=== PATIENT | female | born 1950 | race Caucasian/White ===

== ENCOUNTER 2020-07-27 13:23 | Outpatient (REF) | payer MEDICARE, OTHER, SELFPAY ==
[2020-07-28 01:36] LABS: CT PCR NOT DETECTED (Not Detect.); NG PCR NOT DETECTED (Not Detect.)
[2020-07-28 12:04] LABS: BV Int Neg Control Negative (Negative); BV Int Pos Control Positive (Positive)
== END 2020-07-27 13:24 | disposition home or self-care (01) ==
LOC: HO.LAB 13:23
PROVIDERS: PCP Internal Medicine; Visit Provider Obstetrics & Gynecology
DX: Z11.3 Encounter for screening for infections with a predominantly sexual mode of transmission (principal); R10.2 Pelvic and perineal pain
CPT/HCPCS: 87480; 87491; 87510; 87591; 87660; 99202

== ENCOUNTER 2020-08-10 11:02 | Outpatient (REF) | payer MEDICARE, OTHER, SELFPAY ==
--- NOTE | ~2020-08-10 | US_ITS ---
EXAMINATION: ULTRASOUND PELVIS COMPLETE CLINICAL INFORMATION: Pelvic pain COMPARISON: None TECHNIQUE: Transabdominal and transvaginal imaging of pelvis was performed. FINDINGS: The uterus is anteverted and anteflexed measuring 6.9 cm in length, 3.1 cm AP and 3.6 cm in transverse dimension. Endometrial thickness is 0.8 cm. There is small anechoic/cystic area seen in endometrial measuring 0.4 x 0.4 x 0.2 cm. Neither ovary is visualized. There is no free fluid in the cul-de-sac. US/US pelvic complete IMPRESSION: Unremarkable uterus with small endometrial cyst measuring 0.4 cm. Ovaries are not seen. There is no free fluid.
--- NOTE | ~2020-08-10 | US_ITS ---
EXAMINATION: ULTRASOUND PELVIS COMPLETE CLINICAL INFORMATION: Pelvic pain COMPARISON: None TECHNIQUE: Transabdominal and transvaginal imaging of pelvis was performed. FINDINGS: The uterus is anteverted and anteflexed measuring 6.9 cm in length, 3.1 cm AP and 3.6 cm in transverse dimension. Endometrial thickness is 0.8 cm. There is small anechoic/cystic area seen in endometrial measuring 0.4 x 0.4 x 0.2 cm. Neither ovary is visualized. There is no free fluid in the cul-de-sac. US/US transvaginal IMPRESSION: Unremarkable uterus with small endometrial cyst measuring 0.4 cm. Ovaries are not seen. There is no free fluid.
== END 2020-08-10 11:03 | disposition home or self-care (01) ==
LOC: HO.US 11:02
PROVIDERS: Visit Provider Obstetrics & Gynecology
DX: R10.2 Pelvic and perineal pain (principal)
CPT/HCPCS: 76830; 76856

== ENCOUNTER → 2020-08-25 10:44 | Outpatient (BNVA) | payer MEDICARE, OTHER, SELFPAY | PROVIDERS: Visit Provider Obstetrics & Gynecology | DX: R10.2 Pelvic and perineal pain (principal) | CPT/HCPCS: Q3014 ==

== ENCOUNTER 2021-04-08 11:23 | Outpatient (REF) | payer MEDICARE, OTHER, SELFPAY ==
--- NOTE | ~2021-04-08 | CT_ITS ---
EXAMINATION: CT MAXILLOFACIAL WITHOUT CONTRAST CLINICAL INFORMATION: Chronic sinusitis. COMPARISON: Brain MRI 06/07/2011. TECHNIQUE: Multidetector helical imaging was performed in the axial plane with generation of coronal and sagittal reformatted images. This CT examination was performed using dose optimization techniques as appropriate, variously including the following: *Automated exposure control *Adjustment of mA and/or kV according to patient size (this includes techniques or standardized protocols for targeted exams where dose is matched to indication/reason for exam; i.e. extremities or head) *Use of iterative reconstruction technique DLP: 113 mGy-cm. FINDINGS: The frontal sinuses are clear. There is mild mucosal thickening in the bilateral ethmoid air cells. The sphenoid sinuses are clear. The maxillary sinuses are clear. No fluid levels are seen. The nasal septum deviated towards the left. The ethmoid roofs are symmetric. There is chronic fracture deformity of the left lamina papyracea/medial orbital wall. The carotid impressions appear dehiscent into the sphenoid sinus. No maxillary periapical disease is seen. The mastoid air cells and visualized middle ear cavities are well aerated. The orbits are normal. The TMJs are unremarkable. The imaged portions of the brain demonstrate no acute abnormality. Severe degenerative changes are incidentally seen at the left lateral C1-C2 articulation. CT/CT sinus wo con IMPRESSION: Mild mucosal thickening in the posterior ethmoid air cells. The paranasal sinuses are otherwise clear without fluid levels. Leftward deviation of the nasal septum. Chronic fracture of the left medial orbital wall.
== END 2021-04-08 11:24 | disposition home or self-care (01) ==
LOC: HO.CT 11:23
PROVIDERS: PCP Internal Medicine; Visit Provider Internal Medicine
DX: J32.9 Chronic sinusitis, unspecified (principal)
CPT/HCPCS: 70486

== ENCOUNTER → 2021-06-15 11:16 | Outpatient (BNVA) | payer MEDICARE, OTHER, SELFPAY | PROVIDERS: PCP Internal Medicine; Visit Provider Obstetrics & Gynecology | DX: Z01.419 Encounter for gynecological examination (general) (routine) without abnormal findings (principal); N95.1 Menopausal and female climacteric states; Z71.89 Other specified counseling | CPT/HCPCS: 99212 ==

== ENCOUNTER 2021-09-17 10:29 | Outpatient (REF) | payer MEDICARE, OTHER, SELFPAY ==
[2021-09-17 11:25] LABS: MANUAL DIFF FLAG NO
[2021-09-17 11:34] LABS: Basophils Absolute Auto 0.1 X10*3/uL (0.0-0.2); Basophils Percent Auto 0.8 % (0-2); Eosinophils Absolute Auto 0.1 X10*3/uL (0.0-0.4); Eosinophils Percent Auto 0.8 % (0-4); Hematocrit 34.3 % (37.0-47.0); Hemoglobin 11.8 g/dl (12.0-16.0); Imm Gran Abs Auto 0.02 X10*3/uL (0.00-0.03); Imm Gran Pct Auto 0.3 % (0.0-0.4); Lymphocytes Absolute Auto 1.4 X10*3/uL (1.2-4.9); Lymphocytes Percent Auto 23.4 % (20-40); Mean Corpuscular HGB Conc 34.4 g/dl (31.0-35.0); Mean Platelet Volume 9.2 fL (9.4-12.3); Monocytes Absolute Auto 0.6 X10*3/uL (0.1-1.2); Monocytes Percent Auto 9.3 % (2-11); Neutrophils Absolute Auto 3.9 x10*3/uL (2.0-8.3); Neutrophils Percent Auto 65.4 % (45-73); Platelet Count 328 X10*3/uL (160-400); Red Blood Count 3.69 X10*6/uL (4.20-5.50); Red Cell Distribution Width 11.7 % (11.0-16.0); White Blood Count 5.9 X10*3/uL (4.8-10.8)
[2021-09-17 12:20] LABS: Alanine Aminotransferase < 6 U/L (0-31); Albumin Level 4.4 g/dL (3.5-5.0); Alkaline Phosphatase 60 U/L (39-117); Anion Gap 12 (12-20); Aspartate Amino Transferase 23 U/L (5-31); Bilirubin Total 0.7 mg/dL (0.0-1.0); Blood Urea Nitrogen 11 mg/dL (9-16); Calcium 9.9 mg/dL (8.4-10.2); Carbon Dioxide 29 mmol/L (22-29); Chloride 91 mmol/L (96-108); Cholesterol 222 mg/dL; Estimated Glomerular Filt Rate > 60; Glucose Fasting 95 mg/dL (60-99); HDL Cholesterol 90 mg/dL; LDL Cholesterol Calculated 121 mg/dl; Potassium 3.8 mmol/L (3.3-5.1); Sodium 128 mmol/L (135-145); Total Protein 6.8 g/dL (6.5-8.0); Triglycerides 56 mg/dL
== END 2021-09-17 10:30 | disposition home or self-care (01) ==
LOC: HO.10HDL 10:29
PROVIDERS: Visit Provider Internal Medicine
DX: Z00.00 Encounter for general adult medical examination without abnormal findings (principal); E03.9 Hypothyroidism, unspecified; E78.5 Hyperlipidemia, unspecified; Z13.0 Encounter for screening for diseases of the blood and blood-forming organs and certain disorders involving the immune mechanism
CPT/HCPCS: 36415; 80053; 80061; 84443; 85025

== ENCOUNTER → 2022-03-31 15:36 | Outpatient (BNVA) | payer MEDICARE, OTHER, SELFPAY | PROVIDERS: PCP Internal Medicine; Visit Provider Obstetrics & Gynecology | DX: Z71.89 Other specified counseling (principal) | CPT/HCPCS: 99211 ==

== ENCOUNTER 2022-05-10 12:16 | Outpatient (REF) | payer MEDICARE, OTHER, SELFPAY ==
[2022-05-10 13:14] LABS: MANUAL DIFF FLAG NO
[2022-05-10 14:25] LABS: Basophils Percent Auto 0.5 % (0-2); Eosinophils Percent Auto 0.2 % (0-4); Hematocrit 36.8 % (37.0-47.0); Hemoglobin 12.4 g/dl (12.0-16.0); Imm Gran Abs Auto 0.02 X10*3/uL (0.00-0.03); Imm Gran Pct Auto 0.2 % (0.0-0.4); Lymphocytes Absolute Auto 1.9 X10*3/uL (1.2-4.9); Lymphocytes Percent Auto 23.4 % (20-40); Mean Corpuscular HGB Conc 33.7 g/dl (31.0-35.0); Mean Corpuscular Hemoglobin 32.5 pg (27.0-33.0); Mean Corpuscular Volume 96.3 fL (80.0-98.0); Mean Platelet Volume 9.9 fL (9.4-12.3); Monocytes Absolute Auto 0.7 X10*3/uL (0.1-1.2); Monocytes Percent Auto 7.8 % (2-11); Neutrophils Absolute Auto 5.6 x10*3/uL (2.0-8.3); Neutrophils Percent Auto 67.9 % (45-73); Platelet Count 340 X10*3/uL (160-400); Red Blood Count 3.82 X10*6/uL (4.20-5.50); Red Cell Distribution Width 12.2 % (11.0-16.0); White Blood Count 8.3 X10*3/uL (4.8-10.8)
[2022-05-10 15:00] LABS: Anion Gap 15 (12-20); Blood Urea Nitrogen 16 mg/dL (9-16); Calcium 10.4 mg/dL (8.4-10.2); Carbon Dioxide 30 mmol/L (22-29); Chloride 96 mmol/L (96-108); Estimated Glomerular Filt Rate > 60; Glucose Random 102 mg/dL (60-115); Potassium 4.5 mmol/L (3.3-5.1); Sodium 136 mmol/L (135-145)
== END 2022-05-10 12:17 | disposition home or self-care (01) ==
LOC: HO.LAB 12:16
PROVIDERS: PCP Internal Medicine; Visit Provider Internal Medicine
DX: D64.9 Anemia, unspecified (principal); I10 Essential (primary) hypertension
CPT/HCPCS: 36415; 80048; 85025

== ENCOUNTER 2022-05-15 17:25 | Outpatient (REF) | payer MEDICARE, OTHER, SELFPAY ==
[2022-05-16 08:58] LABS: Appearance Urine Clear; Color Urine Yellow; Glucose Urine UA Negative (Negative); Leukocyte Esterase Urine Negative (Negative); Nitrite Urine Negative (Negative); PH 6.5 (5.0-9.0); UMIC TRIGGER UA YES; Urine Blood Small (1+) (Negative); Urine Ketones Negative (Negative); Urine Protein Negative (Neg-Trace)
[2022-05-16 09:06] LABS: Bacteria Urine None Seen (None Seen); Hyaline Casts Urine 0-2 /LPF (0-2); Squamous Epithelial Cell Urine 0-2 /HPF (0-2); WBC Urine 0-5 /HPF (0-5)
== END 2022-05-15 17:26 | disposition home or self-care (01) ==
LOC: HO.LNP 17:25
PROVIDERS: Visit Provider Internal Medicine
DX: R82.90 Unspecified abnormal findings in urine (principal)
CPT/HCPCS: 81001

== ENCOUNTER 2023-01-12 11:36 | Outpatient (AMB) | payer MEDICARE, OTHER, SELFPAY ==
--- NOTE | 2023-01-12 11:32 | MHC.PC.OV ---
Vital Signs 01/12/23 11:32 Height 5 ft 7 in Intake Visit Reasons: Migraine/ Nausea [phone] Allergies fluticasone [Flonase] Allergy (Unknown, Verified 01/12/23 11:32) Unknown penicillin V Allergy (Unknown, Verified 01/12/23 11:32) Unknown Medication List - Last Reconciled 01/12/23 by Kofi Fan MD azithromycin take 500 mg today (day 1), then 250 mg for 4 days (days 2-5) PO carbidopa-levodopa 25-100 mg 1 tab PO .FIVE TIMES A DAY carbidopa-levodopa 50-200 mg ER 1 tab PO BEDTIME ciprofloxacin HCl (Cipro) 250 mg PO BID dicyclomine 20 mg PO QID fluticasone propionate 50 mcg/actuation sprays intranasal hydrochlorothiazide 12.5 mg PO DAILY ondansetron HCl 4 mg PO Q8H PRN Tobacco use date assessed: 06/24/22 Fall risk assessment: 1 Fall in past year Last assessed Fall Risk: 01/12/23 Dental Screening Dental Screen Date: 01/12/23 Did you have a dental visit in the last 12 months?: Yes Did you have a dental problem in the last 6 months where you did not have access to dental care?: No Was dental information given to patient?: Patient has dentist HPI Migraine/ Nausea [phone] HPI Details difficulty sleeping with occ gasping for breath; concern raised about nikki PFSH Medical History Parkinson disease Surgical History History of cholecystectomy Family History Father Heart disease Mother No problems noted. Family/Other Breast cancer Social History Housing: House Alcohol intake: never Patient Tobacco Use Status: Never used Tobacco e-Cigarette/Vaping Use: Never Used Second Hand Smoke Exposure: No service: No Current occupational status: retired Cognitive needs: No Hearing needs: No Vision needs: Yes Female Reproductive History Menstrual Age of Menarche: 11 Questionnaire Thrive Questionnaire Date Thrive assessed: 05/10/22 MARIA ELENA-7 AMB Questionnaire MARIA ELENA-7 Date MARIA ELENA - 7 assessed: 06/01/22 Source: Developed by Drs. Chaitanya Chao, Aide Unger, Darci Patel and colleagues, with an educational krzysztof from [employer] [facility]. Review of Systems Const Denies chills, Denies headache(s) and Denies weight loss ENT Denies headache(s) Card Denies chest pain, Denies syncope and Denies irregular heart rhythm Resp Denies chest congestion and Denies cough GI Denies abdominal pain, Denies change in stool character, Denies nausea and Denies vomiting Musc Denies deformity and Denies joint swelling Neuro Denies syncope and Denies headache(s) Physical exam (Primary Care) Tobacco/Smoking Status: Tobacco use Status Tobacco use date assessed 06/24/22 01/12/23 11:35 Patient Tobacco Use Status Never used Tobacco 01/12/23 11:35 e-Cigarette/Vaping Use Never Used 01/12/23 11:35 Thrive Assessment: Date of Thrive Assessment Date Thrive assessed 05/10/22 01/12/23 11:35 Telehealth Telehealth Location of provider rendering services: practice address Location of patient: address on file Patient Identification confirmed using: Name, : Yes Telehealth method: voice only Patient verbally consented to treatment: Yes Patient verbally consented to billing insurance company: Yes Patient informed of any privacy concerns related to visit: Yes Minutes spent on Phone/Video with Pt.: 15 (telephone) Assessment and Plan Assessment & Plan (1) Apnea: Code(s): R06.81 - Apnea, not elsewhere classified Plan: sleep study Orders: Orders RT home sleep study Today R06.81 - Apnea, not elsewhere classified Coding Level of Care Code Tele Est Pt Level 3 (33061) Diagnoses Apnea R06.81
== END 2023-01-12 13:14 | disposition home or self-care (01) ==
LOC: HO.HMGH 11:36
PROVIDERS: PCP Internal Medicine; Visit Provider Internal Medicine
DX: R06.81 Apnea, not elsewhere classified (principal)
CPT/HCPCS: 99442

== ENCOUNTER → 2023-01-17 09:53 | Outpatient (REF) | payer MEDICARE, OTHER, SELFPAY | LOC: HO.SL 09:53 | PROVIDERS: Visit Provider Internal Medicine | DX: R06.81 Apnea, not elsewhere classified (principal) | CPT/HCPCS: 95806 ==

== ENCOUNTER → 2023-01-17 10:07 | Outpatient (BNV) | payer MEDICARE, OTHER, SELFPAY | PROVIDERS: Visit Provider Internal Medicine | DX: R06.83 Snoring (principal) | CPT/HCPCS: 95806 ==

== ENCOUNTER 2023-01-31 11:37 | Outpatient (AMB) | payer MEDICARE, OTHER, SELFPAY ==
[2023-01-31 11:42] VITALS: BP 126/82; PULSE 85; O2SAT 100
--- NOTE | 2023-01-31 11:42 | MHC.PC.OV ---
Vital Signs 01/31/23 11:42 Height 5 ft 7 in BP 126/82 Blood Pressure Location Lt brachial Position Sitting Pulse 85 Pulse Source Pulse Oximeter Pulse Oximetry (%) 100 Oxygen Delivery Method Room Air Intake Visit Reasons: diarrhea and nausea Resistance Brazer: Present Allergies fluticasone [Flonase] Allergy (Unknown, Verified 01/31/23 11:45) Unknown penicillin V Allergy (Unknown, Verified 01/31/23 11:45) Unknown Medication List - Last Reconciled 02/01/23 by Kofi Fan MD carbidopa-levodopa 25-100 mg 1 tab PO .FIVE TIMES A DAY carbidopa-levodopa 50-200 mg ER 1 tab PO BEDTIME dicyclomine 20 mg PO QID diphenoxylate-atropine 2.5-0.025 mg (Lomotil) 1 tab PO TID fluticasone propionate 50 mcg/actuation sprays intranasal hydrochlorothiazide 12.5 mg PO DAILY ondansetron HCl 4 mg PO Q6H PRN Tobacco use date assessed: 06/24/22 Fall risk assessment: 1 Fall in past year Last assessed Fall Risk: 01/31/23 Dental Screening Dental Screen Date: 01/31/23 Did you have a dental visit in the last 12 months?: Yes Did you have a dental problem in the last 6 months where you did not have access to dental care?: No Was dental information given to patient?: Patient has dentist HPI diarrhea and nausea HPI Details has irritable bowel syndrome; varying amounts of nausea cramps and diarrhea; has seen gi PFSH Medical History Parkinson disease Surgical History History of cholecystectomy Family History Father Heart disease Mother No problems noted. Family/Other Breast cancer Social History Housing: House Alcohol intake: never Patient Tobacco Use Status: Never used Tobacco e-Cigarette/Vaping Use: Never Used Second Hand Smoke Exposure: No service: No Current occupational status: retired Cognitive needs: No Hearing needs: No Vision needs: Yes Female Reproductive History Menstrual Age of Menarche: 11 Questionnaire Thrive Questionnaire Date Thrive assessed: 05/10/22 MARIA ELENA-7 AMB Questionnaire MARIA ELENA-7 Date MARIA ELENA - 7 assessed: 06/01/22 Source: Developed by Drs. Chaitanya Chao, Aide Unger, Darci Patel and colleagues, with an educational krzysztof from [employer]. Review of Systems Const Denies chills, Denies headache(s) and Denies weight loss ENT Denies headache(s) Card Denies chest pain, Denies syncope, Denies irregular heart rhythm and Denies dyspnea Resp Denies chest congestion, Denies cough and Denies dyspnea GI Denies vomiting Musc Denies deformity and Denies joint swelling Neuro Denies syncope and Denies headache(s) Physical exam (Primary Care) Vital Signs: Last Vital Signs Pulse 85 01/31/23 11:42 BP 126/82 01/31/23 11:42 Pulse Ox 100 01/31/23 11:42 Oxygen Delivery Method Room Air 01/31/23 11:42 Tobacco/Smoking Status: Tobacco use Status Tobacco use date assessed 06/24/22 01/31/23 11:49 Patient Tobacco Use Status Never used Tobacco 01/31/23 11:49 e-Cigarette/Vaping Use Never Used 01/31/23 11:49 Thrive Assessment: Date of Thrive Assessment Date Thrive assessed 05/10/22 01/31/23 11:49 Const General: cooperative, comfortable, no acute distress and alert Neck Neck: Yes no lymphadenopathy Thyroid: Thyroid normal Resp Effort & Inspection: normal respiratory effort Auscultation: clear to auscultation bilaterally Percussion: percussion normal Cardio Jugular venous distension: no JVD Palpation: normal PMI Rate: regular rate Rhythm: regular rhythm Heart sounds: S1 normal heart sound present and S2 normal heart sound present GI Inspection: Yes normal to inspection Palpation (GI): No hepatosplenomegaly present Skin General skin exam: no rashes or lesions noted Extrem General: Yes no clubbing, cyanosis or edema Assessment and Plan Assessment & Plan (1) Irritable bowel disease: Code(s): K58.9 - Irritable bowel syndrome without diarrhea Plan: cont rx Medications: New ondansetron HCl 4 mg PO Q6H PRN 30 tabs 2RF nausea and vomiting diphenoxylate-atropine 2.5-0.025 mg (Lomotil) 1 tab PO TID 30 tabs 0RF Refilled dicyclomine 20 mg PO QID 30 tabs 3RF Coding Level of Care Code Est Pt Level 3 (82173) Diagnoses Irritable bowel disease K58.9
== END 2023-01-31 12:10 | disposition home or self-care (01) ==
PROVIDERS: PCP Internal Medicine; Visit Provider Internal Medicine
DX: K58.9 Irritable bowel syndrome, unspecified (principal)
CPT/HCPCS: 99213

== ENCOUNTER 2023-04-28 10:34 | Outpatient (AMB) | payer MEDICARE, OTHER, SELFPAY ==
[2023-04-28 10:35] VITALS: BP 140/68; PULSE 118; O2SAT 100; BMI 17.4
--- NOTE | 2023-04-28 10:35 | A.OFFPC_ITS ---
Vital Signs 04/28/23 10:35 Height 5 ft 7 in Weight 111 lb 0.6 oz BMI 17.4 BP 140/68 H Blood Pressure Location Lt brachial Position Sitting Pulse 118 H Pulse Source Pulse Oximeter Pulse Oximetry (%) 100 Oxygen Delivery Method Room Air Intake Visit Reasons: assisted living forms [employer] Required: No Allergies fluticasone [Flonase] Allergy (Unknown, Verified 04/28/23 10:35) Unknown penicillin V Allergy (Unknown, Verified 04/28/23 10:35) Unknown Medication List - Last Reconciled 04/28/23 by Kofi Fan MD carbidopa-levodopa 25-100 mg 1 tab PO .FIVE TIMES A DAY carbidopa-levodopa 50-200 mg ER 1 tab PO BEDTIME clonazepam 0.5 mg PO BID dicyclomine 20 mg PO QID diphenoxylate-atropine 2.5-0.025 mg (Lomotil) 1 tab PO TID fluticasone propionate 50 mcg/actuation sprays intranasal hydrochlorothiazide 12.5 mg PO DAILY ondansetron HCl 4 mg PO Q6H PRN Tobacco use date assessed: 04/28/23 Fall risk assessment: No Falls in past year Last assessed Fall Risk: 04/28/23 Dental Screening Dental Screen Date: 04/28/23 Did you have a dental visit in the last 12 months?: Yes Did you have a dental problem in the last 6 months where you did not have access to dental care?: No Was dental information given to patient?: Patient has dentist HPI assisted living forms HPI Details parkinsons dis; stable on rx; will be moving into assisted living [facility] Medical History Parkinson disease Surgical History History of cholecystectomy Family History Father Heart disease Mother No problems noted. Family/Other Breast cancer Social History Housing: House Alcohol intake: never Patient Tobacco Use Status: Never used Tobacco e-Cigarette/Vaping Use: Never Used Second Hand Smoke Exposure: No service: No Current occupational status: retired Cognitive needs: No Hearing needs: No Vision needs: Yes Female Reproductive History Menstrual Age of Menarche: 11 Questionnaire PHQ-9 Over the last 2 weeks, how often have you been bothered by any of the following problems? 1. Little interest or pleasure in doing things: not at all 2. Feeling down, depressed, or hopeless: not at all 3. Trouble falling or staying asleep, or sleeping too much: not at all 4. Feeling tired or having little energy: not at all 5. Poor appetite or overeating: not at all 6. Feeling bad about yourself - or that you are a failure or have let yourself or your family down: not at all 7. Trouble concentrating on things, such as reading the newspaper or watching television: not at all 8. Moving or speaking so slowly that other people could have noticed. Or the opposite - being so fidgety or restless that you have been moving around a lot more than usual: not at all 9. Thoughts that you would be better off or of hurting yourself in some way: not at all Total score: 0 Depression Screening Interpretation: Positive Depression Screening Done: Yes 23615 - PHQ-9 Billing: Yes Source: Developed by Drs. Chaitanya Chao, Aide Unger, Darci Patel and colleagues, with an educational krzysztof from [employer]. Thrive Questionnaire Date Thrive assessed: 04/28/23 AUDIT C Alcohol Use Questionnaire (AUDIT-C) 1. How often do you have a drink containing alcohol?: Never 3. How often do you have six or more drinks on one occasion?: Never Total Score: 0 Score Reviewed/Action Taken: Yes MARIA ELENA-7 AMB Questionnaire MARIA ELENA-7 Date MARIA ELENA - 7 assessed: 04/28/23 Feeling nervous, anxious, or on edge: 3 = Nearly every day Not being able to stop or control worryin = Nearly every day Worrying too much about different things: 3 = Nearly every day Trouble relaxin = Nearly every day Being so restless that it is hard to sit still: 3 = Nearly every day Becoming easily annoyed or irritable: 3 = Nearly every day Feeling afraid as if something awful might happen: 3 = Nearly every day Total MARIA ELENA-7 score (0-4 normal; 5-9 mild; 10-14 moderate; 15-21 severe): 21 Source: Developed by Drs. Chaitanya Chao, Aide Unger, Darci Patel and colleagues, with an educational krzysztof from [employer]. MARIA ELENA-7 Assessment Billing MARIA ELENA-7 Assessment Tool: MARIA ELENA-7 Assessment [id number] Review of Systems Const Denies chills, Denies headache(s) and Denies weight loss ENT Denies headache(s) Card Denies chest pain, Denies syncope, Denies irregular heart rhythm and Denies dyspnea Resp Denies chest congestion, Denies cough and Denies dyspnea GI Denies abdominal pain, Denies change in stool character, Denies nausea and Denies vomiting Musc Denies deformity and Denies joint swelling Neuro Denies syncope and Denies headache(s) Physical exam (Primary Care) Vital Signs: Last Vital Signs Pulse 118 H 04/28/23 10:35 BP 140/68 H 04/28/23 10:35 Pulse Ox 100 04/28/23 10:35 Oxygen Delivery Method Room Air 04/28/23 10:35 BMI result Body Mass Index 17.4 Tobacco/Smoking Status: Tobacco use Status Tobacco use date assessed 04/28/23 04/28/23 10:36 Patient Tobacco Use Status Never used Tobacco 04/28/23 10:36 e-Cigarette/Vaping Use Never Used 04/28/23 10:36 PHQ-9: PHQ-9 Score PHQ-9: Total score 0 04/28/23 10:43 Depression Screening Interpretation: Positive Thrive Assessment: Date of Thrive Assessment Date Thrive assessed 04/28/23 04/28/23 10:36 Const General: cooperative, comfortable, no acute distress and alert Neck Neck: Yes no lymphadenopathy Thyroid: Thyroid normal Resp Effort & Inspection: normal respiratory effort Auscultation: clear to auscultation bilaterally Percussion: percussion normal Cardio Jugular venous distension: no JVD Palpation: normal PMI Rate: regular rate Rhythm: regular rhythm Heart sounds: S1 normal heart sound present and S2 normal heart sound present GI Inspection: Yes normal to inspection Palpation (GI): No hepatosplenomegaly present Skin General skin exam: no rashes or lesions noted Extrem General: Yes no clubbing, cyanosis or edema Assessment and Plan Assessment & Plan (1) Parkinson disease: Code(s): G20 - Parkinson's disease Plan: cont with neuro Coding Level of Care Code Est Pt Level 3 (23888) Diagnoses Parkinson disease G20 Additional Codes MARIA ELENA-7 Assessment Billing - MARIA ELENA-7 Assessment Tool: MARIA ELENA-7 Assessment [id number] ([id number])
== END 2023-04-28 12:25 | disposition home or self-care (01) ==
PROVIDERS: PCP Internal Medicine; Visit Provider Internal Medicine
DX: G20.C Parkinsonism, unspecified (principal)
CPT/HCPCS: 99213

== ENCOUNTER 2023-05-24 09:47 | Outpatient (AMB) | payer MEDICARE, OTHER, SELFPAY ==
[2023-05-24 09:49] VITALS: BP 124/86; PULSE 100; O2SAT 98
--- NOTE | 2023-05-24 09:49 | A.OFFPC_ITS ---
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 Allergies fluticasone [Flonase] Allergy (Unknown, Verified 05/24/23 09:49) Unknown penicillin V Allergy (Unknown, Verified 05/24/23 09:49) Unknown Medication List - Last Reconciled 05/24/23 by Kofi Fan MD carbidopa-levodopa 25-100 mg 1 tab PO .FIVE TIMES A DAY fluticasone propionate 50 mcg/actuation sprays intranasal hydrochlorothiazide 12.5 mg PO DAILY Tobacco use date assessed: 04/28/23 Fall risk assessment: No Falls in past year Last assessed Fall Risk: 05/24/23 HPI Florin Shanks HPI Details chronic anxiety; given lorazepam when in the hospital last and [facility] Medical History Parkinson disease Surgical History History of cholecystectomy Family History Father Heart disease Mother No problems noted. Family/Other Breast cancer Social History Housing: House Alcohol intake: never Patient Tobacco Use Status: Never used Tobacco e-Cigarette/Vaping Use: Never Used Second Hand Smoke Exposure: No service: No Current occupational status: retired Cognitive needs: No Hearing needs: No Vision needs: Yes Female Reproductive History Menstrual Age of Menarche: 11 Questionnaire Thrive Questionnaire Date Thrive assessed: 04/28/23 MARIA ELENA-7 AMB Questionnaire MARIA ELENA-7 Date MARIA ELENA - 7 assessed: 04/28/23 Source: Developed by Drs. Chaitanya Chao, Aide Unger, Darci Patel and colleagues, with an educational krzysztof from [employer]. Review of Systems Const Denies chills, Denies headache(s) and Denies weight loss ENT Denies headache(s) Card Denies chest pain, Denies syncope, Denies irregular heart rhythm and Denies dyspnea Resp Denies chest congestion, Denies cough and Denies dyspnea GI Denies abdominal pain, Denies change in stool character, Denies nausea and Denies vomiting Musc Denies deformity and Denies joint swelling Neuro Denies syncope and Denies headache(s) Physical exam (Primary Care) Vital Signs: Last Vital Signs Pulse 100 05/24/23 09:49 BP 124/86 05/24/23 09:49 Pulse Ox 98 05/24/23 09:49 Oxygen Delivery Method Room Air 05/24/23 09:49 Tobacco/Smoking Status: Tobacco use Status Tobacco use date assessed 04/28/23 05/24/23 09:50 Patient Tobacco Use Status Never used Tobacco 05/24/23 09:50 e-Cigarette/Vaping Use Never Used 05/24/23 09:50 Thrive Assessment: Date of Thrive Assessment Date Thrive assessed 04/28/23 05/24/23 09:50 Const General: cooperative, comfortable, no acute distress and alert Neck Neck: Yes no lymphadenopathy Thyroid: Thyroid normal Resp Effort & Inspection: normal respiratory effort Auscultation: clear to auscultation bilaterally Percussion: percussion normal Cardio Jugular venous distension: no JVD Palpation: normal PMI Rate: regular rate Rhythm: regular rhythm Heart sounds: S1 normal heart sound present and S2 normal heart sound present GI Inspection: Yes normal to inspection Palpation (GI): No hepatosplenomegaly present Skin General skin exam: no rashes or lesions noted Extrem General: Yes no clubbing, cyanosis or edema Assessment and Plan Assessment & Plan (1) Anxiety: Code(s): F41.9 - Anxiety disorder, unspecified Plan: rx sent Medications: New lorazepam 1 mg PO BID PRN 60 tabs 2RF anxiety Coding Level of Care Code Est Pt Level 3 (19457) Diagnoses Anxiety F41.9
== END 2023-05-24 11:26 | disposition home or self-care (01) ==
PROVIDERS: PCP Internal Medicine; Visit Provider Internal Medicine
DX: F41.9 Anxiety disorder, unspecified (principal)
CPT/HCPCS: 99213

== ENCOUNTER 2023-06-13 09:39 | Outpatient (AMB) | payer MEDICARE, OTHER, SELFPAY ==
[2023-06-13 09:40] VITALS: BP 116/64; PULSE 93; O2SAT 98; BMI 17.3
--- NOTE | 2023-06-13 09:40 | A.OFFPC_ITS ---
Vital Signs 06/13/23 09:40 Height 5 ft 7 in Weight 110 lb 3.698 oz BMI 17.3 BP 116/64 Blood Pressure Location Lt brachial Position Sitting Pulse 93 Pulse Source Pulse Oximeter Pulse Oximetry (%) 98 Oxygen Delivery Method Room Air Intake Visit Reasons: helena ball, nausea,sob Women'S Studies Professor Required: No Environmental Conservation Professor: Not Required per policy Accompanied by: Self / Same As Patient Allergies penicillin V Allergy (Unknown, Verified 06/13/23 09:41) Unknown Medication List - Last Reconciled 06/14/23 by Kofi Fan MD carbidopa-levodopa 25-100 mg 1 tab PO .FIVE TIMES A DAY fluticasone propionate 50 mcg/actuation sprays intranasal hydrochlorothiazide 12.5 mg PO DAILY hydroxyzine HCl 25 mg PO QID PRN lorazepam 1 mg PO BID PRN Tobacco use date assessed: 04/28/23 Fall risk assessment: No Falls in past year Last assessed Fall Risk: 06/13/23 Dental Screening Dental Screen Date: 06/13/23 Did you have a dental visit in the last 12 months?: Yes Did you have a dental problem in the last 6 months where you did not have access to dental care?: No Was dental information given to patient?: Patient has dentist HPI helena ball, malvin,sob HPI Details chronic nausea and anxiety PFSH Medical History Parkinson disease Surgical History History of cholecystectomy Family History Father Heart disease Mother No problems noted. Family/Other Breast cancer Social History Housing: House Alcohol intake: never Patient Tobacco Use Status: Never used Tobacco e-Cigarette/Vaping Use: Never Used Second Hand Smoke Exposure: No service: No Current occupational status: retired Cognitive needs: No Hearing needs: No Vision needs: Yes Female Reproductive History Menstrual Age of Menarche: 11 Questionnaire Thrive Questionnaire Date Thrive assessed: 04/28/23 MARIA ELENA-7 AMB Questionnaire MARIA ELENA-7 Date MARIA ELENA - 7 assessed: 04/28/23 Source: Developed by Drs. Chaitanya Chao, Aide Unger, Darci Patel and colleagues, with an educational krzysztof from [employer]. Review of Systems Const Denies chills, Denies headache(s) and Denies weight loss ENT Denies headache(s) Card Denies chest pain, Denies syncope, Denies irregular heart rhythm and Denies dyspnea Resp Denies chest congestion, Denies cough and Denies dyspnea GI Denies abdominal pain, Denies change in stool character and Denies vomiting Musc Denies deformity and Denies joint swelling Neuro Denies syncope and Denies headache(s) Physical exam (Primary Care) Vital Signs: Last Vital Signs Pulse 93 06/13/23 09:40 BP 116/64 06/13/23 09:40 Pulse Ox 98 06/13/23 09:40 Oxygen Delivery Method Room Air 06/13/23 09:40 BMI result Body Mass Index 17.3 Tobacco/Smoking Status: Tobacco use Status Tobacco use date assessed 04/28/23 06/13/23 09:43 Patient Tobacco Use Status Never used Tobacco 06/13/23 09:43 e-Cigarette/Vaping Use Never Used 06/13/23 09:43 Thrive Assessment: Date of Thrive Assessment Date Thrive assessed 04/28/23 06/13/23 09:43 Const General: cooperative, comfortable, no acute distress and alert Neck Neck: Yes no lymphadenopathy Thyroid: Thyroid normal Resp Effort & Inspection: normal respiratory effort Auscultation: clear to auscultation bilaterally Percussion: percussion normal Cardio Jugular venous distension: no JVD Palpation: normal PMI Rate: regular rate Rhythm: regular rhythm Heart sounds: S1 normal heart sound present and S2 normal heart sound present GI Inspection: Yes normal to inspection Palpation (GI): No hepatosplenomegaly present Skin General skin exam: no rashes or lesions noted Extrem General: Yes no clubbing, cyanosis or edema Assessment and Plan Assessment & Plan (1) Anxiety: Code(s): F41.9 - Anxiety disorder, unspecified Plan: rx sent Medications: New hydroxyzine HCl 25 mg PO QID PRN 60 tabs 3RF itching Coding Level of Care Code Est Pt Level 3 (33351) Diagnoses Anxiety F41.9
== END 2023-06-13 10:06 | disposition home or self-care (01) ==
PROVIDERS: PCP Internal Medicine; Visit Provider Internal Medicine
DX: F41.9 Anxiety disorder, unspecified (principal)
CPT/HCPCS: 99213

== ENCOUNTER 2023-06-27 11:14 | Outpatient (AMB) | payer MEDICARE, OTHER, SELFPAY ==
[2023-06-27 11:16] VITALS: BP 132/78; PULSE 101; O2SAT 96; BMI 17.5
--- NOTE | 2023-06-27 11:16 | A.OFFPC_ITS ---
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 Cyclone Repairer Required: No Allergies penicillin V Allergy (Unknown, Verified 06/27/23 11:17) Unknown Medication List - Last Reconciled 06/28/23 by Kofi Fan MD carbidopa-levodopa 25-100 mg 1 tab PO .FIVE TIMES A DAY ciprofloxacin HCl (Cipro) 250 mg PO BID fluticasone propionate 50 mcg/actuation sprays intranasal hydrochlorothiazide 12.5 mg PO DAILY hydroxyzine HCl 25 mg PO QID PRN lorazepam 1 mg PO BID PRN Tobacco use date assessed: 06/27/23 Fall risk assessment: No Falls in past year Last assessed Fall Risk: 06/27/23 Dental Screening Dental Screen Date: 06/13/23 HPI migraines HPI Details recurrent migraines; takes ibuprofen with relief; needs a refill sent COUNT [facility]CLUD[facility] Medical History Parkinson disease Surgical History History of cholecystectomy Family History Father Heart disease Mother No problems noted. Family/Other Breast cancer Social History Housing: House Alcohol intake: never Patient Tobacco Use Status: Never used Tobacco e-Cigarette/Vaping Use: Never Used Second Hand Smoke Exposure: No service: No Current occupational status: retired Cognitive needs: No Hearing needs: No Vision needs: Yes Female Reproductive History Menstrual Age of Menarche: 11 Questionnaire Thrive Questionnaire Date Thrive assessed: 04/28/23 AUDIT C Alcohol Use Questionnaire (AUDIT-C) 1. How often do you have a drink containing alcohol?: Never 3. How often do you have six or more drinks on one occasion?: Never Total Score: 0 Score Reviewed/Action Taken: Yes MARIA ELENA-7 AMB Questionnaire MARIA ELENA-7 Date MARIA ELENA - 7 assessed: 04/28/23 Source: Developed by Drs. Chaitanya Chao, Aide Unger, Darci Patel and colleagues, with an educational krzysztof from [employer]. Review of Systems Const Denies chills and Denies weight loss Card Denies chest pain, Denies syncope, Denies irregular heart rhythm and Denies dyspnea Resp Denies chest congestion, Denies cough and Denies dyspnea GI Denies abdominal pain, Denies change in stool character, Denies nausea and Denies vomiting Musc Denies deformity and Denies joint swelling Neuro Denies syncope Physical exam (Primary Care) Vital Signs: Last Vital Signs Pulse 101 H 06/27/23 11:16 BP 132/78 06/27/23 11:16 Pulse Ox 96 06/27/23 11:16 Oxygen Delivery Method Room Air 06/27/23 11:16 BMI result Body Mass Index 17.5 Tobacco/Smoking Status: Tobacco use Status Tobacco use date assessed 06/27/23 06/27/23 11:24 Patient Tobacco Use Status Never used Tobacco 06/27/23 11:16 e-Cigarette/Vaping Use Never Used 06/27/23 11:16 Thrive Assessment: Date of Thrive Assessment Date Thrive assessed 04/28/23 06/27/23 11:16 Const General: cooperative, comfortable, no acute distress and alert Neck Neck: Yes no lymphadenopathy Thyroid: Thyroid normal Resp Effort & Inspection: normal respiratory effort Auscultation: clear to auscultation bilaterally Percussion: percussion normal Cardio Jugular venous distension: no JVD Palpation: normal PMI Rate: regular rate Rhythm: regular rhythm Heart sounds: S1 normal heart sound present and S2 normal heart sound present GI Inspection: Yes normal to inspection Palpation (GI): No hepatosplenomegaly present Skin General skin exam: no rashes or lesions noted Extrem General: Yes no clubbing, cyanosis or edema Assessment and Plan Assessment & Plan (1) Migraine headache: Code(s): G43.909 - Migraine, unspecified, not intractable, without status migrainosus Plan: rx sent Coding Level of Care Code Est Pt Level 3 (53730) Diagnoses Migraine headache G43.909
== END 2023-06-27 11:40 | disposition home or self-care (01) ==
PROVIDERS: PCP Internal Medicine; Visit Provider Internal Medicine
DX: G43.909 Migraine, unspecified, not intractable, without status migrainosus (principal)
CPT/HCPCS: 99213

== ENCOUNTER 2023-09-29 09:31 | Outpatient (AMB) | payer MEDICARE, OTHER, SELFPAY ==
[2023-09-29 09:36] VITALS: BP 120/86; PULSE 94; O2SAT 99; BMI 19.1
--- NOTE | 2023-09-29 09:36 | MHC.PC.OV ---
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 Service Associate Required: No Accompanied by: Noreen-Home Health aid Allergies penicillin V Allergy (Unknown, Verified 09/29/23 09:41) Unknown Medication List - Last Reconciled 10/02/23 by Kofi Fan MD carbidopa-levodopa 25-100 mg 1 tab PO .FIVE TIMES A DAY fluticasone propionate 50 mcg/actuation sprays intranasal hydrochlorothiazide 12.5 mg PO DAILY hydroxyzine HCl 25 mg PO QID PRN lorazepam 1 mg PO BID PRN Tobacco use date assessed: 06/27/23 Fall risk assessment: No Falls in past year Last assessed Fall Risk: 09/29/23 Dental Screening Dental Screen Date: 06/13/23 HPI 3mth f/u HPI Details parkinson's disease; sees neuro; stable [facility] Medical History Parkinson disease Surgical History History of cholecystectomy Family History Father Heart disease Mother No problems noted. Family/Other Breast cancer Social History Housing: House Alcohol intake: never Patient Tobacco Use Status: Never used Tobacco e-Cigarette/Vaping Use: Never Used Second Hand Smoke Exposure: No service: No Current occupational status: retired Cognitive needs: No Hearing needs: No Vision needs: Yes Female Reproductive History Menstrual Age of Menarche: 11 Questionnaire Thrive Questionnaire Date Thrive assessed: 04/28/23 MARIA ELENA-7 AMB Questionnaire MARIA ELENA-7 Date MARIA ELENA - 7 assessed: 04/28/23 Source: Developed by Drs. Chaitanya Chao, Aide Unger, Darci Patel and colleagues, with an educational krzysztof from [employer]. Review of Systems Const Denies chills, Denies headache(s) and Denies weight loss ENT Denies headache(s) Card Denies chest pain, Denies syncope, Denies irregular heart rhythm and Denies dyspnea Resp Denies chest congestion, Denies cough and Denies dyspnea GI Denies abdominal pain, Denies change in stool character, Denies nausea and Denies vomiting Musc Denies deformity and Denies joint swelling Neuro Denies syncope and Denies headache(s) Physical exam (Primary Care) Vital Signs: Last Vital Signs Pulse 94 09/29/23 09:36 BP 120/86 09/29/23 09:36 Pulse Ox 99 09/29/23 09:36 Oxygen Delivery Method Room Air 09/29/23 09:36 BMI result Body Mass Index 19.1 Tobacco/Smoking Status: Tobacco use Status Tobacco use date assessed 06/27/23 09/29/23 09:46 Patient Tobacco Use Status Never used Tobacco 09/29/23 09:46 e-Cigarette/Vaping Use Never Used 09/29/23 09:46 Thrive Assessment: Date of Thrive Assessment Date Thrive assessed 04/28/23 09/29/23 09:46 Const General: cooperative, comfortable, no acute distress and alert Neck Neck: Yes no lymphadenopathy Thyroid: Thyroid normal Resp Effort & Inspection: normal respiratory effort Auscultation: clear to auscultation bilaterally Percussion: percussion normal Cardio Jugular venous distension: no JVD Palpation: normal PMI Rate: regular rate Rhythm: regular rhythm Heart sounds: S1 normal heart sound present and S2 normal heart sound present GI Inspection: Yes normal to inspection Palpation (GI): No hepatosplenomegaly present Skin General skin exam: no rashes or lesions noted Extrem General: Yes no clubbing, cyanosis or edema Assessment and Plan Assessment & Plan (1) Parkinson disease: Code(s): G20 - Parkinson's disease Plan: refer to [facility] neuro Orders: Referrals Neurology Referral G20 - Parkinson's disease Coding Level of Care Code Est Pt Level 3 (18608) Diagnoses Parkinson disease G20
== END 2023-09-29 10:07 | disposition home or self-care (01) ==
PROVIDERS: PCP Internal Medicine; Visit Provider Internal Medicine
DX: G20.C Parkinsonism, unspecified (principal)
CPT/HCPCS: 99213

== ENCOUNTER 2023-11-16 11:00 | Outpatient (AMB) | payer MEDICARE, OTHER, SELFPAY ==
--- NOTE | 2023-11-16 11:01 | A.OFFPC_ITS ---
Intake Visit Reasons: f/u last appt -- [phone] Allergies penicillin V Allergy (Unknown, Verified 11/16/23 11:01) Unknown Medication List - Last Reconciled 11/17/23 by Kofi Fan MD carbidopa-levodopa 25-100 mg 1 tab PO .FIVE TIMES A DAY fluticasone propionate 50 mcg/actuation sprays intranasal hydrochlorothiazide 12.5 mg PO DAILY hydroxyzine HCl 25 mg PO QID PRN lorazepam 1 mg PO BID PRN Tobacco use date assessed: 06/27/23 Fall risk assessment: No Falls in past year Last assessed Fall Risk: 11/16/23 Dental Screening Dental Screen Date: 06/13/23 HPI f/u last appt -- [phone] HPI Details Parkinson s disease; sees neuro; stable [facility] Medical History Parkinson disease Surgical History History of cholecystectomy Family History Father Heart disease Mother No problems noted. Family/Other Breast cancer Social History Housing: House Alcohol intake: never Patient Tobacco Use Status: Never used Tobacco Tobacco use type: Cigarette e-Cigarette/Vaping Use: Never Used Second Hand Smoke Exposure: No service: No Current occupational status: retired Cognitive needs: No Hearing needs: No Vision needs: Yes Female Reproductive History Menstrual Age of Menarche: 11 Questionnaire Thrive Questionnaire Date Thrive assessed: 04/28/23 MARIA ELENA-7 AMB Questionnaire MARIA ELENA-7 Date MARIA ELENA - 7 assessed: 04/28/23 Source: Developed by Drs. Chaitanya Chao, Aide Unger, Darci Patel and colleagues, with an educational krzysztof from [employer]. Review of Systems Const Denies chills, Denies headache(s) and Denies weight loss ENT Denies headache(s) Card Denies chest pain, Denies syncope, Denies irregular heart rhythm and Denies dyspnea Resp Denies chest congestion, Denies cough and Denies dyspnea GI Denies abdominal pain, Denies change in stool character, Denies nausea and Denies vomiting Musc Denies deformity and Denies joint swelling Neuro Denies syncope and Denies headache(s) Physical exam (Primary Care) Tobacco/Smoking Status: Tobacco use Status Tobacco use date assessed 06/27/23 11/16/23 11:02 Patient Tobacco Use Status Never used Tobacco 11/16/23 11:02 Tobacco use type Cigarette 11/16/23 11:02 e-Cigarette/Vaping Use Never Used 11/16/23 11:02 Thrive Assessment: Date of Thrive Assessment Date Thrive assessed 04/28/23 11/16/23 11:02 Telehealth Telehealth Telehealth Platform: Telephone Location of provider rendering services: practice address Location of patient: address on file Patient Identification confirmed using: Name, : Yes Telehealth method: voice only Patient verbally consented to treatment: Yes Patient verbally consented to billing insurance company: Yes Patient informed of any privacy concerns related to visit: Yes Minutes spent on Phone/Video with Pt.: 15 (telephone) Assessment and Plan Assessment & Plan (1) Parkinson disease: Code(s): G20 - Parkinson's disease Plan: stable; same rx Coding Level of Care Code Tele Est Pt Level 3 (57280) Diagnoses Parkinson disease G20
== END 2023-11-16 13:00 | disposition home or self-care (01) ==
LOC: HO.HMGH 11:00
PROVIDERS: PCP Internal Medicine; Visit Provider Internal Medicine
DX: G20.C Parkinsonism, unspecified (principal)
CPT/HCPCS: 99442

== ENCOUNTER 2023-11-22 12:03 | Outpatient (REF) | payer MEDICARE, OTHER, SELFPAY ==
[2023-11-22 17:27] LABS: Bacterial Vaginosis PCR NEGATIVE (Negative); Candida Group PCR NOT DETECTED (Not Detect); Candida glab krusei PCR NOT DETECTED (Not Detect); Trichomonas vaginalis PCR NOT DETECTED (Not Detect)
[2023-11-22 17:34] LABS: CT PCR NOT DETECTED (Not Detect.); NG PCR NOT DETECTED (Not Detect.)
== END 2023-11-22 12:04 | disposition home or self-care (01) ==
LOC: HO.LNP 12:03
PROVIDERS: PCP Internal Medicine; Visit Provider Obstetrics & Gynecology
DX: N89.8 Other specified noninflammatory disorders of vagina (principal); R31.29 Other microscopic hematuria
CPT/HCPCS: 0352U; 87086; 87491; 87591; 99212

== ENCOUNTER 2023-11-22 12:03 | Outpatient (AMB) | payer MEDICARE, OTHER, SELFPAY ==
--- NOTE | 2023-11-22 12:07 | A.OFFVIS_ITS ---
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 The patient was evaluated for UTI at call you taken since few weeks ago according to her urine culture was negative, no reports available [facility] Medical History Parkinson disease Surgical History History of cholecystectomy Family History Father Heart disease Mother No problems noted. Family/Other Breast cancer Social History Housing: House Alcohol intake: never Patient Tobacco Use Status: Never used Tobacco Tobacco use type: Cigarette e-Cigarette/Vaping Use: Never Used Second Hand Smoke Exposure: No service: No Current occupational status: retired Cognitive needs: No Hearing needs: No Vision needs: Yes Female Reproductive History Menstrual Age of Menarche: 11 Review of Systems Const All systems reviewed & are unremarkable except as noted in HPI and below Physical Exam Vital Signs: BMI result Body Mass Index 19.0 General: Yes no CVA tenderness External Female Exam: normal external appearance and normal appearance of the urethra Speculum Exam - Vagina: normal appearance of the vagina, normal palpation, no lesions and no masses Speculum Exam - Cervix: normal appearance of the cervix, normal palpation, no lesions, no masses and nontender Bimanual exam- vagina & uterus: normal bimanual exam, normal palpation, uterine size normal, normal palpation, uterine shape normal, No Cervical tenderness present and non-tender Bimanual Exam- Adnexa, other: normal adnexae Back/Spine/Pelvis Back: no CVA tenderness Assessment & Plan Assessment & Plan (1) Vaginal odor: Code(s): N89.8 - Other specified noninflammatory disorders of vagina Category: Medical Plan: GC and chlamydia cultures with BV panel taken. Will check the results and treat accordingly (2) Microscopic hematuria: Code(s): R31.29 - Other microscopic hematuria Category: Medical Plan: Urine dip showed microscopic hematuria, urine culture sent. Will repeat urine dip in 2 weeks. Discussed with the patient the possible causes of microscopic hematuria including but not limited to: interstitial cystitis, polyps, stones, masses, urethral inflammatory processes and others. If Urine Culture is negative and repeat urine dip in 2 weeks shows persistent microscopic hematuria, will proceed with CT abdomen/pelvis and urology referral. Instructions given the patient to schedule a 2 week urine dip follow-up appointment. All questions answered and the patient verbalized understanding. Coding Level of Care Code Est Pt Level 3 (79143) Diagnoses Vaginal odor N89.8 Microscopic hematuria R31.29
[2023-11-22 12:11] VITALS: BMI 19.0
== END 2023-11-22 12:43 | disposition home or self-care (01) ==
LOC: HO.HWS 12:03
PROVIDERS: PCP Internal Medicine; Visit Provider Obstetrics & Gynecology
DX: N89.8 Other specified noninflammatory disorders of vagina (principal); R31.29 Other microscopic hematuria
CPT/HCPCS: 99213

== ENCOUNTER 2023-12-05 09:41 | Outpatient (REF) | payer MEDICARE, OTHER, SELFPAY ==
[2023-12-05 11:49] LABS: Blood Urea Nitrogen 19 mg/dL (9-16); Estimated Glomerular Filt Rate > 60
== END 2023-12-05 09:42 | disposition home or self-care (01) ==
LOC: HO.LAB 09:41
PROVIDERS: PCP Internal Medicine; Visit Provider Obstetrics & Gynecology
DX: R31.29 Other microscopic hematuria (principal)
CPT/HCPCS: 36415; 81002; 82565; 84520; 99212

== ENCOUNTER 2023-12-05 09:41 | Outpatient (AMB) | payer MEDICARE, OTHER, SELFPAY ==
[2023-12-05 09:49] VITALS: BMI 19.0
--- NOTE | 2023-12-05 09:49 | MHC.OFFVIS ---
Vital Signs 12/05/23 09:49 Height 5 ft 7 in Weight 121 lb 4.068 oz BMI 19.0 Intake Visit Reasons: 2 weeks urine dip Allergies penicillin V Allergy (Unknown, Verified 11/22/23 12:13) Unknown HPI Comments Details: Presenting for repeat urine dip for microscopic hematuria. Urine culture was negative [facility] Medical History Parkinson disease Surgical History History of cholecystectomy Family History Father Heart disease Mother No problems noted. Family/Other Breast cancer Social History Housing: House Alcohol intake: never Patient Tobacco Use Status: Never used Tobacco Tobacco use type: Cigarette e-Cigarette/Vaping Use: Never Used Second Hand Smoke Exposure: No service: No Current occupational status: retired Cognitive needs: No Hearing needs: No Vision needs: Yes Female Reproductive History Menstrual Age of Menarche: 11 Review of Systems Const All systems reviewed & are unremarkable except as noted in HPI and below Reports as per HPI and Reports no additional complaints GI Reports no additional complaints Reports no additional complaints Physical Exam Vital Signs: BMI result Body Mass Index 19.0 Results AMB Urinalysis Dipstick UR Leukocytes Trace Last Edit by Melvi Lopez CMA on 12/05/23 10:03 UR Nitrite Negative Last Edit by Melvi Lopez CMA on 12/05/23 10:03 UR Urobilinogen Normal Last Edit by Melvi Lopez CMA on 12/05/23 10:03 UR Protein Trace Last Edit by Melvi Lopez CMA on 12/05/23 10:03 UR Ph 6.0 Last Edit by Melvi Lopez CMA on 12/05/23 10:03 UR Blood Small Last Edit by Melvi Lopez CMA on 12/05/23 10:03 UR Specific [place] 1.015 Last Edit by Melvi Lopez CMA on 12/05/23 10:03 UR Ketone Trace Last Edit by Melvi Lopez CMA on 12/05/23 10:03 UR Bilirubin Negative Last Edit by Melvi Lopez CMA on 12/05/23 10:03 UR Glucose Negative Last Edit by Melvi Lopez CMA on 12/05/23 10:03 Assessment & Plan Assessment & Plan (1) Microscopic hematuria: Code(s): R31.29 - Other microscopic hematuria Category: Medical Plan: Repeat urine dip showed persistent microscopic hematuria. Will order CT scan of abdomen and pelvis and refer to urology. Discussed with the patient the possible causes of microscopic hematuria including but not limited to: interstitial cystitis, polyps, stones, masses, urethral inflammatory processes and others. All questions answered and the patient verbalized understanding. Orders: Orders AMB Urinalysis Dipstick Today R31.29 - Other microscopic hematuria CT abdomen pelvis wo/w IV con Today R31.29 - Other microscopic hematuria Referrals Urology Referral R31.29 - Other microscopic hematuria Coding Level of Care Code Est Pt Level 3 (83718) Diagnoses Microscopic hematuria R31.29
== END 2023-12-05 10:19 | disposition home or self-care (01) ==
LOC: HO.HWS 09:41
PROVIDERS: PCP Internal Medicine; Visit Provider Obstetrics & Gynecology
DX: R31.29 Other microscopic hematuria (principal)
CPT/HCPCS: 99213

== ENCOUNTER 2024-01-05 09:26 | Outpatient (AMB) | payer MEDICARE, OTHER, SELFPAY ==
--- NOTE | 2024-01-05 09:28 | A.OFFPC_ITS ---
Vital Signs 01/05/24 09:29 Height 5 ft 7 in Weight 125 lb 4 oz BMI 19.6 BP 110/60 Blood Pressure Location Lt brachial Position Sitting Intake Visit Reasons: 3mth f/u - due for colo/breast screening Intake Note: Patient is here to follow up on Parkinson, HTN, IBS. Pt decline flu shot today. Car Wash Manager Required: No Receptionist Airline Lounge: Not Required per policy Accompanied by: Self / Same As Patient Allergies penicillin V Allergy (Unknown, Verified 01/05/24 09:28) Unknown Medication List - Last Reconciled 01/08/24 by Kofi Fan MD carbidopa-levodopa 25-100 mg 1 tab PO .FIVE TIMES A DAY fluticasone propionate 50 mcg/actuation sprays intranasal hydrochlorothiazide 12.5 mg PO DAILY hydroxyzine HCl 25 mg PO QID PRN lorazepam 1 mg PO BID PRN Tobacco use date assessed: 01/05/24 Fall risk assessment: No Falls in past year Last assessed Fall Risk: 01/05/24 Dental Screening Dental Screen Date: 06/13/23 HPI 3mth f/u - due for colo/breast screening HPI Details HTN on Rx; compliant with meds [facility] Medical History Parkinson disease Surgical History History of cholecystectomy Family History Father Heart disease Mother No problems noted. Family/Other Breast cancer Social History Housing: House Alcohol intake: never Patient Tobacco Use Status: Never used Tobacco Tobacco use type: Cigarette e-Cigarette/Vaping Use: Never Used Second Hand Smoke Exposure: No service: No Current occupational status: retired Cognitive needs: No Hearing needs: No Vision needs: Yes Female Reproductive History Menstrual Age of Menarche: 11 Questionnaire Thrive Questionnaire Date Thrive assessed: 04/28/23 MARIA ELENA-7 AMB Questionnaire MARIA ELENA-7 Date MARIA ELENA - 7 assessed: 04/28/23 Source: Developed by Drs. Chaitanya Chao, Aide Unger, Darci Patel and colleagues, with an educational krzysztof from [employer] Review of Systems Const Denies chills, Denies headache(s) and Denies weight loss ENT Denies headache(s) Card Denies chest pain, Denies syncope, Denies irregular heart rhythm and Denies dyspnea Resp Denies chest congestion, Denies cough and Denies dyspnea GI Denies abdominal pain, Denies change in stool character, Denies nausea and Denies vomiting Musc Denies deformity and Denies joint swelling Neuro Denies syncope and Denies headache(s) Physical exam (Primary Care) Vital Signs: Last Vital Signs BP 110/60 01/05/24 09:29 BMI result Body Mass Index 19.6 Tobacco/Smoking Status: Tobacco use Status Tobacco use date assessed 01/05/24 01/05/24 09:33 Patient Tobacco Use Status Never used Tobacco 01/05/24 09:33 Tobacco use type Cigarette 01/05/24 09:33 e-Cigarette/Vaping Use Never Used 01/05/24 09:33 Thrive Assessment: Date of Thrive Assessment Date Thrive assessed 04/28/23 01/05/24 09:33 Const General: cooperative, comfortable, no acute distress and alert Neck Neck: Yes no lymphadenopathy Thyroid: Thyroid normal Resp Effort & Inspection: normal respiratory effort Auscultation: clear to auscultation bilaterally Percussion: percussion normal Cardio Jugular venous distension: no JVD Palpation: normal PMI Rate: regular rate Rhythm: regular rhythm Heart sounds: S1 normal heart sound present and S2 normal heart sound present GI Inspection: Yes normal to inspection Palpation (GI): No hepatosplenomegaly present Skin General skin exam: no rashes or lesions noted Extrem General: Yes no clubbing, cyanosis or edema Coding Level of Care Code Est Pt Level 3 (76853) Diagnoses Hypertension I10 Assessment & Plan Assessment & Plan (1) Hypertension: Code(s): I10 - Essential (primary) hypertension Category: Medical Plan: stable; same rx
[2024-01-05 09:29] VITALS: BP 110/60; BMI 19.6
== END 2024-01-05 09:50 | disposition home or self-care (01) ==
PROVIDERS: PCP Internal Medicine; Visit Provider Internal Medicine
DX: I10 Essential (primary) hypertension (principal)

== ENCOUNTER → 2024-01-05 09:26 | Outpatient (BNVA) | payer MEDICARE, OTHER, SELFPAY | PROVIDERS: PCP Internal Medicine; Visit Provider Internal Medicine | DX: I10 Essential (primary) hypertension (principal); Z79.899 Other long term (current) drug therapy | CPT/HCPCS: 99212 ==

== ENCOUNTER 2024-02-06 09:37 | Outpatient (REF) | payer MEDICARE, OTHER, SELFPAY ==
[2024-02-06] MEDS: iohexoL 350 MG/ML 100 ML INFUS..BTL IV (10:45)
[2024-02-07 09:59] LABS: Creatinine POC 0.9 mg/dL (0.5-1.4); GFR POC 1
== END 2024-02-06 09:38 | disposition home or self-care (01) ==
LOC: HO.CT 09:37
PROVIDERS: PCP Internal Medicine; Visit Provider Obstetrics & Gynecology
DX: R31.29 Other microscopic hematuria (principal)
CPT/HCPCS: 74178; 82565; Q9967

== ENCOUNTER → 2024-02-06 09:40 | Outpatient (BNV) | payer MEDICARE, OTHER, SELFPAY | PROVIDERS: PCP Internal Medicine; Visit Provider Radiology Diagnostic Radiology | DX: N28.1 Cyst of kidney, acquired (principal) | CPT/HCPCS: 74178 ==

== ENCOUNTER 2024-02-20 09:32 | Outpatient (AMB) | payer MEDICARE, OTHER, SELFPAY ==
[2024-02-20 09:38] VITALS: BP 138/82; PULSE 94; O2SAT 96; BMI 19.5
--- NOTE | 2024-02-20 09:38 | A.OFFPC_ITS ---
Vital Signs 02/20/24 09:38 Height 5 ft 7 in Weight 124 lb 4 oz BMI 19.5 BP 138/82 Blood Pressure Location Lt brachial Position Sitting Pulse 94 Pulse Source Pulse Oximeter Pulse Oximetry (%) 96 Oxygen Delivery Method Room Air Intake Visit Reasons: Headaches Collaborating Supervising Physician Required: No Accompanied by: Self / Same As Patient Allergies penicillin V Allergy (Unknown, Verified 02/20/24 09:39) Unknown Medication List - Last Reconciled 02/20/24 by Kofi Fan MD carbidopa-levodopa 25-100 mg 1 tab PO .FIVE TIMES A DAY fluticasone propionate 50 mcg/actuation sprays intranasal hydrochlorothiazide 12.5 mg PO DAILY hydroxyzine HCl 25 mg PO QID PRN lorazepam 1 mg PO BID PRN Tobacco use date assessed: 02/20/24 Fall risk assessment: No Falls in past year Last assessed Fall Risk: 02/20/24 Dental Screening Dental Screen Date: 02/20/24 Did you have a dental visit in the last 12 months?: Yes Did you have a dental problem in the last 6 months where you did not have access to dental care?: No Was dental information given to patient?: Patient has dentist HPI Headaches HPI Details facial pressure for a few weeks [facility] Medical History Parkinson disease Surgical History History of cholecystectomy Family History Father Heart disease Mother No problems noted. Family/Other Breast cancer Social History Housing: House Alcohol intake: never Patient Tobacco Use Status: Never used Tobacco Tobacco use type: Cigarette e-Cigarette/Vaping Use: Never Used Second Hand Smoke Exposure: No service: No Current occupational status: retired Cognitive needs: No Hearing needs: No Vision needs: Yes Female Reproductive History Menstrual Age of Menarche: 11 Questionnaire PHQ-9 Over the last 2 weeks, how often have you been bothered by any of the following problems? 1. Little interest or pleasure in doing things: not at all 2. Feeling down, depressed, or hopeless: not at all 3. Trouble falling or staying asleep, or sleeping too much: not at all 4. Feeling tired or having little energy: not at all 5. Poor appetite or overeating: not at all 6. Feeling bad about yourself - or that you are a failure or have let yourself or your family down: not at all 7. Trouble concentrating on things, such as reading the newspaper or watching television: not at all 8. Moving or speaking so slowly that other people could have noticed. Or the opposite - being so fidgety or restless that you have been moving around a lot more than usual: not at all 9. Thoughts that you would be better off or of hurting yourself in some way: not at all Total score: 0 Depression Screening Interpretation: Positive Depression Screening Done: Yes 33714 - PHQ-9 Billing: Yes Source: Developed by Drs. Chaitanya Chao, Aide Unger, Darci Patel and colleagues, with an educational krzysztof from [employer]. Thrive Questionnaire Date Thrive assessed: 02/20/24 I am a: Patient What is your living situation today?: I have a steady place to live Within the past 12 months, did the food you bought not last and you didn't have the money to get more?: Never true Within the past 12 months, did you worry whether your food would run out before you got money to buy more?: Never true Do you have trouble paying for medicines?: No Do you have trouble getting transportation to medical appointments?: No Do you have trouble paying your heating and electricity bill?: No Do you have trouble taking care of your child, family member or friend?: No Do you have trouble with day-to-day activities such as bathing, preparing meals, shopping, managing finances, etc.?: No Are you currently unemployed and looking for a job?: No Are you interested in more education?: No Please select the resources that you would like help with: None Currently or been in a relationship where the following occur: No concerns reported THRIVE Score: 0 AUDIT C Alcohol Use Questionnaire (AUDIT-C) 1. How often do you have a drink containing alcohol?: Never 3. How often do you have six or more drinks on one occasion?: Never Total Score: 0 Score Reviewed/Action Taken: Yes MARIA ELENA-7 AMB Questionnaire MARIA ELENA-7 Date MARIA ELENA - 7 assessed: 02/20/24 Feeling nervous, anxious, or on edge: 0 = Not at all Not being able to stop or control worryin = Not at all Worrying too much about different things: 0 = Not at all Trouble relaxin = Not at all Being so restless that it is hard to sit still: 0 = Not at all Becoming easily annoyed or irritable: 0 = Not at all Feeling afraid as if something awful might happen: 0 = Not at all Total MARIA ELENA-7 score (0-4 normal; 5-9 mild; 10-14 moderate; 15-21 severe): 0 Source: Developed by Drs. Chaitanya Chao, Aide Unger, Darci Patel and colleagues, with an educational krzysztof from [employer]. Review of Systems Const Denies chills, Denies headache(s) and Denies weight loss ENT Denies headache(s) Card Denies chest pain, Denies syncope, Denies irregular heart rhythm and Denies dyspnea Resp Denies chest congestion, Denies cough and Denies dyspnea GI Denies abdominal pain, Denies change in stool character, Denies nausea and Denies vomiting Musc Denies deformity and Denies joint swelling Neuro Denies syncope and Denies headache(s) Physical exam (Primary Care) Vital Signs: Last Vital Signs Pulse 94 02/20/24 09:38 BP 138/82 02/20/24 09:38 Pulse Ox 96 02/20/24 09:38 Oxygen Delivery Method Room Air 02/20/24 09:38 BMI result Body Mass Index 19.5 Tobacco/Smoking Status: Tobacco use Status Tobacco use date assessed 02/20/24 02/20/24 09:43 Patient Tobacco Use Status Never used Tobacco 02/20/24 09:43 Tobacco use type Cigarette 02/20/24 09:43 e-Cigarette/Vaping Use Never Used 02/20/24 09:43 PHQ-9: PHQ-9 Score PHQ-9: Total score 0 02/20/24 09:43 Depression Screening Interpretation: Positive Thrive Assessment: Date of Thrive Assessment Date Thrive assessed 02/20/24 02/20/24 09:43 Currently or been in a relationship where the following occur: No concerns reported Const General: cooperative, comfortable, no acute distress and alert Neck Neck: Yes no lymphadenopathy Thyroid: Thyroid normal Resp Effort & Inspection: normal respiratory effort Auscultation: clear to auscultation bilaterally Percussion: percussion normal Cardio Jugular venous distension: no JVD Palpation: normal PMI Rate: regular rate Rhythm: regular rhythm Heart sounds: S1 normal heart sound present and S2 normal heart sound present GI Inspection: Yes normal to inspection Palpation (GI): No hepatosplenomegaly present Skin General skin exam: no rashes or lesions noted Extrem General: Yes no clubbing, cyanosis or edema Coding Level of Care Code Est Pt Level 3 (73010) Diagnoses Sinusitis J32.9 Additional Codes PHQ-9 - 46820 - PHQ-9 Billing: Yes ([id number]) Assessment & Plan Assessment & Plan (1) Sinusitis: Code(s): J32.9 - Chronic sinusitis, unspecified Category: Medical Plan: rx sent Medications: New azithromycin take 500 mg today (day 1), then 250 mg for 4 days (days 2-5) PO 6 tabs 0RF
== END 2024-02-20 10:02 | disposition home or self-care (01) ==
PROVIDERS: PCP Internal Medicine; Visit Provider Internal Medicine
DX: J32.9 Chronic sinusitis, unspecified (principal)

== ENCOUNTER → 2024-02-20 09:32 | Outpatient (BNVA) | payer MEDICARE, OTHER, SELFPAY | PROVIDERS: PCP Internal Medicine; Visit Provider Internal Medicine | DX: J32.9 Chronic sinusitis, unspecified (principal) | CPT/HCPCS: 96127; 99212 ==

== ENCOUNTER 2024-02-23 09:34 | Outpatient (AMB) | payer MEDICARE, OTHER, SELFPAY ==
--- NOTE | 2024-02-23 09:40 | MHC.OFFVIS ---
Intake Visit Reasons: microscopic hematuria Allergies penicillin V Allergy (Unknown, Verified 02/20/24 09:39) Unknown HPI Comments Details: Flores is a pleasant female. She is a patient of Dr. Fan. She is seen for the following urologic conditions - persistent microscopic hematuria Microscopic hematuria Has not seen blood Persistent during evaluations with MONITORING AND EVALUATION ADVISOR CT reviewed appears normal. Final report pending Plan office cysto PFSH Medical History Parkinson disease Surgical History History of cholecystectomy Family History Father Heart disease Mother No problems noted. Family/Other Breast cancer Social History Housing: House Alcohol intake: never Patient Tobacco Use Status: Never used Tobacco Tobacco use type: Cigarette e-Cigarette/Vaping Use: Never Used Second Hand Smoke Exposure: No service: No Current occupational status: retired Cognitive needs: No Hearing needs: No Vision needs: Yes Female Reproductive History Menstrual Age of Menarche: 11 Review of Systems Const Denies chills and Denies fever(s) Card Reports no additional complaints and Denies syncope Resp Denies cough GI Denies abdominal pain and Denies heartburn Reports as per HPI and Denies change in libido Neuro Denies syncope Psych Denies change in libido Endo Denies change in libido Physical Exam Const General: cooperative, healthy appearing, comfortable and no acute distress Orientation/consciousness: patient oriented x3 HEENT Face and sinus: Yes normal facial exam Mouth: moist mucous membranes Neck Neck: Yes normal visual inspection, Yes full ROM and Yes trachea midline Chest Chest palpation & inspection: normal inspection of the chest Resp Effort & Inspection: normal respiratory effort, able to speak in complete sentences and no respiratory distress GI Inspection: Yes normal to inspection Back/Spine/Pelvis Cervical Spine: normal cervical lordosis Thoracic/Lumbar Spine: thoracic and lumbar spine normal to inspection Skin General skin exam: no rashes or lesions noted Neuro General: patient oriented x3, gait normal, tone normal and moves all extremities Extrem General: Yes normal to inspection and Yes capillary refill normal Assessment & Plan Assessment & Plan (1) Microscopic hematuria: Code(s): R31.29 - Other microscopic hematuria Category: Medical Plan Office cystoscopy Patient Instructions: Imaging studies, laboratory and physical exam results were discussed and reviewed in detail. No major barriers to patient understanding were identified. An opportunity to ask questions regarding the treatment plan was provided. All questions were answered. The patient expressed understanding and agreement with the above treatment plan. The patient is aware they should contact our office by phone for worsening of their current condition or the appearance of new urologic symptoms. Compliance is encouraged with any medications and followup testing that is ordered. It is a privilege to participate in the urologic care of your patient. If you have any questions or concerns regarding treatment for the above conditions, or other urologic issues, please do not hesitate to contact me. The office telephone contact is [phone]. This note is constructed using voice recognition software. While every effort has been made to ensure accuracy canine deputy errors may have been included. Yours sincerely, Dr Buster Torres MD, [facility] - Urology Providers of Expert, Compassionate Care for the Genitourinary System Coding Level of Care Code New Pt Level 3 (52078) Diagnoses Microscopic hematuria R31.29
--- OUTSIDE RECORDS SUMMARY | 2024-02-28 07:02 | XMS_ITS | Data Portability ---
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 She denies any burning with urination. She does have chronic low back pain which has not gotten any worse during this time. She is denying any suprapubic tenderness. No fevers or chills. She has been eating and drinking normally. Exam: On exam patient is awake and alert, afebrile. She is hypertensive on exam but offers that she has white coat hypertension. No headaches. Lungs clear to auscultation bilaterally, heart rate regular. No CVA tenderness bilaterally, no suprapubic tenderness. DDx considered, but not limited to:Urinalysis and symptoms consistent with urinary tract infection. Pyelonephritis is unlikely as patient has no fevers and no CVA tenderness. Sepsis unlikely as patient is afebrile and hemodynamically stable. Cystitis also considered and a trophic vaginitis. Work up/Results:Urinaly sis positive for leukocytes and blood, urine culture pending. Plan/Discussion:I discussed the urinalysis results with the patient. She was given a dose of Keflex in the home today and a prescription was sent to her pharmacy. I have advised her to stay well hydrated. I did explain her urine will be sent for culture and she needs a different antibiotic based off of what this grew [facility] was prescribed this. I did review signs of worsening infection with the patient. She verbalized understanding of discharge instructions as well as emergency room precautions. Proper Personal Protective Equipment (PPE), including gloves, eye protection and masks were donned and doffed appropriately and all equipment cleaned using approved technique with germicidal disposable wipes prior to and after care of this patient according to [facility] infection [facility] protocols. Time On Scene with Patient: 00:31:27 [email or web address] Not available 12/19/2019 20:44:48 10/17/2021 10/17/2021 Time On Scene with Patient: 01:06:09 - Referred - Point of Care: Emergency Department 71 YO F established with however new to provider. She complains of migraine headache for one week accompanied with nausea. She is on HCTZ for bp management and states previous medication prescribed has made her feel short of breath. States she contacted her PCP last Monday and was told to take 3-4 Advil. She took a total of 14 tablets today. She describes pain behind both eyes and constant. She was seen at ER in 04/2021 and diagnosed with ocular migraine. She denies any double vision, flashing lights, or eye discharge. She also complains of back pain, which is chronic with treatment including cortisone injections, with last injection 3 years ago. Vital Signs: Stable Exam: Patient appears to be weak and unable to stand without assistance. Lying in bed and standing throughout visit. Appears to be very uncomfortable. HEENT: Normocephalic, atraumatic, PERRLA, EOMI, nares patent,oral mucous membrane moist, neck supple Resp: No dyspnea, BLCTA, no use of accessory muscles. Able to complete sentence CV: RRR S1,S2 Neuro: No facial drooping, partial weakness or paralysis, facial muscles with symmetry when smiling.Normal pin prick test.+3 patellar reflex . BUE strength equal and BLE strength equal. Psych: Alert and oriented Plan: Do to subjective and physical finding it is best that the patient seek emergency care for further evaluation and possible treatment. 911 was contacted. Report was given to EMS in written and oral format. [facility] . [email or web address] Not available 10/17/2021 17:31:29 Plan of Treatment Reminders Order Date Submit Date Provider Last Modified By Organization Details Last Modified Time Details Appointments None recorded. Lab urinalysis, dipstick 2019 [email or web address] [facility] - Home, [address], [place], [address], 0 17:31:59 culture, urine - [facility] T[facility], [address] [place], [address], 0 08:10:48 Referral None recorded. Procedures None recorded. Surgeries None recorded. Imaging None recorded. Medication Orders cephalexin 500 mg capsule 2019 [email or web address] [id number] [id number], [address] [place], [address], 2 15:30:25 Keflex 500 mg capsule 2019 [email or web address] [id number], [address] [place], [address], 2 15:30:25 Patient TargetsNo targets recorded. Patient Instructions Encounter Date Encounter Id Patient Instructions Last Modified By Organization Details Last Modified Time 12/19/2019 [id number] WE CAME TO SEE Y OU TODAY FOR CONCERNS OF URINARY FREQUENCY, YOUR URINE IS SUGGESTIVE OF INFECTION, I AM GIVING YOU A DOSE OF ANTIBIOTICS TODAY AND ALSO SENDING A SCRIPT TO THE PHARMACY FOR YOU I AM SENDING YOUR URINE FOR CULTURE, IF YOU NEED A DIFFERENT ANTIBIOTIC BASED OFF OF THIS WE WILL PRESCRIBE THAT FOR YOU URINARY TRACT INFECTION INSTRUCTIONS BASIC INFORMATION Urinary tract infections(UTI) can involve any portion of the urinary tract. The most common presentation is a bladder infection/cystitis, which usually presents with urinary frequency, burning with urination, urgency, foul smelling cloudy urine and occasionally blood. Kidney infections are less frequent, but more serious, and present with fever, flank pain, malaise and sometimes shaking chills. UTI? s are common in women because of the female anatomy, and much less common in males. INSTRUCTIONS Drink plenty of fluid, water is best. Drinking fluids will help to flush the bacteria from your body. Urinate every 2-3 hours Wear cotton underwear and avoid Nylon, Spandex and Lycra which tend to trap moisture and thong underwear which may facilitate UTI? s. Avoid tub baths Avoid using Super Tampons Use only mild unscented soap to wash your genitals, such as Dove or Ivory, avoid heavily scented body washes. If you are sexually active urinate as soon as possible after intercourse. Yogurt and probiotics may help to establish a more healthy genital environment, and aid in prevention. MEDICATIONS 1.Antibiotics: Usually prescribed if you have a UTI, there are many different effective antibiotics available. It is important that you complete the course of antibiotics you are given. You should feel some improvement within 24-48 hours, if you do not it may be that the bacteria causing your infection is resistant to the prescribed medication. If a urine culture is obtained it will usually take at least 3-4 days to get the final result. 2. Anesthetic/Pain relievers: Phenazopyridine (Pyridium, Uribelle, AZO) is an anesthetic excreted in the urine. This medicine will turn your urine BRIGHT ORANGE! This is normal, and may stain your underwear can contacts. Take this medication as directed with food. 3. Tylenol and Ibuprofen can be helpful for the pain, fever and body aches that can be associated with a kidney infection. Please follow recommended dosing instructions on the bottle. FOLLOW UP 1. If your symptoms are not improving in 24-48 hours 2. If your symptoms are getting more severe 3. Any unusual vaginal discharge 4. Symptoms recur after you complete medication SEEK CARE IMMEDIATELY IF 1.You have shaking chills or temperature over 101.5 2. Severe flank pain 3. Persistent vomiting, unable to keep fluids or medicine down. 4. Worse despite medication. If you develop any new or worsening symptoms and need after hours care, please go to nearest ER and/or call 911. If you have additional concerns or develop a change in your condition between 8am-10pm, please call [facility] at [phone] to help navigate your care. [email or web address] Not available 12/19/2019 17:33:40 10/17/2021 [id number] Thank you for yo ur visit with [facility] today. You were seen today because of your headache. 911 was contacted so that further evaluation and possible treatment can be done. Please follow up with PCP. [email or web address] Not available 10/17/2021 17:16:51 Reason for Referral None Reported. Results Created Date Observation Date Name Description Value Unit Range Abnormal Flag Note LastModifiedBy Organization Detail LastModifiedTime 12/19/2019 urina lysis , dipst ick Appearance clear Not Available Spr - [facility] [address] [place], [address], 12/19/2019 17:23:27 12/19/2019 urina lysis , dipst ick Color yellow Not Available Spr - Home [address] [place], [address], 12/19/2019 17:23:27 12/19/2019 urina lysis , dipst ick Glucose negati ve Not Available Spr - Home [address] [place], [address], 12/19/2019 17:23:27 12/19/2019 urina lysis , dipst ick Bilirubin negati ve Not Available Spr - Home [address] [place], [address], 12/19/2019 17:23:27 12/19/2019 urina lysis , dipst ick Ketones NEG Not Available Spr - Home [address] [place], [address], 12/19/2019 17:23:27 12/19/2019 urina lysis , dipst ick Sp. [place] 1.010 Not Available Spr - Home [address] [place], [address], 12/19/2019 17:23:27 12/19/2019 urina lysis , dipst ick Blood ++ Not Available Spr - Home [address] [place], [address], 12/19/2019 17:23:27 12/19/2019 urina lysis , dipst ick pH 5 Not Available Spr - Home [address] [place], [address], 12/19/2019 17:23:27 12/19/2019 urina lysis , dipst ick Protein negati ve Not Available Spr - Home [address] [place], [address], 12/19/2019 17:23:27 12/19/2019 urina lysis , dipst ick Urobilirubin negati ve Not Available Spr - Home [address], [place], [address], 12/19/2019 17:23:27 12/19/2019 urina lysis , dipst ick Nitrites NEG Not Available Spr - [place] [address] [place], [address], 12/19/2019 17:23:27 12/19/2019 urina lysis , dipst ick Leukocytes + Not Available Spr - [place] [address] [place], [address], 12/19/2019 17:23:27 12/19/19 20 12/20/2019 cultu re, urine specimen description URINE Not Available [facility] [address] [place], [address], 12/21/2019 08:10:48 12/19/1912/20/2019 cultu re, urine special requests NONE Not Available [facility] [address] [place], [address], 12/21/2019 08:10:48 12/19/1912/21/2019 cultu re, urine culture NO GROWTH Not Available [facility] [address] [place], [address], 12/21/2019 08:10:48 12/19/1912/21/2019 cultu re, urine report status FINAL 2019 Not Available [facility] [address] [place], [address], 12/21/2019 08:10:48 Result Notes None recorded. Procedures Surgical History Date Name Laterality Status Provider Name and Address Organization Details Recorded Time 12/19/19 Medication Review completed SACHI WOOD NP [address], [place], [address], [place] [facility] 12/19/2019 20:44:52 Imaging Results None recorded. Procedure Notes None recorded. Medical Equipment None Reported. Allergies Allergen ID Allergen Name Allergen Category Reaction Reaction Severity Criticality Documentation Date Start Date Code Code System Note Provider Name and Address Organization Details Recorded Time 916168 Medicinal product containin g penicilli n and acting as antibacte rial agent (product) medicatio n Not available Not available Not available 12/19/2019 79723 05 SNOMED SACHI WOOD , LIANA [address], [place], [address], [place] [facility] 0 17:18:46 Medications Name Sig Start Date Stop Date Status Note LastModified by Organization Details LastModified Time azithromyci n 250 mg tablet TAKE 2 TABLETS BY MOUTH TODAY, THEN TAKE 1 TABLET DAILY FOR 4 DAYS 10/17 completed Not Available Not Available Not Available medroxyprog esterone 2.5 mg tablet TAKE 1 TABLET BY MOUTH EVERY DAY active Not Available Not Available No t Available prochlorper azine maleate 5 mg tablet TAKE 1 TABLET BY MOUTH THREE TIMES A DAY NEEDED FOR NAUSEA AND VOMITING active Not Available Not Available No t Available carbidopa ER 50 mg-levodopa 200 mg tablet,exte nded release TAKE 1 TABLET BY MOUTH EVERYDAY AT BEDTIME active Not Available Not Available No t Available atenolol 25 mg tablet TAKE 1 TABLET BY MOUTH EVERY DAY 10/17 completed Not Available Not Available Not Available amlodipine 5 mg tablet TAKE 1 TABLET BY MOUTH EVERY DAY 10/17 completed Not Available Not Available Not Available sulfamethox azole 800 mg-trimetho prim 160 mg tablet TAKE 1 TABLET BY MOUTH TWICE A DAY 10/17 completed Not Available Not Available Not Available tramadol 50 mg tablet TAKE 1 TABLET BY MOUTH EVERY 6 HOURS NEEDED FOR PAIN 12/18 completed Not Available Not Available Not Available amitriptyli ne 25 mg tablet 12/18 completed Not Available Not Available Not Available lorazepam 0.5 mg tablet TAKE 1 TABLET BY MOUTH 3 TIMES A DAY NEEDED FOR ANXIETY active Not Available Not Available No t Available cephalexin 500 mg capsule Take 1 capsule twice a day by oral route for 7 days. 10/17 completed Not Available Not Available Not Available ibuprofen 400 mg tablet 10/17 completed Not Available Not Available Not Available lorazepam 1 mg tablet active Not Available Not Available No t Available carbidopa 25 mg-levodopa 100 mg tablet TAKE 1 TABLET BY MOUTH 6 (SIX) TIMES A DAY. active Not Available Not Available No t Available fluticasone propionate 50 mcg/actuati on nasal spray,suspe nsion USE 2 PUFFS ONCE DAILY active Not Available Not Available No t Available diazepam 5 mg tablet TAKE 1 TABLET BY MOUTH 1 HOUR PRIOR TO PROCEDURE active Not Available Not Available No t Available Premarin 0.3 mg tablet TAKE 1 TABLET BY MOUTH EVERY DAY active Not Available Not Available No t Available hydrochloro thiazide 12.5 mg tablet TAKE 1 TABLET BY MOUTH EVERY DAY active Not Available Not Available No t Available Vitals Date Recorded Heart rate Body temperature Respiratory rate Oxygen saturation Oxygen saturation in Arterial blood by Pulse oximetry Systolic blood pressure Diastolic blood pressure Provider Name and Address Organization Details Last Updated DateTime 0 90 /min 98.4 [degF] 18 /min 97 % 97 % 184 mm[Hg] 92 mm[Hg] Not Available [facility] 0 17:24:47 Date Recorded Heart rate Oxygen saturation Oxygen saturation in Arterial blood by Pulse oximetry Body temperature Respiratory rate Systolic blood pressure Diastolic blood pressure Provider Name and Address Organization Details Last Updated DateTime 2 104 /min 97 % 97 % 97.9 [degF] 18 /min 134 mm[Hg] 82 mm[Hg] Not Available [facility] 2 15:50:34 Social History Question Answer Notes LastModified by Organizat ion Details LastModified Time Tobacco Smoking Status Never Smoker SACHI WOOD NP [address], [place], [address], [place] [facility] 12/19/2019 17:21:18 What Is Your Code Status? Full Code [email or web address] Information not available 12/19/2019 Within The Past 12 Months, Has It Happened That The Food You Bought Just Didn't Last And You Didn't Have Money To Get More. No [email or web address] Information not available 12/19/2019 Within The Past 12 Months, Have You Worried That Your Food Would Run Out Before You Got Money To Buy More. No Information not available 12/19/2019 Fall Risk: Do You Feel Unsteady When Standing Or Walking? No [email or web address] Information not available 12/19/2019 We Know That How And When People Interact With Friends And Family Can Be Very Different From Person To Person. How Often Do You Have The Opportunity To See Or Talk To People That You Care About And Feel Close To? (Ex: Talking To Friends On The Phone Or Visiting Friends Or Family Or Going To [employer] Or Club Meetings) 3 Or 4 Times Per Week [email or web address] Information not available 12/19/2019 We Know From Many Of Our Patients That Covering All Of Their Costs Can Be Difficult At Times. This Can Cause Stress And Impact Health. In The Past Year, Have You Been Unable To Get Any Of The Following When It Was Really Needed? No [email or web address] Information not available 12/19/2019 What Is Your Housing Situation Today? I Have Housing [email or web address] Information not available 12/19/2019 Would You Like Help Connecting To Resources? None [email or web address] Information not available 12/19/2019 Sex: Unknown Functional Status None recorded. Mental Status None recorded. Family History Relationship Description Onset Age of this Age Resolved Age Notes LastModified by Organization Details LastModified Time Father Congestive heart failure [email or web address] Not available 03/2019 17:23:15 Medical History Condition Response Diabetes N Coronary Artery Disease N Cancer N Stroke N Depression COPD N Asthma N High Cholesterol N Pulmonary Embolism N Hypertension Y Kidney Disease N Gynecological HistoryNo gynecological history recorded. Obstetrics History GPAL:G 0 P 0 0 0 0 Past Encounters Encounter ID Performer Location Encounter Start Date Encounter Closed Date Diagnosis/Indication Diagnosis SNOMED-CT Code Diagnosis ICD10 Code [id number] SACHI WOOD NP [facility] [address] [place] [address] 12/19/2019 17:03:12 12/22/2019 22:24:53 Urinary tract infectious disease 68085605 N39.0 [id number] September LIANA Etienne [facility] [address] [place] [address] 10/17/2021 15:12:14 10/18/2021 09:16:19 Ocular headache 26639511 G43.B0 Muscle weakness 62697730 M62.81 Health Concerns Section Related Observation LastModified by Organization Detai ls LastModified Time None Recorded Concern Status LastModified by Organization Details LastModified Time None Recorded Advance Directives Directive None Recorded Payers Encounter Date Sequence Insurance Name Policy Number Policy Cronin Covered Member ID Cronin Member ID Guarantor Name 12/19/2019 1 MEDICARE B-[place]: [facility] Loren High [id number] Loren High 12/19/2019 2 [facility] [id number] Loren High [id number] Loren High 10/17/2021 1 MEDICARE B-[place]: [facility] Loren High [id number] Loren High Notes Date Note Type Note Provider Name and Address Organization Details Recorded Time 12/19/2019 text/html This is a 69-year-old female that is a new patient [facility]. She has a medical history significant for hypertension, Parkinson's and anxiety. She contacted [facility] because she has been having urinary frequency for the past couple of weeks which has gotten much worse last night. She says that normally she wakes up once in the evening to avoid bad to wake up more than 4 times last night. She is denying any burning with urination. She does report low back pain but this seems to be more due to degenerative disc disease than anything acute. She denies any fevers and chills, she has been eating and drinking normally. SACHI WOOD NP [address], [place], [address], [place] [facility] 12/19/2019 20:45:02 10/17/2021 text/html 71 YO F established with however new to provider. She complains of migraine headache for one week accompanied with nausea. She is on HCTZ for bp management and states previous medication prescribed has made her feel short of breath. States she contacted her PCP last Monday and was told to take 3-4 Advil. She took a total of 14 tablets today. She describes pain behind both eyes and constant. She was seen at ER in 04/2021 and diagnosed with ocular migraine. She denies any double vision, flashing lights, or eye discharge. She also complains of back pain, which is chronic with treatment including cortisone injections, with last injection 3 years ago. Kisha Etienne NP [address], [place], [address], [place] [facility] 10/17/2021 17:31:42 OBGyn Episode No OBEpisode recorded.
== END 2024-02-23 10:30 | disposition home or self-care (01) ==
PROVIDERS: PCP Internal Medicine; Visit Provider Urology
DX: R31.29 Other microscopic hematuria (principal)
CPT/HCPCS: 99203

== ENCOUNTER → 2024-02-23 09:34 | Outpatient (BNVA) | payer MEDICARE, OTHER, SELFPAY | PROVIDERS: PCP Internal Medicine; Visit Provider Urology | DX: R31.29 Other microscopic hematuria (principal) | CPT/HCPCS: 99202 ==

== ENCOUNTER 2024-04-16 09:15 | Outpatient (AMB) | payer MEDICARE, OTHER, SELFPAY ==
--- NOTE | 2024-04-16 09:20 | MHC.OFFVIS ---
Intake Visit Reasons: CT scan results/do not r/s Laundry Housekeeping Aide: Laundry Housekeeping Aide Present (Kaya) Accompanied by: Other Relationship Allergies penicillin V Allergy (Unknown, Verified 04/16/24 09:20) Unknown HPI Comments Details: Presenting for follow-up regarding CT scan for microscopic hematuria. CT scan of abdomen and pelvis done in 02/10 showed the following: IMPRESSION: No radiopaque urolith, enhancing renal mass or hydronephrosis. There is a simple cyst lower pole right kidney. Moderate constipation. The gallbladder is out. The patient was seen by Urology on 02/23/2024 and cystoscopy is planned PENDING SALE TO [facility] Medical History Parkinson disease Surgical History History of cholecystectomy Family History Father Heart disease Mother No problems noted. Family/Other Breast cancer Social History Housing: House Alcohol intake: never Patient Tobacco Use Status: Never used Tobacco Tobacco use type: Cigarette e-Cigarette/Vaping Use: Never Used Second Hand Smoke Exposure: No service: No Current occupational status: retired Cognitive needs: No Hearing needs: No Vision needs: Yes Female Reproductive History Menstrual Age of Menarche: 11 Review of Systems Const All systems reviewed & are unremarkable except as noted in HPI and below Reports as per HPI and Reports no additional complaints GI Reports no additional complaints Reports no additional complaints Assessment & Plan Assessment & Plan (1) Microscopic hematuria: Code(s): R31.29 - Other microscopic hematuria Category: Medical Plan: Discussed with the patient the finding on CT scan, instructions given to the patient to follow-up with urology regarding further management. All questions answered, the patient verbalized understanding and agreed with the plan. Coding Level of Care Code Est Pt Level 3 (25382) Diagnoses Microscopic hematuria R31.29
--- OUTSIDE RECORDS SUMMARY | 2024-04-16 09:43 | XMS_ITS | Clinical Summary ---
Author Organization [facility] Facility Address [address] [address] Care Team Providers Care Major Assembler Name Role Phone Kofi Fan MD Primary Care Provider [phone] Social History Tobacco Use Types Packs/Day Years Used Date Smoking Tobacco: Never Assessed Comments Unknown Sex and Gender Information Value Date Recorded Sex Assigned at Not on file Legal Sex Female 1:30 PM EDT Gender Identity Not on file Sexual Orientation Not on file Plan of Treatment Health Maintenance Due Date Last Done Comments Pneumococcal Vaccine: 65+ Ye ars (1 of 1 - PCV) 01/31/2013 Influenza Vaccine (#1) 2023 04/22/2019 Hepatitis B Vaccine Aged Out No longe r eligible based on patient's age to complete this topic Insurance [address] [place] [address] MEDICARE [facility] Care Teams Major Assembler Relationship Specialty Start Date End Date Kofi Fan MD [address] [facility] PCP - General Internal Medicine 10/22/21
--- OUTSIDE RECORDS SUMMARY | 2024-04-16 09:43 | XMS_ITS ---
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 06/04/2022 ESSENTIAL (PRIMARY) HYPERTENSION (I10 - ICD-10-CM) ACT EUNICE 06/04/2022 ANXIETY DISORDER, UNSPECIFIED (F41.9 - ICD-10-CM) ACTI VE 06/04/2022 Encounters Encounter Performer Performer Role Encounter Diagnoses Location Date Discharge - Discharged to home or self care - Other [facility] 06/04/2022 02:04 pm EDT - 06/21/2022 11:30 am EDT Immunizations Vaccine Date Influenza 04/22/2019 12:00 am EST SARS-COV-2 (COVID-19) 05/15/2020 12:00 a m EST SARS-COV-2 (COVID-19 BOOSTER) 08/19/2021 12:00 am EDT SARS-COV-2 (COVID-19 BOOSTER) 01/20/2021 12:00 am EDT SARS-COV-2 (COVID-19 BOOSTER) 06/13/2020 12:00 am EDT Social History
== END 2024-04-16 09:42 | disposition home or self-care (01) ==
PROVIDERS: PCP Internal Medicine; Visit Provider Obstetrics & Gynecology
DX: R31.29 Other microscopic hematuria (principal)
CPT/HCPCS: 99213

== ENCOUNTER → 2024-04-16 09:15 | Outpatient (BNVA) | payer MEDICARE, OTHER, SELFPAY | PROVIDERS: PCP Internal Medicine; Visit Provider Obstetrics & Gynecology | DX: R31.29 Other microscopic hematuria (principal) | CPT/HCPCS: 99212 ==

== ENCOUNTER 2024-05-03 08:56 | Outpatient (AMB) | payer MEDICARE, OTHER, SELFPAY ==
--- NOTE | 2024-05-03 09:06 | MHC.OFFVIS ---
Intake Visit Reasons: Cysto Intake Note: Patient is present for Cystoscopy Urology Medication:NONE Antibiotic Allergy:PENICILLIN V Blood Thinner:NONE TODAY'S PVR:0ML'S Lot:[id number] Exp:01/21/27 Tile Setter Apprentice Required: No Allergies penicillin V Allergy (Unknown, Verified 05/03/24 09:07) Unknown HPI Comments Details: Flores is a pleasant female. She is a patient of Dr. Fan. 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 Final report pending Office cysto generalized irritation and bladder PFSH Medical History Parkinson disease Surgical History History of cholecystectomy Family History Father Heart disease Mother No problems noted. Family/Other Breast cancer Social History Housing: House Alcohol intake: never Patient Tobacco Use Status: Never used Tobacco Tobacco use type: Cigarette e-Cigarette/Vaping Use: Never Used Second Hand Smoke Exposure: No service: No Current occupational status: retired Cognitive needs: No Hearing needs: No Vision needs: Yes Female Reproductive History Menstrual Age of Menarche: 11 Review of Systems Const Denies chills and Denies fever(s) Card Reports no additional complaints and Denies syncope Resp Denies cough GI Denies abdominal pain and Denies heartburn Reports as per HPI and Denies change in libido Neuro Denies syncope Psych Denies change in libido Endo Denies change in libido Physical Exam Const General: cooperative, healthy appearing, comfortable and no acute distress Orientation/consciousness: patient oriented x3 HEENT Face and sinus: Yes normal facial exam Mouth: moist mucous membranes Neck Neck: Yes normal visual inspection, Yes full ROM and Yes trachea midline Chest Chest palpation & inspection: normal inspection of the chest Resp Effort & Inspection: normal respiratory effort, able to speak in complete sentences and no respiratory distress GI Inspection: Yes normal to inspection Back/Spine/Pelvis Cervical Spine: normal cervical lordosis Thoracic/Lumbar Spine: thoracic and lumbar spine normal to inspection Skin General skin exam: no rashes or lesions noted Neuro General: patient oriented x3, gait normal, tone normal and moves all extremities Extrem General: Yes normal to inspection and Yes capillary refill normal Office Procedures Cystoscopy Consent Discussed risk and benefit or proposed procedure with the patient. Information consent for procedure given to the patient. Discussed technical aspects, risks, benefits and alternatives in full. Addressed all of the patient's questions and concerns regarding the procedure. The patient demonstrated knowledge and understanding. They wish to proceed with this procedure. Preparation The patient was prepped in the usual manner. A truck operator was present and in the room. Genitalia was prepped with betadine solution in a sterile manner. Lidocaine Jelly 2% was placed into the urethra and 16Fr flexible Olympus cystoscope was inserted into the meatus after adequate lubrication. Procedure Meatus normal with atrophy Urethra normal Bladder examination with retroflexion of cystoscope Bladder Orifices normal shape and position Trigone metaplasia Bladder Capacity median Trabeculations - Cellule Formation - Diverticulum Formation - Mucosal Erythema diffuse irritation posterior wall Bladder Tumor - 60241-Sgxdyaotub DISPOSABLE SCOPE URO-G FLEXIBLE SCOPE Procedure code (CPT) selection complete Post Void Residual Post Residual Void Post Void Residual (PVR): 0 94523-Zxzc Void Residual by ultrasound Office Meds lidocaine HCl 2 % mucosal jelly in applicator Performing Provider: Buster Torres MD [facility] Administered by: Lamin Manning LPN on 05/03/24 09:31 Dose Route Admin Location Dispensed Lot Number Expiration Date NDC Business Functional Analyst 10 mL intra-urethral 10 mL Comments: nitrofurantoin monohydrate/macrocrystals 100 mg capsule Performing Provider: Buster Torres MD Performing Location: [facility] Administered by: Lamin Manning LPN on 05/03/24 09:31 Dose Route Admin Location Dispensed Lot Number Expiration Date NDC Business Functional Analyst 100 mg PO 1 cap Assessment & Plan Assessment & Plan (1) Urinary urgency: Code(s): R39.15 - Urgency of urination Category: Medical Plan Methenamine Estradiol Three-month follow-up check UA and cytology Orders: Orders AMB Urinalysis Automated Today Z13.9 - Encounter for screening, unspecified AMB Cystoscopy Today R31.29 - Other microscopic hematuria, R39.9 - Unspecified symptoms and signs involving the genitourinary system Medications: New methenamine hippurate 1 g PO DAILY 90 days 90 tabs 1RF N39.0 - Urinary tract infection, site not specified, R39.15 - Urgency of urination estradiol 0.01%(0.1mg/gram) pea-sized to urethra 3 times a week 30 days 42.5 grams 2RF N36.2 - Urethral caruncle, N39.0 - Urinary tract infection, site not specified, N95.2 - Postmenopausal atrophic vaginitis, R39.15 - Urgency of urination ascorbic acid (vitamin C) 1 g PO DAILY 90 days 90 tabs 1RF N39.0 - Urinary tract infection, site not specified, R39.15 - Urgency of urination Patient Instructions: This note is constructed using voice recognition software. While every effort has been made to ensure accuracy ballistics teacher errors may have been included. Imaging studies, laboratory and physical exam results were discussed and reviewed in detail. No major barriers to patient understanding were identified. An opportunity to ask questions regarding the treatment plan was provided. All questions were answered. The patient expressed understanding and agreement with the above treatment plan. The patient is aware they should contact our office by phone for worsening of their current condition or the appearance of new urologic symptoms. Compliance is encouraged with any medications and followup testing that is ordered. It is a privilege to participate in the urologic care of your patient. If you have any questions or concerns regarding treatment for the above conditions, or other urologic issues, please do not hesitate to contact me. The office telephone contact is [phone]. Sincerely, Dr Buster Torres MD, LU[facility] - Urology Compassionate Specialist Care for the Genitourinary System Coding Level of Care Code Est Pt Level 4 (21302) Diagnoses Urinary urgency R39.15 CPT Codes Cystoscopy - CPT: 23959-Zxfrujcmix ([id number]) Post Residual Void - PVR CPT Code: 87267-Hjmi Void Residual by ultrasound ([id number])
--- OUTSIDE RECORDS SUMMARY | 2024-05-03 09:21 | XMS_ITS | Clinical Summary ---
Author Organization [facility] Facility Address [address] [address] Care Team Providers Care Ladies Suit Operator Name Role Phone Kofi Fan MD Primary Care Provider [phone] Social History Tobacco Use Types Packs/Day Years [...] age to complete this topic Insurance [address] [place] [address] MEDICARE FOR[facility]LY [facility] Care Teams Ladies Suit Operator Relationship Specialty Start Date End Date Kofi Fan MD [address] [place] PCP - General Internal Medicine 10/22/21
== END 2024-05-03 10:02 | disposition home or self-care (01) ==
PROVIDERS: PCP Internal Medicine; Visit Provider Urology
DX: R39.9 Unspecified symptoms and signs involving the genitourinary system (principal); R31.29 Other microscopic hematuria; R39.15 Urgency of urination
CPT/HCPCS: 52000; 99214

== ENCOUNTER → 2024-05-03 08:56 | Outpatient (BNVA) | payer MEDICARE, OTHER, SELFPAY | PROVIDERS: PCP Internal Medicine; Visit Provider Urology | DX: R39.15 Urgency of urination (principal); R31.29 Other microscopic hematuria; N39.0 Urinary tract infection, site not specified; N36.2 Urethral caruncle; N95.2 Postmenopausal atrophic vaginitis | CPT/HCPCS: 51798; 52000; 99212 ==

== ENCOUNTER 2024-05-31 09:22 | Outpatient (AMB) | payer MEDICARE, OTHER, SELFPAY ==
[2024-05-31 09:33] VITALS: BP 110/68; PULSE 83; O2SAT 97; BMI 20.4
--- NOTE | 2024-05-31 09:33 | A.OFFPC_ITS ---
Vital Signs 05/31/24 09:33 Height 5 ft 7 in Weight 130 lb BMI 20.4 BP 110/68 Blood Pressure Location Lt brachial Position Sitting Pulse 83 Pulse Source Pulse Oximeter Pulse Oximetry (%) 97 Oxygen Delivery Method Room Air Intake Visit Reasons: 3mth f/u Victim Advocate Required: No Accompanied by: Self / Same As Patient Allergies penicillin V Allergy (Unknown, Verified 05/31/24 09:34) Unknown Tobacco use date assessed: 05/31/24 Fall risk assessment: No Falls in past year Last assessed Fall Risk: 05/31/24 Dental Screening Dental Screen Date: 05/31/24 Did you have a dental visit in the last 12 months?: Yes Did you have a dental problem in the last 6 months where you did not have access to dental care?: No Was dental information given to patient?: Patient has dentist HPI 3mth f/u HPI Details Parkinson's disease; sees neuro in [place]; lives in assisted living; stable [facility] Medical History Parkinson disease Surgical History History of cholecystectomy Family History Father Heart disease Mother No problems noted. Family/Other Breast cancer Social History Housing: House Alcohol intake: never Patient Tobacco Use Status: Never used Tobacco Tobacco use type: Cigarette e-Cigarette/Vaping Use: Never Used Second Hand Smoke Exposure: No service: No Current occupational status: retired Cognitive needs: No Hearing needs: No Vision needs: Yes Female Reproductive History Menstrual Age of Menarche: 11 Questionnaire PHQ-9 Over the last 2 weeks, how often have you been bothered by any of the following problems? 1. Little interest or pleasure in doing things: not at all 2. Feeling down, depressed, or hopeless: not at all 3. Trouble falling or staying asleep, or sleeping too much: not at all 4. Feeling tired or having little energy: not at all 5. Poor appetite or overeating: not at all 6. Feeling bad about yourself - or that you are a failure or have let yourself or your family down: not at all 7. Trouble concentrating on things, such as reading the newspaper or watching television: not at all 8. Moving or speaking so slowly that other people could have noticed. Or the opposite - being so fidgety or restless that you have been moving around a lot more than usual: not at all 9. Thoughts that you would be better off or of hurting yourself in some way: not at all Total score: 0 Depression Screening Interpretation: Positive Depression Screening Done: Yes 10062 - PHQ-9 Billing: Yes Source: Developed by Drs. Chaitanya Chao, Aide Unger, Darci Patel and colleagues, with an educational krzysztof from [employer]. Thrive Questionnaire Date Thrive assessed: 05/31/24 I am a: Patient What is your living situation today?: I have a steady place to live Within the past 12 months, did the food you bought not last and you didn't have the money to get more?: Never true Within the past 12 months, did you worry whether your food would run out before you got money to buy more?: Never true Do you have trouble paying for medicines?: No Do you have trouble getting transportation to medical appointments?: No Do you have trouble paying your heating and electricity bill?: No Do you have trouble taking care of your child, family member or friend?: No Do you have trouble with day-to-day activities such as bathing, preparing meals, shopping, managing finances, etc.?: No Are you currently unemployed and looking for a job?: No Are you interested in more education?: No Please select the resources that you would like help with: None Currently or been in a relationship where the following occur: No concerns reported THRIVE Score: 0 AUDIT C Alcohol Use Questionnaire (AUDIT-C) 1. How often do you have a drink containing alcohol?: Never 3. How often do you have six or more drinks on one occasion?: Never Total Score: 0 Score Reviewed/Action Taken: Yes MARIA ELENA-7 AMB Questionnaire MARIA ELENA-7 Date MARIA ELENA - 7 assessed: 05/31/24 Feeling nervous, anxious, or on edge: 0 = Not at all Not being able to stop or control worryin = Not at all Worrying too much about different things: 0 = Not at all Trouble relaxin = Not at all Being so restless that it is hard to sit still: 0 = Not at all Becoming easily annoyed or irritable: 0 = Not at all Feeling afraid as if something awful might happen: 0 = Not at all Total MARIA ELENA-7 score (0-4 normal; 5-9 mild; 10-14 moderate; 15-21 severe): 0 Source: Developed by Drs. Chaitanya Chao, Aide Unger, Darci Patel and colleagues, with an educational krzysztof from [employer]. Review of Systems Const Denies chills, Denies headache(s) and Denies weight loss ENT Denies headache(s) Card Denies chest pain, Denies syncope, Denies irregular heart rhythm and Denies dyspnea Resp Denies chest congestion, Denies cough and Denies dyspnea GI Denies abdominal pain, Denies change in stool character, Denies nausea and Denies vomiting Musc Denies deformity and Denies joint swelling Neuro Denies syncope and Denies headache(s) Physical exam (Primary Care) Vital Signs: Last Vital Signs Pulse 83 05/31/24 09:33 BP 110/68 05/31/24 09:33 Pulse Ox 97 05/31/24 09:33 Oxygen Delivery Method Room Air 05/31/24 09:33 BMI result Body Mass Index 20.4 Tobacco/Smoking Status: Tobacco use Status Tobacco use date assessed 05/31/24 05/31/24 09:38 Patient Tobacco Use Status Never used Tobacco 05/31/24 09:38 Tobacco use type Cigarette 05/31/24 09:38 e-Cigarette/Vaping Use Never Used 05/31/24 09:38 PHQ-9: PHQ-9 Score PHQ-9: Total score 0 05/31/24 09:38 Depression Screening Interpretation: Positive Thrive Assessment: Date of Thrive Assessment Date Thrive assessed 05/31/24 05/31/24 09:38 Currently or been in a relationship where the following occur: No concerns reported Const General: cooperative, comfortable, no acute distress and alert Neck Neck: Yes no lymphadenopathy Thyroid: Thyroid normal Resp Effort & Inspection: normal respiratory effort Auscultation: clear to auscultation bilaterally Percussion: percussion normal Cardio Jugular venous distension: no JVD Palpation: normal PMI Rate: regular rate Rhythm: regular rhythm Heart sounds: S1 normal heart sound present and S2 normal heart sound present GI Inspection: Yes normal to inspection Palpation (GI): No hepatosplenomegaly present Skin General skin exam: no rashes or lesions noted Extrem General: Yes no clubbing, cyanosis or edema Coding Level of Care Code Est Pt Level 3 (96930) Diagnoses Parkinson disease G20 Additional Codes PHQ-9 - 43045 - PHQ-9 Billing: Yes ([id number]) Assessment & Plan Assessment & Plan (1) Parkinson disease: Code(s): G20 - Parkinson's disease Category: Medical Plan: stable; same rx per neuro
--- OUTSIDE RECORDS SUMMARY | 2024-05-31 10:14 | XMS_ITS ---
Author Organization [facility] on Care Team Providers Care Sample Weaver Name Role Phone Ina Neri Unavailable Unavailable Abbie Santos Unavailable Unavailable Allergies and adverse reactions Code CodeSystem Substance Reaction Severity StartDate Concern Status Requip Unknown 06/04/[address] Penicillins Unknown 06/04/2022 activ e Mirapex Unknown 06/04/2022 active 620 RXNORM Amantadine Unknown 06/04/2022 active Care Team Name Role Address Phone Organization Dates Ina Neri PCP [address] [place] [address], [id number], [place] (Office): : [facility] 06/04/2022 - 06/21/2022 Abbie Santos Attending Physician [address] [place] [address], [id number], [place] (Office): : [facility] 06/04/2022 - 06/21/2022 Immunizations Immunization Status Vaccine Details Vaccine Code CodeSystem Date Notes Influenza completed Influenza, split virus, trivalent, injectable, contains preservative 141 CVX created date: 06/06/2022 administer ed date: 04/22/2019 verified in [facility] SARS-COV-2 (COVID-19) completed SARS-COV-2 (COVID-19) vaccine, mRNA, spike protein, LNP, preservative free, 100 mcg/0.5mL dose or 50 mcg/0.25mL dose Step 1 of Multi-step with next step required 207 CVX created date: 06/06/2022 administer ed date: 05/15/2020 verified in [facility] SARS-COV-2 (COVID-19 BOOSTER) completed SARS-COV-2 (COVID-19) vaccine, mRNA, spike protein, LNP, preservative free, 100 mcg/0.5mL dose or 50 mcg/0.25mL dose 207 CVX created date: 06/06/2022 administer ed date: 08/19/2021 verified in [facility] SARS-COV-2 (COVID-19 BOOSTER) completed SARS-COV-2 (COVID-19) vaccine, mRNA, spike protein, LNP, preservative free, 100 mcg/0.5mL dose or 50 mcg/0.25mL dose 207 CVX created date: 06/06/2022 administer ed date: 01/20/2021 verified in [facility] SARS-COV-2 (COVID-19 BOOSTER) completed SARS-COV-2 (COVID-19) vaccine, mRNA, spike protein, LNP, preservative free, 100 mcg/0.5mL dose or 50 mcg/0.25mL dose 207 CVX created date: 06/06/2022 administer ed date: 06/13/2020 verified in [facility] Mental Status Section Date Assessment Total Score Description 06/21/2022 BIMS 15 cognitively int act CAM 0 No delirium ind icated PHQ-9 04 minimal depress ion 06/10/2022 BIMS 15 cognitively int act CAM 0 No delirium ind icated PHQ-9 12 moderate depres gearrdo Problems Problem # Description Date of onset Resolved Date Code CodeSystem Concern Status 1 ADULT FAILURE TO THRIVE 06/04/[address] active 2 ANXIETY DISORDER, UNSPECIFIED 06/04/[address] active 3 ESSENTIAL (PRIMARY) HYPERTENSION 06/04/[address] active 4 OTHER CERVICAL DISC DEGENERATION, UNSPECIFIED CERVICAL REGION 06/04/[address] active 5 OTHER LOW BACK PAIN 06/04/[address] active 6 PARKINSON'S DISEASE 06/04/[address] active Reason for Referral No Reasons for Referral Entered Social History Social History Observation Description Start Date End Date Code Code System Current Smoking Status Tobacco smoking consumption unknown 077683040 SNOMED CT Sex Assigned At Female 1950 34685-3 [facility] Vital Signs Code Code System Vitals Name Values and Units Timing Information 78193-0 [facility] Pain Level Value=0.0 06/21/2022 55034-3 [facility] O2 % BldC Oximetry Value=97.0 Units= % 06/20/2022 9279-1 [facility] Respiratory Rate Value=18.0 Units=/m in 06/20/2022 8310-5 [facility] Body Temperature Value=98.0 Units=?? F 06/20/2022 8867-4 [facility] Heart rate Bwppj=437.0 Units=/min 06/20/2022 8462-4 [facility] Blood Pressure-Diastolic Value=96 Un its=mmHg 06/20/2022 8480-6 [facility] Blood Pressure-Systolic Zmrso=577 Un its=mmHg 06/20/2022 07606-5 [facility] Weight Beezk=603.0 Units=Lbs 8302-2 [facility] Height Value=67.0 Units=Inches 06/04/2022
--- OUTSIDE RECORDS SUMMARY | 2024-05-31 10:14 | XMS_ITS | Clinical Summary ---
Author Organization [facility] Facility Address [address] [address] Care Team Providers Care Inspector Water Pollution Control Name Role Phone Kofi Fan MD Primary Care Provider [phone] Social History Tobacco Use Types Packs/Day Years [...] age to complete this topic Insurance [address] [place] [address] MEDICARE FOR[facility]LY [facility] Care Teams Inspector Water Pollution Control Relationship Specialty Start Date End Date Kofi Fan MD [address] [id number] PCP - General Internal Medicine 10/22/21
== END 2024-05-31 09:58 | disposition home or self-care (01) ==
LOC: HO.HMCH 09:23
PROVIDERS: PCP Internal Medicine; Visit Provider Internal Medicine
DX: G20.C Parkinsonism, unspecified (principal)

== ENCOUNTER → 2024-05-31 09:22 | Outpatient (BNVA) | payer MEDICARE, OTHER, SELFPAY | PROVIDERS: PCP Internal Medicine; Visit Provider Internal Medicine | DX: G20.C Parkinsonism, unspecified (principal) | CPT/HCPCS: 96127; 99212 ==

== ENCOUNTER 2024-08-02 10:30 | Outpatient (AMB) | payer MEDICARE, OTHER, SELFPAY ==
--- NOTE | 2024-08-02 10:46 | MHC.OFFVIS ---
Intake Visit Reasons: 3m/UA Intake Note: Patient is present for 3M/UA Urology Medication:VITAMIN,METHENAMINE HIPPURATE,EASTRADIOL Antibiotic Allergy:PENICILLIN V Blood Thinner:NONE TODAY;S PVR: 0ML'S Biomechanical Engineer Required: No Allergies penicillin V Allergy (Unknown, Verified 08/02/24 10:48) Unknown HPI Comments Details: Flores is a pleasant female. She is a patient of Dr. Fan. 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 Final report pending Office cysto generalized irritation and bladder PFSH Medical History Parkinson disease Surgical History History of cholecystectomy Family History Father Heart disease Mother No problems noted. Family/Other Breast cancer Social History Housing: House Alcohol intake: never Patient Tobacco Use Status: Never used Tobacco Tobacco use type: Cigarette e-Cigarette/Vaping Use: Never Used Second Hand Smoke Exposure: No service: No Current occupational status: retired Cognitive needs: No Hearing needs: No Vision needs: Yes Female Reproductive History Menstrual Age of Menarche: 11 Review of Systems Const Denies chills and Denies fever(s) Card Reports no additional complaints and Denies syncope Resp Denies cough GI Denies abdominal pain and Denies heartburn Reports as per HPI and Denies change in libido Neuro Denies syncope Psych Denies change in libido Endo Denies change in libido Physical Exam Const General: cooperative, healthy appearing, comfortable and no acute distress Orientation/consciousness: patient oriented x3 HEENT Face and sinus: Yes normal facial exam Mouth: moist mucous membranes Neck Neck: Yes normal visual inspection, Yes full ROM and Yes trachea midline Chest Chest palpation & inspection: normal inspection of the chest Resp Effort & Inspection: normal respiratory effort, able to speak in complete sentences and no respiratory distress GI Inspection: Yes normal to inspection Back/Spine/Pelvis Cervical Spine: normal cervical lordosis Thoracic/Lumbar Spine: thoracic and lumbar spine normal to inspection Skin General skin exam: no rashes or lesions noted Neuro General: patient oriented x3, gait normal, tone normal and moves all extremities Extrem General: Yes normal to inspection and Yes capillary refill normal Office Procedures Post Void Residual Post Residual Void Post Void Residual (PVR): 0 00005-Leyk Void Residual by ultrasound Assessment & Plan Assessment & Plan (1) Urinary urgency: Code(s): R39.15 - Urgency of urination Category: Medical (2) Chronic cystitis: Code(s): N30.20 - Other chronic cystitis without hematuria Category: Medical Plan Six-month follow-up office Orders: Orders AMB Urinalysis Automated Today Z13.9 - Encounter for screening, unspecified Medications: Changed From ascorbic acid (vitamin C) 1 g PO DAILY 90 days 90 tabs 1RF R39.15 - Urgency of urination To ascorbic acid (vitamin C) Requires buffered vitamin C - GI upset 1 g PO DAILY 90 days 90 tabs 1RF R39.15 - Urgency of urination Refilled methenamine hippurate 1 g PO DAILY 90 days 90 tabs 1RF N39.0 - Urinary tract infection, site not specified, R39.15 - Urgency of urination Patient Instructions: This note is constructed using voice recognition software. While every effort has been made to ensure accuracy lan engineer errors may have been included. Imaging studies, laboratory and physical exam results were discussed and reviewed in detail. No major barriers to patient understanding were identified. An opportunity to ask questions regarding the treatment plan was provided. All questions were answered. The patient expressed understanding and agreement with the above treatment plan. The patient is aware they should contact our office by phone for worsening of their current condition or the appearance of new urologic symptoms. Compliance is encouraged with any medications and followup testing that is ordered. It is a privilege to participate in the urologic care of your patient. If you have any questions or concerns regarding treatment for the above conditions, or other urologic issues, please do not hesitate to contact me. The office telephone contact is [phone]. Sincerely, Dr Buster Torres MD, [facility] - Urology Compassionate Specialist Care for the Genitourinary System Coding Level of Care Code Est Pt Level 3 (73120) Complex EM visit Add On G2211 Diagnoses Urinary urgency R39.15 Chronic cystitis N30.20 CPT Codes Post Residual Void - PVR CPT Code: 90632-Yirn Void Residual by ultrasound ([id number])
--- OUTSIDE RECORDS SUMMARY | 2024-08-02 10:55 | XMS_ITS | Clinical Summary ---
Author Organization [facility] Facility Address [address] [address] Care Team Providers Care Sample Wrapper Name Role Phone Kofi Fan MD Primary Care Provider [phone] Social History Tobacco Use Types Packs/Day Years Used Date Smoking Tobacco: Never Assessed Comments Unknown Sex and Gender Information Value Date Recorded Sex Assigned at Not on file Legal Sex Female 1:30 PM EDT Gender Identity Not on file Sexual Orientation Not on file Plan of Treatment Health Maintenance Due Date Last Done Comments Pneumococcal Vaccine: 50+ Ye ars (1 of - PCV) 01/31/1998 Influenza Vaccine (Season Ended) 2024 04/22/19 20 Hepatitis B Vaccine Aged Out No longe r eligible based on patient's age to complete this topic Insurance [address] [place] [address] Medicare Formerly [facility] Care Teams Sample Wrapper Relationship Specialty Start Date End Date Kofi Fan MD [address] [place] PCP - General Internal Medicine 10/22/21
== END 2024-08-02 13:14 | disposition home or self-care (01) ==
LOC: HO.HUSH 10:30
PROVIDERS: PCP Internal Medicine; Visit Provider Urology
DX: R39.15 Urgency of urination (principal); N30.20 Other chronic cystitis without hematuria
CPT/HCPCS: 99213; G2211

== ENCOUNTER → 2024-08-02 10:30 | Outpatient (BNVA) | payer MEDICARE, OTHER, SELFPAY | PROVIDERS: PCP Internal Medicine; Visit Provider Urology | DX: R39.15 Urgency of urination (principal); N30.20 Other chronic cystitis without hematuria | CPT/HCPCS: 51798; 99212 ==

== ENCOUNTER 2024-09-17 12:33 | Outpatient (AMB) | payer MEDICARE, OTHER, SELFPAY ==
--- NOTE | 2024-09-17 12:36 | A.OFFPC_ITS ---
Vital Signs 09/17/24 12:40 Height 5 ft 7 in Weight 130 lb BMI 20.4 BP 120/76 Blood Pressure Location Lt brachial Position Sitting Intake Visit Reasons: Transfer Care from Dr. 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 Accompanied by: Home health Aid Allergies penicillin V Allergy (Unknown, Verified 09/17/24 12:53) Unknown Medication List - Last Reconciled 09/17/24 by Fanny Clayton MD carbidopa-levodopa 25-100 mg 1 tab PO .FIVE TIMES A DAY estradiol 0.01%(0.1mg/gram) pea-sized to urethra 3 times a week 30 days fluticasone propionate 50 mcg/actuation sprays intranasal lorazepam 1 mg PO BID PRN methenamine hippurate 1 g PO DAILY 90 days tizanidine mg PO Tobacco use date assessed: 05/31/24 Fall risk assessment: No Falls in past year Last assessed Fall Risk: 09/17/24 Dental Screening Dental Screen Date: 09/17/24 Did you have a dental visit in the last 12 months?: Yes Did you have a dental problem in the last 6 months where you did not have access to dental care?: No Was dental information given to patient?: Patient has dentist HPI HPI Comments History of Present Illness Details The patient is a 74-year-old female presenting for transferring care and management of Parkinson's disease. She is currently on Carbidopa-Levodopa for Parkinson's disease and has been experiencing increased diffuse weakness. She reports difficulty getting out of bed due to stiffness and weakness, which is secondary to Parkinson's disease. The patient also has a history of chronic cystitis and is using estradiol cream as part of her management plan. She has been experiencing hip pain associated with leg weakness, for which tizanidine has been prescribed to alleviate muscle spasms. She was seen in the emergency room on September 15 for right groin pain, where labs were conducted without significant abnormalities. Blood work is planned for the next visit to assess kidney and liver function. The patient uses a walker for gait stability and is accompanied by home health services. She has a mild recurrent major depression and anxiety and does not have any counseling services. [facility] Medical History (Updated 09/18/24 @ 08:36 by Fanny Clayton MD) Parkinson disease Surgical History History of cholecystectomy Family History Father Heart disease Mother No problems noted. Family/Other Breast cancer Social History Housing: House Alcohol intake: never Patient Tobacco Use Status: Never used Tobacco e-Cigarette/Vaping Use: Never Used Second Hand Smoke Exposure: No service: No Current occupational status: retired Cognitive needs: No Hearing needs: No Vision needs: Yes Female Reproductive History Menstrual Age of Menarche: 11 Questionnaire PHQ-9 Over the last 2 weeks, how often have you been bothered by any of the following problems? 1. Little interest or pleasure in doing things: several days 2. Feeling down, depressed, or hopeless: more than half the days 3. Trouble falling or staying asleep, or sleeping too much: several days 4. Feeling tired or having little energy: several days 5. Poor appetite or overeating: not at all 6. Feeling bad about yourself - or that you are a failure or have let yourself or your family down: not at all 7. Trouble concentrating on things, such as reading the newspaper or watching television: not at all 8. Moving or speaking so slowly that other people could have noticed. Or the opposite - being so fidgety or restless that you have been moving around a lot more than usual: not at all 9. Thoughts that you would be better off or of hurting yourself in some w ay: not at all Total score: 5 Depression Screening Interpretation: Positive Depression Screening Follow-up: Existing condition and Follow-up Visit Requested Depression Screening Done: Yes 17776 - PHQ-9 Billing: Yes Source: Developed by Drs. Chaitanya Chao, Aide Unger, Darci Patel and colleagues, with an educational krzysztof from [employer]. Thrive Questionnaire Date Thrive assessed: 09/17/24 I am a: Patient What is your living situation today?: I have a steady place to live Within the past 12 months, did the food you bought not last and you didn't have the money to get more?: Never true Within the past 12 months, did you worry whether your food would run out before you got money to buy more?: Never true Do you have trouble paying for medicines?: No Do you have trouble getting transportation to medical appointments?: No Do you have trouble paying your heating and electricity bill?: No Do you have trouble taking care of your child, family member or friend?: No Do you have trouble with day-to-day activities such as bathing, preparing meals, shopping, managing finances, etc.?: No Are you currently unemployed and looking for a job?: No Are you interested in more education?: No Please select the resources that you would like help with: None Currently or been in a relationship where the following occur: No concerns reported THRIVE Score: 0 AUDIT C Alcohol Use Questionnaire (AUDIT-C) 1. How often do you have a drink containing alcohol?: Never Total Score: 0 MARIA ELENA-7 AMB Questionnaire MARIA ELENA-7 Date MARIA ELENA - 7 assessed: 09/17/24 Feeling nervous, anxious, or on edge: 1 = Several days Not being able to stop or control worryin = Not at all Worrying too much about different things: 1 = Several days Trouble relaxin = Not at all Being so restless that it is hard to sit still: 0 = Not at all Becoming easily annoyed or irritable: 0 = Not at all Feeling afraid as if something awful might happen: 0 = Not at all Total MARIA ELENA-7 score (0-4 normal; 5-9 mild; 10-14 moderate; 15-21 severe): 2 Source: Developed by Drs. Chaitanya Chao, Aide Unger, Darci Patel and colleagues, with an educational krzysztof from [employer]. MARIA ELENA-7 Assessment Billing MARIA ELENA-7 Assessment Tool: MARIA ELENA-7 Assessment 04491 Review of Systems Const All systems reviewed & are unremarkable except as noted in HPI and below Card Denies chest pain at rest, Denies chest pain with activity, Denies edema, Denies irregular heart rhythm, Denies claudication, Denies dyspnea, Denies dyspnea on exertion, Denies orthopnea, Denies paroxysmal nocturnal dyspnea and Denies slow heart rate Resp Denies cough, Denies dyspnea and Denies dyspnea on exertion GI Denies abdominal pain, Denies change in bowel habits, Denies excessive flatus, Denies nausea and Denies vomiting Musc Reports arthralgias, Reports limited range of motion and Reports stiffness Neuro Reports tremor(s) Physical exam (Primary Care) Vital Signs: Last Vital Signs BP 120/76 09/17/24 12:40 BMI result Body Mass Index 20.4 Tobacco/Smoking Status: Tobacco use Status Tobacco use date assessed 05/31/24 09/17/24 12:38 Patient Tobacco Use Status Never used Tobacco 09/17/24 12:38 Tobacco use type 09/17/24 12:47 e-Cigarette/Vaping Use Never Used 09/17/24 12:38 PHQ-9: PHQ-9 Score PHQ-9: Total score 5 09/17/24 12:57 Depression Screening Interpretation: Positive Depression Screening Follow-up: Existing condition and Follow-up Visit Requested Thrive Assessment: Date of Thrive Assessment Date Thrive assessed 09/17/24 09/17/24 12:38 Currently or been in a relationship where the following occur: No concerns reported Const Limitations: ambulation with walker Resp Effort & Inspection: normal respiratory effort Auscultation: clear to auscultation bilaterally Cardio Jugular venous distension: no JVD Rate: regular rate Rhythm: regular rhythm Heart sounds: S1 normal heart sound present and S2 normal heart sound present Neuro Gait exam (Neuro): Shuffling gait present Coding Level of Care Code Est Pt Level 4 (55691) Complex EM visit Add On G2211 Diagnoses Mild recurrent major depression F33.0 Anxiety F41.9 Chronic cystitis N30.20 Parkinson disease G20 Muscle spasm M62.838 Additional Codes MARIA ELENA-7 Assessment Billing - MARIA ELENA-7 Assessment Tool: MARIA ELENA-7 Assessment 74677 ([id number]) PHQ-9 - 60695 - PHQ-9 Billing: Yes ([id number]) Time Spent (min) 24 Assessment & Plan Assessment & Plan (1) Mild recurrent major depression: Code(s): F33.0 - Major depressive disorder, recurrent, mild Category: Medical (2) Anxiety: Code(s): F41.9 - Anxiety disorder, unspecified Category: Medical (3) Chronic cystitis: Code(s): N30.20 - Other chronic cystitis without hematuria Category: Medical (4) Parkinson disease: Code(s): G20 - Parkinson's disease Category: Medical (5) Muscle spasm: Code(s): M62.838 - Other muscle spasm Category: Medical Plan The patient will continue on Carbidopa-Levodopa for Parkinson's disease management. Tizanidine is prescribed every 4 hours to manage muscle spasms, particularly in the lower legs. Physical therapy is ordered to address leg weakness and improve mobility. Blood work will be conducted to monitor kidney and liver function in the next visit. The patient will continue using a walker for gait stability and is advised to maintain follow-up with urology for chronic cystitis management. Patient was informed and verbally consented to the use of an ambient scribe for clinic note documentation during this visit. Orders: Orders PT Evaluation and Treatment 09/17/24 M25.551 - Pain in right hip, M25.552 - Pain in left hip Comprehensive [place]. Panel Fast 4 Months N30.20 - Other chronic cystitis without hematuria Medications: New tizanidine 2 mg PO .every 4 hours 120 tabs 3RF 30 days M62.838 - Other muscle spasm
[2024-09-17 12:40] VITALS: BP 120/76; BMI 20.4
--- OUTSIDE RECORDS SUMMARY | 2024-09-17 13:25 | XMS_ITS | Patient Health Record ---
Author Organization [facility] Address [address] [place] [address] Care Team Providers Care Sizer Machine Name Role Phone Mita GUILLEN, Kofi Primary Care Provider Chaitanya Steven Unavailable [phone] Reason For Referral No Information Plan Of Treatment No Information Insurance Providers Payer Name Payer Address Payer Phone Subscriber Number Group Number Insured Name Patient Relationship to Insured Coverage Start Date Coverage End Date MEDICARE OF [place] [address] [place] [address] [id number] LEI SABIHA Self - patient is the insured [facility] [address] [place] [address] [id number] LEI SABIHA Self - patient is the insured
--- OUTSIDE RECORDS SUMMARY | 2024-09-17 13:25 | XMS_ITS | Clinical Summary ---
Author Organization [facility] Facility Address [address] [address] Care Team Providers Care Corporate Quality Engineer Name Role Phone Koif Fan MD Primary Care Provider [phone] Social History Tobacco Use Types Packs/Day Years [...] age to complete this topic Insurance [address] [place] [address] Medicare [facility] Care Teams Corporate Quality Engineer Relationship Specialty Start Date End Date Kofi Fan MD [address] [id number] PCP - General Internal Medicine 10/22/21
--- OUTSIDE RECORDS SUMMARY | 2024-09-17 13:25 | XMS_ITS | Data Portability ---
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 I did review signs of worsening infection with the patient. She verbalized understanding of discharge instructions as well as emergency room precautions. Proper Personal Protective Equipment (PPE), including gloves, eye protection and masks were donned and doffed appropriately and all equipment cleaned using approved technique with germicidal disposable wipes prior to and after care of this patient according to [facility]'s infection prevention protocols. Time On Scene with Patient: 00:31:27 [email or web address] Not available 12/19/2019 20:44:48 10/17/2021 10/17/2021 Time [...] written and oral format. Patient taken to [facility] . [email or web address] Not available 10/17/2021 17:31:29 Plan of Treatment Reminders Order Date Submit Date Provider Last Modified By Organization Details Last Modified Time Details Appointments None recorded. Lab urinalysis, dipstick 2019 ernestine r31 Spr - Home, [address], [place], [address], 0 17:31:59 culture, [facility] TYRONE [facility] (Centralized Electronic Ordering - All Locations), Patient Can Go To The Location Of Their Choice, [id number] 0 08:10:48 Referral None recorded. Procedures None recorded. Surgeries None recorded. Imaging None recorded. Medication Orders cephalexin 500 mg capsule 2019 [place] [address] [id number], [address] [place], [address], 2 15:30:25 Keflex 500 mg capsule [address] [id number], [address] [place], [address], 2 15:30:25 Patient TargetsNo targets recorded. Patient Instructions Encounter Date Encounter Id Patient Instructions Last Modified By Organization Details Last Modified Time 12/19/2019 [id number] WE CAME TO SEE Y OU TODAY [...] flank pain, malaise and sometimes shaking chills. UTI s are common in women because of the female anatomy, and much less common in males. INSTRUCTIONS Drink plenty of fluid, water is best. Drinking fluids will help to flush the bacteria from your body. Urinate every 2-3 hours Wear cotton underwear and avoid Nylon, Spandex and Lycra which tend to trap moisture and thong underwear which may facilitate UTI s. Avoid tub baths Avoid using Super [...] in your condition between 8am-10pm, [facility] at [phone] to help navigate your care. [email or web address] Not available 12/19/2019 17:33:40 10/17/2021 [id number] Thank you for yo ur visit with [facility] today. You were seen today because of your headache. 911 was contacted so that further evaluation and possible treatment can be done. Please follow up with PCP. [email or web address] Not available 10/17/2021 17:16:51 Reason for Referral None Reported. Results Created Date Observation Date Name Description Value Unit Range Abnormal Flag Note LastModifiedBy Organization Detail LastModifiedTime 12/19/1912/19/2019 urina lysis , dipst ick Appearance clear Not Available [facility] [address] [address] [place], [address], 12/19/2019 17:23:27 12/19/1912/19/2019 urina lysis , dipst ick Color yellow Not Available Spr - Home [address] [place], [address], 12/19/2019 17:23:27 12/19/1912/19/2019 urina lysis , dipst ick Glucose negati ve Not Available Spr - Home [address] [place], [address], 12/19/2019 17:23:27 12/19/1912/19/2019 urina lysis , dipst ick Bilirubin negati ve Not Available Spr - Home [address] [place], [address], 12/19/2019 17:23:27 12/19/1912/19/2019 urina lysis , dipst ick Ketones NEG Not Available Spr - Home [address] [place], [address], 12/19/2019 17:23:27 12/19/1912/19/2019 urina lysis , dipst ick Sp. [place] 1.010 Not Available Spr - Home [address] [place], [address], 12/19/2019 17:23:27 12/19/1912/19/2019 urina lysis , dipst ick Blood ++ Not Available Spr - Home [address] [place], [address], 12/19/2019 17:23:27 12/19/1912/19/2019 urina lysis , dipst ick pH 5 Not Available Spr - Home [address] [place], [address], 12/19/2019 17:23:27 12/19/1912/19/2019 urina lysis , dipst ick Protein negati ve Not Available Spr - Home [address] [place], [address], 12/19/2019 17:23:27 12/19/1912/19/2019 urina lysis , dipst ick Urobilirubin negati ve Not Available Spr - Home [address] [place], [address], 12/19/2019 17:23:27 12/19/1912/19/2019 urina lysis , dipst ick Nitrites NEG Not Available Spr - [facility] [address] [place], [address], 12/19/2019 17:23:27 12/19/1912/19/2019 urina lysis , dipst ick Leukocytes + Not Available Spr - ome [address], [place], [address], 12/19/2019 17:23:27 12/19/1912/20/2019 cultu re, urine specimen description URINE Not Available [facility] ([facility] Ordering - All Locations) Patient Can Go To The Location Of Their Choice, 12/21/2019 08:10:48 12/19/1912/20/2019 cultu re, urine special requests NONE Not Available [facility] (Centralized Electronic Ordering - All Locations) Patient Can Go To The Location Of Their Choice, 12/21/2019 08:10:48 12/19/1912/21/2019 cultu re, urine culture NO GROWTH Not Available [facility] (Centralized Electronic Ordering - All Locations) Patient Can Go To The Location Of Their Choice, 12/21/2019 08:10:48 12/19/1912/21/2019 cultu re, urine report status FINAL 2019 Not Available [facility] (Centralized Electronic Ordering - All Locations) Patient Can Go To The Location Of Their Choice, 12/21/2019 08:10:48 Result Notes None recorded. Procedures Surgical History Date Name Laterality Status Provider Name and Address Organization Details Recorded Time 12/19/19 20 Medication Review completed SACHI WOOD NP [address], [place], [address], [place] [facility] 12/19/2019 20:44:52 Imaging Results None recorded. Procedure Notes None recorded. Medical Equipment None Reported. Allergies Allergen ID Allergen Name Allergen Category Reaction Reaction Severity Criticality Documentation Date Start Date Code Code System Note Provider Name and Address Organization Details Recorded Time 653729 Product containin g penicilli n (product) medicatio n Not available Not available Not available 12/19/2019 [id number] SNOMED SACHI WOOD NP [address] [place], [address], [place] [facility] 0 17:18:46 [...] t Available Vitals Date Recorded Heart rate Oxygen saturation Oxygen saturation in Arterial blood by Pulse oximetry Body temperature Respiratory rate Systolic blood pressure Diastolic blood pressure Provider Name and Address Organization Details Last Updated DateTime 2 104 /min 97 % 97 % 97.9 [degF] 18 /min 134 mm[Hg] 82 mm[Hg] Not Available [facility] 2 15:50:34 Date Recorded Heart rate Body temperature Respiratory rate Oxygen saturation Oxygen saturation in Arterial blood by Pulse oximetry Systolic blood pressure Diastolic blood pressure Provider Name and Address Organization Details Last Updated DateTime 0 90 /min 98.4 [degF] 18 /min 97 % 97 % 184 mm[Hg] 92 mm[Hg] Not Available [facility] 0 17:24:47 Social History Question Answer Notes LastModified by Organizat ion Details LastModified Time Tobacco Smoking Status Never Smoker SACHI WOOD NP [address], [place], [address], [place] [facility] 12/19/2019 17:21:18 What Is Your Code Status? Full Code [email or web address] Information not available 12/19/2019 Within The Past 12 Months, Has It Happened That The Food You Bought Just Didn't Last And You Didn't Have Money To Get More. No [email or web address] Information not available 12/19/2019 Within The Past 12 Months, Have You Worried That Your Food Would Run Out Before You Got Money To Buy More. No Information not available 12/19/2019 Fall Risk: Do You Feel Unsteady When Standing Or Walking? No [email or web address] Information not available 12/19/2019 We Know That How And When People Interact With Friends And Family Can Be Very Different From Person To Person. How Often Do You Have The Opportunity To See Or Talk To People That You Care About And Feel Close To? (Ex: Talking To Friends On The Phone Or Visiting Friends Or Family Or Going To [employer] Or Club Meetings) 3 Or 4 Times Per Week [email or web address] Information not available 12/19/2019 We Know From Many Of Our Patients That Covering All Of Their Costs Can Be Difficult At Times. This Can Cause Stress And Impact Health. In The Past Year, Have You Been Unable To Get Any Of The Following When It Was Really Needed? No [email or web address] Information not available 12/19/2019 What Is Your Housing Situation Today? I Have Housing [email or web address] Information not available 12/19/2019 Would You Like Help Connecting To Resources? None [email or web address] Information not available 12/19/2019 Sex: Unknown Functional Status None recorded. Mental Status None recorded. Family History Relationship Description Onset Age of this Age Resolved Age Notes LastModified by Organization Details LastModified Time Father Congestive heart failure [email or web address] Not available 03/2019 17:23:15 Medical History Condition Response Coronary Artery Disease N COPD N Depression Diabetes N Cancer N Stroke N Asthma N High Cholesterol N Pulmonary Embolism N Hypertension Y Kidney Disease N Gynecological HistoryNo gynecological history recorded. Obstetrics History GPAL:G 0 P 0 0 0 0 Past Encounters Encounter ID Performer Location Encounter Start Date Encounter Closed Date Diagnosis/Indication Diagnosis SNOMED-CT Code Diagnosis ICD10 Code Diagnosis Note [id number] SACHI WOOD NP [facility] [address] [place] [address] 12/19/2019 17:03:12 12/22/2019 22:24:53 Urinary tract infectious disease 77145889 N39.0 [id number] September LIANA Etienne [facility] [address] [address] 10/17/2021 15:12:14 10/18/2021 09:16:19 Ocular headache 16109269 G43.B0 Muscle weakness 15532357 M62.81 Health Concerns Section Related Observation LastModified by Organization Detai ls LastModified Time None Recorded Concern Status LastModified by Organization Details LastModified Time None Recorded Advance Directives Directive None Recorded Payers Insurance Date Sequence Insurance Name Policy Number Policy Cronin Covered Member ID Cronin Member ID Guarantor Name 10/22/2021 1 MEDICARE B-[place]: [facility] Loren High [id number] Loren High 10/17/2021 1 MEDICARE B-[place]: [facility] Loren High [id number] Loren High 11/20/2021 2 [facility] [id number] Loren High 12/19/2019 1 *SELF PAY* Loren High [id number] Loren High 10/18/2021 2 [facility] [id number] Loren High [id number] Loren High 10/17/2021 1 MEDICARE B-[place]: [facility] Loren High [id number] Loren High Notes Date Note Type Note Provider Name and Address Organization Details Recorded Time 12/19/2019 text/html This is a 69-year-old female that is a new patient [facility]. She has a medical history significant for hypertension, Parkinson's and anxiety. She contacted [facility] because she has been having urinary [...] has been eating and drinking normally. SACHI WOOD, LIANA [address], [place], [address], [place] [facility] 12/19/2019 20:45:02 10/17/2021 text/html 71 YO F [...] ago. Kisha Etienne NP [address], [place], [address], [place] [facility] 10/17/2021 17:31:42 OBGyn Episode No OBEpisode recorded.
== END 2024-09-17 13:12 | disposition home or self-care (01) ==
LOC: HO.HMCH 12:34
PROVIDERS: PCP Internal Medicine; Visit Provider Internal Medicine
DX: F33.0 Major depressive disorder, recurrent, mild (principal); F41.9 Anxiety disorder, unspecified; N30.20 Other chronic cystitis without hematuria; G20.C Parkinsonism, unspecified; M62.838 Other muscle spasm

== ENCOUNTER → 2024-09-17 12:33 | Outpatient (BNVA) | payer MEDICARE, OTHER, SELFPAY | PROVIDERS: PCP Internal Medicine; Visit Provider Internal Medicine | DX: F33.0 Major depressive disorder, recurrent, mild (principal); F41.9 Anxiety disorder, unspecified; N30.20 Other chronic cystitis without hematuria; G20.C Parkinsonism, unspecified; M62.838 Other muscle spasm | CPT/HCPCS: 96127; 99212 ==

== ENCOUNTER 2024-11-12 09:23 | Outpatient (AMB) | payer MEDICARE, OTHER, SELFPAY ==
--- OUTSIDE RECORDS SUMMARY | 2024-11-07 10:30 | XMS_ITS | Encounter Summary ---
Author Organization [facility] Address [address] [place] [address] Phone Care Team Providers Care Torpedo Worker Name Role Phone Fanny Power MD Primary Care Provid er Reason for Visit * Auth/Cert (Routine) Specialty Diagnoses / Procedures Referred By Chandler t Referred To Contact Referral ID Status Reason Start Date Expiration Date Visits Re quested Visits Authorized [id number] 1 1 Encounter Details Date Type Department Care Team (Late st Contact Info) Description 11/07/2024 10:30 AM EDT Home [facility] Visit [facility] [address] [place] [address] Joselito Whelan, OT [address] [place] [address] [email or web address] OT HOME VISIT Social History Tobacco Use Types Packs/Day Years Used Date Smoking Tobacco: Former Cigarettes Q uit: 1973 Smokeless Tobacco: Never Alcohol Use Standard Drinks/Week Comments Not Currently 0 (1 standard drink = 0.6 oz pur e alcohol) Home Health Assessment: Transportation Answer Date Recorded Lack of Transportation (Medical) No 11/08/2024 Lack of Transportation (Non-Medical) No 11/08/2024 Patient Unable or Declines to Respond No 11/08/2024 Education Answer Date Recorded Are you interested in more education? Not on caridad e 07/14/2022 Are you concerned about learning? Not on file 07/14/2022 No 07/14/2022 No 07/14/2022 Food Answer Date Recorded Within the past 6 months we worried whether our food would run out before we got money to buy more. Never True 10/19/2024 Within the past 6 months the food we bought just didn't last and we didn't have enough money to get more. Never True Residential Stability Answer Date Recor ded What is your housing situation today? I have rebel sing 10/19/2024 How many times have you move d in the past 12 months? Zero (I did not move) 10/19/2024 Paying for Meds Answer Date Recorded Do you have trouble paying for medicines? No 10/19/2024 Paying Utility Bills Answer Date Record ed Do you have trouble paying your heating or elect ricity bill? No 10/19/2024 Transportation Answer Date Recorded Has the lack of transportati on kept you from medical appointments or from getting medications? No 10/19/2024 Digital Access Answer Date Recorded No 10/19/2024 Yes 10/19/2024 Do you have reliable internet access at home? Ye s 10/19/2024 Do you have a device (e.g., phone, tablet, computer) with a working camera? Yes 10/19/2024 Intimate Partner Violence Answer Date R ecorded Are you denied basic needs s uch as food, clothing, or medical care? No 10/19/2024 In the past 12 months have y ou been in a relationship with a person who hurts, threatens, or tries to control you? No 10/19/2024 Are you denied basic needs s [facility] as food, clothing, or medical care? No 10/19/2024 In the past 12 months have y ou been in a relationship with a person who hurts, threatens, or tries to control you? 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 Not on file Not on file documented as of this encounter Last Filed Vital Signs Vital Sign Reading Time Taken Comments Blood Pressure 136/84 11/07/2024 10:40 AM EDT Pulse 84 11/07/2024 10:40 AM EDT Temperature 36.7 C (98.1 F) 11/07/2024 10:40 AM EDT Respiratory Rate 20 11/07/2024 10:40 AM EDT Oxygen Saturation 97% 11/07/2024 10:40 AM EDT Inhaled Oxygen Concentration - - Weight - - Height - - Body Mass Index - - documented in this encounter Plan of Treatment Upcoming Encounters Date Type Department Care Team (Late st Contact Info) Description 11/28/2024 9:45 AM EDT Office Visit [facility] [address] [place] [address] Fanny Power MD [address] [place] [phone] Bessy Carrillo, PT [address] [place] [address] 12/10/2024 10:30 AM EDT Office Visit [facility] [address] [place] [address] Fanny Power MD [address] [place] [id number] Bessy Carrillo, PT 8 [place] [address] 12/13/2024 9:15 AM EDT Office Visit [facility] [address] [place] [address] Fanny Power MD [address] [place] [address] Ryan Granados, SUPERVISOR WARPING DEPARTMENT [address] [place] [address] 12/17/2024 9:15 AM EDT Office Visit [facility] [address] [place] [address] Fanny Power MD [address] [place] [phone] Ryan Granados, SUPERVISOR WARPING DEPARTMENT 8 [place] [address] 12/24/2024 10:30 AM EDT Office Visit [facility] [address] [place] [address] Fanny Power MD [address] [place] [address] Bessy Carrillo, PT [address] [place] [address] 12/31/2024 9:45 AM EDT Office Visit [facility] [address] [place] [address] Fanny Power MD [address] [place] [address] Bessy Carrillo, PT [address] [place] [address] 01/07/2025 9:45 AM EDT Office Visit [facility] [address] [place] [address] Fanny Power MD [address] [place] [address] Bessy Carrillo, PT 8 [place] [address] 01/14/2025 9:45 AM EDT Office Visit [facility] [address] [place] [address] Fanny Power MD [address] [place] [address] Bessy Carrillo, PT [address] [place] [address] [email or web address] documented as of this encounter Visit Diagnoses Not on filedocumented in this encounter Home Health Visit - Care Plan Visit Details Visit Type -OT HOME VISIT Discipline -Occupational Therapy Problems Problem Description Start Date Status Goals Interve ntions HH - Medication Management Disciplines: All Active Home Health Disciplines 10/09/2024 Active 1 goal linked to scheduled/document ed intervention 2 goal interventions scheduled/document ed in this visit HH - Focus of Care and Teaching Disciplines: All Active Home Health Disciplines w/RD 10/09/2024 Active 1 goal linked to scheduled/document ed intervention 1 goal intervention scheduled/document ed in this visit HH - Standard of Care Disciplines: All Active Home Health Disciplines 10/09/2024 Active 1 goal linked to scheduled/document ed intervention 2 goal interventions scheduled/document ed in this visit HH - ADL/IADL Impairment and Therapeutic Interventions Disciplines: Occupational Therapy 10/16/2024 Active 1 goal linked to scheduled/document ed intervention 2 goal interventions scheduled/document ed in this visit Goals Goal Associated Problem Outcome Goal Met? Visit Notes HH - Safe medication management, avoid unnecessary harm related to medication errors and/or interactions HH - Medication Management No HH - Communication and collaboration to achieve patient goals HH - Focus of Care and Teaching No HH - Achieve care management for a safe to home/community discharge from homecare HH - Standard of Care No HH - Promote higher level of independence with performance of ADLs/IADLs. Description: Pt will demo understanding of relaxed breathing tech and demo mod I with tech to help decrease anxiety and manage urgency by 11/09/24 Pt will demo mod I with use of general smart phone use such as managing contacts, making/receiving calls, texting and emailing by 11/09/24 Pt will demo Mod I with functional transfers in preparation for community engagement and to decrease fall risk by 11/09/24 Pt will demo mod I with dressing task to maximize functional independence by 11/09/24 HH - ADL/IADL Impairment and Therapeutic Interventions Not Progressing No Interventions Intervention Associated Problem/Goal Status Variance Visit Notes HH - I/E medication management: administration, purpose, dosages, preparation, setup, scheduling, side effects, food/drug interactions, and potential complications as indicated Description: Update patient's copy of medication list as needed. Problem:HH - Medication Management Goal:HH - Safe medication management, avoid unnecessary harm related to medication errors and/or interactions Completed HH - Complete medication review every visit and medication reconciliation as indicated. Pharmacy information: Problem:HH - Medication Management Goal:HH - Safe medication management, avoid unnecessary harm related to medication errors and/or interactions Completed HH - Focus of care, teaching completed and plan for next visit Problem:HH - Focus of Care and Teaching Goal:HH - Communication and collaboration to achieve patient goals Completed Primary Clinical Focus this Visit & Instruction Provided: Patient was seen today for follow up on phone news and transfers. Upon arrival, the patient stated that she was not having a good day and then asked for assistance to remove her cardigan. The patient was encouraged to stand up from her seat with her RW in front of her and to see if she can shrug the cardigan off her shoulders and pull it off. She was able to do so with no loss of balance and on her first try. The patient stated that she was having some difficulty trying to do the breathing exercise. Was asked to demo her technique, which was effective and appropriate. She did not need any modifications to that technique. She was encouraged to continue practicing this so that when she is more stressed or feeling out of breath, she can utilize it more effectively. She was able to demo inhaling through her nose, pausing, and then exhaling through her mouth and pausing before repeating the cycle. The patient was able to demo safe technique for getting an indoor bed. She stated that she has some difficulty getting out of bed a lot of of the time. She was able to demo good technique, rolling into her side, bringing her feet off the edge of the bed and then pushing herself up to an upright position at the edge of the bed. The patient was encouraged to practice some movements with her legs and arms when she is feeling like she has having difficulty initiating movement to get out of bed she was shown how to utilize AAROM to allow for maximal assistance with our movement when she feels stuck. the patient was also shown how to walk her buttocks closer to the edge of the bed when preparing to stand up or having assistance with ADLs. The patient was educated on how to use the calendar in her phone, which she demoed familiarity with. This again was modeled for her, and then she was able to add two more items to our calendar to demo understanding. Plan to discharge the patient tomorrow, she is in agreement Instruction Provided to: patient Response to Instruction/Teaching : Is partially able to teach back topics as evidenced by needing cueing on breathing exerises and phone training. Plan for Next Visit Specific Focus & Education Needed: d/c New Orders: n/a Updated Discharge Plan: 11/08 HH - Assess vital signs, pulse oximetry, pain, and as indicated, orthostatic vital signs Description: use agency-specific parameters Problem:HH - Standard of Care Goal:HH - Achieve care management for a safe to home/community discharge from homecare Completed HH - Assess skin integrity Problem:HH - Standard of Care Goal:HH - Achieve care management for a safe to home/community discharge from homecare Completed HH - OT Therapeutic interventions, as indicated: Description: breathing exercises , neuromuscular retraining/tone management, and desensitization techniques therapeutic exercise/home exercise program , transfer training, including bathroom transfers and other: communication device training. Problem:HH - ADL/IADL Impairment and Therapeutic Interventions Goal:HH - Promote higher level of independence with performance of ADLs/IADLs. Completed HH - I/E ADL/IADL performance, safety, and management Description: As indicated: ADL/IADL training, functional mobility training, adaptive equipment: recommendations and use, therapeutic exercise and home exercise program, safety, energy conservation/pacing, cognitive training, and visual/perceptual strategies. Problem:HH - ADL/IADL Impairment and Therapeutic Interventions Goal:HH - Promote higher level of independence with performance of ADLs/IADLs. Completed documented in this encounter Care Teams Torpedo Worker Relationship Specialty Start Date End Date Fanny Power MD [address] [place] [address] PCP - General Internal Medicine 08/16/24 documented as of this encounter Additional Source Comments The information contained in this document represents components of the legal health record. It is not the complete legal health record.[facility]
--- OUTSIDE RECORDS SUMMARY | 2024-11-08 09:00 | XMS_ITS | Encounter Summary ---
Author Organization [facility] Address [address] [place] [address] Phone Care Team Providers Care Spring Machine Operator Name Role Phone Fanny Power MD Primary Care Provid er Reason for Visit * Auth/Cert (Routine) Specialty Diagnoses / Procedures Referred By Chandler t Referred To Contact Referral ID Status Reason Start Date Expiration Date Visits Re quested Visits Authorized [id number] 1 1 Encounter Details Date Type Department Care Team (Late st Contact Info) Description 11/08/2024 9:00 AM EDT Home Care Visit [facility] [address] [place] [phone] Joselito Whelan, OT [address] [place] [address] [email or web address] OT OASIS DISCHARGE VISIT Social History Tobacco Use Types Packs/Day [...] got money to buy more. Never True 11/11/2024 Within the past 6 months the food we bought just didn't last and we didn't have enough money to get more. Never True Residential Stability Answer Date Recor ded What is your housing situation today? I have rebel sing 11/11/2024 How many times have you move d in the past 12 months? Zero (I did not move) 11/11/2024 Paying for Meds Answer Date Recorded Do you have trouble paying for medicines? No 11/11/2024 Paying Utility Bills Answer Date Record ed Do you have trouble paying your heating or elect ricity bill? No 11/11/2024 Transportation Answer Date Recorded Has the lack of transportati on kept you from medical appointments or from getting medications? No 11/11/2024 Digital Access Answer Date Recorded No 11/11/2024 Yes 11/11/2024 Do you have reliable internet access at home? Ye s 11/11/2024 Do you have a device (e.g., phone, tablet, computer) with a working camera? Yes 11/11/2024 Intimate Partner Violence Answer Date R ecorded Are you denied basic needs s uch as food, clothing, or medical care? No 11/11/2024 In the past 12 months have y ou been in a relationship with a person who hurts, threatens, or tries to control you? No 11/11/2024 Are you denied basic needs s uch as food, clothing, or medical care? No 11/11/2024 In the past 12 months have y ou been in a relationship with a person who hurts, threatens, or tries to control you? 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 Not on file Not on file documented as of this encounter Last Filed Vital Signs Vital Sign Reading Time Taken Comments Blood Pressure 126/66 11/08/2024 9:26 AM EDT Pulse 82 11/08/2024 9:26 AM EDT Temperature 36.8 C (98.2 F) 11/08/2024 9:26 AM EDT Respiratory Rate 18 11/08/2024 9:26 AM EDT Oxygen Saturation 100% 11/08/2024 9:26 AM EDT Inhaled Oxygen Concentration - - Weight - - Height - - Body Mass Index - - documented in this encounter Functional Status * Calculated C-SSRS Risk Score (Lifetime/Recent) Answer Date of Assessment Author No Risk Indicated 11/11/2024 4:37 AM EDT Jeni Castaneda RN * [place] Suicide Severity Rating Scale (Screener/Recent Self-Report) Question Answer Date of Assessment Author 1. Wish to be (Past 1 Month) No 11/11/2024 4:37 AM EDT Dominique Bustos, [place] 2. Non-Specific Active Suicidal Thoughts (Past 1 Month) No 11/11/2024 4:37 AM EDT Dominique Bustos, [place] 6. Suicidal Behavior (Lifetime) No 11/11/2024 4:37 AM EDT Dominique Bustos RN documented as of this encounter Plan of Treatment Upcoming Encounters Date Type Department Care Team (Late st Contact Info) Description 11/28/2024 9:45 AM EDT Office Visit [address] [place] [address] Fanny Power MD [address] [place] [phone] Bessy Carrillo, PT [address] [place] [address] [email or web address] 12/10/2024 10:30 AM EDT Office Visit [address] [place] [address] Fanny Power MD [address] [place] [address] Bessy Carrillo, PT [address] [place] [address] 12/13/2024 9:15 AM EDT Office Visit [facility] [address] [place] [address] Fanny Power MD [address] [place] [address] Ryan Granados, COMPUTER AIDED DESIGN TECHNICIAN [address] [place] [address] 12/17/2024 9:15 AM EDT Office Visit [facility] [address] [place] [address] Fanny Power MD [address] [place] [address] Ryan Granados, COMPUTER AIDED DESIGN TECHNICIAN [address] [place] [address] 12/24/2024 10:30 AM EDT Office Visit [facility] [address] [place] [address] Fanny Power MD [address] [place] [phone] Bessy Carrillo, PT [address] [place] [address] 12/31/2024 9:45 AM EDT Office Visit [address] [place] [address] Fanny Power MD [address] [place] [phone] Bessy Carrillo, PT [address] [place] [address] [email or web address] 01/07/2025 9:45 AM EDT Office Visit [facility] [address] [place] [address] Fanny Power MD [address] [place] [address] Bessy Carrillo, PT [address] [place] [address] [email or web address] 01/14/2025 9:45 AM EDT Office Visit [address] [place] [address] Fanny Power MD [address] [place] [address] Bessy Carrillo, PT [address] [place] [address] [email or web address] documented as of this encounter Visit Diagnoses Not on filedocumented in this encounter Home Health Visit - Care Plan Visit Details Visit Type -OT OASIS DISCHAR VISIT Discipline -Occupational Therapy Problems Problem Description [...] goal intervention scheduled/document ed in this visit Goals Goal [...] HH - ADL/IADL Impairment and Therapeutic Interventions Completed Yes Interventions Intervention Associated Problem/Goal Status Variance Visit [...] Clinical Focus this Visit & Instruction Provided: Instruction Provided to: patient Response to Instruction/Teaching: Is partially able to teach back topics as evidenced by Pt being able to demo understanding of movement tech but needing encouragement. Plan for Next Visit Specific Focus & Education Needed: n/a New Orders: n/a Updated Discharge Plan: 11/08 [...] discharge from homecare Completed HH - Assess ADL/IADL performance, safety, management, and durable medical equipment Problem:HH - ADL/IADL Impairment and Therapeutic Interventions Goal:HH - Promote higher level of independence with performance of ADLs/IADLs. Completed documented in this encounter Care Teams Spring Machine Operator Relationship Specialty Start Date End Date Fanny Power MD [address] [place] [address] PCP - General Internal Medicine 08/16/24 documented as of this encounter Additional Source Comments The information contained in this document represents components of the legal health record. It is not the complete legal health record.[facility]
--- OUTSIDE RECORDS SUMMARY | 2024-11-11 04:28 | XMS_ITS | Encounter Summary ---
Author Organization [facility] Address [address] [facility] [address] [place] [phone] Phone Care Team Providers Care Manager Contact Name Role Phone Fanny Power MD Primary Care Provid er Reason for Visit * Reason Comments Leg Pain Encounter Details Date Type Department Care Team (Late st Contact Info) Description 11/11/2024 4:28 AM EDT - 11/11/2024 11:47 AM EDT Emergency [facility] [address] [place] [address] Rajesh Green MD [address] [place] [address] [email or web address] Karl Stevens MD [address] [place] [address] [email or web address] Discharge Disposition: Intermediate Facility Social History Tobacco Use Types Packs/Day Years [...] Job Start Date 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, 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 Not on file Not on file Not on file documented as of this encounter Last Filed Vital Signs Vital Sign Reading Time Taken Comments Blood Pressure 164/87 11/11/2024 10:28 AM EDT 16 6/91 p amb Pulse 66 11/11/2024 10:28 AM EDT 76 p amb Temperature 36.7 C (98 F) 11/11/2024 9:01 AM EDT Respiratory Rate 15 11/11/2024 8:01 AM EDT Oxygen Saturation 100% 11/11/2024 9:01 AM EDT Inhaled Oxygen Concentration - - Weight 54.4 kg (120 lb) 11/11/2024 4:35 AM EDT Height 171.5 cm (5' 7.5 ) 11/11/2024 4:35 AM EDT Body Mass Index 18.52 11/11/2024 4:35 AM EDT documented in this encounter Functional Status * Calculated C-SSRS Risk Score (Lifetime/Recent) Answer Date of Assessment Author No Risk Indicated 11/11/2024 4:37 AM EDT Jeni Castaneda RN * [place] Suicide Severity Rating Scale (Screener/Recent Self-Report) Question Answer Date of Assessment Author 1. Wish to be (Past 1 Month) No 11/11/2024 4:37 AM EDT Dominique Bustos RN 2. Non-Specific Active Suicidal Thoughts (Past 1 Month) No 11/11/2024 4:37 AM EDT Dominique Bustos RN 6. Suicidal Behavior (Lifetime) No 11/11/2024 4:37 AM EDT Dominique Bustos RN documented as of this encounter Discharge Instructions * Discharge Instructions* Karl Cavanaugh MD - 11/11/2024 10:56 AM EDT You were seen and evaluated in the emergency department. please continue taking all your regular medications Follow-up with your primary care doctor within the next week. documented in this encounter Medications at Time of Discharge acetaminophen (TYLENOL) 325 mg tablet Take 650 mg by mouth every 4 (four) hours as needed for fever or pain (specific location in comments) (back). 4 ascorbic acid, vitamin C, (VITAMIN C) 1000 MG tablet Take 1,000 mg by mouth daily. 5 calcium carbonate 500 mg (200 mg elemental) chewable tablet Take 2 tablets by mouth every 6 (six) hours as needed for heartburn. 5 carbidopa-levodopa (SINEMET) 25-100 mg per tabletIndications:P arkinson's disease without dyskinesia, with fluctuating manifestations Take 1 tablet by mouth 5 (five) times a day. 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 fluticasone propionate (FLONASE) 50 mcg/actuation nasal spray 1 spray by Nasal route daily as needed (congestion). 1 spray in each nostrile 2 gabapentin (NEURONTIN) 100 MG capsuleIndications: Nonintractable headache, unspecified chronicity pattern, unspecified headache type Take 1 capsule (100 mg total) by mouth nightly at bedtime. 30 capsule 3 4 hydrOXYzine (ATARAX) 25 MG tablet Take 25 mg by mouth 4 (four) times a day as needed for anxiety or itching (vertigo or dizziness). 4 ibuprofen (ADVIL,MOTRIN) 200 MG tablet Take 200 mg by mouth every 6 (six) hours as needed for pain (specific location in comments) (back or headache). 4 Lactobacillus acidophilus (ACIDOPHILUS ORAL) Take 1 capsule by mouth daily as needed (cold sore or upset stomach). 5 lidocaine 4 % Place 1 patch onto the skin daily. 10 patch 2 loratadine (CLARITIN) 10 mg tablet Take 10 mg by mouth daily. magnesium 250 mg Tab Take 250 mg by mouth daily. 5 meclizine (ANTIVERT) 25 mg tablet Take 25 mg by mouth 3 (three) times a day as needed for dizziness. 5 melatonin 3 mg TabIndications:Park inson's disease without dyskinesia, with fluctuating manifestations Take 1 tablet (3 mg total) by mouth nightly at bedtime. 30 tablet 5 5 methenamine (HIPREX) 1 gram tablet Take 1 g by mouth daily. 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 30 tablet 5 5 tiZANidine (ZANAFLEX) 2 MG tablet [The details of the medication are not available because there are pending changes by a home health clinician.] 8 tablet 4 CARBIDOPA-LEVODOPA ORAL Take 1 tablet by mouth nightly at bedtime. 50-200mg 4 documented as of this encounter Progress Notes Only the most recent of 2 notes is shown. * Edwige Moyer RN - 11/11/2024 11:20 AM EDT Case Management Note: Initial Assessment Note Communication summary: met with patient and her caregiver Barby at the bedside. Per patient and the PT, patient is at her baseline for ambulation. [facility] butis in the process of [facility]. Caregiver indicated that patient is set up at home withservices and will be starting outpatient PT next week. Both patient and caregiver agree with discharge home at this time. Expected Discharge Date: 11/10/24 Patient Language: Citizen Of [place] Payor Info: Payor: MEDICARE / Plan: MEDICARE PART A & B / Product Type: Medicare / PCP Confirmed: Fanny Power MD Pharmacy Confirmed: [facility] [place] [place] - [address] [facility] [address] [facility] [address] HCP Confirmed: Advance Care Planning reviewed: Yes Does patient have a Health Care Proxy form completed?: Electronic copy of HCP available [facility] Risk Contract ([employer] Medicare ACO, [facility] Medicare Preferred): No [facility] D[facility] Poultry Grader if applicable: No care call center team leader to display Does the patient have a healthcare sales representative, nonfarm animal caretaker, adult live in caregiver, enrollment services vice president, or wellness nurse? (such as assigned from an insurer/payor, an [facility] or extended care facility, or an alternative residence type)? No If yes, provide name, agency, and contact phone number: Case Management Assessment: High Risk Screen Source of information: Patient; Medical record; Other (Comment) (caregiver at bedside) High Risk Screen: Chronic illness (Parkinsons) Discharge services needed at this time: No Patient Information Home Caregiver: Self; Private caregiver Accompanied by/Relationship: srinivas Dior Support Systems: Children Psychosocial Lives With: Self/alone Transportation: Family Type of Residence: Assisted Living Facility ([facility]) Services active on admission: No ([facility] CHILD NURSE Functional Status Stairs to Enter Home: 0 Stairs Inside Home: 0 Prior Dressing Lower Body Level of Assistance: Independent Prior Grooming Level of Assistance: Independent Prior Self Feeding Level of Assistance: Independent Prior Bathing/Showering Assistance: Minimum assistance Prior Toileting Hygiene Level of Assistance: Independent Prior Toileting Clothing Management Level of Assistance: Independent Bowel Control: Continent Prior Bed Mobility Level of Assistance: Independent First Surface to Surface Level of Assistance: Independent ADL Assistance: Bathing Current Functional Status Stairs to Enter Home: 0 Stairs Inside Home: 0 Patient Able to Express Needs/Desires: Yes Financial Information Insurance verified: Yes Prescription benefits: Yes Afford co-pays: Yes Legal Information Advance Care Planning reviewed: Yes Does patient have a Health Care Proxy form completed?: Electronic copy of HCP available Discharge Planning Patient/Family/Caregiver discharge preference/goals : Home Anticipated discharge disposition: Home (home alone, caregiver and will follow up with outpatient PT) Non-Medical Delays: No barriers Referrals Referral Agreement: Accepted Next Actions Assessment/High Risk Screening: Complete Is patient at risk? [x] YES: Option 1: High Risk and No Discharge Needs are Anticipated Medical record reviewed, discussed patient's clinical progress and discharge planning needs with treatment team, and met with the patient. Patient meets high risk screening criteria, but no dischargeneeds or services are anticipated. Case management will continue to follow the patient, with the treatment team, and is available for assistance if the situation changes. [] YES: Option 2: High Risk and Post Acute Discharge Needs and Services are Anticipated Medical record reviewed, discussed patient's clinical progress and discharge planning needs with treatment team, and met with the patient. Patient meets high risk screening criteria, and discharge needs or services are anticipated. Case management will continue to follow the patient, with the treatment team [] No: NOT High Risk and No Discharge Needs are Anticipated Medical record reviewed, discussed patient's clinical progress and discharge planning needs with treatment team. Patient does not meet high risk screening criteria and no post-discharge needs are anticipated. Case management will continue to follow the patient, with the treatment team, and is available for assistance if the situation changes. Initial assessment has been completed with the patient or a pharmaceutical specialty representative. Post acute care services are coordinated with the patient as established in the Code of Federal Regulations- Conditions of Participation for Hospitals under Title 42, Part 482, specifically Discharge Planning, 482 C.F.R. ??482.43 (2023). Edwige Moyer RN documented in this encounter ED Notes * Everardo Barclay RN - 11/11/2024 11:47 AM EDT ED Discharge Nursing Note Patient wheeled out of ed in wheelchair to care givers car, patient verbalizes understanding of d/cinstructions, will start new abx today and follow up as recommended. * David Victoria RN - 11/11/2024 4:45 AM EDT ED Nursing Progress Note +csmt's, pt unable to move legs up at this time d/t pain. Otc offered. Declined by pt as they don'twork for her * Jeni Bustos RN - 11/11/2024 4:34 AM EDT Patient brought in by EMS from [place]. Patient reports her legs are spasming unrelieved by prescribed medications. Patient has Parkinson. + pedal pulses bilateral. No leg movement noted at this time. Also reports feeling nausea, received Zofran by EMS with no change. * Rajesh Green MD - 11/11/2024 4:28 AM EDT Chief Complaint Chief Complaint Patient presents with Leg Pain History of Present Illness The patient, Loren High,is a 74 y.o. female who presents for evaluation of Leg Pain The patient reports that she is having spasm type pain in her legs and in her lower abdomen/groin area. She is feeling some nausea. She was given Zofran from EMS. She has had something similar happenin the past pretty frequently recently. Unless otherwise specified, I have reviewed and agree with the triage and nursing notes. ROS A ten point review of systems was negative except what was noted in the HPI. Review of Systems Past Medical History Past Medical History: Diagnosis Date Anxiety DDD (degenerative disc disease), cervical Hypertensive disorder Hyponatremia 09/2021 Migraines Parkinson's disease Past Surgical History Past Surgical History: Procedure Laterality Date CHOLECYSTECTOMY FACIAL COSMETIC SURGERY Facelift/Truswell MINI FACIAL LIFT Mini lift/Truswell Home Medications Prior to Admission medications Medication Sig acetaminophen (TYLENOL) 325 mg tablet 650 mg, Oral, Every 4 hours PRN ascorbic acid, vitamin C, (VITAMIN C) 1000 MG tablet 1,000 mg, Oral, Daily calcium carbonate 500 mg (200 mg elemental) chewable tablet 2 tablets, Oral, Every 6 hours PRN carbidopa-levodopa (SINEMET) 25-100 mg per tablet 1 tablet, Oral, 5 times daily Patient not taking: Reported on 09/15/2024 carbidopa-levodopa (SINEMET) 25-100 mg per tablet Take 1 tablet by mouth at 2 AM /6 AM /8 AM /11 AM/2 PM /6 PM/ 8 AM and 1 tab as needed for additional dyskinesias
Continue taking with carbidopa-levodopa CR as directed Patient not taking: Reported on 09/15/2024 carbidopa-levodopa (SINEMET) 25-100 mg per tablet Take 1 tablet every three hours by mouth daily with adding additional 1/2 tab (1.5 tabs total) to the 5 AM, 2 PM and 8 PM doses Patient taking differently: Take 1 tablet by mouth every 4 (four) hours. Take 1 tablet every four hours by mouth Indications: a type of movement disorder called parkinsonism estradioL (ESTRACE) 0.01 % (0.1 mg/gram) vaginal cream 2 g, 3 times weekly fluticasone propionate (FLONASE) 50 mcg/actuation nasal spray 1 spray, Nasal, Daily as needed, 1 spray in each nostrile gabapentin (NEURONTIN) 100 MG capsule 100 mg, Oral, Nightly Patient not taking: Reported on 09/15/2024 hydrOXYzine (ATARAX) 25 MG tablet 25 mg, Oral, 4 times daily PRN ibuprofen (ADVIL,MOTRIN) 200 MG tablet 200 mg, Oral, Every 6 hours PRN Lactobacillus acidophilus (ACIDOPHILUS ORAL) 1 capsule, Oral, Daily as needed lidocaine 4 % 1 patch, Transdermal, Every 24 hours Patient not taking: Reported on 09/15/2024 loratadine (CLARITIN) 10 mg tablet 10 mg, Daily magnesium 250 mg Tab 250 mg, Oral, Daily meclizine (ANTIVERT) 25 mg tablet 25 mg, Oral, 3 times daily PRN melatonin 3 mg Tab 3 mg, Oral, Nightly methenamine (HIPREX) 1 gram tablet 1 g, Daily rasagiline (AZILECT) 0.5 mg tablet 0.25 mg, Oral, Daily tiZANidine (ZANAFLEX) 2 MG tablet 2 mg, Oral, Every 6 hours PRN Patient taking differently: Take 1 tablet by mouth every 4 (four) hours. CARBIDOPA-LEVODOPA ORAL 1 tablet, Oral, Nightly, 50-200mg Allergies Allergies Allergen Reactions Mirapex [Pramipexole] hallucinations Requip [Ropinirole] Dizziness Penicillins Angioedema Zofran [Ondansetron Hcl] Amantadine Dizziness headache Social and Family History Social History Tobacco Use Smoking status: Former Current packs/day: 0.00 Types: Cigarettes Quit date: 1972 Years since quittin.6 Smokeless tobacco: Never Substance Use Topics Alcohol use: Not Currently Social History Substance and Sexual Activity Drug Use Never Family History Problem Relation Age of Onset Cancer Mother CV disease Father Heart failure Father COPD Brother Physical Exam Vital Signs: ED Triage Vitals Encounter Vitals Group BP 11/11/24 0437 (!) 160/93 Systolic BP Percentile -- Diastolic BP Percentile -- Heart Rate 11/11/24 0435 (!) 106 Respiratory Rate 11/11/24 0435 24 Temperature 11/11/24 0435 37.7 ??C (99.8 ??F) Temp src -- SpO2 11/11/24 0435 97 % Weight 11/11/24 0435 120 lb Height 11/11/24 0435 5' 7.5 Head Circumference -- Peak Flow -- Pain Score -- Pain Loc -- Pain Education -- Exclude from Growth Chart -- Physical Exam Vitals and nursing note reviewed. Constitutional: Appearance: She is well-developed. Comments: Appears uncomfortable. HENT: Head: Normocephalic and atraumatic. Mouth/Throat: Mouth: Mucous membranes are moist. Pharynx: Oropharynx is clear. Eyes: Conjunctiva/sclera: Conjunctivae normal. Pupils: Pupils are equal, round, and reactive to light. Cardiovascular: Rate and Rhythm: Normal rate and regular rhythm. Heart sounds: Normal heart sounds. Pulmonary: Effort: Pulmonary effort is normal. No respiratory distress. Breath sounds: Normal breath sounds. Abdominal: Palpations: Abdomen is soft. Tenderness: There is abdominal tenderness. Comments: Suprapubic tenderness to palpation. Musculoskeletal: General: Normal range of motion. Cervical back: Normal range of motion and neck supple. Skin: General: Skin is warm and dry. Neurological: Mental Status: She is alert and oriented to person, place, and time. Psychiatric: Mood and Affect: Mood normal. Laboratory Testing Results for orders placed or performed during the hospital encounter of 11/11/24 CBC and differential Specimen: Blood Result Value Ref Range WBC 5.12 4.00 - 11.00 K/uL RBC 3.45 (L) 4.00 - 5.20 M/uL HGB 11.0 (L) 12.0 - 16.0 g/dL HCT 34.1 (L) 36.0 - 46.0 % PLT 258 150 - 450 K/uL MCV 98.8 80.0 - 100.0 fL MCH 31.9 (H) 27.0 - 31.0 pg MCHC 32.3 32.0 - 36.0 g/dL RDW 12.3 11.5 - 14.5 % MPV 9.9 8.4 - 12.0 fL NRBC 0.00 0.00 /100 WBCs ABSOLUTE NRBC 0.00 0.00 K/uL DIFF METHOD Auto NEUTS 71.0 48.0 - 76.0 % LYMPHS 16.8 (L) 18.0 - 41.0 % MONOS 10.4 4.0 - 11.0 % EOS 1.0 0.0 - 5.0 % BASOS 0.6 0.0 - 1.5 % Granulocytes, immature (%) 0.2 0.0 - 0.9 % ABSOLUTE NEUTS 3.64 1.92 - 7.60 K/uL ABSOLUTE LYMPHS 0.86 0.72 - 4.10 K/uL ABSOLUTE MONOS 0.53 0.16 - 1.10 K/uL ABSOLUTE EOS 0.05 0.00 - 0.50 K/uL ABSOLUTE BASOS 0.03 0.00 - 0.15 K/uL Granulocytes, immature 0.01 0.00 - 0.09 K/uL Radiology Testing No orders to display ED Medication from 11/11/2024 0428 to 11/11/2024 0627 Date/Time Order Dose Route Action Action by Comments 11/11/2024 0536 EDT ketorolac (TORADOL) injection 15 mg 15 mg Intravenous Given David Victoria RN -- 11/11/2024 06 EDT carbidopa-levodopa (SINEMET) 25-100 mg per tablet 1 tablet 1 tablet Oral Given David Victoria RN -- 11/11/2024 0600 EDT HYDROmorphone (PF) (DILAUDID) injection syringe 0.5 mg 0.5 mg Intravenous GivenWDavid dias RN -- [facility] MDM The patient presents with discomfort, spasming of legs and lower abdomen. We will obtain labs and try to treat pain. I am signing the patient out to my oncoming colleague at shift change. Clinical Impressions as of 11/11/24626 Inguinal pain, unspecified laterality Leg pain, bilateral Clinical Impression Diagnosis Description Comment Final diagnoses Inguinal pain, unspecified laterality Inguinal pain, unspecified laterality -- Leg pain, bilateral Leg pain, bilateral -- Disposition: Pending at shift change. Rajesh Green MD 11/11/24626 documented in this encounter Plan of Treatment Upcoming Encounters Date Type Department Care Team (Late st Contact Info) Description 11/28/2024 9:45 AM EDT Office Visit [address] [place] [address] Fanny Power MD [address] [place] [phone] Bessy Carrillo, PT [address] [place] [address] [email or web address] 12/10/2024 10:30 AM EDT Office Visit [address] [place] [address] Fanny Power MD [address] [place] [id number] Bessy Carrillo, PT [address] [place] [address] [email or web address] 12/13/2024 9:15 AM EDT Office Visit [facility] [address] [place] [address] Fanny Power MD [address] [place] [phone] Ryan Granados, CHILD NURSE [address] [place] [address] 12/17/2024 9:15 AM EDT Office Visit [facility] [address] [place] [address] Fanny Power MD [address] [place] [address] Ryan Granados, CHILD NURSE [address] [place] [address] 12/24/2024 10:30 AM EDT Office Visit [facility] [address] [place] [address] Fanny Power MD [address] [place] [phone] Bessy Carrillo, PT [address] [place] [address] 12/31/2024 9:45 AM EDT Office Visit [facility] [address] [place] [address] Fanny Power MD [address] [place] [phone] Bessy Carrillo, PT [address] [place] [address] 01/07/2025 9:45 AM EDT Office Visit [facility] [address] [place] [address] Fanny Power MD [address] [place] [id number] Bessy Carrillo, PT [address] [place] [address] [email or web address] 01/14/2025 9:45 AM EDT Office Visit [facility] [address] [facility] [place] [address] Fanny Power MD [address] [place] [address] Bessy Carrillo, PT [address] [place] [address] [email or web address] documented as of this encounter Procedures Procedure Name Priority Date/Time Associated Diagnosis Comments URINALYSIS W/REFLEX URINE CULTURE STAT 11/11/2024 6:45 AM EDT CBC AND DIFFERENTIAL STAT 11/11/2024 5:29 AM EDT MAGNESIUM STAT 11/11/2024 5:29 AM EDT BASIC METABOLIC PANEL STAT 11/11/2024 5:29 AM EDT ECG 12-LEAD STAT 11/11/2024 4:34 AM EDT documented in this encounter Results * (ABNORMAL) Urinalysis w/reflex Urine Culture (11/11/2024 6:45 AM EDT) COLOR Yellow Yellow [facility] CLARITY Clear [facility] GLUCOSE Negative Negative [facility] BILI Negative Negative [facility] KETONES Negative Negative [facility] SPECIFIC GRAVITY 1.010 1.005 - 1.030 [facility] BLOOD Trace(A) Negative [facility] PH 7.0 5.0 - 8.0 [facility] Protein-UA Negative Negative [facility] NITRITE Negative Negative [facility] Leukocyte esterase, ur Negative Negative [facility] Urine (Urine) 11/11/2024 6: 45 AM EDT 11/11/2024 7:40 AM EDT Rajesh Green MD URINE ORDERABLES Final R esult Performing Organization Address [facility] Co de Phone Number [address] [address] * Magnesium (11/11/2024 5:29 AM EDT) MAGNESIUM 2.0 1.6 - 2.6 mg/dL [facility] Blood 11/11/2024 5:29 AM EDT 11/11/2024 5:46 AM EDT Rajesh Green MD LAB BLOOD ORDERABLES Fin al Result Performing Organization Address [facility] de Phone Number [address] [address] * (ABNORMAL) Basic metabolic panel (11/11/2024 5:29 AM EDT) SODIUM 141 133 - 146 mmol/L [facility] CHLORIDE 106 96 - 108 mmol/L [facility] POTASSIUM 3.8 3.3 - 5.1 mmol/L [facility] CO2 24 21 - 35 mmol/L [facility] BUN 15 6 - 19 mg/dL [facility] CREATININE 0.80 0.5 - 1.5 mg/dL [facility] GLUCOSE 101(H) 70 - 99 mg/dL [facility] CALCIUM 8.9 8.4 - 10.3 mg/dL [facility] EGFR 76 >59 mL/min/1.7 3m2 [facility] Comment:Estimated glomerular filtration rate calculated using the CKD-EPI refit equation. ANION GAP 15 10 - 20 mmol/L [facility] Blood 11/11/2024 5:29 AM EDT 11/11/2024 5:46 AM EDT Rajesh Green MD LAB BLOOD ORDERABLES Fin al Result Performing Organization Address [facility]/ZIP Co de Phone Number [address] [address] * (ABNORMAL) CBC and differential (11/11/2024 5:29 AM EDT) WBC 5.12 4.00 - 11.00 K/uL [facility] RBC 3.45(L) 4.00 - 5.20 M/uL [facility] HGB 11.0(L) 12.0 - 16.0 g/dL [facility] HCT 34.1(L) 36.0 - 46.0 % [facility] PLT 258 150 - 450 K/uL [facility] MCV 98.8 80.0 - 100.0 fL [facility] MCH 31.9(H) 27.0 - 31.0 pg [facility] MCHC 32.3 32.0 - 36.0 g/dL [facility] RDW 12.3 11.5 - 14.5 % [facility] MPV 9.9 8.4 - 12.0 fL [facility] NRBC 0.00 0.00 /100 WBCs [facility] ABSOLUTE NRBC 0.00 0.00 K/uL [facility] DIFF METHOD Auto [facility] NEUTS 71.0 48.0 - 76.0 % [facility] LYMPHS 16.8(L) 18.0 - 41.0 % [facility] MONOS 10.4 4.0 - 11.0 % [facility] EOS 1.0 0.0 - 5.0 % [facility] BASOS 0.6 0.0 - 1.5 % [facility] Granulocytes, immature (%) 0.2 0.0 - 0.9 % [facility] ABSOLUTE NEUTS 3.64 1.92 - 7.60 K/uL [facility] ABSOLUTE LYMPHS 0.86 0.72 - 4.10 K/uL [facility] ABSOLUTE MONOS 0.53 0.16 - 1.10 K/uL [facility] ABSOLUTE EOS 0.05 0.00 - 0.50 K/uL [facility] ABSOLUTE BASOS 0.03 0.00 - 0.15 K/uL [facility] Granulocytes, immature 0.01 0.00 - 0.09 K/uL [facility] Blood 11/11/2024 5:29 AM EDT 11/11/2024 5:46 AM EDT us Rajesh Green MD LAB BLOOD ORDERABLES Fin al Result [address] [address] * ECG 12-LEAD (11/11/2024 4:34 AM EDT) Ventricular Rate EKG/MIN 106 BPM [facility] Atrial Rate 106 BPM [facility] WA Interval 158 ms [facility] QRS Duration 78 ms [facility] QT Interval 336 ms [facility] QTC Interval 446 ms [facility] P Jackson 85 degrees [facility] R Wave [place] 29 degrees [facility] T Wave [place] 58 degrees [facility] 11/11/2024 4:34 AM EDT 11/11/2024 10:12 AM EDT Narrative [facility] - 11/11/2024 10:12 AM EDT Sinus tachycardia Nonspecific ST abnormality Abnormal ECG When compared with ECG of 18-Oct-2024 17:06, Previous ECG has undetermined rhythm, needs review ST no longer depressed in Lateral leads Confirmed by aBrt Prescott ([id number]) on 11/11/2024 10:12:26 AM us Karl Cavanaugh MD ECG ORDERABLES Fi nal Result [facility] documented in this encounter Visit Diagnoses Diagnosis Inguinal pain, unspecified laterality- Primary Leg pain, bilateral Pain in soft tissues of limb documented in this encounter Administered Medications Inactive Administered Medications - up to 3 most recent administrations Medication Order MAR Action Action Date Dose Rate Site carbidopa-levodopa (SINEMET) 25-100 mg per tablet 1 tablet 1 tablet, Oral, Once, On Mon11/11/24 at 0545, For 1 dose Given 11/11/2024 6:00 AM EDT 1 tablet HYDROmorphone (PF) (DILAUDID) injection syringe 0.5 mg 0.5 mg, Intravenous, Every 1 hour PRN, moderate pain or 4-6 (on a general 0-10 scale), severe pain or 7-10 (on a general 0-10 scale), Starting on Mon11/11/24 at 0553, For 3 doses Given 11/11/2024 6:00 AM EDT 0.5 mg ketorolac (TORADOL) injection 15 mg 15 mg, Intravenous, Once, On Mon11/11/24 at 0530, For 1 dose Given 11/11/2024 5:36 AM EDT 15 mg documented in this encounter Active and Recently Administered Medications Times are shown in EDT. Scheduled Medication Order 11/09/2024 11/10/2024 11/11/2024 carbidopa-levodopa (SINEMET) 25-100 mg per tablet 1 tablet (COMPLETED) 1 tablet, Oral, Once, On Mon11/11/24 at 0545, For 1 dose 0600 (Given - Provid er: David Victoria RN) ketorolac (TORADOL) injection 15 mg (COMPLETED) 15 mg, Intravenous, Once, On Mon11/11/24 at 0530, For 1 dose 0536 (Given - Provid er: David Victoria RN) PRN Medication Order 11/09/2024 11/10/2024 11/11/2024 HYDROmorphone (PF) (DILAUDID) injection syringe 0.5 mg 0.5 mg, Intravenous, Every 1 hour PRN, moderate pain or 4-6 (on a general 0-10 scale), severe pain or 7-10 (on a general 0-10 scale), Starting on Mon11/11/24 at 0553, For 3 doses 0600 (Given - Provid er: David Victoria RN) documented in this encounter Care Teams Manager Contact Relationship Specialty Start Date End Date Fanny Power MD [address] [place] [address] PCP - General Internal Medicine 08/16/24 documented as of this encounter Additional Source Comments The information contained in this document represents components of the legal health record. It is not the complete legal health record.[facility]
[2024-11-12 09:25] VITALS: BP 90/50; PULSE 79; TEMP 36.2; O2SAT 96; BMI 19.3
--- NOTE | 2024-11-12 09:25 | A.OFFPC_ITS ---
Vital Signs 11/12/24 09:25 Height 5 ft 7 in Weight 123 lb 8 oz BMI 19.3 BP 90/50 L Blood Pressure Location Lt brachial Position Sitting Pulse 79 Pulse Source Pulse Oximeter Temp 97.1 F Pulse Oximetry (%) 96 Oxygen Delivery Method Room Air Intake Visit Reasons: nausea/followup Assistant Family Teacher Required: No Accompanied by: Self / Same As Patient Allergies penicillin V Allergy (Unknown, Verified 11/12/24 09:49) Unknown pramipexole (From Mirapex) Adverse Reaction (Mild, Verified 11/12/24 09:49) Unknown ropinirole (From Requip) Adverse Reaction (Mild, Verified 11/12/24 09:49) Dizziness amantadine Adverse Reaction (Unknown, Verified 11/12/24 09:49) Dizziness ondansetron (From Zofran) Adverse Reaction (Unknown, Verified 11/12/24 09:49) Unknown Medication List - Last Reviewed 11/12/24 by Arleen Carrillo MA acetaminophen 650 mg PO Q4H PRN ascorbic acid (vitamin C) 1,000 mg PO DAILY carbidopa-levodopa 25-100 mg 1 tab PO .FIVE TIMES A DAY carbidopa-levodopa 25-100 mg 1 tab PO BID estradiol 0.01%(0.1mg/gram) pea-sized to urethra 3 times a week 30 days estradiol 0.01%(0.1mg/gram) 1 g vaginal 3XW fluticasone propionate 50 mcg/actuation sprays intranasal ibuprofen 200 mg PO Q6H PRN loratadine (Allergy Relief (loratadine)) 10 mg PO DAILY magnesium 250 mg PO BID meclizine (Dramamine (meclizine)) 25 mg PO TID melatonin 3 mg PO BEDTIME PRN methenamine hippurate 1 g PO DAILY 90 days rasagiline 0.5 mg PO DAILY tizanidine 2 mg PO Q12H PRN 30 days Tobacco use date assessed: 11/12/24 Fall risk assessment: 1 Fall in past year Last assessed Fall Risk: 11/12/24 Dental Screening Dental Screen Date: 11/12/24 Did you have a dental visit in the last 12 months?: Yes Did you have a dental problem in the last 6 months where you did not have access to dental care?: No Was dental information given to patient?: Patient has dentist HPI HPI Comments History of Present Illness Details The patient is a 74-year-old female presenting with Parkinson's disease. The condition is characterized by fluctuating manifestations, and she is currently on carvedilol and ibuprofen, with follow-up by neurology. She experiences nausea and muscle spasms, for which tizanidine was previously prescribed, but it caused significant drowsiness. The patient also has a history of mild major depression with anxiety, which contributes to her insomnia. She uses a walker for gait stability and resides in a supportive living environment. [facility] Medical History (Updated 11/12/24 @ 10:48 by Fanny Clayton MD) Hypertension Parkinson disease Surgical History History of cholecystectomy Family History Father Heart disease Mother No problems noted. Family/Other Breast cancer Social History Housing: House Alcohol intake: never Patient Tobacco Use Status: Never used Tobacco e-Cigarette/Vaping Use: Never Used Second Hand Smoke Exposure: No service: No Current occupational status: retired Cognitive needs: No Hearing needs: No Vision needs: Yes Female Reproductive History Menstrual Age of Menarche: 11 Questionnaire PHQ-9 Over the last 2 weeks, how often have you been bothered by any of the following problems? 1. Little interest or pleasure in doing things: several days 2. Feeling down, depressed, or hopeless: more than half the days 3. Trouble falling or staying asleep, or sleeping too much: several days 4. Feeling tired or having little energy: several days 5. Poor appetite or overeating: not at all 6. Feeling bad about yourself - or that you are a failure or have let yourself or your family down: not at all 7. Trouble concentrating on things, such as reading the newspaper or watching television: not at all 8. Moving or speaking so slowly that other people could have noticed. Or the opposite - being so fidgety or restless that you have been moving around a lot more than usual: not at all 9. Thoughts that you would be better off or of hurting yourself in some way: not at all Total score: 5 Depression Screening Interpretation: Positive Depression Screening Follow-up: Existing condition and Follow-up Visit Requested Depression Screening Done: Yes 48401 - PHQ-9 Billing: Yes Source: Developed by Drs. Chaitanya Chao, Aide Unger, Darci Patel and colleagues, with an educational krzysztof from [employer]. Thrive Questionnaire Date Thrive assessed: 11/12/24 I am a: Patient What is your living situation today?: I have a steady place to live Within the past 12 months, did the food you bought not last and you didn't have the money to get more?: Never true Within the past 12 months, did you worry whether your food would run out before you got money to buy more?: Never true Do you have trouble paying for medicines?: No Do you have trouble getting transportation to medical appointments?: No Do you have trouble paying your heating and electricity bill?: No Do you have trouble taking care of your child, family member or friend?: No Do you have trouble with day-to-day activities such as bathing, preparing meals, shopping, managing finances, etc.?: I choose not to answer this question Are you currently unemployed and looking for a job?: No Are you interested in more education?: No Please select the resources that you would like help with: None Currently or been in a relationship where the following occur: No concerns reported THRIVE Score: 0 AUDIT C Alcohol Use Questionnaire (AUDIT-C) 1. How often do you have a drink containing alcohol?: Never 3. How often do you have six or more drinks on one occasion?: Never Total Score: 0 Score Reviewed/Action Taken: No MARIA ELENA-7 AMB Questionnaire MARIA ELENA-7 Date MARIA ELENA - 7 assessed: 11/12/24 Feeling nervous, anxious, or on edge: 3 = Nearly every day Not being able to stop or control worryin = Nearly every day Worrying too much about different things: 2 = More than half the days Trouble relaxin = Several days Being so restless that it is hard to sit still: 0 = Not at all Becoming easily annoyed or irritable: 0 = Not at all Feeling afraid as if something awful might happen: 0 = Not at all Total MARIA ELENA-7 score (0-4 normal; 5-9 mild; 10-14 moderate; 15-21 severe): 9 Source: Developed by Drs. Chaitanya Chao, Aide Unger, Darci Patel and colleagues, with an educational krzysztof from [employer]. MARIA ELENA-7 Assessment Billing MARIA ELENA-7 Assessment Tool: MARIA ELENA-7 Assessment 76927 Review of Systems Const All systems reviewed & are unremarkable except as noted in HPI and below Card Denies chest pain at rest, Denies chest pain with activity, Denies edema, Denies irregular heart rhythm, Denies claudication, Denies dyspnea, Denies dyspnea on exertion, Denies orthopnea, Denies paroxysmal nocturnal dyspnea and Denies slow heart rate Resp Denies cough, Denies dyspnea and Denies dyspnea on exertion GI Denies abdominal pain, Denies change in bowel habits, Denies excessive flatus, Denies nausea and Denies vomiting Physical exam (Primary Care) Vital Signs: Last Vital Signs Temp 97.1 F 11/12/24 09:25 Pulse 79 11/12/24 09:25 BP 90/50 L 11/12/24 09:25 Pulse Ox 96 11/12/24 09:25 Oxygen Delivery Method Room Air 11/12/24 09:25 BMI result Body Mass Index 19.3 Tobacco/Smoking Status: Tobacco use Status Tobacco use date assessed 11/12/24 11/12/24 09:27 Patient Tobacco Use Status Never used Tobacco 11/12/24 09:27 Tobacco use type 09/17/24 13:11 e-Cigarette/Vaping Use Never Used 11/12/24 09:27 PHQ-9: PHQ-9 Score PHQ-9: Total score 5 11/12/24 10:17 Depression Screening Interpretation: Positive Depression Screening Follow-up: Existing condition and Follow-up Visit Requested Thrive Assessment: Date of Thrive Assessment Date Thrive assessed 11/12/24 11/12/24 09:27 Currently or been in a relationship where the following occur: No concerns reported Const Limitations: ambulation with walker Resp Effort & Inspection: normal respiratory effort Auscultation: clear to auscultation bilaterally Cardio Jugular venous distension: no JVD Rate: regular rate Rhythm: regular rhythm Heart sounds: S1 normal heart sound present and S2 normal heart sound present Extrem General: Yes full ROM Coding Level of Care Code Est Pt Level 4 (21783) Complex EM visit Add On G2211 Diagnoses Parkinson disease G20 Muscle spasm M62.838 Mild recurrent major depression F33.0 Anxiety F41.9 Additional Codes PHQ-9 - 51117 - PHQ-9 Billing: Yes ([id number]) MARIA ELENA-7 Assessment Billing - MARIA ELENA-7 Assessment Tool: MARIA ELENA-7 Assessment 31149 ([id number]) Time Spent (min) 23 Assessment & Plan Assessment & Plan (1) Parkinson disease: Code(s): G20 - Parkinson's disease Category: Medical (2) Muscle spasm: Code(s): M62.838 - Other muscle spasm Category: Medical (3) Mild recurrent major depression: Code(s): F33.0 - Major depressive disorder, recurrent, mild Category: Medical (4) Anxiety: Code(s): F41.9 - Anxiety disorder, unspecified Category: Medical Plan Plan Patient was informed and verbally consented to the use of an ambient scribe for clinic note documentation during this visit. 1. Parkinson's disease with dyskinesia, with fluctuations G20.B2 HCC 78 The patient will be transitioned from tizanidine to baclofen to manage muscle spasms, as tizanidine caused excessive drowsiness. Nausea management will be addressed with an appropriate medication. Laboratory tests will be conducted to assess kidney function. 2. Major depressive disorder, recurrent, mild F33.0 HCC 59 The patient's mild major depression with anxiety will continue to be monitored, with attention to her insomnia symptoms. 3. Other muscle spasm M62.838 4. Generalized anxiety disorder F41.1 During the visit, we discussed transitioning from tizanidine to baclofen to better manage muscle spasms without causing excessive drowsiness. We also addressed the need for nausea management and planned laboratory tests to monitor kidney function. The patient's depression and anxiety symptoms were reviewed, with a focus on managing insomnia. Orders: Orders Comprehensive Met. Panel Today I10 - Essential (primary) hypertension Medications: New baclofen 10 mg PO Q8H PRN 90 tabs 2RF muscle spasm 30 days promethazine 25 mg PO TID PRN 90 tabs 3RF nausea and vomiting 30 days Discontinued tizanidine Discontinued Reason: Patient Completed Course 2 mg PO Q12H 30 days PRN 60 tabs 0RF muscle spasticity M62.838 - Other muscle spasm
--- OUTSIDE RECORDS SUMMARY | 2024-11-12 09:48 | XMS_ITS | Clinical Summary ---
Author Organization [facility] Facility Address [address] [address] Care Team Providers Care [employer] Program Coordinator Name Role Phone Kofi Fan MD Primary Care Provider [phone] Social History Tobacco Use Types Packs/Day Years Used Date Smoking Tobacco: Never Assessed Comments Unknown Sex and Gender Information Value Date Recorded Sex Assigned at Not on file Legal Sex Female 1:30 PM EDT Gender Identity Not on file Sexual Orientation Not on file Plan of Treatment Health Maintenance Due Date Last Done Comments Pneumococcal Vaccine: 50+ Ye ars (1 of 1 - PCV) 01/31/1998 Influenza Vaccine (#1) 2024 04/22/2019 Hepatitis B Vaccine Aged Out No longe r eligible based on patient's age to complete this topic Insurance [address] [place] [address] Medicare [facility] Care Teams [employer] Program Coordinator Relationship Specialty Start Date End Date Kofi Fan MD [address] [id number] PCP - General Internal Medicine 10/22/21
--- OUTSIDE RECORDS SUMMARY | 2024-11-12 09:49 | XMS_ITS | Encounter Summary ---
Author Organization [facility] Address [address] [facility] [address] [place] [address] Phone Care Team Providers Care Transmission And Coordination Engineer Name Role Phone Kofi Fan MD Primary Care Provider [phone] Fanny Power MD Primary Care Provid er Encounter Details Date Type Department Care Team (Late st Contact Info) Description 10/10/2023 Procedure Pass [facility], Ct Scan - [address] [id number] Social History Tobacco Use Types Packs/Day Years Used Date Smoking Tobacco: Former Cigarettes Q uit: 1973 Smokeless Tobacco: Never Alcohol Use Standard Drinks/Week Comments Not Currently 0 (1 standard drink = 0.6 oz pur e alcohol) Home Health Assessment: Transportation Answer Date Recorded Lack of Transportation (Medical) No 06/08/2023 Lack of Transportation (Non-Medical) No 06/08/2023 Patient Unable or Declines to Respond No 06/08/2023 Education Answer Date Recorded Are you interested in more education? Not on caridad e 07/14/2022 Are you concerned about learning? Not on file 07/14/2022 No 07/14/2022 No 07/14/2022 Digital Access Answer Date Recorded No 08/10/2022 No 08/10/2022 Reliable internet access at home? Not on file 08/10/2022 Device with a working camera? 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 Not on file Not on file documented as of this encounter Plan of Treatment Upcoming Encounters Date Type Department Care Team (Late st Contact Info) Description 11/28/2024 9:45 AM EDT Office Visit [facility] [address] [place] [address] Fanny Power MD [address] [place] [phone] Bessy Carrillo, PT [address] [place] [address] [email or web address] 12/10/2024 10:30 AM EDT Office Visit [facility] [address] [place] [address] Fanny Power MD [address] [place] [phone] Bessy Carrillo, PT [address] [place] [address] 12/13/2024 9:15 AM EDT Office Visit [facility] [address] [place] [address] Fanny Power MD [address] [place] [address] Ryan Granados, GAME PROTECTOR [address] [place] [address] 12/17/2024 9:15 AM EDT Office Visit [facility] [address] [place] [address] aFnny Power MD [address] [place] [address] Ryan Granados, GAME PROTECTOR [address] [place] [address] [email or web address] 12/24/2024 10:30 AM EDT Office Visit [facility] [address] [place] [address] Fanny Power MD [address] [place] [phone] Bessy Carrillo, PT [address] [place] [address] [email or web address] 12/31/2024 9:45 AM EDT Office Visit [address] [place] [address] Fanny Power MD [address] [place] [phone] Bessy Carrillo, PT [address] [place] [address] 01/07/2025 9:45 AM EDT Office Visit [facility] [address] [place] [address] Fanny Power MD [address] [place] [phone] Bessy Carrillo, PT [address] [place] [address] 01/14/2025 9:45 AM EDT Office Visit [place] [facility] [address] [place] [address] Fanny Power MD [address] [place] [phone] Bessy Carrillo, PT [address] [place] [address] [email or web address] documented as of this encounter Visit Diagnoses Not on filedocumented in this encounter Additional Health Concerns Infection Onset Date Last Indicated Resolved Time CDiff-Risk 02/25/2024 02/25/2024 02/25/2024 12:5 2 PM EST documented as of this encounter Care Teams Transmission And Coordination Engineer Relationship Specialty Start Date End Date Kofi Fan MD [address] [place] [address] [address] PCP - General 09/17/13 08/15/24 Fanny Power MD [address] [place] [address] PCP - General Internal Medicine 08/16/24 documented as of this encounter Additional Source Comments The information contained in this document represents components of the legal health record. It is not the complete legal health record.[facility]
--- OUTSIDE RECORDS SUMMARY | 2024-11-12 09:49 | XMS_ITS | Encounter Summary ---
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 Wish to be (Past 1 Month) No 12/07/2023 9:57 PM EDT Terese Minaya RN 2. Non-Specific Active Suici preston Thoughts (Past 1 Month) No 12/07/2023 9:57 PM EDT Terese Minaya RN 6. Suicidal Behavior (Lifetime) No 9:57 PM EDT Terese Minaya RN documented as of this encounter Plan of Treatment Upcoming Encounters Date Type Department Care Team (Late st Contact Info) Description 11/28/2024 9:45 AM EDT Office Visit [address] [address] Fanny Power MD [address] [place] [address] Bessy Carrillo, PT [address] [place] [address] 12/10/2024 10:30 AM EDT Office Visit [address] [address] Fanny Power MD [address] [place] [address] Bessy Carrillo, PT [address] [place] [address] 12/13/2024 9:15 AM EDT Office Visit [facility] [address] [place] [address] Fanny Power MD [address] [place] [address] Ryan Granados, DUMP TRUCK DRIVER [address] [place] [address] 12/17/2024 9:15 AM EDT Office Visit [address] [place] [address] Fanny Power MD [address] [place] [address] Ryan Granados, DUMP TRUCK DRIVER [address] [place] [address] 12/24/2024 10:30 AM EDT Office Visit [facility] [address] [place] [address] Fanny Power MD [address] [place] [phone] Bessy Carrillo, PT [address] [place] [address] 12/31/2024 9:45 AM EDT Office Visit [facility] [address] [place] [address] Fanny Power MD [address] [place] [phone] Bessy Carrillo, PT [address] [place] [address] 01/07/2025 9:45 AM EDT Office Visit [facility] [address] [place] [address] Fanny Power MD [address] [place] [address] Bessy Carrillo, PT [address] [place] [address] [email or web address] 01/14/2025 9:45 AM EDT Office Visit [facility] [address] [place] [address] Fanny Power MD [address] [place] [address] [id number] Bessy Carrillo, PT [address] [place] [address] [email or web address] documented as of this encounter Visit Diagnoses Not on filedocumented in this encounter Additional Health Concerns Infection Onset Date Last Indicated Resolved Time CDiff-Risk 02/25/2024 02/25/2024 02/25/2024 12:5 2 PM EST documented as of this encounter Care Teams Manufacturing Job Titles Relationship Specialty Start Date End Date Kofi Fan MD [address] [place] [phone] PCP - General 09/17/13 08/15/24 Fanny Power MD [address] [place] [address] [phone] PCP - General Internal Medicine 08/16/24 documented as of this encounter Additional Source Comments The information contained in this document represents components of the legal health record. It is not the complete legal health record.[facility]
--- OUTSIDE RECORDS SUMMARY | 2024-11-12 09:49 | XMS_ITS | Encounter Summary ---
Author Organization [facility] Address [address] [facility] [address] [place] [address] Phone Care Team Providers Care Professor Of Criminal Justice Name Role Phone Kofi Fan MD Primary Care Provider [phone] Fanny Power MD Primary Care Provid er Encounter Details Date Type Department Care Team (Late st Contact Info) Description 11/30/2018 Procedure Pass [address] [address] Social History Tobacco Use Types Packs/Day Years Used Date Smoking Tobacco: Former Smokeless Tobacco: Never Alcohol Use Standard Drinks/Week Comments Not Asked 0 (1 standard drink = 0.6 oz pur e alcohol) Comments Unknown Sex and Gender Information Value Date Recorded Sex Assigned at Female 10/22/2019 9:45 AM EDT Legal Sex Female 7:16 PM EST Gender Identity Female 10/22/2019 9:45 AM EDT Sexual Orientation Straight 05/20/2023 9: 53 AM EST documented as of this encounter Plan of Treatment Upcoming Encounters Date Type Department Care Team (Late st Contact Info) Description 11/28/2024 9:45 AM EDT Office Visit [facility] 8 [place] [address] Fanny Power MD [address] [place] [address] Bessy Carrillo, PT 8 [place] [address] [email or web address] 12/10/2024 10:30 AM EDT Office Visit [facility] [address] [place] [address] Fanny Power MD [address] [place] [address] Bessy Carrillo, PT 8 [place] [address] [email or web address] 12/13/2024 9:15 AM EDT Office Visit [facility] 8 [place] [address] Fanny Power MD [address] [place] [address] Ryan Granados, MACARONI PRESS OPERATOR 8 [place] [address] 12/17/2024 9:15 AM EDT Office Visit [facility] 8 [place] [address] Fanny Power MD [address] [place] [address] Ryan Granados, MACARONI PRESS OPERATOR 8 [place] [address] 12/24/2024 10:30 AM EDT Office Visit [facility] [address] [place] [address] Fanny Power MD [address] [place] [address] Bessy Carrillo, PT 8 [place] [address] [email or web address] 12/31/2024 9:45 AM EDT Office Visit [facility] [address] [place] [address] Fanny Power MD [address] [place] [address] Bessy Carrillo, PT 8 [place] [address] [email or web address] 01/07/2025 9:45 AM EDT Office Visit [address] [place] [address] Fanny Power MD [address] [place] [address] Bessy Carrillo, PT 8 [place] [address] [email or web address] 01/14/2025 9:45 AM EDT Office Visit [address] [place] [address] Fanny Power MD [address] [place] [address] eBssy Carrillo, PT 8 [place] [address] [email or web address] documented as of this encounter Visit Diagnoses Not on filedocumented in this encounter Additional Health Concerns Infection Onset Date Last Indicated Resolved Time CoV-Risk 01/06/2023 01/06/2023 01/17/2023 1:25 AM EDT CoV-Risk 04/01/2023 04/03/2023 04/14/2023 1:23 AM EST CoV-Risk 04/21/2023 04/21/2023 05/02/2023 1:24 AM EST CoV-Risk 05/11/2023 05/30/202306/0906/10/2023 1:21 AM EDT CDiff-Risk 02/25/2024 02/25/2024 02/25/2024 12:5 2 PM EST documented as of this encounter Care Teams Professor Of Criminal Justice Relationship Specialty Start Date End Date Kofi Fan MD [address] [place] [address] [address] PCP - General 09/17/13 08/15/24 Fanny Power MD [address] [place] [address] PCP - General Internal Medicine 08/16/24 documented as of this encounter Additional Source Comments The information contained in this document represents components of the legal health record. It is not the complete legal health record.[facility]
--- OUTSIDE RECORDS SUMMARY | 2024-11-12 09:49 | XMS_ITS | Encounter Summary ---
Author Organization [facility] Address [address] [facility] [address] [place] [address] Phone Care Team Providers Care Core Drilling Supervisor Name Role Phone Kofi Fan MD Primary Care Provider [phone] Fanny Power MD Primary Care Provid er Reason for Referral * MRI/CAT Scan - Closed Specialty Diagnoses / Procedures Referred By Chandler ayala Referred To Contact Radiology Diagnoses Abnormal reflex Headache, unspecified headache type Parkinson's disease Procedures MRI Brain Walker Barajas MD Phone: tel: fax: mailto:[email or web address] Referral ID Status Reason Start Date Expiration Date Visits Re quested Visits Authorized [id number] Closed 12/26/2019 12/25/2020 1 1 Encounter Details Date Type Department Care Team (Late st Contact Info) Description 12/26/2019 Ancillary Orders Virtual Department 30 [place] [address] Walker Barajas MD 6 [place] [address] [email or web address] Abnormal reflex; Headache, unspecified headache type; Parkinson's disease Social History Tobacco Use Types Packs/Day Years Used Date Smoking Tobacco: Former Smokeless Tobacco: Never Alcohol Use Standard Drinks/Week Comments Yes 0 (1 standard drink = 0.6 oz pur e alcohol) social Comments No Sex and Gender Information Value [...] Description 11/28/2024 9:45 AM EDT Office Visit [address] [place] [address] Fanny Power MD [address] [place] [address] Bessy Carrillo, PT 8 [place] [address] 12/10/2024 10:30 AM EDT Office Visit [address] [place] [address] Fanny Power MD [address] [place] [address] Bessy Carrillo, PT 8 [place] [address] 12/13/2024 9:15 AM EDT Office Visit [address] [place] [address] Fanny Power MD [address] [place] [address] Ryan Granados, WILL CALL CLERK 8 [place] [address] 12/17/2024 9:15 AM EDT Office Visit [address] [place] [address] Fanny Power MD [address] [place] [address] Ryan Granados, WILL CALL CLERK 8 [place] [address] 12/24/2024 10:30 AM EDT Office Visit [address] [address] Fnany Power MD [address] [place] [address] Bessy Carrillo, PT 8 [place] [address] 12/31/2024 9:45 AM EDT Office Visit [address] [address] Fanny Power MD [address] [place] [address] Bessy Carrillo, PT 8 [place] [address] 01/07/2025 9:45 AM EDT Office Visit [address] [address] Fanny Power MD [address] [place] [address] Bessy Carrillo, PT 8 [place] [address] 01/14/2025 9:45 AM EDT Office Visit [address] [place] [address] Fanny Power MD 575 [place] [address] Gerardo Bessy B, PT 8 [place] [address] [email or web address] documented as of this encounter Results * MRI BRAIN WITHOUT CONTRAST (12/29/2019 2:07 PM EDT) Anatomical Region Laterality Modality Head Magnetic Resonan ce 12/29/2019 3:19 PM EDT Impressions 12/29/2019 3:27 PM EDT 1. No acute intracranial pathology. 2. Numerous T2 hyperintensities in the periventricular white matter a few of which are somewhat suggestive of demyelinating disease but not strongly so and these may all be due to chronic small vessel disease. POS [id number] Narrative 12/29/2019 3:27 PM EDT TECHNIQUE: 1.5 Mariza scanner. Nonenhanced exam. Compare to CT 11/25/2014 FINDINGS: There are numerous white matter lesions scattered through the periventricular and subcortical white matter of both hemispheres. Most are globular or slightly irregular. A few are linear in shape. Several are oriented slightly perpendicular to the ventricular system suggestive of multiple sclerosis though not strongly cell. No involvement of the corpus callosum itself nor the brainstem. No signal changes suspicious for ischemia/infarct, hemorrhage, mass or an infectious process. Normal ventricular size and configuration. Moderate generalized atrophy. Basilar cisterns widely patent. No cerebellar tonsillar ectopia. Normal flow-voids are present in the major vessels of the [place] of [place] and the dural venous sinuses. No pituitary, pineal region, IAC or intraorbital pathology. No inflammatory changes in the paranasal sinuses or mastoid air cells. Procedure Note Alfonzo Mcdaniel MD - 12/29/2019 TECHNIQUE: 1.5 Mariza scanner. Nonenhanced exam. Compare to CT 11/25/2014 FINDINGS: There are numerous white matter lesions scattered through theperiventricular and subcortical white matter of both hemispheres. Most areglobular or slightly irregular. A few are linear in shape. Several areoriented slightly perpendicular to the ventricular system suggestive ofmultiple sclerosis though not strongly cell. No involvement of the corpus callosum itself nor the brainstem. No signal changes suspicious for ischemia/infarct, hemorrhage, mass or aninfectious process. Normal ventricular size and configuration. Moderate generalized atrophy. Basilar cisterns widely patent. Nocerebellar tonsillar ectopia. Normal flow-voids are present in the major vessels of the [place] of [place]and the dural venous sinuses. No pituitary, pineal region, IAC or intraorbital pathology. No inflammatory changes in the paranasal sinuses or mastoid air cells. IMPRESSION: 1. No acute intracranial pathology. 2. Numerous T2 hyperintensities in the periventricular white matter a fewof which are somewhat suggestive of demyelinating disease but not stronglyso and these may all be due to chronic small vessel disease. POS [id number] Walker Barajas MD IMG MR HEAD/NECK Final Result documented in this encounter Visit Diagnoses Diagnosis Abnormal reflex Headache, unspecified headache type Parkinson's disease Paralysis agitans Abnormal reflex Headache, unspecified headache type Parkinson's disease Paralysis agitans documented in this encounter Additional Health Concerns Infection Onset Date Last Indicated Resolved Time CoV-Risk 01/06/2023 01/06/2023 01/17/2023 1:25 AM EDT CoV-Risk 04/01/2023 04/03/2023 04/14/2023 1:23 AM EST CoV-Risk 04/21/2023 04/21/2023 05/02/2023 1:24 AM EST CoV-Risk 05/11/2023 05/30/2023 06/10/2023 1:21 AM EDT CDiff-Risk 02/25/2024 02/25/2024 02/25/2024 12:5 2 PM EST documented as of this encounter Care Teams Core Drilling Supervisor Relationship Specialty Start Date End Date Kofi Fan MD [address] [place] [address] [place] [address] PCP - General 09/17/13 08/15/24 Fanny Power MD [address] [place] [address] PCP - General Internal Medicine 08/16/24 documented as of this encounter Additional Source Comments The information contained in this document represents components of the legal health record. It is not the complete legal health record.[facility]
--- OUTSIDE RECORDS SUMMARY | 2024-11-12 09:49 | XMS_ITS | Encounter Summary ---
Author Organization [facility] Address [address] [facility] [address] [place] [address] Phone Care Team Providers Care Geriatric Nursing Assistant Name Role Phone Kofi Fan MD Primary Care Provider [phone] Fanny Power MD Primary Care Provid er Encounter Details Date Type Department Care Team (Late st Contact Info) Description 12/26/2019 Procedure Pass [facility], [address] [address] Social History Tobacco Use Types Packs/Day Years [...] AM EST documented as of this encounter Last Filed Vital Signs Vital Sign Reading Time Taken Comments Blood Pressure - - Pulse - - Temperature - - Respiratory Rate - - Oxygen Saturation - - Inhaled Oxygen Concentration - - Weight 59.9 kg (132 lb) 12/26/2019 1:15 PM EDT Height 170.2 cm (5' 7 ) 12/26/2019 1:15 PM EDT Body Mass Index 20.67 12/26/2019 1:15 PM EDT documented in this encounter Plan of Treatment Upcoming Encounters Date Type Department Care Team (Late st Contact Info) Description 11/28/2024 9:45 AM EDT Office Visit Psychiatric 8 [place] [address] Fanny Power MD [address] [place] [address] Bessy Carrillo, PT 8 [place] [address] [email or web address] 12/10/2024 10:30 AM EDT Office Visit [address] [place] [address] Fanny Power MD [address] [place] [address] Bessy Carrillo, PT 8 [place] [address] [email or web address] 12/13/2024 9:15 AM EDT Office Visit Psychiatric [address] [place] [address] Fanny Power MD [address] [place] [address] Ryan Granados, HOTEL RESERVATIONIST 8 [place] [address] 12/17/2024 9:15 AM EDT Office Visit [address] [place] [address] Fanny Power MD [address] [place] [address] Ryan Granados, HOTEL RESERVATIONIST 8 [place] [address] 12/24/2024 10:30 AM EDT Office Visit Psychiatric [address] [place] [address] Fanny Power MD [address] [place] [address] Bessy Carrillo, PT 8 [place] [address] [email or web address] 12/31/2024 9:45 AM EDT Office Visit [address] [place] [address] Fanny Power MD [address] [place] [address] Bessy Carrillo, PT 8 [place] [address] [email or web address] 01/07/2025 9:45 AM EDT Office Visit Psychiatric [address] [place] [address] Fanny Power MD [address] [place] [address] Bessy Carrillo, PT 8 [place] [address] [email or web address] 01/14/2025 9:45 AM EDT Office Visit [address] [place] [address] Fanny Power MD [address] [place] [address] Bessy Carrillo, PT 8 [place] [address] documented as of this encounter Visit Diagnoses [...] documented as of this encounter Care Teams Geriatric Nursing Assistant Relationship Specialty Start Date End Date Kofi Fan MD [address] [place] [address] [place] [address] [place] [address] PCP - General 09/17/13 08/15/24 Fanny Power MD [address] [place] [address] PCP - General Internal Medicine 08/16/24 documented as of this encounter Additional Source Comments The information contained in this document represents components of the legal health record. It is not the complete legal health record.[facility]
--- OUTSIDE RECORDS SUMMARY | 2024-11-12 09:50 | XMS_ITS | Encounter Summary ---
Author Organization [facility] Address [address] [facility] [address] [place] [address] Phone Care Team Providers Care Manager Business Name Role Phone Kofi Fan MD Primary Care Provider [phone] Fanny Power MD Primary Care Provid er Encounter Details Date Type Department Care Team (Late st Contact Info) Description 11/30/2018 Ancillary Orders [facility], X-Ray - [address] [address] Walker Barajas MD 6 [place] [phone] [email or web address] Cervicalgia; Spondylosis of cervical region without myelopathy or radiculopathy; Parkinson disease Social History Tobacco Use Types Packs/Day [...] Description 11/28/2024 9:45 AM EDT Office Visit [address] [place] [address] Fanny Power MD [address] [place] [address] Bessy Carrillo, PT 8 [place] [address] 12/10/2024 10:30 AM EDT Office Visit [address] [place] [address] Fanny Power MD [address] [place] [address] Bessy Carrillo, PT 8 [place] [address] 12/13/2024 9:15 AM EDT Office Visit [address] [place] [address] Fanny Power MD [address] [place] [address] Ryan Granados, PENSION ADMINISTRATOR 8 [place] [address] 12/17/2024 9:15 AM EDT Office Visit [address] [place] [address] Fanny Power MD [address] [place] [address] Ryan Granados, PENSION ADMINISTRATOR 8 [place] [address] 12/24/2024 10:30 AM EDT Office Visit [facility] [address] [place] [address] Fanny Power MD [address] [place] [address] Bessy Carrillo, PT 8 [place] [address] [email or web address] 12/31/2024 9:45 AM EDT Office Visit [address] [place] [address] Fanny Power MD [address] [place] [address] Bessy Carrillo, PT 8 [place] [address] [email or web address] 01/07/2025 9:45 AM EDT Office Visit [facility] [address] [place] [address] Fanny Power MD 5 [place] [address] Bessy Carrillo, PT 8 [place] [address] [email or web address] 01/14/2025 9:45 AM EDT Office Visit [address] [place] [address] Fanny Power MD [address] [place] [address] Bessy Carrillo, PT 8 [place] [address] [email or web address] documented as of this encounter Results * XR CERVICAL SPINE 2-3 VIEWS (11/30/2018 10:56 AM EDT) Anatomical Region Laterality Modality C-spine Radiographic Jacqui ging 11/30/2018 11:0 3 AM EDT Impressions 11/30/2018 11:06 AM EDT Osteopenia and moderate to severe multilevel facet arthropathy. POS - [id number] Narrative 11/30/2018 11:06 AM EDT HISTORY: As above. No history of trauma. COMPARISON: None. CERVICAL RADIOGRAPH FINDINGS: Four views obtained. Bones are osteopenic. Mild curvature convex to the right. No significant scoliosis. Minimal anterolisthesis of C5 and C6. Disc spaces are maintained. Moderate multilevel facet arthropathy which is severe at C4-5 and C5-6 on the left. Severe left C1-2 lateral mass joint space narrowing. No bone lesions or cervical ribs. Soft tissues are normal. Procedure Note Edwige Ni MD - 11/30/2018 HISTORY: As above. No history of trauma. COMPARISON: None. CERVICAL RADIOGRAPH FINDINGS: Four views obtained. Bones are osteopenic. Mild curvature convex to theright. No significant scoliosis. Minimal anterolisthesis of C5 and C6.Disc spaces are maintained. Moderate multilevel facet arthropathy whichis severe at C4-5 and C5- 6 on the left. Severe left C1-2 lateral massjoint space narrowing. No bone lesions or cervical ribs. Soft tissuesare normal. IMPRESSION: Osteopenia and moderate to severe multilevel facet arthropathy. POS - [id number] Walker Barajas MD IMG XR SPINE Final R esult documented in this encounter Visit Diagnoses Diagnosis Cervicalgia Spondylosis of cervical region without myelopathy or radiculopathy Parkinson disease Paralysis agitans Cervicalgia Spondylosis of cervical region without myelopathy or radiculopathy Parkinson disease Paralysis agitans documented in this encounter Additional Health Concerns Infection Onset Date Last Indicated Resolved Time CoV-Risk 01/06/2023 01/06/2023 01/17/2023 1:25 AM EDT CoV-Risk 04/01/2023 04/03/2023 04/14/2023 1:23 AM EST CoV-Risk 04/21/2023 04/21/2023 05/02/2023 1:24 AM EST CoV-Risk 05/11/2023 05/30/2023 06/10/2023 1:21 AM EDT CDiff-Risk 02/25/2024 02/25/2024 02/25/2024 12:5 2 PM EST documented as of this encounter Care Teams Manager Business Relationship Specialty Start Date End Date Kofi Fan MD [address] [place] [address] [place] [address] [place] [address] PCP - General 09/17/13 08/15/24 Fanny Power MD [address] [place] [address] PCP - General Internal Medicine 08/16/24 documented as of this encounter Additional Source Comments The information contained in this document represents components of the legal health record. It is not the complete legal health record.[facility]
--- OUTSIDE RECORDS SUMMARY | 2024-11-12 09:50 | XMS_ITS | Clinical Summary ---
Author Organization [facility] Address [address] [facility] [address] [place] [phone] Phone Care Team Providers Care Engraving Operator Name Role Phone Fanny Poewr MD Primary Care Provid er Allergies Active Allergy Reactions Criticality Noted Date Comments Amantadine Dizziness Low 10/11/2018 headache Pramipexole Medium 10/11/2018 hallucinations Penicillins Angioedema 02/23/2012 Ropinirole Dizziness Medium 10/11/2018 Ondansetron Hcl 09/13/2022 Medications * This document contains information received from the source organization and may not represent a complete record from that organization. fluticasone propionate (FLONASE) 50 mcg/actuation nasal spray 1 spray by Nasal route daily as needed (congestion). 1 spray in each nostrile 08/12/19 Active lidocaine 4 % Place 1 patch onto the skin daily. 10 patch 10/21/19 22 Active Additional Information Patient not taking.Reported on 09/15/2024 ibuprofen (ADVIL,MOTRIN) 200 MG tablet Take 200 mg by mouth every 6 (six) hours as needed for pain (specific location in comments) (back or headache). 05/15/19 24 Active tiZANidine (ZANAFLEX) 2 MG tablet [The details of the medication are not available because there are pending changes by a home health clinician.] 8 tablet 06/06/19 24 Active Additional Information Patient taking differently:2 mg OralEvery 4 hours, Reported on 10/09/2024 gabapentin (NEURONTIN) 100 MG capsuleIndications :Nonintractable headache, unspecified chronicity pattern, unspecified headache type Take 1 capsule (100 mg total) by mouth nightly at bedtime. 30 capsule 3 09/15/19 24 Active Additional Information Patient not taking.Reported on 09/15/2024 carbidopa-levodopa (SINEMET) 25-100 mg per tabletIndications: Parkinson's disease without dyskinesia, with fluctuating manifestations Take 1 tablet by mouth 5 (five) times a day. 450 tablet 3 11/21/19 24 Active Additional Information Patient not taking.Reported on 09/15/2024 carbidopa-levodopa (SINEMET) 25-100 mg per tabletIndications: parkinsonism Take 1 tablet by mouth at 2 AM /6 AM /8 AM /11 AM /2 PM /6 PM/ 8 AM and 1 tab as needed for additional dyskinesias Continue taking with carbidopa-levod opa CR as directed Indications: a type of movement disorder called parkinsonism 720 tablet 3 01/10/20 24 Active Additional Information Patient not taking.Reported on 09/15/2024 carbidopa-levodopa (SINEMET) 25-100 mg per tabletIndications: Parkinson's disease without dyskinesia, with fluctuating manifestations [The details of the medication are not available because there are pending changes by a home health clinician.] 855 tablet 3 07/30/19 25 Active Additional Information Patient taking differently: 1 tablet Oral Every 4 hours, Take 1 tablet every four hours by mouth , Indications: parkinsonism, Reason: Per PCP Dr. Fanny Clayton MD, Reported on 09/23/2024 estradioL (ESTRACE) 0.01 % (0.1 mg/gram) vaginal cream Place 2 g vaginally 3 (three) times a week. Active loratadine (CLARITIN) 10 mg tablet Take 10 mg by mouth daily. Active methenamine (HIPREX) 1 gram tablet Take 1 g by mouth daily. 09/09/19 Active rasagiline (AZILECT) 0.5 mg tabletIndications: Parkinson's disease without dyskinesia, with fluctuating manifestations Take 0.5 tablets (0.25 mg total) by mouth daily. 30 tablet 5 09/27/19 25 Active melatonin 3 mg TabIndications:Par kinson's disease without dyskinesia, with fluctuating manifestations Take 1 tablet (3 mg total) by mouth nightly at bedtime. 30 tablet 5 09/27/19 25 Active magnesium 250 mg Tab Take 250 mg by mouth daily. 07/31/19 25 Active ascorbic acid, vitamin C, (VITAMIN C) 1000 MG tablet Take 1,000 mg by mouth daily. 05/04/19 25 Active acetaminophen (TYLENOL) 325 mg tablet Take 650 mg by mouth every 4 (four) hours as needed for fever or pain (specific location in comments) (back). 06/06/19 24 Active Lactobacillus acidophilus (ACIDOPHILUS ORAL) Take 1 capsule by mouth daily as needed (cold sore or upset stomach). 07/31/19 25 Active calcium carbonate 500 mg (200 mg elemental) chewable tablet Take 2 tablets by mouth every 6 (six) hours as needed for heartburn. 07/31/19 25 Active meclizine (ANTIVERT) 25 mg tablet Take 25 mg by mouth 3 (three) times a day as needed for dizziness. 06/03/19 25 Active hydrOXYzine (ATARAX) 25 MG tablet Take 25 mg by mouth 4 (four) times a day as needed for anxiety or itching (vertigo or dizziness). 02/14/20 24 Active CARBIDOPA-LEVODOPA ORAL Take 1 tablet by mouth nightly at bedtime. 50-200mg 05/15/19 24 Discontin ued(Error ) Active Problems Problem Noted Date Diagnosed Date Migraines 09/13/2022 Assessment & Plan (09/13/2022 4:04 PM EDT): Chronic history of migraines, follows with neurology for her migraines and Parkinson's disease. She has seen Ever Gerber (sp?) at [facility] for over a dozen years. Patient does not like taking Tylenol. Has trialed Fioricet in the past. I will make a dose or 2 available if needed. Hopefully aspirin will also be helpful. She was given 1 dose of Toradol in the emergency department. With additional DVT prophylaxis with Lovenox I will hold off on further NSAIDs at this time. CVA (cerebral vascular accident) 09/13/2022 Cardiac murmur 09/13/2022 Assessment & Plan (09/13/2022 4:27 PM EDT): Height history of heart disease or known prior murmur. Aortic murmur evident on exam. This will be evaluated with TTE ordered as part of her stroke evaluation. If findings are significant, cardiology consult could be arranged. Weakness 10/26/2021 Assessment & Plan (09/13/2022 4:28 PM EDT): Patient presenting with few day history of dizziness/unsteadiness, worsening migraine, nausea, and increased arm and leg weakness left greater than right. Additional mild left facial numbness, mumbling speech. Chronic deficits with left-sided weakness exacerbated. Differential includes possible TIA/CVA, metabolic derangement, infection. -Neurology recommendations as below for stroke rule out -Lab panel so far reassuring with BMP, LFTs, CBC. No leukocytosis or anemia to explain her symptoms. Recent TSH in July noted to be within normal limits, will repeat -Urinalysis not suspicious for infection. -Will check B12, vitamin D -PT/OT evaluations will be requested -Check orthostatic vital signs [facility] TELENE[facility]OLOGY RECOMMENDATIONS: Diagnosis: -Stroke labs: (Lipid panel, HgA1c, TSH, ESR, CRP, trop) -Toxic-metabolic encephalopathy workup: UA,UCx,CBC,Utox,Stox, chest x-ray, covid-19 swab-Brain MRI without contrast -Transthoracic echo (TTE) - ok to perform within 1 week as outpatient -Maintain on telemetry, discharge on extended library monitor (MCOT/ZioPatch) -Caregiver feels facial symmetry at baseline Treatment: -Allow for permissive HTN with SBP goal <220. If SBP > 220, IV Labetalol prn; nicardipine/clevidipine drip if persistently high for the first 24h, After 24- 48h sBP goal < 180, after 48h from onset of symptoms: sBP goal < 140. 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 Assessment & Plan (10/18/2021 3:04 AM EDT): Patient suffers from chronic lower back pain which has gotten worse over the last week because of her headache which is led to immobility which has led to her back pain getting worse. PT OT evaluation will be ordered as mobility is the best thing for her. We will avoid NSAIDs at this time given the fact that the patient has taken quite a few NSAIDs. The patient does have leukocyte esterase in her urine, but does not have direct symptoms of urinary tract infections such as dysuria and therefore I do not believe this to be the underlying etiology of the patient's back pain. Depending upon how this patient clinically responds, further evaluation may be needed. Consideration for orthopedic consultation could be made. 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 Urine studies and serum studies will be checked serially. Nephrology consultation will be placed. I think the underlying etiology is the fact that the patient's back pain has gotten worse, and this increased pain is leading to SIADH and subsequent hyponatremia. We will recheck sodium and labs including urine studies in the morning. Still waiting on urine sodium levels. TSH is normal. We will check a a.m. cortisol for completeness. The patient has chronic hyponatremia with baseline levels between 127 and 129 and therefore her current level is not all that far off. This hyponatremia is likely contributing to the patient's overall ill feelings but is likely not the cause of her headache. We will continue to closely monitor neurologic symptoms. Hypertonic saline is not indicated at this time. Ocular headache 10/18/2021 Assessment & Plan (10/28/2021 8:36 PM EDT): - discussed arranging a local neurologist for migraines, she does follow with Dr. Cochran at [facility] but focused mainly on Parkinsons and she does not feel able to travel to [place] for another provider - for now avoiding NSAIDS - try fioricet headache - she declined to try it today but is contemplating trying it tomorrow Assessment & Plan (10/18/2021 3:10 AM EDT): Patient's ocular headaches are chronic. Patient states that she has been on multiple medications for this but has not been tolerant to any of them. She is not able to describe details of this. She does not seem willing to try any medications however we will try a single dose of Fioricet. Patient is nonfocal at this time, and is alert and oriented. Consideration for telemetry neurology consultation could be made depending upon the patient's response to interventions as outlined above. Hyponatremia 10/18/2021 Assessment & Plan (10/28/2021 8:30 PM EDT): - improved, cont to avoid hctz - continue fluid restriction - avoiding NSAIDS for now - recent TSH and cortisol levels normal - improved - with her horrible headaches, may need to try NSAIDs in the future but trying to avoid for now Hypertensive disorder 11/26/2014 Assessment & Plan (09/13/2022 4:01 PM EDT): Blood pressure was very high at home, atypical for her, in the 190s today. Permissive hypertension is recommended during her stroke evaluation with goal blood pressure less than 220. See neurology recommendations above for the first 24 hours. -Hydrochlorothiazide was taken today, will hold further doses. -VS will be closely monitored per unit protocol. Assessment & Plan (10/28/2021 8:33 PM EDT): -decision for permissive htn due to intolerance of antihypertensives Assessment & Plan (10/18/2021 3:08 AM EDT): Patient's hydrochlorothiazide is likely contributing to her hyponatremia. Therefore, this medication will be held. We will continue with her patient's Norvasc and atenolol. We will monitor her blood pressure quite closely. Parkinson's disease 02/23/2012 Assessment & Plan (09/13/2022 4:06 PM EDT): Followed by [facility] neurology as above. I have continued her Sinemet. Dosing discussed with the pharmacist. 2 tablets 4 times daily recommended instead of 1 tablet 8 times daily. Caregiver will need to bring in her long-acting, nightly Sinemet. Assessment & Plan (10/28/2021 8:32 PM EDT): - cont home sinamet - she says she uses as needed doses at night, changed order here - trying to confirm long acting dose which she takes with a snack Assessment & Plan (10/18/2021 3:04 AM EDT): Continue with the patient's home medications. She has missed a few doses today and is a bit more immobile than normal. Continue to monitor clinically. Resolved Problems Problem Noted Date Diagnosed Date Resolved Date Acute cystitis 10/26/2021 10/29/2021 Assessment & Plan (10/28/2021 8:36 PM EDT): - day 05/20 bactrim for UTI - urine culture showed mixed cody Encounters Date Type Department Care Team Description 11/11/2024 4:28 AM EDT - 11/11/2024 11:47 AM EDT Emergency [facility] [address] [place] [address] Rajesh Green MD Perez, Alberto Juan Ignacio, MD Discharge Disposition: [facility] Facility 11/08/2024 9:00 AM EDT [facility] Visit [facility] [address] [place] [phone] Joselito Whelan, COURT OT OASIS DISCHARGE VISIT 11/07/2024 10:30 AM EDT Home [facility] Visit [facility] [address], [place] [phone] Joselito Whelan, OT OT HOME VISIT 11/06/2024 1:00 PM EDT Home Care Visit [facility] [address], [place] [phone] Yanet Robles, PT PT DISCIPLINE DISCHARGE VISIT 11/05/2024 Home Care Visit [facility] [address], [place] [phone] Joselito Whelan, OT TELEPHONE ENCOUNTER 11/04/2024 10:30 AM EDT Home Care Visit [facility] [address] [place] [address] Yanet Robles, PT PT HOME VISIT 10/31/2024 12:45 PM EDT Home Care Visit [facility] [address] [place] [address] Martine Bosch, HOT MILL SHEARER HOT MILL SHEARER HOME VISIT 10/31/2024 10:30 AM EDT Home Care Visit [facility] [address] [place] [address] Joselito Whelan, OT OT HOME VISIT 10/28/2024 2:15 PM EDT Home Care Visit [facility] [address] [place] [address] Martine Bosch, HOT MILL SHEARER HOT MILL SHEARER HOME VISIT 10/28/2024 10:30 AM EDT Home Care Visit [facility] [address], [place] [phone] Joselito Whelan, OT OT HOME VISIT 10/24/2024 10:15 AM EDT Home Care Visit [facility] [address], [place] [phone] Yanet Robles, PT PT HOME VISIT 10/22/2024 10:15 AM EDT Home Care Visit [facility] [address] [facility], [place] [phone] Yanet Robles, PT PT HOME VISIT 10/18/2024 6:42 PM EDT - 10/19/2024 10:38 AM EDT Emergency [facility] [address] [place] [id number] Kings Hanna MD Andrade, Olyn Amanda, MD Daul, Adrian D, MD Discharge Disposition: Home or Self Care 10/16/2024 12:00 PM EDT Home Care Visit [facility] [address], [place] [phone] Joselito Whelan, OT OT EVALUATION 10/16/2024 10:15 AM EDT Home Care Visit [facility] [address] [place] [address] Yanet Robles, PT PT HOME VISIT 10/14/2024 10:15 AM EDT Home Care Visit [facility] [address] [place] [address] Yanet Robles, PT PT HOME VISIT 10/14/2024 Home Care Visit [facility] [address] [place] [address] Joselito Whelan, OT TELEPHONE ENCOUNTER 10/12/2024 11:34 PM EDT - 10/13/2024 4:30 AM EDT Emergency [facility] [address] [place] [address] Kamar Navarro, DO Discharge Disposition: [facility] Facility 10/11/2024 Home Care Visit [facility] [address] [place] [address] Yanet Robles, PT TELEPHONE ENCOUNTER 10/10/2024 Home Care Visit [facility] [address] [place] [address] Yanet Robles, PT TELEPHONE ENCOUNTER 10/10/2024 Plan of Care Documentation [facility] [address] [place] [address] 10/09/2024 10:15 AM EDT Home Care Visit [facility] [address] [place] [address] Yanet Robles, PT PT OASIS START OF CARE (SOC) 10/09/2024 Home Care Visit [facility] [address] [place] [address] Joselito Whelan, OT TELEPHONE ENCOUNTER 10/09/2024 Transcribe Orders [facility] [address] [place] [address] Fanny Power MD Encounter for rehabilitation (Primary Dx) 10/08/2024 [facility] [address] [place] [address] Yanet Robles, PT TELEPHONE ENCOUNTER 10/07/2024 Home Care Visit [facility] [address] [place] [address] Yanet Robles, PT CASE COMMUNICATION 10/06/2024 [facility] [address] [place] [address] Alexa Gipson, RN CASE COMMUNICATION 10/04/2024 5:08 AM EDT - 10/04/2024 5:20 PM EDT Emergency [facility] [address] [place] [address] Rajesh Green MD Andrade, Olyn Amanda, MD Discharge Disposition: Home or Self Care 10/04/2024 Orders Only [facility] [address] [place] [address] HomeRikki bowden MD 09/29/2024 6:40 PM EDT - 09/30/2024 12:02 PM EDT Emergency [facility] [address] [place] [phone] Adilson Canchola MD Daul, Adrian D, MD Discharge Disposition: Home or Self Care 09/26/2024 3:00 PM EDT Office Visit [facility] [address] [place] [address] Efren Oscar MD Parkinson's disease without dyskinesia, with fluctuating manifestations (Primary Dx); Diffuse pain; Muscle spasms of both lower extremities 09/15/2024 3:06 AM EDT - 09/15/2024 11:17 AM EDT Emergency [facility] [address] [place] [address] Kamar Navarro, DO Discharge Disposition: Home or Self Care 09/09/2024 6:04 PM EDT - 09/09/2024 11:25 PM EDT Emergency [facility] [address] [place] [address] Discharge Disposition: Home or Self Care 08/16/2024 12:59 AM EDT - 08/16/2024 5:08 AM EDT Emergency [facility] [address] [place] [address] Guanako Brown MD Discharge Disposition: Home or Self Care from Last 3 Months Immunizations Immunization Administration Dates Next Due COVID-19 (Pre-01/09) Moderna Vaccine, mRNA, PF 0 05/15/2020 Influenza High-Dose Trivalent Preservative Free IM 04/22/2019 Family History Medical History Relation Comments COPD Brother 1 CV disease Father Heart failure Father Cancer Mother Relation Status Comments Brother 1 Alive Brother 2 Alive , Agent O range Father Mother Sister Social History Tobacco Use Types Packs/Day Years Used Date Smoking Tobacco: Former Cigarettes Q uit: 1973 Smokeless Tobacco: Never Tobacco Cessation:Counseling Given: Not Answered Alcohol Use Standard Drinks/Week Comments Not Currently [...] Job Start Date 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, 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 Not on file Not on file Not on file Last Filed Vital Signs Vital Sign Reading [...] Mass Index 18.52 11/11/2024 4:35 AM EDT Plan of Treatment Upcoming Encounters Date Type Department Care Team (Late st Contact Info) Description 11/28/2024 9:45 AM EDT Office Visit [address] [place] [address] Fanny Power MD [address] [place] [phone] Bessy Carrillo, PT [address] [place] [address] [email or web address] 12/10/2024 10:30 AM EDT Office Visit [address] [place] [address] Fanny Power MD [address] [place] [phone] Bessy Carrillo, PT [address] [place] [address] [email or web address] 12/13/2024 9:15 AM EDT Office Visit [address] [place] [address] Fanny Power MD [address] [place] [phone] Ryan Granados, HOT MILL SHEARER [address] [place] [address] 12/17/2024 9:15 AM EDT Office Visit [facility] [address] [place] [address] Fanny Power MD [address] [place] [phone] Ryan Granados, HOT MILL SHEARER [address] [place] [address] 12/24/2024 10:30 AM EDT Office Visit [address] [place] [address] Fanny Power MD [address] [place] [phone] Bessy Carrillo, PT [address] [place] [address] 12/31/2024 9:45 AM EDT Office Visit [address] [place] [address] Fanny Power MD [address] [place] [phone] Bessy Carrillo, PT [address] [place] [address] 01/07/2025 9:45 AM EDT Office Visit [facility] [address] [place] [address] Fanny Power MD [address] [place] [address] Bessy Carrillo, PT [address] [place] [address] 01/14/2025 9:45 AM EDT Office Visit [facility] [address] [place] [address] Fanny Power MD [address] [place] [address] Gerardo, Bessy Kusum, PT [address] [place] [address] [email or web address] Health Maintenance Due Date Last Done Comments Adult Td,Tdap Booster 1948 DEPRESSION SCREENING 1960 HEPATITIS C SCREENING 01/31/1966 PNEUMOCOCCAL VACCINES (50+ years) (1 of 1 - PCV) 01/31/1998 ZOSTER VACCINES (1 of 2) 01/31/1998 OSTEOPOROSIS SCREENING INITIAL (ONE-TIME) 01/31/2013 RSV VACCINE (1 - 1-dose 75+ series) 01/31/2023 LIPID PANEL 09/15/2023 09/14/2022 COVID-19 VACCINE ( season) 2023 08/19/2021, 01/20/2021, 06/13/2020, Additional history exists INFLUENZA VACCINE (#1) 2024 04/22/2019 BLOOD PRESSURE 05/11/2025 11/08/2024 SMOKING Hx and SMOKELESS TOBACCO SCREENING 11/11/2025 11/11/2024 HEPATITIS A VACCINES Aged Out No long er eligible based on patient's age to complete this topic HIB VACCINES Aged Out No longer eligi ble based on patient's age to complete this topic MENINGOCOCCAL VACCINES (ACWY) Aged Out No longer eligible based on patient's age to complete this topic MENINGOCOCCAL VACCINES (B) Aged Out N o longer eligible based on patient's age to complete this topic Medical Devices Not on file Procedures Procedure Name Priority Date/Time Associated Diagnosis Comments URINALYSIS W/REFLEX URINE CULTURE STAT 11/11/2024 6:45 AM EDT MAGNESIUM STAT 11/11/2024 5:29 AM EDT BASIC METABOLIC PANEL STAT 11/11/2024 5:29 AM EDT CBC AND DIFFERENTIAL STAT 11/11/2024 5:29 AM EDT ECG 12-LEAD STAT 11/11/2024 4:34 AM EDT BASIC METABOLIC PANEL STAT 10/18/2024 10:15 PM EDT CBC AND DIFFERENTIAL STAT 10/18/2024 10:15 PM EDT ECG 12-LEAD STAT 10/18/2024 5:06 PM EDT XR HIPS 2+ VW EA BILAT PLUS PELVIS Routine 10/13/2024 12:45 AM EDT URINE SEDIMENT STAT 10/04/2024 10:23 AM EDT URINALYSIS W/REFLEX URINE CULTURE STAT 10/04/2024 10:23 AM EDT URINE CULTURE Routine 10/04/2024 10:23 AM EDT ECG 12-LEAD STAT 10/04/2024 8:18 AM EDT LACTIC ACID (LACTATE) STAT 10/04/2024 7:30 AM EDT MAGNESIUM STAT 10/04/2024 7:30 AM EDT BASIC METABOLIC PANEL STAT 10/04/2024 7:30 AM EDT CBC AND DIFFERENTIAL STAT 10/04/2024 7:30 AM EDT CBC AND DIFFERENTIAL STAT 09/29/2024 10:37 PM EDT BASIC METABOLIC PANEL STAT 09/29/2024 10:37 PM EDT URINE SEDIMENT STAT 09/29/2024 10:24 PM EDT URINALYSIS W/REFLEX URINE CULTURE STAT 09/29/2024 10:24 PM EDT ECG 12-LEAD STAT 09/29/2024 7:00 PM EDT ECG 12-LEAD STAT 09/15/2024 8:49 AM EDT URINE SEDIMENT STAT 09/15/2024 4:32 AM EDT URINALYSIS W/REFLEX URINE CULTURE STAT 09/15/2024 4:32 AM EDT URINE CULTURE Routine 09/15/2024 4:32 AM EDT LIPASE STAT 09/15/2024 3:29 AM EDT LFTS (HEPATIC PANEL) STAT 09/15/2024 3:29 AM EDT BASIC METABOLIC PANEL STAT 09/15/2024 3:29 AM EDT CBC AND DIFFERENTIAL STAT 09/15/2024 3:29 AM EDT URINALYSIS W/REFLEX URINE CULTURE STAT 09/09/2024 9:21 PM EDT XR CHEST PA AND LATERAL 2 VIEWS Routine 09/09/2024 7:02 PM EDT CPK (CREATINE KINASE) STAT 09/09/2024 6:41 PM EDT TROPONIN STAT 09/09/2024 6:41 PM EDT LAB ADD ON STAT 09/09/2024 6:41 PM EDT TROPONIN Routine 09/09/2024 5:01 PM EDT MAGNESIUM STAT 09/09/2024 5:01 PM EDT LFTS (HEPATIC PANEL) STAT 09/09/2024 5:01 PM EDT BASIC METABOLIC PANEL STAT 09/09/2024 5:01 PM EDT CBC AND DIFFERENTIAL STAT 09/09/2024 5:01 PM EDT ECG 12-LEAD STAT 09/09/2024 1:16 PM EDT XR CHEST 1 VIEW Routine 08/16/2024 1:43 AM EDT BASIC METABOLIC PANEL STAT 08/16/2024 1:27 AM EDT CBC AND DIFFERENTIAL STAT 08/16/2024 1:27 AM EDT ECG 12-LEAD STAT 08/16/2024 1:20 AM EDT LIPID PANEL Routine 09/14/2022 5:57 AM EDT from Last 3 Months or Most Recently Relevant to Health Maintenance Results * (ABNORMAL) Urinalysis w/reflex Urine Culture (11/11/2024 6:45 AM EDT) Only the most recent of5 resultswithin the time period is included. COLOR Yellow Yellow [facility] CLARITY Clear [facility] GLUCOSE Negative Negative [facility] BILI Negative Negative [facility] KETONES Negative Negative [facility] SPECIFIC GRAVITY 1.010 1.005 - 1.030 [facility] BLOOD Trace(A) Negative [facility] PH 7.0 5.0 - 8.0 [facility] Protein-UA Negative Negative [facility] NITRITE Negative Negative [facility] Leukocyte esterase, ur Negative Negative [facility] Urine (Urine) 11/11/2024 6:4 5 AM EDT 11/11/2024 7:40 AM EDT us Rajesh Green MD URINE ORDERABLES Final R esult [facility] [address] [place] [address] * (ABNORMAL) CBC and differential (11/11/2024 5:29 AM EDT) Only the most recent of7 resultswithin the time period is included. WBC 5.12 4.00 - 11.00 K/uL [facility] RBC 3.45(L) 4.00 - 5.20 M/uL [facility] HGB 11.0(L) 12.0 - 16.0 g/dL [facility] HCT 34.1(L) 36.0 - 46.0 % [facility] PLT 258 150 - 450 K/uL [facility] MCV 98.8 80.0 - 100.0 fL [facility] MCH 31.9(H) 27.0 - 31.0 pg [facility] MCHC 32.3 32.0 - 36.0 g/dL [facility] RDW 12.3 11.5 - 14.5 % [facility] MPV 9.9 8.4 - 12.0 fL [facility] NRBC 0.00 0.00 /100 WBCs [facility] ABSOLUTE NRBC 0.00 0.00 K/uL [facility] DIFF METHOD Auto [facility] NEUTS 71.0 48.0 - 76.0 % [facility] LYMPHS 16.8(L) 18.0 - 41.0 % [facility] MONOS 10.4 4.0 - 11.0 % [facility] EOS 1.0 0.0 - 5.0 % [facility] BASOS 0.6 0.0 - 1.5 % [facility] Granulocytes, immature (%) 0.2 0.0 - 0.9 % [facility] ABSOLUTE NEUTS 3.64 1.92 - 7.60 K/uL [facility] ABSOLUTE LYMPHS 0.86 0.72 - 4.10 K/uL [facility] ABSOLUTE MONOS 0.53 0.16 - 1.10 K/uL [facility] ABSOLUTE EOS 0.05 0.00 - 0.50 K/uL [facility] ABSOLUTE BASOS 0.03 0.00 - 0.15 K/uL [facility] Granulocytes, immature 0.01 0.00 - 0.09 K/uL [facility] Blood 11/11/2024 5:29 AM EDT 11/11/2024 5:46 AM EDT us Rajesh Green MD LAB BLOOD ORDERABLES Fin al Result Performing Organization Address City/[facility]/ZIP Co de Phone Number [address] [address] * Magnesium (11/11/2024 5:29 AM EDT) Only the most recent of3 resultswithin the time period is included. MAGNESIUM 2.0 1.6 - 2.6 mg/dL [facility] Blood 11/11/2024 5:29 AM EDT 11/11/2024 5:46 AM EDT Rajesh Green MD LAB BLOOD ORDERABLES Fin al Result Performing Organization Address [facility] de Phone Number [address] [address] * (ABNORMAL) Basic metabolic panel (11/11/2024 5:29 AM EDT) Only the most recent of7 resultswithin the time period is included. SODIUM 141 133 - 146 mmol/L [facility] CHLORIDE 106 96 - 108 mmol/L [facility] POTASSIUM 3.8 3.3 - 5.1 mmol/L [facility] CO2 24 21 - 35 mmol/L [facility] BUN 15 6 - 19 mg/dL [facility] CREATININE 0.80 0.5 - 1.5 mg/dL [facility] GLUCOSE 101(H) 70 - 99 mg/dL [facility] CALCIUM 8.9 8.4 - 10.3 mg/dL [facility] EGFR 76 >59 mL/min/1.7 3m2 [facility] Comment:Estimated glomerular filtration rate calculated using the CKD-EPI refit equation. ANION GAP 15 10 - 20 mmol/L [facility] Blood 11/11/2024 5:29 AM EDT 11/11/2024 5:46 AM EDT us Rajesh Green MD LAB BLOOD ORDERABLES Fin al Result Performing Organization Address City/[facility]/ZIP Co de Phone Number [address] [address] * ECG 12-LEAD (11/11/2024 4:34 AM EDT) Only the most recent of7 resultswithin the time period is included. Ventricular Rate EKG/MIN 106 BPM [facility] Atrial Rate 106 BPM [facility] OH Interval 158 ms [facility] QRS Duration 78 ms [facility] QT Interval 336 ms [facility] QTC Interval 446 ms [facility] P [place] 85 degrees [facility] R Wave [place] 29 degrees [facility] T Wave [place] 58 degrees [facility] 11/11/2024 4:34 AM EDT 11/11/2024 10:12 AM EDT Narrative [facility] - 11/11/2024 10:12 AM EDT Sinus tachycardia Nonspecific ST abnormality Abnormal ECG When compared with ECG of 18-Oct-2024 17:06, Previous ECG has undetermined rhythm, needs review ST no longer depressed in Lateral leads Confirmed by Bart Prescott ([id number]) on 11/11/2024 10:12:26 AM us Karl Cavanaugh MD ECG ORDERABLES Fi nal Result Performing Organization Address City/[facility] Co de Phone Number [email or web address] * XR HIPS 2+ VW EA BILAT PLUS PELVIS (10/13/2024 12:45 AM EDT) Anatomical Region Laterality Modality Hip, Pelvis Computed Radiogr aphy 10/13/2024 1:37 AM EDT Impressions 10/13/2024 1:39 AM EDT No displaced fracture or dislocation. Narrative 10/13/2024 1:39 AM EDT XR HIPS 2+ VW EA BILAT PLUS PELVIS Referring clinician's provided indication for this examination in Epic: Pain; S/P Fall COMPARISON: CT ABDOMEN/PELVIS WITH CONTRAST FINDINGS: Pelvis: No displaced fracture. The sacrum is obscured by overlying bowel. Degenerative changes of the lower lumbar spine and bilateral sacroiliac joints. Left Hip: No displaced fracture. Mild degenerative changes of the left hip joint. Right Hip: No displaced fracture. Mild degenerative changes of the right hip joint. Procedure Note Keshav Meyer Gary Nix, [facility] - 10/13/2024 XR HIPS 2+ VW EA BILAT PLUS PELVIS Referring clinician's provided indication for this examination in Epic:Pain; S/P Fall COMPARISON: CT ABDOMEN/PELVIS WITH CONTRAST FINDINGS: Pelvis: No displaced fracture. The sacrum is obscured by overlying bowel.Degenerative changes of the lower lumbar spine and bilateral sacroiliacjoints. Left Hip: No displaced fracture. Mild degenerative changes of the left hipjoint. Right Hip: No displaced fracture. Mild degenerative changes of the righthip joint. IMPRESSION: No displaced fracture or dislocation. us Belkys Montes PA-C IMG XR PELVIS Final Result * (ABNORMAL) Urine Culture (10/04/2024 10:23 AM EDT) Only the most recent of2 resultswithin the time period is included. Special Requests None Reflexed from [id number] 10/04/2024 11:16 AM EDT [facility] Urine Culture >100,000 colony forming units per mL MIXED CODY (3 OR MORE COLONY TYPES) Culture indicates contamination . Please resubmit if necessary.(A) 10/05/2024 12:40 PM EDT [facility] Urine 10/04/2024 10:2 3 AM EDT 10/04/2024 10:42 AM EDT us Rajesh Green MD MICROBIOLOGY - GENERAL O RDERABLES Final Result [facility] [address] [place] [address] * (ABNORMAL) Urine sediment (10/04/2024 10:23 AM EDT) Only the most recent of3 resultswithin the time period is included. WBC 11-20(A) NONE SEEN /hpf [facility] RBC 0-2(A) NONE SEEN /hpf [facility] URINE EPITHELIAL 5-10(A) NONE SEEN [facility] MUCUS Trace(A) NONE SEEN /hpf [facility] BACTERIA Trace(A) NONE SEEN /hpf [facility] CRYSTALS 1+ [facility] Comment:Calcium Oxalate CAST 0-2 [facility] Comment:HYALINE CAST 10/04/2024 10:2 3 AM EDT 10/04/2024 10:42 AM EDT us Rajesh Green MD URINE ORDERABLES Final R esult Performing Organization Address City/[facility]/ZIP Co de Phone Number [address] [address] * Lactate (10/04/2024 7:30 AM EDT) LACTATE 1.20 0.50 - 2.20 mmol/L [facility] Blood 10/04/2024 7:30 AM EDT 10/04/2024 7:42 AM EDT us Rajesh Green MD LAB BLOOD ORDERABLES Fin al Result Performing Organization Address [facility]/ZIP Co de Phone Number [address] [address] * LFTs (hepatic panel) (09/15/2024 3:29 AM EDT) Only the most recent of2 resultswithin the time period is included. ALKALINE PHOSPHATASE 87 39 - 117 U/L [facility] TOTAL BILIRUBIN 0.6 0.0 - 1.2 mg/dL [facility] DIRECT BILIRUBIN 0.2 0.0 - 0.2 mg/dL [facility] Bilirubin (Indirect) 0.4 0 - 1.5 mg/dL [facility] AST 13 0 - 37 U/L [facility] ALT <5 0 - 40 U/L [facility] TOTAL PROTEIN 6.8 6.5 - 8.0 g/dL [facility] ALBUMIN 4.3 3.9 - 4.8 g/dL [facility] GLOBULIN 2.5 1 - 4.8 g/dL [facility] A/G Ratio 1.72 1.00 - 4.80 RATIO [facility] Blood 09/15/2024 3:29 AM EDT 09/15/2024 3:33 AM EDT us [employer] Navarro DO LAB BLOOD ORDERABLES Final Re sult Performing Organization Address [facility] Co de Phone Number [address] [address] * Lipase (09/15/2024 3:29 AM EDT) LIPASE 37 16 - 63 U/L [facility] Blood 09/15/2024 3:29 AM EDT 09/15/2024 3:33 AM EDT us [employer] DO LAB BLOOD ORDERABLES Final Re sult Performing Organization Address [facility] Co de Phone Number [address] [address] * XR CHEST PA AND LATERAL 2 VIEWS (09/09/2024 7:02 PM EDT) Anatomical Region Laterality Modality Chest Computed Radiogr aphy 09/09/2024 9:12 PM EDT Impressions 09/09/2024 9:13 PM EDT No pneumonia or acute cardiopulmonary process. Narrative 09/09/2024 9:13 PM EDT XR CHEST PA AND LATERAL 2 VIEWS Referring clinician's provided indication for this examination in Epic: Fatigue COMPARISON: XR CHEST 1 VIEW FINDINGS: Devices/Tubes/Lines: None. Lungs: No focal consolidation or pulmonary edema. Pleura: No pleural effusion or pneumothorax. Heart/Mediastinum: Normal cardiac silhouette. Normal mediastinal contours. Bones/Soft Tissues: No acute osseous abnormality. Mild multilevel degenerative changes of the thoracic spine. Procedure Note Darrel Ellison MD - 09/09/2024 XR CHEST PA AND LATERAL 2 VIEWS Referring clinician's provided indication for this examination in Epic:Fatigue COMPARISON: XR CHEST 1 VIEW FINDINGS: Devices/Tubes/Lines: None. Lungs: No focal consolidation or pulmonary edema. Pleura: No pleural effusion or pneumothorax. Heart/Mediastinum: Normal cardiac silhouette. Normal mediastinalcontours. Bones/Soft Tissues: No acute osseous abnormality. Mild multileveldegenerative changes of the thoracic spine. IMPRESSION: No pneumonia or acute cardiopulmonary process. Belkys Montes PA-C IMG XR CHEST Final Result * Lab Add On: troponin (09/09/2024 6:41 PM EDT) TEST REQUESTED TROPONIN [facility] Comments (Chemistry) Add on order being processed. Floor or provider will be notified if testing cannot be performed [facility] 09/09/2024 6:41 PM EDT 09/09/2024 6:44 PM EDT Belkys oMntes PA-C LAB BLOOD ORDERA BLES Final Result [address] [address] * (ABNORMAL) Troponin (09/09/2024 6:41 PM EDT) Only the most recent of2 resultswithin the time period is included. Troponin-T, HS Gen5 13(H) 0 - 9 ng/L [facility] Blood 09/09/2024 6:41 PM EDT 09/09/2024 6:44 PM EDT Belkys Montes PA-C LAB BLOOD ORDERA BLES Final Result [address] [address] * CPK (creatine kinase) (09/09/2024 6:41 PM EDT) CREATINE KINASE 100 21 - 215 U/L [facility] Blood 09/09/2024 6:41 PM EDT 09/09/2024 6:44 PM EDT us Belkys Montes PA-C LAB BLOOD ORDERA BLES Final Result Performing Organization Address City/[facility]/ZIP Co de Phone Number [address] [address] * XR CHEST 1 VIEW (08/16/2024 1:43 AM EDT) Anatomical Region Laterality Modality Chest Computed Radiogr aphy 08/16/2024 4:27 AM EDT Impressions 08/16/2024 4:28 AM EDT No acute abnormality. Narrative 08/16/2024 4:28 AM EDT XR CHEST 1 VIEW Referring clinician's provided indication for this examination in [facility]: Dyspnea (Shortness of Breath); r/o pneumonia, edema, pneumothorax COMPARISON: XR CHEST 1 VIEW FINDINGS: Devices/Tubes/Lines: None. Lungs: No focal consolidation or pulmonary edema. Pleura: No pleural effusion or pneumothorax. Heart/Mediastinum: Normal heart and mediastinum. Bones/Soft Tissues: No significant abnormality. Procedure Note Catrachito Curiel MD - 08/16/2024 XR CHEST 1 VIEW Referring clinician's provided indication for this examination in [facility]:Dyspnea (Shortness of Breath); r/o pneumonia, edema, pneumothorax COMPARISON: XR CHEST 1 VIEW FINDINGS: Devices/Tubes/Lines: None. Lungs: No focal consolidation or pulmonary edema. Pleura: No pleural effusion or pneumothorax. Heart/Mediastinum: Normal heart and mediastinum. Bones/Soft Tissues: No significant abnormality. IMPRESSION: No acute abnormality. us Guanako Brown MD IMG XR CHEST Final Res ult * (ABNORMAL) Lipid panel (09/14/2022 5:57 AM EDT) HDL 82 mg/dL [facility] Comment: Interpretation <40 mg/dL: Low HDL cholesterol (major risk factor for CHD) Greater than or equal to 60 mg/dL: High HDL cholesterol ( negative risk factor for CHD) HDL - cholesterol is affected by a number of factors, e.g. smoking, excerise, hormones, sex and age. CHOLESTEROL 178 0 - 240 mg/dL [facility] TRIGLYCERIDES 43 30 - 160 mg/dL [facility] LDL 87 50 - 129 mg/dL [facility] Comment: LDL levels in terms of risk for coronary heart disease: <100 mg/dL: Optimal 100-129 mg/dL: Near or above optimal 130-159 mg/dL: Borderline high 160-189 mg/dL: High >190 mg/dL: Very High CARDIAC RISK RATIO 2.2(L) 3.3 - 4.4 [facility] Blood 09/14/2022 5:57 AM EDT 09/14/2022 6:37 AM EDT Noreen Sotelo PA-C LAB BLOOD ORDERABLES Final Result [facility] [address] [place] [address] from Last 3 Months or Most Recently Relevant to Health Maintenance Insurance MEDICARE PART A & B [facility] MEDICARE SUPPLEMENT MEDICARE PART A & B [facility] MEDICARE SUPPLEMENT MEDICARE PART A & B [employer] MEDICARE SUPPLEMENT MEDICARE PART A & B [employer] MEDICARE SUPPLEMENT MEDICARE PART A & B MEDICARE SUPPLEMENT MEDICARE PART A & B Member Subscriber Plan / Payer (Ef fective 2013-Present) Name:Loren High Member ID:[id number] Relation to Subscriber:Self Name:Loren High Subscriber ID:[id number] Payer ID:[id number] Group ID:Not on file Type:Medicare Address: [employer] [address] [place] [id number] [facility] [employer] MEDICARE SUPPLEMENT MEDICARE PART A & B [facility] [employer] MEDICARE SUPPLEMENT MEDICARE PART A & B [facility] MEDICARE SUPPLEMENT MEDICARE PART A & B [facility] MEDICARE SUPPLEMENT Advance Directives For more information, please contact: [phone] (9AM - 5PM [place], Monday-Monday) Documents on File Type Date Recorded Patient Payroll Specialist Expl anation Durable Power of Registered Nurses 10/21/2024 9:45 AM Durable Power of Registered Nurses 08/19/2024 9:51 AM Healthcare Proxy 12/08/2023 3:01 PM Durable Power of Registered Nurses 12/08/2023 2:56 PM Durable Power of Registered Nurses 10/13/2023 10:41 PM * Full Code (Latest Code Status on File) Date Activated Date Inactivated Comments 09/13/2022 4:00 PM Question Answer Comments Code Status Confirmed With: Patient * Full Code Date Activated Date Inactivated Comments 10/26/2021 1:07 AM 09/13/2022 4:00 PM Question Answer Comments Code Status Confirmed With: Patient * Full Code Date Activated Date Inactivated Comments 10/18/2021 3:29 AM 10/26/2021 1:07 AM Question Answer Comments Code Status Confirmed With: Patient Healthcare Agents on File Name Relationship Healthcare Agent Relationshi p Communication Jose F Roa Son .Primary Health Care Agent (Proxy form on file) Care Teams Engraving Operator Relationship Specialty Start Date End Date Fanny Power MD [address] [place] [address] PCP - General Internal Medicine 08/16/24 Additional Source Comments The information contained in this document represents components of the legal health record. It is not the complete legal health record.[facility]
--- OUTSIDE RECORDS SUMMARY | 2024-11-12 09:50 | XMS_ITS | Encounter Summary ---
Author Organization [facility] Address [address] [place] [address] Phone Care Team Providers Care Supervisor Cemetery Workers Name Role Phone Kofi aFn MD Primary Care Provider [phone] Fanny Power MD Primary Care Provid er Reason for Referral * MRI/CAT Scan - Closed Specialty Diagnoses / Procedures Referred By Chandler t Referred To Contact Procedures MRI Neck Outside (No Interpretation) System, Provider Not In, [facility] [address] [address] Referral ID Status Reason Start Date Expiration Date Visits Re quested Visits Authorized [id number] Closed 12/20/2018 12/20/2019 1 1 Encounter Details Date Type Department Care Team (Late st Contact Info) Description 12/20/2018 Ancillary Orders [facility],Outside Imaging [address] [place] [address] System, Provider Not In, [facility] [address] [address] Social History Tobacco Use Types Packs/Day Years [...] Description 11/28/2024 9:45 AM EDT Office Visit [facility] [address] [place] [address] Fanny Power MD [address] [place] [phone] Bessy Carrillo, PT [address] [place] [address] 12/10/2024 10:30 AM EDT Office Visit [facility] [address] [place] [address] Fanny Power MD [address] [place] [phone] Bessy Carrillo, PT [address] [place] [address] 12/13/2024 9:15 AM EDT Office Visit [facility] [address] [place] [address] Fanny Power MD [address] [place] [phone] Ryan Granados, BOILER WELDER [address] [place] [address] 12/17/2024 9:15 AM EDT Office Visit [facility] [address] [place] [address] Fanny Power MD [address] [place] [phone] Ryan Granados, BOILER WELDER [address] [place] [address] 12/24/2024 10:30 AM EDT Office Visit [address] [place] [address] Fanny Power MD [address] [place] [phone] Bessy Carrillo, PT [address] [place] [address] 12/31/2024 9:45 AM EDT Office Visit [address] [place] [address] Fanny Power MD [address] [place] [phone] Bessy Carrillo, PT [address] [place] [address] 01/07/2025 9:45 AM EDT Office Visit [address] [place] [address] Fanny Power MD [address] [place] [phone] Bessy Carrillo, PT [address] [place] [address] 01/14/2025 9:45 AM EDT Office Visit [address] [place] [address] Fanny Power MD [address] [place] [phone] Bessy Carrillo, PT [address] [place] [address] documented as of this encounter Results * MRI Neck Outside (No Interpretation) (10/10/2014 12:00 AM EDT) Narrative SYSTEMGENERATED, DOCUMENTATION - 12/20/2018 11:02 AM EDT This study is for PACS storage only and not for interpretation. us Provider Not In System PhD IMG OUTSIDE IMAGING W /OUT INTERPRETATION Final Result documented in this encounter Visit Diagnoses Not on filedocumented in this encounter Additional Health Concerns Infection Onset Date Last Indicated Resolved Time CoV-Risk 01/06/2023 01/06/2023 01/17/2023 1:25 AM EDT CoV-Risk 04/01/2023 04/03/2023 04/14/2023 1:23 AM EST CoV-Risk 04/21/2023 04/21/2023 05/02/2023 1:24 AM EST CoV-Risk 05/11/2023 05/30/2023 06/10/2023 1:21 AM EDT CDiff-Risk 02/25/2024 02/25/2024 02/25/2024 12:5 2 PM EST documented as of this encounter Care Teams Supervisor Cemetery Workers Relationship Specialty Start Date End Date Kofi Fan MD [address] [place] [address] [address] PCP - General 09/17/13 08/15/24 Fanny Power MD [address] [place] [phone] PCP - General Internal Medicine 08/16/24 documented as of this encounter Additional Source Comments The information contained in this document represents components of the legal health record. It is not the complete legal health record.[facility]
--- OUTSIDE RECORDS SUMMARY | 2024-11-12 09:51 | XMS_ITS | Encounter Summary ---
Author Organization [facility] Address [address] [place] [address] Phone Care Team Providers Care Research And Development Chemist Name Role Phone Kofi Fan MD Primary Care Provider [phone] Fanny Power MD Primary Care Provid er Encounter Details Date Type Department Care Team (Late st Contact Info) Description 11/05/2021 Telephone [facility] Department of Neurology [address], 8th [address], [address] [place] [address] Ever Cochran MD [address] [place] [address] [email or web address] Social History Tobacco Use Types Packs/Day Years Used Date Smoking Tobacco: Former Smokeless Tobacco: Never Alcohol Use Standard Drinks/Week Comments Not Currently 0 (1 standard drink = 0.6 oz pur e alcohol) Comments No Sex and Gender Information Value Date Recorded Sex Assigned at Female 10/22/2019 9:45 AM EDT Legal Sex Female 7:16 PM EST Gender Identity Female 10/22/2019 9:45 AM EDT Sexual Orientation Straight 05/20/2023 9: 53 AM EST documented as of this encounter Functional Status * Calculated C-SSRS Risk Score (Lifetime/Recent) Answer Date of Assessment Author No Risk Indicated 11/07/2021 7:57 PM EDT Hiro Michaud RN * [place] Suicide Severity Rating Scale (Screener/Recent Self-Report) Question Answer Date of Assessment Author 1. Wish to be (Past 1 Month) No 022 7:57 PM EDT Hiro Michaud, [place] 2. Non-Specific Active Suici preston Thoughts (Past 1 Month) No 11/07/2021 7:57 PM EDT Shay Michaud RN 6. Suicidal Behavior (Lifetime) No 7:57 PM EDT Hiro Michaud, [place] documented as of this encounter Plan of Treatment Upcoming Encounters Date Type Department Care Team (Late st Contact Info) Description 11/28/2024 9:45 AM EDT Office Visit [facility] [address] [place] [address] Fanny Power MD [address] [place] [address] Bessy Carrillo, PT 8 [place] [address] 12/10/2024 10:30 AM EDT Office Visit [facility] [address] [place] [address] aFnny Power MD [address] [place] [address] Bessy Carrillo, PT 8 [place] [address] 12/13/2024 9:15 AM EDT Office Visit [address] [place] [address] Fanny Power MD [address] [place] [phone] Ryan Granados, FARM EQUIPMENT ENGINE MECHANIC 8 [place] [address] 12/17/2024 9:15 AM EDT Office Visit [facility] [address] [place] [address] Fanny Power MD [address] [place] [address] Ryan Granados, FARM EQUIPMENT ENGINE MECHANIC 8 [place] [address] 12/24/2024 10:30 AM EDT Office Visit [facility] [address] [place] [address] Fanny Power MD [address] [place] [address] Bessy Carrillo, PT 8 [place] [address] 12/31/2024 9:45 AM EDT Office Visit [facility] [address] [place] [address] Fanny Power MD [address] [place] [address] Bessy Carrillo, PT 8 [place] [address] 01/07/2025 9:45 AM EDT Office Visit [facility] [address] [place] [address] Fanny Power MD [address] [place] [address] Bessy Carrillo, PT 8 [place] [address] 01/14/2025 9:45 AM EDT Office Visit [facility] 8 [place] [address] Fanny Power MD [address] [place] [address] Bessy Carrillo, PT 8 [place] [address] [email or web address] documented as of this encounter Visit Diagnoses [...] documented as of this encounter Care Teams Research And Development Chemist Relationship Specialty Start Date End Date Kofi Fan MD [address] [place] [address] PCP - General 09/17/13 08/15/24 Fanny Power MD [address] [place] [address] PCP - General Internal Medicine 08/16/24 documented as of this encounter Additional Source Comments The information contained in this document represents components of the legal health record. It is not the complete legal health record.[facility]
--- OUTSIDE RECORDS SUMMARY | 2024-11-12 09:51 | XMS_ITS | Encounter Summary ---
Author Organization [facility] Address [address] [facility] [address] [place] [address] Phone Care Team Providers Care Bakery Demonstrator Name Role Phone Kofi Fan MD Primary Care Provider [phone] Fanny Power MD Primary Care Provid er Encounter Details Date Type Department Care Team (Late st Contact Info) Description 09/13/2022 Procedure Pass [facility], Ct Scan - [address] [address] Social History Tobacco Use Types Packs/Day Years Used Date Smoking Tobacco: Former Cigarettes Q uit: 1973 Smokeless Tobacco: Never Alcohol Use Standard Drinks/Week Comments Not Currently 0 (1 standard drink = 0.6 oz pur e alcohol) Home Health Assessment: Transportation Answer Date Recorded Lack of Transportation (Medical) Yes 08/23/2022 Lack of Transportation (Non-Medical) Yes 08/23/2022 Patient Unable or Declines to Respond No 08/23/2022 Education Answer Date Recorded Are you interested [...] 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 Wish to be (Past 1 Month) No 09/13/2022 5:12 PM EDT Martine Meier, RN 2. Non-Specific Active Suici preston Thoughts (Past 1 Month) No 09/13/2022 5:12 PM EDT Jose Meier RN 6. Suicidal Behavior (Lifetime) No 5:12 PM EDT Martine Meier RN documented as of this encounter Plan of Treatment Upcoming Encounters Date Type Department Care Team (Late st Contact Info) Description 11/28/2024 9:45 AM EDT Office Visit [address] [address] Fanny Power MD [address] [place] [address] Bessy Carrillo, PT 8 [place] [address] 12/10/2024 10:30 AM EDT Office Visit [address] [address] Fanny Power MD [address] [place] [address] Bessy Carrillo, PT 8 [place] [address] 12/13/2024 9:15 AM EDT Office Visit [facility] [address] [place] [address] Fanny Power MD [address] [place] [address] Ryan Granados, SENIOR LINUX UNIX ENGINEER 8 [place] [address] 12/17/2024 9:15 AM EDT Office Visit [facility] [address] [place] [address] Fanny Power MD [address] [place] [address] Ryan Granados, SENIOR LINUX UNIX ENGINEER 8 [place] [address] 12/24/2024 10:30 AM EDT Office Visit [facility] [address] [place] [address] Fanny Power MD [address] [place] [address] Bessy Carrillo, PT 8 [place] [address] 12/31/2024 9:45 AM EDT Office Visit [facility] [address] [place] [address] Fanny Power MD [address] [place] [address] Bessy Carrillo, PT 8 [place] [address] 01/07/2025 9:45 AM EDT Office Visit [facility] [address] [place] [address] Fanny Power MD [address] [place] [address] Bessy Carrillo, PT 8 [place] [address] [email or web address] 01/14/2025 9:45 AM EDT Office Visit [facility] [address] [place] [address] Fanny Power MD [address] [place] [phone] Bessy Carrillo, PT 8 [place] [address] [email or web address] documented as of this encounter Visit Diagnoses [...] documented as of this encounter Care Teams Bakery Demonstrator Relationship Specialty Start Date End Date Kofi Fan MD [address] [place] [address] [address] PCP - General 09/17/13 08/15/24 Fanny Power MD [address] [place] [address] [phone] PCP - General Internal Medicine 08/16/24 documented as of this encounter Additional Source Comments The information contained in this document represents components of the legal health record. It is not the complete legal health record.[facility]
--- OUTSIDE RECORDS SUMMARY | 2024-11-12 09:51 | XMS_ITS | Encounter Summary ---
Author Organization [facility] Address [address] [facility] [address] [place] [address] Phone Care Team Providers Care Nozzle Operator Name Role Phone Kofi Fan MD Primary Care Provider [phone] Fanny Power MD Primary Care Provid er Reason for Referral * MRI/CAT Scan - Closed Specialty Diagnoses / Procedures Referred By Chandler ayala Referred To Contact Radiology Diagnoses Cervicalgia Procedures MRI Cervical Spine Walker Barajas MD Phone: tel: fax: mailto: m Referral ID Status Reason Start Date Expiration Date Visits Re quested Visits Authorized [id number] Closed 11/30/2018 11/30/2019 1 1 Encounter Details Date Type Department Care Team (Late st Contact Info) Description 11/30/2018 Ancillary Orders Virtual Department [address] [place], [place] [phone] Walker Barajas MD 6 [place] [phone] [email or web address] Cervicalgia Social History Tobacco Use Types Packs/Day Years [...] Description 11/28/2024 9:45 AM EDT Office Visit [facility] [address] [place] [address] Fanny Power MD [address] [place] [address] Bessy Carrillo, PT 8 [place] [address] 12/10/2024 10:30 AM EDT Office Visit [facility] [address] [place] [address] Fanny Power MD [address] [place] [address] Bessy Carrillo, PT 8 [place] [address] 12/13/2024 9:15 AM EDT Office Visit [facility] [address] [place] [address] Fanny Power MD [address] [place] [address] Ryan Granados, DESIGNER/WRITER 8 [place] [address] 12/17/2024 9:15 AM EDT Office Visit [address] [place] [address] Fanny Power MD [address] [place] [address] Ryan Granados, DESIGNER/WRITER 8 [place] [address] [email or web address] 12/24/2024 10:30 AM EDT Office Visit [facility] [address] [place] [address] Fanny Power MD [address] [place] [address] Bessy Carrillo, PT 8 [place] [address] [email or web address] 12/31/2024 9:45 AM EDT Office Visit [facility] [address] [place] [address] Fanny Power MD [address] [place] [address] Bessy Carrillo, PT 8 [place] [address] 01/07/2025 9:45 AM EDT Office Visit [facility] [address] [place] [address] Fanny Power MD [address] [place] [address] Bessy Carrillo, PT 8 [place] [address] 01/14/2025 9:45 AM EDT Office Visit [facility] [address] [place] [address] Fanny Power MD [address] [place] [address] Bessy Carrillo, PT 8 [place] [address] [email or web address] documented as of this encounter Results * MRI CERVICAL SPINE (NEURO) FOCUS WITHOUT CONTRAST (12/13/2018 8:58 AM EDT) Anatomical Region Laterality Modality C-spine Magnetic Resonan ce 12/13/2018 9:47 AM EDT Addenda Addendum by Ghassan Landaverde MD on 12/20/2018 4:50 PM EDT Comparison is now made with an outside MR dated 10/10/2014, revealing no significant interval change in the appearance or alignment of the vertebral bodies, intervertebral discs, or the spinal cord. Chronic neural foraminal narrowing appears grossly stable. Impressions 12/13/2018 9:52 AM EDT Multilevel neural foraminal narrowing which could be correlated with any associated clinical findings of radiculopathy. Minimal disc bulges without focal disc protrusion or central canal stenosis. POS - [id number] Narrative 12/13/2018 9:52 AM EDT COMPARISON:11/30/2018 radiographs. Outside MRI report of 10/10/2014 is reviewed. TECHNIQUE: Exam performed on a 1.5 Mariza high-field MRI scanner. Sagittal T1, T2 and STIR, axial T2* gradient echo and 3-D bright fluid sequences were obtained. FINDINGS: C2-3: No focal disc protrusion, central canal stenosis, or significant neural foraminal compromise. C3-4: No focal disc protrusion or central canal stenosis. Uncovertebral spurring causes prominent bilateral neural foraminal narrowing. C4-5: No focal disc protrusion or central canal stenosis. Uncovertebral spurring causes mild left neural foraminal narrowing. Right neural foramen is grossly patent. C5-6: No focal disc protrusion or central canal stenosis. Uncovertebral spurring causes mild right neural foraminal narrowing. C6-7: Negligible disc bulge. No focal disc protrusion or central canal stenosis. Neural foramina are grossly patent. C7-T1: Negligible disc bulge. No focal disc protrusion, central canal stenosis, or significant neural foraminal compromise. On the sagittal sequences no focal disc protrusion or canal stenosis are suggested at the T1-2, T2-3, or T3-4 levels. There is a very small posterior central T3-4 disc bulge. No vertebral body compression deformity apparent. No discrete cord lesion noted. No paraspinal soft tissue mass or prevertebral soft tissue swelling apparent. Cerebellar tonsils appear borderline ectopic. Procedure Note Ghassan Landaverde MD - 12/13/2018 COMPARISON:11/30/2018 radiographs. Outside MRI report of 10/10/2014 isreviewed. TECHNIQUE: Exam performed on a 1.5 Mariza high-field MRI scanner. SagittalT1, T2 and STIR, axial T2* gradient echo and 3-D bright fluid sequenceswere obtained. FINDINGS: C2-3: No focal disc protrusion, central canal stenosis, or significantneural foraminal compromise. C3-4: No focal disc protrusion or central canal stenosis. Uncovertebralspurring causes prominent bilateral neural foraminal narrowing. C4-5: No focal disc protrusion or central canal stenosis. Uncovertebralspurring causes mild left neural foraminal narrowing. Right neuralforamen is grossly patent. C5-6: No focal disc protrusion or central canal stenosis. Uncovertebralspurring causes mild right neural foraminal narrowing. C6-7: Negligible disc bulge. No focal disc protrusion or central canalstenosis. Neural foramina are grossly patent. C7-T1: Negligible disc bulge. No focal disc protrusion, central canalstenosis, or significant neural foraminal compromise. On the sagittal sequences no focal disc protrusion or canal stenosis aresuggested at the T1-2, T2-3, or T3-4 levels. There is a very smallposterior central T3-4 disc bulge. No vertebral body compression deformity apparent. No discrete cord lesionnoted. No paraspinal soft tissue mass or prevertebral soft tissueswelling apparent. Cerebellar tonsils appear borderline ectopic. IMPRESSION: Multilevel neural foraminal narrowing which could be correlated with anyassociated clinical findings of radiculopathy. Minimal disc bulgeswithout focal disc protrusion or central canal stenosis. POS - [id number] Walker Dani Barajas MD IMG MR XSPECIALTY Edite d Result - Final documented in this encounter Visit Diagnoses Diagnosis Cervicalgia Cervicalgia documented in this encounter Additional Health Concerns Infection Onset Date Last Indicated Resolved Time CoV-Risk 01/06/2023 01/06/2023 01/17/2023 1:25 AM EDT CoV-Risk 04/01/2023 04/03/2023 04/14/2023 1:23 AM EST CoV-Risk 04/21/2023 04/21/2023 05/02/2023 1:24 AM EST CoV-Risk 05/11/2023 05/30/2023 06/10/2023 1:21 AM EDT CDiff-Risk 02/25/2024 02/25/2024 02/25/2024 12:5 2 PM EST documented as of this encounter Care Teams Nozzle Operator Relationship Specialty Start Date End Date Kofi Fan MD [address] [place] [address] PCP - General 09/17/13 08/15/24 Fanny Power MD [address] [place] [address] PCP - General Internal Medicine 08/16/24 documented as of this encounter Additional Source Comments The information contained in this document represents components of the legal health record. It is not the complete legal health record.[facility]
--- OUTSIDE RECORDS SUMMARY | 2024-11-12 09:51 | XMS_ITS | Encounter Summary ---
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 file Not on file documented as of this encounter Functional Status * Calculated C-SSRS Risk Score (Lifetime/Recent) Answer Date of Assessment Author No Risk Indicated 09/13/2022 5:12 PM EDT Martine Pang, RN * [place] Suicide Severity Rating Scale (Screener/Recent Self-Report) Question [...] Description 11/28/2024 9:45 AM EDT Office Visit [address] [place] [address] Fanny Power MD [address] [place] [address] Bessy Carrillo, PT 8 [place] [address] 12/10/2024 10:30 AM EDT Office Visit [address] [place] [address] Fanny Power MD [address] [place] [address] Bessy Carrillo, PT 8 [place] [address] 12/13/2024 9:15 AM EDT Office Visit [facility] [address] [place] [address] Fanny Power MD [address] [place] [address] Ryna Granados, JUICE WEIGHER 8 [place] [address] 12/17/2024 9:15 AM EDT Office Visit [facility] [address] [place] [address] Fanny Power MD [address] [place] [address] Ryan Granados, JUICE WEIGHER 8 [place] [address] 12/24/2024 10:30 AM EDT Office Visit [facility] [address] [place] [address] Fanny Power MD [address] [place] [address] Bessy Carrillo, PT 8 [place] [address] 12/31/2024 9:45 AM EDT Office Visit [facility] [address] [place] [address] Fanny Power MD [address] [place] [address] Bessy Carrillo, PT 8 [place] [address] 01/07/2025 9:45 AM EDT Office Visit [facility] [address] [place] [address] Fanny Power MD [address] [place] [address] Bessy Carrillo, PT 8 [place] [address] [email or web address] 01/14/2025 9:45 AM EDT Office Visit [facility] [address] [place] [address] Fanny Power MD [address] [place] [address] Bessy Carrillo, PT 8 [place] [address] [email or web address] documented as of this encounter Visit Diagnoses [...] documented as of this encounter Care Teams Java J2Ee Technical Lead Relationship Specialty Start Date End Date Kofi Fan MD [address] [place] [address] [address] PCP - General 09/17/13 08/15/24 Fanny Power MD [address] [place] [address] [phone] PCP - General Internal Medicine 08/16/24 documented as of this encounter Additional Source Comments The information contained in this document represents components of the legal health record. It is not the complete legal health record.[facility]
--- OUTSIDE RECORDS SUMMARY | 2024-11-12 09:52 | XMS_ITS | Encounter Summary ---
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 Wish to be (Past 1 Month) No 02/06/2023 11:05 AM EST Mallorie Sharma RN 2. Non-Specific Active Suicidal Thoughts (Past 1 Month) No 02/06/2023 11:05 AM EST Mallorie Sharma RN 6. Suicidal Behavior (Lifetime) No 02/06/2023 11:05 AM EST Mallorie Sharma RN documented as of this encounter Plan of Treatment Upcoming Encounters Date Type Department Care Team (Late st Contact Info) Description 11/28/2024 9:45 AM EDT Office Visit [address] [place] [address] Fanny Power MD [address] [place] [address] Bessy Carrillo, PT 8 [place] [address] 12/10/2024 10:30 AM EDT Office Visit [address] [place] [address] Fanny Power MD [address] [place] [phone] Bessy Carrillo, PT 8 [place] [address] 12/13/2024 9:15 AM EDT Office Visit [facility] [address] [place] [address] Fanny Power MD [address] [place] [address] Ryan Granados, RETAIL SELLING FLOOR LEADER 8 [place] [address] 12/17/2024 9:15 AM EDT Office Visit [address] [place] [address] Fanny Power MD [address] [place] [address] Ryan Granados, RETAIL SELLING FLOOR LEADER 8 [place] [address] 12/24/2024 10:30 AM EDT Office Visit [facility] [address] [place] [address] Fanny Power MD [address] [place] [address] Bessy Carrillo, PT 8 [place] [address] 12/31/2024 9:45 AM EDT Office Visit [facility] [address] [place] [address] Fanny Power MD [address] [place] [address] Bessy Carrillo, PT 8 [place] [address] 01/07/2025 9:45 AM EDT Office Visit [facility] [address] [place] [address] Fanny Powre MD [address] [place] [address] Bessy Carrillo, PT 8 [place] [address] [email or web address] 01/14/2025 9:45 AM EDT Office Visit [facility] [address] [place] [address] Fanny Power MD [address] [place] [address] Bessy Carrillo, PT 8 [place] [address] [email or web address] documented as of this encounter Visit Diagnoses Not on filedocumented in this encounter Additional Health Concerns Infection Onset Date Last Indicated Resolved Time CoV-Risk 04/01/2023 04/03/2023 04/14/2023 1:23 AM EST CoV-Risk 04/21/2023 04/21/2023 05/02/2023 1:24 AM EST CoV-Risk 05/11/2023 05/30/2023 06/10/2023 1:21 AM EDT CDiff-Risk 02/25/2024 02/25/2024 02/25/2024 12:5 2 PM EST documented as of this encounter Care Teams Gambreler Helper Relationship Specialty Start Date End Date Kofi Fan MD [address] [place] [address] [address] PCP - General 09/17/13 08/15/24 Fanny Power MD [address] [place] [address] [phone] PCP - General Internal Medicine 08/16/24 documented as of this encounter Additional Source Comments The information contained in this document represents components of the legal health record. It is not the complete legal health record.[facility]
--- OUTSIDE RECORDS SUMMARY | 2024-11-12 09:52 | XMS_ITS | Encounter Summary ---
Author Organization [facility] Address [address] [facility] [address] [place] [address] Phone Care Team Providers Care Purchaser [employer]otive Parts Name Role Phone Kofi Fan MD Primary Care Provider [phone] Fanny Power MD Primary Care Provid er Encounter Details Date Type Department Care Team (Late st Contact Info) Description 10/29/2021 Procedure Pass [facility], Ct Scan - [address] [address] Social History Tobacco Use Types Packs/Day Years [...] Description 11/28/2024 9:45 AM EDT Office Visit [facility] 8 [place] [address] Fanny Power MD [address] [place] [address] Bessy Carrillo, PT 8 [place] [address] [email or web address] 12/10/2024 10:30 AM EDT Office Visit [facility] [address] [place] [address] Fanny Power MD [address] [place] [address] Bessy Carrillo, PT 8 [place] [address] [email or web address] 12/13/2024 9:15 AM EDT Office Visit [facility] [address] [place] [address] Fanny Power MD [address] [place] [address] Ryan Granados, ENGRAVER PICTURE 8 [place] [address] 12/17/2024 9:15 AM EDT Office Visit [facility] 8 [place] [address] Fanny Power MD [address] [place] [address] Ryan Granados, ENGRAVER PICTURE 8 [place] [address] 12/24/2024 10:30 AM EDT Office Visit [facility] [address] [place] [address] Fanny Power MD [address] [place] [address] Bessy Carrillo, PT 8 [place] [address] 12/31/2024 9:45 AM EDT Office Visit [facility] [address] [place] [address] Fanny Power MD [address] [place] [address] Bessy Carrillo, PT 8 [place] [address] [email or web address] 01/07/2025 9:45 AM EDT Office Visit [address] [place] [address] Fanny Power MD [address] [place] [address] Bessy Carrillo, PT 8 [place] [address] [email or web address] 01/14/2025 9:45 AM EDT Office Visit [address] [place] [address] Fanny Power MD [address] [place] [address] Bessy Carrillo, PT 8 [place] [address] documented as of this encounter Visit Diagnoses [...] documented as of this encounter Care Teams Purchaser [employer]otive [employer] Relationship Specialty Start Date End Date Kofi Fan MD [address] [place] [address] [address] PCP - General 09/17/13 08/15/24 Fanny Power MD 575 [place] [address] PCP - General Internal Medicine 08/16/24 documented as of this encounter Additional Source Comments The information contained in this document represents components of the legal health record. It is not the complete legal health record.[facility]
--- OUTSIDE RECORDS SUMMARY | 2024-11-12 09:52 | XMS_ITS | Encounter Summary ---
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 Wish to be (Past 1 Month) No 09/13/2022 5:12 PM EDT Martine Meier, [place] 2. Non-Specific Active Suici preston Thoughts (Past 1 Month) No 09/13/2022 5:12 PM EDT Jose Meier RN 6. Suicidal Behavior (Lifetime) No 5:12 PM EDT Martine Meier RN documented as of this encounter Plan of Treatment Upcoming Encounters Date Type Department Care Team (Late st Contact Info) Description 11/28/2024 9:45 AM EDT Office Visit [address] [address] Fanny Power MD [address] [place] [address] Bessy Carrillo, PT 8 [place] [address] 12/10/2024 10:30 AM EDT Office Visit [address] [place] [address] Fanny Power MD [address] [place] [address] Bessy Carrillo, PT 8 [place] [address] 12/13/2024 9:15 AM EDT Office Visit [facility] [address] [place] [address] Fanny Power MD [address] [place] [address] Ryan Granados, TRUCK OPERATOR 8 [place] [address] 12/17/2024 9:15 AM EDT Office Visit [facility] [address] [place] [address] Fanny Power MD [address] [place] [address] Ryan Granados, TRUCK OPERATOR 8 [place] [address] 12/24/2024 10:30 AM EDT Office Visit [facility] [address] [place] [address] Fanny Power MD [address] [place] [address] Bessy Carrillo, PT 8 [place] [address] 12/31/2024 9:45 AM EDT Office Visit [facility] [address] [place] [address] Fanny Power MD [address] [place] [address] Bessy Carrillo, PT 8 [place] [address] 01/07/2025 9:45 AM EDT Office Visit [facility] [address] [place] [address] Fanny Power MD [address] [place] [address] Bessy Carrillo, PT 8 [place] [address] [email or web address] 01/14/2025 9:45 AM EDT Office Visit [facility] [address] [place] [address] Fanny Power MD [address] [place] [address] Bessy Carrillo, PT 8 [place] [address] [email or web address] documented as of this [...] documented as of this encounter Care Teams Psychiatric Aides Teacher Relationship Specialty Start Date End Date Kofi Fan MD [address] [place] [address] [address] PCP - General 09/17/13 08/15/24 Fanny Power MD [address] [place] [address] [phone] PCP - General Internal Medicine 08/16/24 documented as of this encounter Additional Source Comments The information contained in this document represents components of the legal health record. It is not the complete legal health record.[facility]
--- OUTSIDE RECORDS SUMMARY | 2024-11-12 09:52 | XMS_ITS | Encounter Summary ---
Author Organization [facility] Address [address] [facility] [address] [place] [address] Phone Care Team Providers Care Drop Wire Builder Name Role Phone Kofi Fan MD Primary Care Provider [phone] Fanny Power MD Primary Care Provid er Encounter Details Date Type Department Care Team (Late st Contact Info) Description 05/11/2021 Procedure Pass [facility], Ct Scan - [address] [address] Social History Tobacco Use Types Packs/Day Years [...] Date of Assessment Author No Risk Indicated 05/11/2021 4:06 PM EST Sabas Gutierrez RN * [place] Suicide Severity Rating Scale (Screener/Recent Self-Report) Question Answer Date of Assessment Author 1. Wish to be (Past 1 Month) No 022 4:06 PM Maryjane Espino, RN 2. Non-Specific Active Suici preston Thoughts (Past 1 Month) No 05/11/2021 4:06 PM Maryjane Espino , RN 6. Suicidal Behavior (Lifetime) No 4:06 PM Maryjane Espino, RN documented as of this encounter Plan of Treatment Upcoming Encounters Date Type Department Care Team (Late st Contact Info) Description 11/28/2024 9:45 AM EDT Office Visit [address] [place] [address] Fanny Power MD [address] [place] [address] Bessy Carrillo, PT 8 [place] [address] 12/10/2024 10:30 AM EDT Office Visit [address] [place] [address] Fanny Power MD [address] [place] [address] Bessy Carrillo, PT 8 [place] [address] 12/13/2024 9:15 AM EDT Office Visit [facility] 8 [place] [address] Fanny Power MD [address] [place] [address] Ryan Granados, NIGHT NURSE 8 [place] [address] 12/17/2024 9:15 AM EDT Office Visit [address] [place] [address] Fanny Power MD [address] [place] [address] Ryan Granados, NIGHT NURSE 8 [place] [address] 12/24/2024 10:30 AM EDT Office Visit [facility] [address] [place] [address] Fanny Power MD [address] [place] [address] Bessy Carrillo, PT 8 [place] [address] 12/31/2024 9:45 AM EDT Office Visit [address] [place] [address] Fanny Power MD [address] [place] [address] Bessy Carrillo, PT 8 [place] [address] 01/07/2025 9:45 AM EDT Office Visit [address] [address] Fanny Power MD [address] [place] [address] Bessy Carrillo, PT 8 [place] [address] 01/14/2025 9:45 AM EDT Office Visit [address] [place] [address] Fanny Power MD [address] [place] [address] Bessy Carrillo, PT 8 [place] [address] [email or web address] documented as of this encounter Visit Diagnoses [...] documented as of this encounter Care Teams Drop Wire Builder Relationship Specialty Start Date End Date Kofi Fan MD [address] [place] [address] PCP - General 09/17/13 08/15/24 Fanny Power MD [address] [place] [address] PCP - General Internal Medicine 08/16/24 documented as of this encounter Additional Source Comments The information contained in this document represents components of the legal health record. It is not the complete legal health record.[facility]
--- OUTSIDE RECORDS SUMMARY | 2024-11-12 09:52 | XMS_ITS | Encounter Summary ---
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 Not on file Not on file documented as of this encounter Functional Status * Calculated C-SSRS Risk Score (Lifetime/Recent) Answer Date of Assessment Author No Risk Indicated 02/06/2023 11:05 AM EST Mallorie Sharma RN * [place] Suicide Severity Rating Scale (Screener/Recent Self-Report) Question [...] Description 11/28/2024 9:45 AM EDT Office Visit [address] [place] [address] Fanny Power MD [address] [place] [address] Bessy Carrillo, PT 8 [place] [address] 12/10/2024 10:30 AM EDT Office Visit [address] [place] [address] Fanny Power MD [address] [place] [address] Bessy Carrillo, PT 8 [place] [address] 12/13/2024 9:15 AM EDT Office Visit [facility] [address] [place] [address] Fanny Power MD [address] [place] [address] Ryan Granados, INSURANCE SALES ASSOCIATE 8 [place] [address] 12/17/2024 9:15 AM EDT Office Visit [address] [place] [address] Fanny Power MD [address] [place] [address] Ryan Granados, INSURANCE SALES ASSOCIATE 8 [place] [address] 12/24/2024 10:30 AM EDT Office Visit [facility] [address] [place] [address] Fanny Power MD [address] [place] [address] Bessy Carrillo, PT 8 [place] [address] 12/31/2024 9:45 AM EDT Office Visit [facility] [address] [place] [address] Fanny Power MD [address] [place] [address] Bessy Carrillo, PT 8 [place] [address] 01/07/2025 9:45 AM EDT Office Visit [facility] [address] [place] [address] Fanny Power MD [address] [place] [address] Bessy Carrillo, PT 8 [place] [address] [email or web address] 01/14/2025 9:45 AM EDT Office Visit [facility] [address] [place] [address] Fanny Power MD [address] [place] [address] Bessy Carrillo, PT 8 [place] [address] [email or web address] documented as of this encounter Visit Diagnoses Not on filedocumented in this encounter Additional Health Concerns Infection Onset Date Last Indicated Resolved Time CoV-Risk 04/01/2023 04/03/2023 04/14/2023 1:23 AM EST CoV-Risk 04/21/2023 04/21/2023 05/02/2023 1:24 AM EST CoV-Risk 05/11/2023 05/30/2023 06/10/2023 1:21 AM EDT CDiff-Risk 02/25/2024 02/25/2024 02/25/2024 12:5 2 PM EST documented as of this encounter Care Teams Geophysical Observer Relationship Specialty Start Date End Date Kofi Fan MD [address] [place] [address] [address] PCP - General 09/17/13 08/15/24 Fanny Power MD [address] [place] [address] [phone] PCP - General Internal Medicine 08/16/24 documented as of this encounter Additional Source Comments The information contained in this document represents components of the legal health record. It is not the complete legal health record.[facility]
--- OUTSIDE RECORDS SUMMARY | 2024-11-12 09:54 | XMS_ITS | Encounter Summary ---
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 Wish to be (Past 1 Month) No 024 3:34 PM EDT Rachel Marroquin RN 2. Non-Specific Active Suici preston Thoughts (Past 1 Month) No 01/08/2024 3:34 PM EDT Sharfia Marroquin RN 6. Suicidal Behavior (Lifetime) No 3:34 PM EDT Rachel Marroquin RN documented as of this encounter Plan of Treatment Upcoming Encounters Date Type Department Care Team (Late st Contact Info) Description 11/28/2024 9:45 AM EDT Office Visit [address] [address] Fanny Power MD 575 [place] [address] Bessy Carrillo, PT 8 [place] [address] 12/10/2024 10:30 AM EDT Office Visit [address] [place] [address] Fanny Power MD 575 [place] [address] Bessy Carrillo, PT 8 [place] [address] 12/13/2024 9:15 AM EDT Office Visit [facility] [address] [place] [address] Fanny Power MD [address] [place] [address] Ryan Granados, FIELD REIMBURSEMENT MANAGER 8 [place] [address] 12/17/2024 9:15 AM EDT Office Visit [address] [place] [address] Fanny Power MD [address] [place] [address] Ryan Granados, FIELD REIMBURSEMENT MANAGER 8 [place] [address] 12/24/2024 10:30 AM EDT Office Visit [facility] [address] [place] [address] Fanny Power MD [address] [place] [address] Bessy Carrillo, PT 8 [place] [address] 12/31/2024 9:45 AM EDT Office Visit [facility] [address] [place] [address] Fanny Power MD [address] [place] [address] Bessy Carrillo, PT 8 [place] [address] 01/07/2025 9:45 AM EDT Office Visit [facility] [address] [place] [address] Fanny Power MD [address] [place] [address] Bessy Carrillo, PT 8 [place] [address] [email or web address] 01/14/2025 9:45 AM EDT Office Visit [facility] 8 [place] [address] Fanny Power MD [address] [place] [address] [phone] Bessy Carrillo, PT 8 [place] [address] [email or web address] documented as of this encounter Visit Diagnoses Not on filedocumented in this encounter Additional Health Concerns Infection Onset Date Last Indicated Resolved Time CDiff-Risk 02/25/2024 02/25/2024 02/25/2024 12:5 2 PM EST documented as of this encounter Care Teams Lens Grinder Rough Relationship Specialty Start Date End Date Kofi Fan MD [address] [place] [address] PCP - General 09/17/13 08/15/24 Fanny Power MD [address] [place] [address] [phone] PCP - General Internal Medicine 08/16/24 documented as of this encounter Additional Source Comments The information contained in this document represents components of the legal health record. It is not the complete legal health record.[facility]
--- OUTSIDE RECORDS SUMMARY | 2024-11-12 09:54 | XMS_ITS | Encounter Summary ---
Author Organization [facility] Address [address] [facility] [address] [place] [address] Phone Care Team Providers Care Trimming Machine Set Up Operator Name Role Phone Kofi Fan MD Primary Care Provider [phone] Fanny Power MD Primary Care Provid er Encounter Details Date Type Department Care Team (Late st Contact Info) Description 02/25/2024 Procedure Pass [facility], Ct Scan - [address] [address] Social History Tobacco Use Types Packs/Day Years [...] with a working camera? Not on file Intimate Partner Violence Answer Date R ecorded Are you denied basic needs s uch as food, clothing, or medical care? No 02/25/2024 In the past 12 months have y ou been in a relationship with a person who hurts, threatens, or tries to control you? No 02/25/2024 Are you denied basic needs s uch as food, clothing, or medical care? No 02/25/2024 In the past 12 months have y ou been in a relationship with a person who hurts, threatens, or tries to control you? 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 Wish to be (Past 1 Month) No 02/25/2024 3:36 AM Chloe Mariee RN 2. Non-Specific Active Suicidal Thoughts (Past 1 Month) No 02/25/2024 3:36 AM Chloe Mariee RN 6. Suicidal Behavior (Lifetime) No 02/25/2024 3:36 AM Chloe Mariee RN documented as of this encounter Plan of Treatment Upcoming Encounters Date Type Department Care Team (Late st Contact Info) Description 11/28/2024 9:45 AM EDT Office Visit [facility] [address] [place] [address] Fanny Power MD 575 [place], [place] [phone] Bessy Carrillo, PT 8 [place] [address] 12/10/2024 10:30 AM EDT Office Visit [facility] 8 [place] [address] Fanny Power MD [address] [place] [address] Bessy Carrillo, PT 8 [place] [address] 12/13/2024 9:15 AM EDT Office Visit [facility] [address] [place] [address] Fanny Power MD [address] [place] [address] Ryan Granados, ELECTRICAL AND ELECTRONIC ASSEMBLER 8 [place] [address] 12/17/2024 9:15 AM EDT Office Visit [address] [address] Fanny Power MD [address] [place] [address] Ryan Granados, ELECTRICAL AND ELECTRONIC ASSEMBLER 8 [place] [address] 12/24/2024 10:30 AM EDT Office Visit [address] [place] [address] Fanny Power MD [address] [place] [address] Bessy Carrillo, PT 8 [place] [address] 12/31/2024 9:45 AM EDT Office Visit [facility] [address] [place] [address] Fanny Power MD [address] [place] [address] Bessy Carrillo, PT 8 [place] [address] 01/07/2025 9:45 AM EDT Office Visit [facility] [address] [place] [address] Fanny Power MD [address] [place] [address] Bessy Carrillo, PT 8 [place] [address] 01/14/2025 9:45 AM EDT Office Visit [facility] 8 [place] [address] Fanny Power MD [address] [place] [address] Bessy Carrillo, PT 8 [place] [address] documented as of this encounter Visit Diagnoses Not on filedocumented in this encounter Additional Health Concerns Infection Onset Date Last Indicated Resolved Time CDiff-Risk 02/25/2024 02/25/2024 02/25/2024 12:5 2 PM EST documented as of this encounter Care Teams Trimming Machine Set Up Operator Relationship Specialty Start Date End Date Kofi Fan MD [address] [place] [address] PCP - General 09/17/13 08/15/24 Fanny Power MD [address] [place] [address] PCP - General Internal Medicine 08/16/24 documented as of this encounter Additional Source Comments The information contained in this document represents components of the legal health record. It is not the complete legal health record.[facility]
--- OUTSIDE RECORDS SUMMARY | 2024-11-12 09:54 | XMS_ITS | Encounter Summary ---
Author Organization [facility] Address [address] [facility] [address] [place] [address] Phone Care Team Providers Care Fabric And Textile Factory Worker Name Role Phone Kofi Fan MD Primary Care Provider [phone] Fanny Power MD Primary Care Provid er Encounter Details Date Type Department Care Team (Late st Contact Info) Description 05/20/2023 Procedure Pass [facility], Ct Scan - [address] [id number] Social History Tobacco Use Types Packs/Day Years Used Date Smoking Tobacco: Former Cigarettes Q uit: 1973 Smokeless Tobacco: Never Alcohol Use Standard Drinks/Week Comments Not Currently 0 (1 standard drink = 0.6 oz pur e alcohol) Home Health Assessment: Transportation Answer Date Recorded Lack of Transportation (Medical) Yes 05/16/2023 Lack of Transportation (Non-Medical) No 05/16/2023 Patient Unable or Declines to Respond No 05/16/2023 Education Answer Date Recorded Are you interested [...] 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 Wish to be (Past 1 Month) No 024 10:14 AM Rachel Mata RN 2. Non-Specific Active Suici preston Thoughts (Past 1 Month) No 05/20/2023 10:14 AM Siomara Mata RN 6. Suicidal Behavior (Lifetime) No 10:14 AM Rachel Mata RN documented as of this encounter Plan of Treatment Upcoming Encounters Date Type Department Care Team (Late st Contact Info) Description 11/28/2024 9:45 AM EDT Office Visit [address] [place] [address] Fanny Power MD [address] [place] [address] Bessy Carrillo, PT 8 [place] [address] 12/10/2024 10:30 AM EDT Office Visit [address] [place] [address] Fanny Power MD [address] [place] [address] Bessy Carrillo, PT 8 [place] [address] 12/13/2024 9:15 AM EDT Office Visit [facility] [address] [place] [address] Fanny Power MD [address] [place] [address] Ryan Granados, SHALLOT PACKER 8 [place] [address] 12/17/2024 9:15 AM EDT Office Visit [facility] [address] [place] [address] Fanny Power MD [address] [place] [address] Ryan Granados, SHALLOT PACKER 8 [place] [address] 12/24/2024 10:30 AM EDT Office Visit [facility] [address] [place] [address] Fanny Power MD [address] [place] [address] Bessy Carrillo, PT 8 [place] [address] 12/31/2024 9:45 AM EDT Office Visit [facility] [address] [place] [address] Fanny Power MD [address] [place] [address] Bessy Carrillo, PT 8 [place] [address] 01/07/2025 9:45 AM EDT Office Visit [facility] [address] [place] [address] Fanny Power MD [address] [place] [address] Bessy Carrillo, PT 8 [place] [address] [email or web address] 01/14/2025 9:45 AM EDT Office Visit [facility] [address] [place] [address] Fanny Power MD [address] [place] [address] Bessy Carrillo, PT 8 [place] [address] [email or web address] documented as of this encounter Visit Diagnoses Not on filedocumented in this encounter Additional Health Concerns Infection Onset Date Last Indicated Resolved Time CoV-Risk 05/11/2023 05/30/2023 06/10/2023 1:21 AM EDT CDiff-Risk 02/25/2024 02/25/2024 02/25/2024 12:5 2 PM EST documented as of this encounter Care Teams Fabric And Textile Factory Worker Relationship Specialty Start Date End Date Kofi Fan MD [address] [place] [address] [address] PCP - General 09/17/13 08/15/24 Fanny Power MD [address] [place] [address] [phone] PCP - General Internal Medicine 08/16/24 documented as of this encounter Additional Source Comments The information contained in this document represents components of the legal health record. It is not the complete legal health record.[facility]
--- OUTSIDE RECORDS SUMMARY | 2024-11-12 09:54 | XMS_ITS | Encounter Summary ---
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 Not on file documented as of this encounter Functional Status * Calculated C-SSRS Risk Score (Lifetime/Recent) Answer Date of Assessment Author No Risk Indicated 05/20/2023 10:14 AM Rachel Mata RN * [place] Suicide Severity Rating Scale (Screener/Recent Self-Report) Question [...] Description 11/28/2024 9:45 AM EDT Office Visit [address] [place] [address] Fanny Power MD [address] [place] [phone] Bessy Carrillo, PT 8 [place] [address] 12/10/2024 10:30 AM EDT Office Visit [address] [place] [address] Fanny Power MD [address] [place] [address] Bessy Carrillo, PT 8 [place] [address] 12/13/2024 9:15 AM EDT Office Visit [facility] [address] [place] [address] Fanny Power MD [address] [place] [address] Ryan Granados, INFORMATICS APPLICATION ANALYST 8 [place] [address] 12/17/2024 9:15 AM EDT Office Visit [facility] [address] [place] [address] Fanny Power MD [address] [place] [address] Ryan Granados, INFORMATICS APPLICATION ANALYST 8 [place] [address] 12/24/2024 10:30 AM EDT Office Visit [facility] [address] [place] [address] Fanny Power MD [address] [place] [address] Bessy Carrillo, PT 8 [place] [address] 12/31/2024 9:45 AM EDT Office Visit [facility] [address] [place] [address] Fanny Power MD [address] [place] [address] Bessy Carrillo, PT 8 [place] [address] 01/07/2025 9:45 AM EDT Office Visit [facility] [address] [place] [address] Fanny Power MD [address] [place] [address] Bessy Carrillo, PT 8 [place] [address] [email or web address] 01/14/2025 9:45 AM EDT Office Visit [facility] [address] [place] [address] Fanny Power MD [address] [place] [address] Bessy Carrillo, PT 8 [place] [address] [email or web address] documented as of this encounter Visit Diagnoses Not on filedocumented in this encounter Additional Health Concerns Infection Onset Date Last Indicated Resolved Time CoV-Risk 05/11/2023 05/30/2023 06/10/2023 1:21 AM EDT CDiff-Risk 02/25/2024 02/25/2024 02/25/2024 12:5 2 PM EST documented as of this encounter Care Teams Leaflet Distributor Relationship Specialty Start Date End Date Kofi Fan MD [address] [place] [address] [address] PCP - General 09/17/13 08/15/24 Fanny Power MD [address] [place] [address] [phone] PCP - General Internal Medicine 08/16/24 documented as of this encounter Additional Source Comments The information contained in this document represents components of the legal health record. It is not the complete legal health record.[facility]
--- OUTSIDE RECORDS SUMMARY | 2024-11-12 09:55 | XMS_ITS | Patient Health Record ---
Author Organization [facility] Address [address] [place] [address] Care Team Providers Care Pack Operator Name Role Phone Mita GUILLEN, Kofi Primary Care Provider Chaitanya Steven Unavailable [phone] Reason For Referral No Information Plan Of Treatment No Information Insurance Providers Payer Name Payer Address Payer Phone Subscriber Number Group Number Insured Name Patient Relationship to Insured Coverage Start Date Coverage End Date MEDICARE OF [place] [address] [place] [address] [id number] LEI SABIHA Self - patient is the insured [facility] INDEMNITY [address] [place] [address] [id number] LEI SABIHA Self - patient is the insured
--- OUTSIDE RECORDS SUMMARY | 2024-11-12 09:55 | XMS_ITS | Encounter Summary ---
Author Organization [facility] Address [address] [facility] [address] [place] [address] Phone Care Team Providers Care Emt B Name Role Phone Kofi Fan MD Primary Care Provider [phone] Fanny Power MD Primary Care Provid er Encounter Details Date Type Department Care Team (Late st Contact Info) Description 04/15/2022 Procedure Pass [facility], Ct Scan - [address] [address] Social History Tobacco Use Types Packs/Day Years [...] Date of Assessment Author No Risk Indicated 04/15/2022 3:38 PM EST Betina Edwards RN * [place] Suicide Severity Rating Scale (Screener/Recent Self-Report) Question Answer Date of Assessment Author 1. Wish to be (Past 1 Month) No 023 3:38 PM Betina Moss, E[place] 2. Non-Specific Active Suici preston Thoughts (Past 1 Month) No 04/15/2022 3:38 PM Betina Moss , E[place] 6. Suicidal Behavior (Lifetime) No 3:38 PM Betina Moss, RN documented as of this encounter Plan of Treatment Upcoming Encounters Date Type Department Care Team (Late st Contact Info) Description 11/28/2024 9:45 AM EDT Office Visit [facility] 8 [place] [address] Fanny Power MD [address] [place] [address] Bessy Carrillo, PT 8 [place] [address] 12/10/2024 10:30 AM EDT Office Visit [address] [place] [address] Fanny Power MD [address] [place] [address] Bessy Carrillo, PT 8 [place] [address] [email or web address] 12/13/2024 9:15 AM EDT Office Visit [address] [place] [address] Fanny Power MD [address] [place] [address] Ryan Granados, VANSTONE MACHINE OPERATOR 8 [place] [address] 12/17/2024 9:15 AM EDT Office Visit [address] [place] [address] Fanny Power MD [address] [place] [address] Ryan Granados, VANSTONE MACHINE OPERATOR 8 [place] [address] 12/24/2024 10:30 AM EDT Office Visit [facility] 8 [place] [address] Fanny Power MD [address] [place] [address] Bessy Carrillo, PT 8 [place] [address] [email or web address] 12/31/2024 9:45 AM EDT Office Visit [facility] 8 [place] [address] Fanny Power MD [address] [place] [address] Bsesy Carrillo, PT 8 [place] [address] [email or web address] 01/07/2025 9:45 AM EDT Office Visit [facility] 8 [place] [address] Fanny Power MD [address] [place] [address] Bessy Carrillo, PT 8 [place] [address] [email or web address] 01/14/2025 9:45 AM EDT Office Visit [facility] 8 [place] [address] Fanny Power MD [address] [place] [address] Bessy Carrillo, PT 8 [place] [address] [email or web address] documented as of this encounter Visit Diagnoses [...] documented as of this encounter Care Teams Emt B Relationship Specialty Start Date End Date Kofi Fan MD [address] [place] [address] PCP - General 09/17/13 08/15/24 Fanny Power MD [address] [place] [address] PCP - General Internal Medicine 08/16/24 documented as of this encounter Additional Source Comments The information contained in this document represents components of the legal health record. It is not the complete legal health record.[facility]
--- OUTSIDE RECORDS SUMMARY | 2024-11-12 09:55 | XMS_ITS | Encounter Summary ---
Author Organization [facility] Address [address] [facility] [address] [place] [address] Phone Care Team Providers Care Lockstitch Zipper Setter Name Role Phone Kofi Fan MD Primary Care Provider [phone] Fanny Power MD Primary Care Provid er Encounter Details Date Type Department Care Team (Late st Contact Info) Description 12/20/2018 Procedure Pass [facility] [address] [place], [place] [phone] Social History Tobacco Use Types Packs/Day Years Used Date Smoking Tobacco: Never Comments Unknown Sex and Gender Information Value [...] 11/28/2024 9:45 AM EDT Office Visit [facility] [address] [place] [address] Fanny Power MD [address] [place] [address] Bessy Carrillo, PT 8 [place] [address] [email or web address] 12/10/2024 10:30 AM EDT Office Visit [facility] [address] [place] [address] Fanny Power MD [address] [place] [address] Bessy Carrillo, PT 8 [place] [address] [email or web address] 12/13/2024 9:15 AM EDT Office Visit [facility] [address] [place] [address] Fanny Power MD [address] [place] [address] Ryan Granados, PET TRAINING INSTRUCTOR 8 [place] [address] 12/17/2024 9:15 AM EDT Office Visit [address] [place] [address] Fanny Power MD [address] [place] [address] Ryan Granados, PET TRAINING INSTRUCTOR 8 [place] [address] 12/24/2024 10:30 AM EDT Office Visit [facility] [address] [place] [address] Fanny Power MD [address] [place] [address] Bessy Carrillo, PT 8 [place] [address] [email or web address] 12/31/2024 9:45 AM EDT Office Visit [facility] [address] [place] [address] Fanny Power MD [address] [place] [address] Bessy Carrillo, PT 8 [place] [address] [email or web address] 01/07/2025 9:45 AM EDT Office Visit [facility] [address] [place] [address] Fanny Power MD [address] [place] [address] Bessy Carrillo, PT 8 [place] [address] [email or web address] 01/14/2025 9:45 AM EDT Office Visit [facility] 8 [place] [address] Fanny Power MD [address] [place] [address] Bessy Carrillo, PT 8 [place] [address] [email or web address] documented as of this encounter Visit Diagnoses [...] documented as of this encounter Care Teams Lockstitch Zipper Setter Relationship Specialty Start Date End Date Kofi Fan MD [address] [place] [address] PCP - General 09/17/13 08/15/24 Fanny Power MD [address] [place] [address] PCP - General Internal Medicine 08/16/24 documented as of this encounter Additional Source Comments The information contained in this document represents components of the legal health record. It is not the complete legal health record.[facility]
--- OUTSIDE RECORDS SUMMARY | 2024-11-12 09:55 | XMS_ITS | Encounter Summary ---
Author Organization [facility] Address [address] [facility] [address] [place] [address] Phone Care Team Providers Care Apparel Manufacture Instructor Name Role Phone Kofi Fan MD Primary Care Provider [phone] Fanny Power MD Primary Care Provid er Encounter Details Date Type Department Care Team (Late st Contact Info) Description 06/03/2022 Procedure Pass [facility], Ct Scan - [address] [address] Social History Tobacco Use Types Packs/Day Years [...] Date of Assessment Author No Risk Indicated 06/03/2022 2:06 PM EDT Alfreda Noyola RN * [place] Suicide Severity Rating Scale (Screener/Recent Self-Report) Question Answer Date of Assessment Author 1. Wish to be (Past 1 Month) No 06/03/2022 2:06 PM EDT Alfreda Noyola ae, [place] 2. Non-Specific Active Suici preston Thoughts (Past 1 Month) No 06/03/2022 2:06 PM EDT Jai Noyola, [place] 6. Suicidal Behavior (Lifetime) No 2:06 PM EDT Alfreda Noyola, [place] documented as of this encounter Plan of Treatment Upcoming Encounters Date Type Department Care Team (Late st Contact Info) Description 11/28/2024 9:45 AM EDT Office Visit [facility] 8 [place] [address] Fanny Power MD [address] [place] [address] Bessy Carrillo, PT 8 [place] [address] 12/10/2024 10:30 AM EDT Office Visit [facility] 8 [place] [address] Fanny Power MD [address] [place] [address] Bessy Carrillo, PT 8 [place] [address] 12/13/2024 9:15 AM EDT Office Visit [facility] 8 [place] [address] Fanny Power MD [address] [place] [address] Ryan Granados, TRUCK DRIVER HELPER 8 [place] [address] 12/17/2024 9:15 AM EDT Office Visit [facility] [address] [place] [address] Fanny Power MD [address] [place] [address] Ryan Granados, TRUCK DRIVER HELPER 8 [place] [address] [email or web address] 12/24/2024 10:30 AM EDT Office Visit [facility] [address] [place] [address] Fanny Power MD [address] [place] [address] Bessy Carrillo, PT 8 [place] [address] 12/31/2024 9:45 AM EDT Office Visit [facility] [address] [place] [address] Fanny Power MD [address] [place] [address] Bessy Carrillo, PT 8 [place] [address] [email or web address] 01/07/2025 9:45 AM EDT Office Visit [facility] [address] [place] [address] Fanny Power MD [address] [place] [address] Bessy Carrillo, PT 8 [place] [address] [email or web address] 01/14/2025 9:45 AM EDT Office Visit [facility] [address] [place] [address] Fanny Power MD [address] [place] [address] Bessy Carrillo, PT 8 [place] [address] [email or web address] documented as of this encounter Visit Diagnoses [...] documented as of this encounter Care Teams Apparel Manufacture Instructor Relationship Specialty Start Date End Date Kofi Fan MD [address] [place] [address] PCP - General 09/17/13 08/15/24 Fanny Power MD [address] [place] [address] PCP - General Internal Medicine 08/16/24 documented as of this encounter Additional Source Comments The information contained in this document represents components of the legal health record. It is not the complete legal health record.[facility]
== END 2024-11-12 10:34 | disposition home or self-care (01) ==
PROVIDERS: PCP Internal Medicine; Visit Provider Internal Medicine
DX: M62.838 Other muscle spasm (principal); G20.C Parkinsonism, unspecified; F33.0 Major depressive disorder, recurrent, mild; F41.9 Anxiety disorder, unspecified

== ENCOUNTER → 2024-11-12 09:23 | Outpatient (BNVA) | payer MEDICARE, OTHER, SELFPAY | PROVIDERS: PCP Internal Medicine; Visit Provider Internal Medicine | DX: G20.C Parkinsonism, unspecified (principal); M62.838 Other muscle spasm; F33.0 Major depressive disorder, recurrent, mild; F41.9 Anxiety disorder, unspecified | CPT/HCPCS: 96127; 99212 ==

== ENCOUNTER 2025-01-28 10:07 | Outpatient (AMB) | payer MEDICARE, OTHER, SELFPAY ==
--- OUTSIDE RECORDS SUMMARY | 2025-01-26 06:04 | XMS_ITS | Encounter Summary ---
Author Organization [employer] [facility] Address [address] [place] [id number] Phone Care Team Providers Care Higher Education Administrator Name Role Phone Fanny Power MD Primary Care Provid er Reason for Visit * Reason Comments Shortness of Breath Encounter Details Date Type Department Care Team (Late st Contact Info) Description 01/26/2025 6:04 AM EST - 01/26/2025 1:01 PM EST Emergency [facility] [address] [place] [id number] Ignacio Leger MD [address] [place] [address] [email or web address] Discharge Disposition: Home or Self Care Social History Tobacco Use Types Packs/Day Years [...] got money to buy more. Never True 12/19/2024 Within the past 6 months the food we bought just didn't last and we didn't have enough money to get more. Never True Residential Stability Answer Date Recor ded What is your housing situation today? I have rebel je[employer]ers 12/19/2024 How many times have you move d in the past 12 months? Zero (I did not move) 12/19/2024 Paying for Meds Answer Date Recorded Do you have trouble paying for medicines? No 12/19/2024 Paying Utility Bills Answer Date Record ed Do you have trouble paying your heating or elect ricity bill? No 12/19/2024 Transportation Answer Date Recorded Has the lack of transportati on kept you from medical appointments or from getting medications? No 12/19/2024 Digital Access Answer Date Recorded No 12/19/2024 Yes 12/19/2024 Do you have reliable internet access at home? Ye s 12/19/2024 Do you have a device (e.g., phone, tablet, computer) with a working camera? Yes 12/19/2024 Intimate Partner Violence Answer Date R ecorded Are you denied basic needs s uch as food, clothing, or medical care? No 01/26/2025 In the past 12 months have y ou been in a relationship with a person who hurts, threatens, or tries to control you? No 01/26/2025 Are you denied basic needs s uch as food, clothing, or medical care? No 01/26/2025 In the past 12 months have y ou been in a relationship with a person who hurts, threatens, or tries to control you? 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 Not on file Not on file Not on file documented as of this encounter Last Filed Vital Signs Vital Sign Reading Time Taken Comments Blood Pressure 134/71 01/26/2025 1:00 PM EST Pulse 68 01/26/2025 1:00 PM EST Temperature 36.1 C (97 F) 01/26/2025 1:00 PM EST Respiratory Rate 16 01/26/2025 1:00 PM EST Oxygen Saturation 98% 01/26/2025 1:00 PM EST Inhaled Oxygen Concentration - - Weight 54.4 kg (120 lb) 01/26/2025 6:12 AM EST Height 170.2 cm (5' 7 ) 01/26/2025 6:12 AM EST Body Mass Index 18.79 01/26/2025 6:12 AM EST documented in this encounter Functional Status * Calculated C-SSRS Risk Score (Lifetime/Recent) Answer Date of Assessment Author No Risk Indicated 01/26/2025 6:13 AM EST Jeni Castaneda RN * [place] Suicide Severity Rating Scale (Screener/Recent Self-Report) Question Answer Date of Assessment Author 1. Wish to be (Past 1 Month) No 01/26/2025 6:13 AM EST Dominique Bustos RN 2. Non-Specific Active Suicidal Thoughts (Past 1 Month) No 01/26/2025 6:13 AM EST Dominique Bustos RN 6. Suicidal Behavior (Lifetime) No 01/26/2025 6:13 AM EST Dominique Bustos RN documented as of this encounter Discharge Instructions * Discharge Instructions* Ignacio Leger MD - 01/26/2025 12:13 PM EST An extensive workup was undertaken today without any immediately serious cause for symptoms found. Follow-up with primary care. documented in this encounter Medications at Time of Discharge acetaminophen (TYLENOL) 325 mg tablet Take 650 mg by mouth every 4 (four) hours as needed for fever or pain (specific location in comments) (back). 06/06/2023 ascorbic acid, vitamin C, (VITAMIN C) 1000 MG tablet Take 1,000 mg by mouth daily. 05/04/2024 calcium carbonate 500 mg (200 mg elemental) chewable tablet Take 2 tablets by mouth every 6 (six) hours as needed for heartburn. 07/30/2024 carbidopa-levodopa (SINEMET) 25-100 mg per tabletIndications:P arkinson's disease without dyskinesia, with fluctuating manifestations [The details of the medication are not available because there are pending changes by a home health clinician.] 855 tablet 3 07/29/2024 estradioL (ESTRACE) 0.01 % (0.1 mg/gram) vaginal cream Place 2 g vaginally 3 (three) times a week. fluticasone propionate (FLONASE) 50 mcg/actuation nasal spray 1 spray by Nasal route daily as needed (congestion). 1 spray in each nostrile 08/11/2021 gabapentin (NEURONTIN) 100 MG capsuleIndications: Nonintractable headache, unspecified chronicity pattern, unspecified headache type Take 1 capsule (100 mg total) by mouth nightly at bedtime. 30 capsule 3 09/15/2023 hydrOXYzine (ATARAX) 25 MG tablet Take 25 mg by mouth 4 (four) times a day as needed for anxiety or itching (vertigo or dizziness). 02/14/2024 ibuprofen (ADVIL,MOTRIN) 200 MG tablet Take 200 mg by mouth every 6 (six) hours as needed for pain (specific location in comments) (back or headache). 05/15/2023 Lactobacillus acidophilus (ACIDOPHILUS ORAL) Take 1 capsule by mouth daily as needed (cold sore or upset stomach). 07/30/2024 lidocaine 4 % Place 1 patch onto the skin daily. 10 patch 10/20/2021 loratadine (CLARITIN) 10 mg tablet Take 10 mg by mouth daily. magnesium 250 mg Tab Take 250 mg by mouth daily. 07/30/2024 meclizine (ANTIVERT) 25 mg tablet Take 25 mg by mouth 3 (three) times a day as needed for dizziness. 06/02/2024 melatonin 3 mg TabIndications:Park inson's disease without dyskinesia, with fluctuating manifestations Take 1 tablet (3 mg total) by mouth nightly at bedtime. 30 tablet 5 09/26/2024 methenamine (HIPREX) 1 gram tablet Take 1 g by mouth daily. 09/08/2024 rasagiline (AZILECT) 0.5 mg tabletIndications:P arkinson's disease without dyskinesia, with fluctuating manifestations Take 0.5 tablets (0.25 mg total) by mouth daily. 30 tablet 5 09/26/2024 tiZANidine (ZANAFLEX) 2 MG tablet [The details of the medication are not available because there are pending changes by a home health clinician.] 8 tablet 06/06/2023 CARBIDOPA-LEVODOPA ORAL Take 1 tablet by mouth nightly at bedtime. 50-200mg 05/15/2023 documented as of this encounter ED Notes * Jeni Bustos RN - 01/26/2025 6:11 AM EST Patient brought [facility]. Patient reports for the last few days when she wakes up with difficulty breathing. Also reports head heaviness I have this chronic migraine. Also reports chronic spastic leg pain. AOx4, breathing even and unlabored. * Ignacio Leger MD - 01/26/2025 6:03 AM EST Images from the original note were not included. History of Present Illness The patient, Loren High,is a 74 y.o. female with past medical history signficant for migraine, Parkinson's, hypertension who presents to the emergency department for a few days of shortness of breath and headaches. Reports no headache or shortness of breath at the time of my evaluation. The headaches are accompanied by photosensitivity and are typical for her migraines. No cough, fever, shaking chills. History is provided by the patient. ROS Pertinent ROS documented in HPI. Past Medical History Past Medical History: Diagnosis [...] as directed Patient not taking: Reported on 07/26/2024 carbidopa-levodopa (SINEMET) 25-100 mg per tablet Take [...] Types: Cigarettes Quit date: 1972 Years since quittin.8 Smokeless tobacco: Never Substance Use Topics Alcohol use: Not Currently Social History Substance and Sexual Activity Drug Use Never Family History Problem Relation Age of Onset Cancer Mother CV disease Father Heart failure Father COPD Brother Physical Exam Vital Signs: BP 112/67 Pulse (!) 58 Temp 36.1 ??C (97 ??F) (Temporal) Resp 16 Ht 170.2 cm (5' 7 ) Wt 54.4 kg (120 lb) SpO2 96% BMI 18.79 kg/m?? Physical Exam CONSTITUTIONAL: vitals reviewed, well-nourished & well developed, no acute distress EYES: normal lids, no conjunctival injection, pupils equally round and reactive to light, extraocular movements intact HEENT: atraumatic nose, mucosa moist, no exudates or erythema PULMONARY: normal effort, clear to auscultation bilaterally CARDIOVASCULAR: regular rate and rhythm, warm & well perfused extremities, no pitting edema in the lower extremities ABDOMEN: soft, nondistended, nontender MUSCULOSKELETAL: deferred NEUROLOGIC: Alert and oriented; fluent speech; normal concentration and comprehension SKIN: warm , dry MDM & ED Course Briefly, 74 y.o. female with Parkinson's who presents with shortness of breath. No JVD or signs of volume overload on detailed cardiopulmonary exam. EKG @ 622: Sinus rhythm at a rate of 63, normal axis, normal interval(s), no ST elevations or depressions Impression: No acute ischemic changes noted; no findings to suggest elevated risk for dysrhythmia ASSESSMENT & PLAN Probable and/or high risk diagnostic considerations based on initial impression from the patient's history and exam: Shortness of breath. No evidence of infectious etiology, volume overload, pneumothorax, pleural effusion, ACS. I have a low clinical pretest suspicion for pulmonary embolism and there is no evidence for DVT on exam I independently interpreted the labs -- Essentially unremarkable CBC, BNP, chemistries and serial troponins I performed independent interpretation of CXR (see ED course) Formal radiology read of chest x-ray was negative for acute process On reevaluation, the patient reported that her sciatica pain which is chronic was getting worse. She was given Toradol without effect. She subsequently got a dose of subcutaneous Dilaudid which has been provided to her on several previous ED visits. She was noted to take a nap and when she woke up she was feeling much better. At this point, evaluation has been reassuring and clinical trajectory has been reassuring. No evidence to suggest function or life-threatening process. 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 The patient was instructed to follow up pcp. All questions were answered. CRITICAL CARE TIME: 0 (exclusive of procedures) ED Course as of 01/26/25 1213 Sun Jan 26, 2025 0845 ON my Independent read of the chest x-ray, lung valdez are clear [AD] ED Course User Index [AD] Ignacio Leger MD Clinical Impressions as of 01/26/25 1213 Shortness of breath Sciatica of left side Disposition: Home Ignacio Leger MD Portions of this note were dictated utilizing speech recognition software. Ignacio Leger MD 01/26/25 1233 documented in this encounter Plan of Treatment Not on file documented as of this encounter Procedures Procedure Name Priority Date/Time Associated Diagnosis Comments TROPONIN STAT 01/26/2025 9:04 AM EST CBC AND DIFFERENTIAL STAT 01/26/2025 8:07 AM EST LFTS (HEPATIC PANEL) STAT 01/26/2025 8:07 AM EST CBC AND DIFFERENTIAL STAT 01/26/2025 8:07 AM EST TROPONIN STAT 01/26/2025 8:07 AM EST NT-PROBNP STAT 01/26/2025 8:07 AM EST BASIC METABOLIC PANEL (BMP) STAT 01/26/2025 8:07 AM EST XR CHEST PORTABLE Routine 01/26/2025 7:5 7 AM EST ECG 12-LEAD STAT 01/26/2025 6:22 AM EST documented in this encounter Results * (ABNORMAL) Troponin (01/26/2025 9:04 AM EST) [facility] Troponin-T HS Gen5 17(H) 0 - 9 ng/L 01/26/2025 9:38 AM [facility] Blood (Blood) Venipuncture / Unknown 01/26/2025 9:04 AM EST 01/26/2025 9:12 AM EST us Ignacio Leger MD LAB BLOOD BKR ORDERABLES Final Result Performing Organization Address City/State/[facility] Co de Phone Number [address] [phone] * (ABNORMAL) CBC and Differential (01/26/2025 8:07 AM EST) [facility] WBC 5.58 4.00 - 11.00 K/uL 01/26/2025 8:22 AM [facility] RBC 3.65(L) 4.00 - 5.20 M/uL 01/26/2025 8:22 AM [facility] Hemoglobin 11.8(L) 12.0 - 16.0 g/dL 01/26/2025 8:22 AM [facility] Hematocrit 36.9 36.0 - 46.0 % 01/26/2025 8:22 AM [facility] MCV 101.1(H) 80.0 - 100.0 fL 01/26/2025 8:22 AM [facility] MCH 32.3(H) 27.0 - 31.0 pg 01/26/2025 8:22 AM [facility] MCHC 32.0 32.0 - 36.0 g/dL 01/26/2025 8:22 AM [facility] MPV 10.0 8.4 - 12.0 fL 01/26/2025 8:22 AM [facility] RDW-CV 11.9 11.5 - 14.5 % 01/26/2025 8:22 AM [facility] PLT 242 150 - 450 K/uL 01/26/2025 8:22 AM [facility] Neutrophils 62.7 % 01/26/2025 8:22 AM [facility] Lymphocytes 24.6 % 01/26/2025 8:22 AM [facility] Monocytes 9.3 % 01/26/2025 8:22 AM [facility] Eosinophils 2.5 % 01/26/2025 8:22 AM [facility] Basophils 0.4 % 01/26/2025 8:22 AM [facility] Imm Grans 0.5 % 01/26/2025 8:22 AM [facility] NRBC 0.0 <=0.0 /100 WBCs 01/26/2025 8:22 AM [facility] Absolute Neutrophils 3.50 1.92 - 7.60 K/uL 01/26/2025 8:22 AM [facility] Absolute Lymphocytes 1.37 0.72 - 4.10 K/uL 01/26/2025 8:22 AM [facility] Absolute Monocytes 0.52 0.16 - 1.10 K/uL 01/26/2025 8:22 AM [facility] Absolute Eosinophils 0.14 0.00 - 0.50 K/uL 01/26/2025 8:22 AM [facility] Absolute Basophils 0.02 0.00 - 0.15 K/uL 01/26/2025 8:22 AM [facility] Absolute Imm Grans 0.03 0.00 - 0.09 K/uL 01/26/2025 8:22 AM [facility] Absolute NRBC 0.00 <=0.00 K cells/uL 01/26/2025 8:22 AM [facility] Absolute Neutrophils 3.50 1.92 - 7.60 K/uL 01/26/2025 8:22 AM [facility] Comment:Automated cell count . Manual ANC may differ if performed. Diff Type Auto 01/26/2025 8:22 AM EST [facility] Blood (Blood) Venipuncture / Unknown 01/26/2025 8:07 AM EST 01/26/2025 8:19 AM EST us Ignacio Leger MD LAB BLOOD BKR ORDERABLES Final Result Performing Organization Address City/[facility]/ZIP Co de Phone Number [address] [address] * (ABNORMAL) Troponin (01/26/2025 8:07 AM EST) Troponin-T HS Gen5 18(H) 0 - 9 ng/L 01/26/2025 8:47 AM [facility] Blood (Blood) Venipuncture / Unknown 01/26/2025 8:07 AM EST 01/26/2025 8:19 AM EST us Ignacio Leger MD LAB BLOOD BKR ORDERABLES Final Result [address] [address] * NT-proBNP (01/26/2025 8:07 AM EST) Pathologist [facility] NT-ProBNP 95 0 - 1,800 pg/mL 01/26/2025 9:10 AM [facility] Comment: Age <50 years: 0-450 pg/ml Age 50-75 years: 0-900 pg/ml Age >75 years: 0-1800 pg/ml A NT-proBNP <300 pg/ml effectively rules out acute congestive heart failure, with 99% negative predictive value. NT-proBNP cutoffs were developed for the diagnosis of heart failure. Marked elevations in NT-proBNP levels may be observed in states other than left ventricular congestive heart failure. Falsely low NT-proBNP in congestive heart failure patients may be observed with increasing body-mass index. Blood (Blood) Venipuncture / Unknown 01/26/2025 8:07 AM EST 01/26/2025 8:20 AM EST us Ignacio Leger MD LAB BLOOD BKR ORDERABLES Final Result Performing Organization Address [facility]/ZIP Co de Phone Number [address] [address] * Hepatic Panel (LFTs) (01/26/2025 8:07 AM EST) AST 12 <33 U/L 01/26/2025 9:24 AM [facility] ALT <5 <34 U/L 01/26/2025 9:24 AM [facility] Alkaline Phosphatase 86 40 - 130 U/L 01/26/2025 9:24 AM [facility] Bilirubin, Total 0.6 0.0 - 1.2 mg/dL 01/26/2025 9:24 AM [facility] Bilirubin, Direct 0.2 0.0 - 0.3 mg/dL 01/26/2025 9:24 AM [facility] Total Protein 6.6 6.4 - 8.3 g/dL 01/26/2025 9:24 AM [facility] Albumin 4.2 3.5 - 5.2 g/dL 01/26/2025 9:24 AM [facility] Globulin 2.4 1.9 - 4.1 g/dL 01/26/2025 9:24 AM [facility] Blood (Blood) Venipuncture / Unknown 01/26/2025 8:07 AM EST 01/26/2025 8:20 AM EST us Ignacio Leger MD LAB BLOOD BKR ORDERABLES Final Result [address] [address] * Basic Metabolic Panel (BMP) (01/26/2025 8:07 AM EST) Sodium 144 136 - 145 mmol/L 01/26/2025 9:10 AM [facility] Potassium 3.9 3.4 - 5.1 mmol/L 01/26/2025 9:10 AM [facility] Chloride 106 98 - 107 mmol/L 01/26/2025 9:10 AM [facility] CO2 30 20 - 31 mmol/L 01/26/2025 9:10 AM [facility] Anion Gap 8 3 - 17 mmol/L 01/26/2025 9:10 AM [facility] BUN 21 6 - 23 mg/dL 01/26/2025 9:10 AM [facility] Creatinine 0.70 0.50 - 1.00 mg/dL 01/26/2025 9:10 AM [facility] eGFR 90 >59 mL/min/1.7 3m2 01/26/2025 9:10 AM [facility] Comment:Estimated glomerular filtration rate calculated using the CKD-EPI refit equation. Glucose 90 70 - 99 mg/dL 01/26/2025 9:10 AM [facility] Calcium 9.6 8.5 - 10.5 mg/dL 01/26/2025 9:10 AM [facility] Blood (Blood) Venipuncture / Unknown 01/26/2025 8:07 AM EST 01/26/2025 8:20 AM EST us Ignacio Leger MD LAB BLOOD BKR ORDERABLES Final Result Performing Organization Address City/State/[facility] Co de Phone Number [address] [phone] * XR Chest Portable (01/26/2025 7:57 AM EST) Anatomical Region Laterality Modality Chest Computed Radiogr aphy 01/26/2025 9:12 AM EST Impressions 01/26/2025 9:52 AM EST No acute abnormality. ATTESTATION: I, Jackie Mccracken as teaching physician, have reviewed the images for this case and if necessary edited the report originally created by Krish Valero. Narrative 01/26/2025 9:52 AM EST XR CHEST PORTABLE Referring clinician's provided indication for this examination in Epic: Fatigue COMPARISON: XR CHEST PA AND LATERAL 2 VIEWS FINDINGS: Devices/Tubes/Lines: None. Lungs: No focal consolidation or pulmonary edema. Pleura: No pleural effusion or pneumothorax. Heart/Mediastinum: Unchanged in appearance. Bones/Soft Tissues: No significant abnormality. Procedure Note Jackie Mccracken MD - 01/26/2025 XR CHEST PORTABLE Referring clinician's provided indication for this examination in Epic:Fatigue COMPARISON: XR CHEST PA AND LATERAL 2 VIEWS FINDINGS: Devices/Tubes/Lines: None. Lungs: No focal consolidation or pulmonary edema. Pleura: No pleural effusion or pneumothorax. Heart/Mediastinum: Unchanged in appearance. Bones/Soft Tissues: No significant abnormality. IMPRESSION: No acute abnormality. ATTESTATION: I, Jackie Mccracken as teaching physician, have reviewed theimages for this case and if necessary edited the report originally createdby Krish Valero. Ignacio Leger MD IMG XR CHEST Final Result * ECG 12-LEAD (01/26/2025 6:22 AM EST) Ventricular Rate EKG/MIN 63 BPM [facility] Atrial Rate 63 BPM [facility] MI Interval 162 ms [facility] QRS Duration 86 ms [facility] QT Interval 408 ms [facility] QTC Interval 417 ms [facility] P [place] 75 degrees [facility] R Wave [place] 56 degrees [facility] T Wave [place] 61 degrees [facility] 01/26/2025 6:22 AM EST 01/26/2025 11:40 AM EST Narrative [facility] - 01/26/2025 11:40 AM EST Normal sinus rhythm Normal ECG When compared with ECG of 06-Jan-2025 22:00, QRS axis Shifted left Confirmed by Alfonzo NAIK ([id number]) on 01/26/2025 11:40:32 AM us Ignacio Leger MD ECG ORDERABLES Final Result [facility] documented in this encounter Visit Diagnoses Diagnosis Shortness of breath- Primary Sciatica of left side documented in this encounter Administered Medications Inactive Administered Medications - up to 3 most recent administrations Medication Order MAR Action Action Date Dose Rate Site carbidopa-levodopa (SINEMET) 25-100 mg per tablet 1 tablet 1 tablet, Oral, Once, On 01/26/25 at 1015, For 1 dose Given 01/26/2025 10:10 AM EST 1 tablet HYDROmorphone (PF) (DILAUDID) injection syringe 0.5 mg 0.5 mg, Subcutaneous, Once, On 01/26/25 at 1015, For 1 dose Given 01/26/2025 10:10 AM EST 0.5 mg Left Anterior Thigh ketorolac (TORADOL) injection 15 mg 15 mg, Intramuscular, Once, On 01/26/25 at 0800, For 1 dose Given 01/26/2025 8:09 AM EST 15 mg Left Dorsalgluteal documented in this encounter Active and Recently Administered Medications Times are shown in EST. Scheduled Medication Order 01/24/2025 01/25/2025 01/26/2025 carbidopa-levodopa (SINEMET) 25-100 mg per tablet 1 tablet (COMPLETED) 1 tablet, Oral, Once, On 01/26/25 at 1015, For 1 dose 1010 (Given - Provid er: Jose Martinez RN) HYDROmorphone (PF) (DILAUDID) injection syringe 0.5 mg (COMPLETED) 0.5 mg, Subcutaneous, Once, On 01/26/25 at 1015, For 1 dose 1010 (Given - Provid er: Jose Martinez RN) ketorolac (TORADOL) injection 15 mg (COMPLETED) 15 mg, Intramuscular, Once, On 01/26/25 at 0800, For 1 dose 0809 (Given - Provid er: Jose Martinez RN) documented in this encounter Care Teams Higher Education Administrator Relationship Specialty Start Date End Date Fanny Power MD [address] [place] [address] PCP - General Internal Medicine 08/16/24 documented as of this encounter Additional Source Comments The information contained in this document represents components of the legal health record. It is not the complete legal health record.[facility]
--- NOTE | 2025-01-28 10:14 | A.OFFPC_ITS ---
Vital Signs 01/28/25 10:15 Height 5 ft 7 in BP 142/90 H Blood Pressure Location Rt brachial Position Sitting Respiration 18 Pulse 99 Pulse Source Pulse Oximeter Temp Source Temporal Artery Scan Pulse Oximetry (%) 96 Oxygen Delivery Method Room Air Intake Visit Reasons: 4 months Location And Measurement Technician Required: No Accompanied by: Self / Same As Patient Allergies penicillin V Allergy (Unknown, Verified 01/28/25 10:42) Unknown pramipexole (From Mirapex) Adverse Reaction (Mild, Verified 01/28/25 10:42) Unknown ropinirole (From Requip) Adverse Reaction (Mild, Verified 01/28/25 10:42) Dizziness amantadine Adverse Reaction (Unknown, Verified 01/28/25 10:42) Dizziness ondansetron (From Zofran) Adverse Reaction (Unknown, Verified 01/28/25 10:42) Unknown Medication List - Last Reconciled 01/28/25 by Fanny Clayton MD acetaminophen 650 mg PO Q4H PRN carbidopa-levodopa 25-100 mg 1 tab PO .FIVE TIMES A DAY estradiol 0.01%(0.1mg/gram) pea-sized to urethra 3 times a week 30 days estradiol 0.01%(0.1mg/gram) 1 g vaginal 3XW fluticasone propionate 50 mcg/actuation sprays intranasal ibuprofen 200 mg PO Q6H PRN loratadine (Allergy Relief (loratadine)) 10 mg PO DAILY magnesium 250 mg PO BID melatonin 3 mg PO BEDTIME PRN methenamine hippurate 1 g PO DAILY 90 days promethazine 25 mg PO TID PRN 30 days rasagiline 0.5 mg PO DAILY simethicone (Gas Relief (simethicone)) 125 mg PO QID PRN 30 days [wick catheters As directed] Tobacco use date assessed: 01/28/25 Fall risk assessment: No Falls in past year Last assessed Fall Risk: 01/28/25 Dental Screening Dental Screen Date: 01/28/25 Did you have a dental visit in the last 12 months?: Yes Did you have a dental problem in the last 6 months where you did not have access to dental care?: No Was dental information given to patient?: Patient has dentist HPI HPI Comments History of Present Illness Details The patient is a 74-year-old female presenting for management of chronic conditions, primarily hip pain. She was recently seen at the [facility] emergency department on January 26 for this hip pain, which is predominantly on the left side. She previously received an injection for her hip from an group insurance specialist, but has not been to physical therapy. The patient's medical history is significant for Parkinson's disease, for which she takes carbidopa/levodopa five times daily. She has a neurologist in [place] but finds it difficult to travel for appointments. She also reports a history of dysphagia. A hospice referral was previously considered but is not being pursued. Recent lab work from her January 26 emergency department visit showed a glucose of 90, with normal kidney and liver function. Her medication allergies include penicillin, Mirapex, Requip, amantadine, and Zofran. [facility] Medical History Hypertension Parkinson disease Surgical History History of cholecystectomy Family History Father Heart disease Mother No problems noted. Family/Other Breast cancer Social History Housing: House Alcohol intake: never Patient Tobacco Use Status: Never used Tobacco e-Cigarette/Vaping Use: Never Used Second Hand Smoke Exposure: No service: No Current occupational status: retired Cognitive needs: No Hearing needs: No Vision needs: Yes Female Reproductive History Menstrual Age of Menarche: 11 Questionnaire PHQ-9 Over the last 2 weeks, how often have you been bothered by any of the following problems? 1. Little interest or pleasure in doing things: several days 2. Feeling down, depressed, or hopeless: several days 3. Trouble falling or staying asleep, or sleeping too much: several days 4. Feeling tired or having little energy: several days 5. Poor appetite or overeating: not at all 6. Feeling bad about yourself - or that you are a failure or have let yourself or your family down: several days 7. Trouble concentrating on things, such as reading the newspaper or watching television: several days 8. Moving or speaking so slowly that other people could have noticed. Or the opposite - being so fidgety or restless that you have been moving around a lot more than usual: several days 9. Thoughts that you would be better off or of hurting yourself in some way: not at all Total score: 7 Depression Screening Interpretation: Positive Depression Screening Follow-up: Existing condition and Follow-up Visit Requested Depression Screening Done: Yes 12238 - PHQ-9 Billing: Yes Source: Developed by Drs. Chaitanya Chao, Darci Lopez and colleagues, with an educational krzysztof from [employer]. Thrive Questionnaire Date Thrive assessed: 11/08/24 I am a: Patient What is your living situation today?: I have a steady place to live Within the past 12 months, did the food you bought not last and you didn't have the money to get more?: Never true Within the past 12 months, did you worry whether your food would run out before you got money to buy more?: Never true Do you have trouble paying for medicines?: No Do you have trouble getting transportation to medical appointments?: No Do you have trouble paying your heating and electricity bill?: No Do you have trouble taking care of your child, family member or friend?: No Do you have trouble with day-to-day activities such as bathing, preparing meals, shopping, managing finances, etc.?: I choose not to answer this question Are you currently unemployed and looking for a job?: No Are you interested in more education?: No Please select the resources that you would like help with: None Currently or been in a relationship where the following occur: No concerns reported THRIVE Score: 0 MARIA ELENA-7 AMB Questionnaire MARIA ELENA-7 Date MARIA ELENA - 7 assessed: 11/12/24 Source: Developed by Drs. Chaitanya Chao, Darci Lopez and colleagues, with an educational krzysztof from [employer]. Review of Systems Const All systems reviewed & are unremarkable except as noted in HPI and below Card Denies chest pain at rest, Denies chest pain with activity, Denies edema, Denies irregular heart rhythm, Denies claudication, Denies dyspnea, Denies dyspnea on exertion, Denies orthopnea, Denies paroxysmal nocturnal dyspnea and Denies slow heart rate Resp Denies cough, Denies dyspnea and Denies dyspnea on exertion Musc Denies abnormal gait, Denies atrophy, Denies deformity and Denies limited range of motion Skin/Breast Denies bleeding lesions, Denies changing lesions and Denies rash Neuro Denies abnormal gait and Denies lack of coordination Physical exam (Primary Care) Vital Signs: Last Vital Signs Pulse 99 01/28/25 10:15 Resp 18 01/28/25 10:15 BP 142/90 H 01/28/25 10:15 Pulse Ox 96 01/28/25 10:15 Oxygen Delivery Method Room Air 01/28/25 10:15 Tobacco/Smoking Status: Tobacco use Status Tobacco use date assessed 01/28/25 01/28/25 10:32 Patient Tobacco Use Status Never used Tobacco 01/28/25 10:32 Tobacco use type 09/17/24 13:11 e-Cigarette/Vaping Use Never Used 01/28/25 10:32 PHQ-9: PHQ-9 Score PHQ-9: Total score 7 01/28/25 10:32 Depression Screening Interpretation: Positive Depression Screening Follow-up: Existing condition and Follow-up Visit Requested Thrive Assessment: Date of Thrive Assessment Date Thrive assessed 11/08/24 01/28/25 10:32 Currently or been in a relationship where the following occur: No concerns reported Const Limitations: wheelchair Resp Effort & Inspection: normal respiratory effort Auscultation: clear to auscultation bilaterally Cardio Jugular venous distension: no JVD Rate: regular rate Rhythm: regular rhythm Heart sounds: S1 normal heart sound present and S2 normal heart sound present Extrem General: Yes full ROM Coding Level of Care Code Est Pt Level 3 (70069) Complex EM visit Add On G2211 Diagnoses Parkinson disease G20 Bilateral hip pain M25.551; M25.552 Additional Codes PHQ-9 - 23091 - PHQ-9 Billing: Yes ([id number]) Time Spent (min) 23 Assessment & Plan Assessment & Plan (1) Parkinson disease: Code(s): G20 - Parkinson's disease Category: Medical (2) Bilateral hip pain: Code(s): M25.551 - Pain in right hip; M25.552 - Pain in left hip Category: Medical Plan Plan 1. Hip Pain The patient presents with chronic hip pain, predominantly on the left side, which is inadequately controlled with her current low-dose ibuprofen regimen. Given her normal kidney and liver function on recent labs, her ibuprofen dosage will be increased to 600 mg three times daily as needed for pain. The patient has an upcoming appointment with Pain Management on February 07, and further diagnostic imaging, such as an MRI, will be deferred to their discretion. A referral will be placed for in-home physical therapy to improve mobility. 2. Parkinson's Disease The patient's Parkinson's disease is managed with carbidopa/levodopa. Due to difficulties traveling to her current neurologist in [place], a referral will be made to a local neurology practice for continued management. 3. Nausea The patient reports needing medication for nausea. A prescription for promethazine will be sent to her pharmacy, [facility]. 4. Vaginal Atrophy The patient reports significant benefit from using estradiol vaginal cream. A refill for the estradiol cream will be sent to her pharmacy. 5. Medication Management Tizanidine will be removed from her medication list as she is no longer taking it. Nitrofurantoin will be discontinued as per her request. 6. Health Maintenance The patient was offered an influenza shot and a pneumonia vaccine, both of which she declined during this visit. Orders: Referrals Neurology Referral G20 - Parkinson's disease Medications: New ibuprofen 600 mg PO TID PRN 90 tabs 2RF pain 30 days Changed From magnesium 250 mg PO BID To magnesium 250 mg PO BID 180 tabs 1RF 90 days From rasagiline 0.5 mg PO DAILY To rasagiline 0.5 mg PO DAILY 90 tabs 1RF 90 days From loratadine (Allergy Relief (loratadine)) 10 mg PO DAILY To loratadine (Allergy Relief (loratadine)) 10 mg PO DAILY 90 tabs 1RF 90 days From melatonin 3 mg PO BEDTIME PRN To melatonin 3 mg PO BEDTIME PRN 90 tabs 1RF insomnia 90 days Refilled simethicone (Gas Relief (simethicone)) 125 mg PO QID PRN 120 caps 11RF abdominal distention 30 days promethazine 25 mg PO TID PRN 90 tabs 3RF nausea and vomiting 30 days estradiol 0.01%(0.1mg/gram) pea-sized to urethra 3 times a week 42.5 grams 2RF 30 days N36.2 - Urethral caruncle, N39.0 - Urinary tract infection, site not specified, N95.2 - Postmenopausal atrophic vaginitis, R39.15 - Urgency of urination methenamine hippurate 1 g PO DAILY 90 tabs 1RF 90 days N39.0 - Urinary tract infection, site not specified, R39.15 - Urgency of urination
[2025-01-28 10:15] VITALS: BP 142/90; PULSE 99; RESP 18; O2SAT 96
--- OUTSIDE RECORDS SUMMARY | 2025-01-28 11:36 | XMS_ITS | Data Portability ---
Author Organization [place] [facility] Address [address] [place] [address] Care Team Providers Care Sprinkler Installer Name Role Phone NUNO TELLEZ Primary Care Provider Assessment Encounter Date Assessment Date Assessment LastModified by Organization Details LastModified Time 12/19/2019 12/19/2019 Overview/History :Horacio henriquez is a 69-year-old female that is a new patient [facility] contacted [facility] complaints of urinary frequency for the past [...] antibiotic based off of what this grew [facility] was prescribed this. I did review signs of worsening infection with the patient. She verbalized understanding of discharge instructions as well as emergency room precautions. Proper Personal Protective Equipment (PPE), including gloves, eye protection and masks were donned and doffed appropriately and all equipment cleaned using approved technique with germicidal disposable wipes prior to and after care of this patient according to Critical access hospital's infection prevention protocols. Time On Scene with Patient: 00:31:27 [email or web address] Not available 12/19/2019 20:44:48 10/17/2021 10/17/2021 Time [...] written and oral format. Patient taken to [facility] . [email or web address] Not available 10/17/2021 17:31:29 Plan of Treatment Reminders Order Date Submit Date Provider Last Modified By Organization Details Last Modified Time Details Appointments None recorded. Lab urinalysis, dipstick 2019 ernestine r31 Spr - Home, [address], [place], [address], 0 17:31:59 culture, [facility] - [facility] TYRONE [facility] (Centralized Electronic Ordering - All Locations), Patient Can Go To The Location Of Their Choice, [id number] 0 08:10:48 Referral None recorded. Procedures None recorded. Surgeries None recorded. Imaging None recorded. Medication Orders cephalexin 500 mg capsule 2019 [place] [address] z783 [id number], [address] [place], [address], 2 15:30:25 Keflex 500 mg capsule 2019 jrodrigue z783 [id number], [address] [place], [address], 2 15:30:25 Patient TargetsNo targets recorded. Patient Instructions Encounter Date Encounter Id Patient Instructions Last Modified By Organization Details Last Modified Time 12/19/2019 [id number] WE CAME TO SEE Y OU TODAY [...] and thong underwear which may facilitate UTI s . Avoid tub baths Avoid using Super Tampons [...] in your condition between 8am-10pm, please call [facility] at [phone] to help navigate your care. [email or web address] Not available 12/19/2019 17:33:40 10/17/2021 [id number] Thank you for yo ur visit with [facility] today. You were seen today because of [...] Available Spr - [address] [place], [address], 12/19/2019 17:23:27 12/19/1912/19/2019 urina lysis , dipst ick Color yellow Not Available Spr - Home [address] [place], [address], 12/19/2019 17:23:27 12/19/1912/19/2019 urina lysis , dipst ick Glucose negati ve Not Available Spr - Home [address] [place], [address], 12/19/2019 17:23:27 12/19/1912/19/2019 urina lysis , dipst ick Bilirubin negati ve Not Available Spr - Home [address] [place], [address], 12/19/2019 17:23:27 12/19/1912/19/2019 urina lysis , dipst ick Ketones NEG Not Available Spr - Home [address] [place], [address], 12/19/2019 17:23:27 12/19/1912/19/2019 urina lysis , dipst ick Sp. [place] 1.010 Not Available Spr - Home [address] [place], [address], 12/19/2019 17:23:27 12/19/1912/19/2019 urina lysis , dipst ick Blood ++ Not Available Spr - Home [address] [place], [address], 12/19/2019 17:23:27 12/19/1912/19/2019 urina lysis , dipst ick pH 5 Not Available Spr - Home [address] [place], [address], 12/19/2019 17:23:27 12/19/1912/19/2019 urina lysis , dipst ick Protein negati ve Not Available Spr - Home [address] [place], [address], 12/19/2019 17:23:27 12/19/1912/19/2019 urina lysis , dipst ick Urobilirubin negati ve Not Available Spr - Home [address] [place], [address], 12/19/2019 17:23:27 12/19/1912/19/2019 urina lysis , dipst ick Nitrites NEG Not Available Spr - [facility] [address] [place], [address], 12/19/2019 17:23:27 12/19/1912/19/2019 urina lysis , dipst ick Leukocytes + Not Available Spr - ome [address], [place], [address], 12/19/2019 17:23:27 12/19/1912/20/2019 cultu re, urine specimen [...] completed SACHI WOOD NP [address], [place], [address], [place] [facility] 12/19/2019 20:44:52 Imaging Results None recorded. Procedure Notes None recorded. Medical Equipment None Reported. Allergies Allergen ID Allergen Name Allergen Category Reaction Reaction Severity Criticality Documentation Date Start Date Code Code System Note Provider Name and Address Organization Details Recorded Time 825923 Product containin g penicilli n (product) medicatio n Not available Not available Not available 12/19/2019 52612 8001 SNOMED SACHI WOOD NP [address] [place], [address], [place] [facility] 0 17:18:46 [...] Pulse oximetry Body temperature Respiratory rate Systolic And Diastolic Provider Name and Address Organization Details Last Updated DateTime 2 104 /min 97 % 97 % 97.9 [degF] 18 /min 134/82 mm[Hg] Not Available [facility] 2 15:50:34 Date Recorded Heart rate Body temperature Respiratory rate Oxygen saturation Oxygen saturation in Arterial blood by Pulse oximetry Systolic And Diastolic Provider Name and Address Organization Details Last Updated DateTime 0 90 /min 98.4 [degF] 18 /min 97 % 97 % 184/92 mm[Hg] Not Available [facility] 0 17:24:47 Social History Question Answer Notes LastModified by Organizat ion Details LastModified Time Tobacco Smoking Status Never Smoker SACHI WOOD NP [address], [place], [address], [place] [facility] 12/19/2019 17:21:18 What Is Your Code Status? Full Code [email or web address] Information not available 12/19/2019 Within The Past 12 Months, Has It Happened That The Food You Bought Just Didn't Last And You Didn't Have Money To Get More. No [email or web address] Information not available 12/19/2019 Within The Past 12 Months, Have You Worried That Your Food Would Run Out Before You Got Money To Buy More. No [email or web address] Information not available 12/19/2019 Fall Risk: Do You Feel Unsteady When Standing Or Walking? No [email or web address] Information not available 12/19/2019 We Know That How And When People Interact With Friends And Family Can Be Very Different From Person To Person. How Often Do You Have The Opportunity To See Or Talk To People That You Care About And Feel Close To? (Ex: Talking To Friends On The Phone Or Visiting Friends Or Family Or Going To Mormon Or Club Meetings) 3 Or 4 Times Per Week [email or web address] Information not available 12/19/2019 We Know From Many Of Our Patients That Covering All Of Their Costs Can Be Difficult At Times. This Can Cause Stress And Impact Health. In The Past Year, Have You Been Unable To Get Any Of The Following When It Was Really Needed? No [email or web address] Information not available 12/19/2019 What Is Your Housing Situation Today? I Have Housing [email or web address] Information not available 12/19/2019 Would You Like Help Connecting To Resources? None [email or web address] Information not available 12/19/2019 Sex: Unknown Functional Status None recorded. Mental Status None recorded. Family History Relationship Description Onset Age of this Age Resolved Age Notes LastModified by Organization Details LastModified Time Father Congestive heart failure [email or web address] Not available 03/2019 17:23:15 Medical History Condition Response Coronary Artery Disease N COPD N Depression Cancer N Stroke N High Cholesterol N Kidney Disease N Diabetes N Asthma N Pulmonary Embolism N Hypertension Y Gynecological HistoryNo gynecological history recorded. Obstetrics History GPAL:G 0 P 0 0 0 0 Past Encounters Encounter ID Performer Location Encounter Start Date Encounter Closed Date Diagnosis/Indication Diagnosis SNOMED-CT Code Diagnosis ICD10 Code Diagnosis IMO Codes Diagnosis Note [id number] SACHI WOOD NP [facility] [address] [facility] [place] [address] 12/19/2019 17:03:12 12/22/2019 22:24:53 Urinary tract infectious disease 96446059 N39.0 [id number] Kisha LIANA Etienne SPR - HOME [address] [place] [address] 10/17/2021 15:12:14 10/18/2021 09:16:19 Ocular headache 45029790 G43.B0 Muscle weakness 64538277 M62.81 Health Concerns Section Related Observation LastModified by Organization Detai ls LastModified Time None Recorded Concern Status LastModified by Organization Details LastModified Time None Recorded Advance Directives Directive None Recorded Payers Insurance Date Sequence Insurance Name Policy Number Policy Cronin Covered Member ID Cronin Member ID Guarantor Name 10/22/2021 1 MED[place]ARE [place] [facility] Loren High [id number] Loren High 10/17/2021 1 MED[place]ARE B-[place]: [facility] Loren High [id number] Loren High 11/20/[address] [facility] INDEMNITY PLAN (INDEMNITY) [id number] Loren High 12/19/2019 1 *SELF PAY* Loren High [id number] Loren High 10/18/[address] [facility] INDEMNITY PLAN (INDEMNITY) [id number] Loren High [id number] Loren High 10/17/2021 1 [place] [facility] Loren High [id number] Loren High Notes Date Note Type Note Provider Name and Address Organization Details Recorded Time 12/19/2019 text/html General HPI Template - DHReported by Patient This is a 69-year-old female that is a new patient [facility]. She has a medical history significant for hypertension, Parkinson's and anxiety. [facility] because she has been having urinary frequency [...] has been eating and drinking normally. SACHI WODO, LIANA [address], [place], [address], [place] [facility] 12/19/2019 20:45:02 10/17/2021 text/html General HPI Template - DHReported by Patient 71 YO F established with however new [...] injections, with last injection 3 years ago. September LIANA Etienne [address], [place], [address], [place] [facility] 10/17/2021 17:31:42 OBGyn Episode No OBEpisode recorded.
--- OUTSIDE RECORDS SUMMARY | 2025-01-28 11:36 | XMS_ITS | Encounter Summary ---
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 Wish to be (Past 1 Month) No 12/07/2023 9:57 PM EDT Terese Minaya RN 2. Non-Specific Active Suici preston Thoughts (Past 1 Month) No 12/07/2023 9:57 PM EDT Terese Minaya RN 6. Suicidal Behavior (Lifetime) No 9:57 PM EDT Terese Minaya RN documented as of this encounter Plan of Treatment Not on file documented as of this encounter Visit Diagnoses Not on filedocumented in this encounter Additional Health Concerns Infection Onset Date Last Indicated Resolved Time CDiff-Risk 02/25/2024 02/25/2024 02/25/2024 12:5 2 PM EST documented as of this encounter Care Teams Terminal Manager Relationship Specialty Start Date End Date Kofi Fan MD [address] [place] [address] [place] [address] PCP - General 09/17/13 08/15/24 Fanny Power MD [address] [place] [address] PCP - General Internal Medicine 08/16/24 documented as of this encounter Additional Source Comments The information contained in this document represents components of the legal health record. It is not the complete legal health record.[facility]
--- OUTSIDE RECORDS SUMMARY | 2025-01-28 11:37 | XMS_ITS | Encounter Summary ---
Author Organization [facility] Address [address] [place] [address] Phone Care Team Providers Care Furnace Operator Name Role Phone Kofi Fan MD Primary Care Provider [phone] Fanny Power MD Primary Care Provid er Reason for Referral * MRI/CAT Scan - Closed Specialty Diagnoses / Procedures Referred By Chandler ayala Referred To Contact Radiology Diagnoses Abnormal reflex Headache, unspecified headache type Parkinson's disease Procedures MRI Brain Walker Barajas MD Phone: tel: fax: [email or web address] Private Referral ID Status Reason Start Date Expiration Date Visits Re quested Visits Authorized [id number] Closed 12/26/2019 12/25/2020 1 1 Encounter Details Date Type Department Care Team (Late st Contact Info) Description 12/26/2019 Ancillary Orders Virtual Department [address] [place] [address] Walker Barajas MD [address] [place] [id number] [email or web address] Abnormal reflex; Headache, unspecified headache type; Parkinson's [...] on file documented as of this encounter Results * [...] due to chronic small vessel disease. POS [id number] Narrative 12/29/2019 3:27 PM EDT TECHNIQUE: 1.5 [...] present in the major vessels of the [place] and the dural venous sinuses. [...] present in the major vessels of the [place] the dural venous sinuses. No [...] due to chronic small vessel disease. POS [id number] Walker Barajas MD IM MR HEAD/NECK Final Result documented in this [...] documented as of this encounter Care Teams Furnace Operator Relationship Specialty Start Date End Date Kofi Fan MD [address] [place] [address] [address] PCP - General 09/17/13 08/15/24 Fanny Power MD [address] [place] [address] PCP - General Internal Medicine 08/16/24 documented as of this encounter Additional Source Comments The information contained in this document represents components of the legal health record. It is not the complete legal health record.[facility]
--- OUTSIDE RECORDS SUMMARY | 2025-01-28 11:37 | XMS_ITS | Encounter Summary ---
Author Organization [facility] [facility] Address [address] [place] [address] Phone Care Team Providers Care Pharmacy Technician Infusion Name Role Phone Kofi Fan MD Primary Care Provider [phone] Fanny Power MD Primary Care Provid er Reason for Referral * MRI/CAT Scan - Closed Specialty Diagnoses / Procedures Referred By Chandler ayala Referred To Contact Procedures MRI Neck Outside (No Interpretation) System, Provider Not In, PhD [address] [address] Referral ID Status Reason Start Date Expiration Date Visits Re quested Visits Authorized [id number] Closed 12/20/2018 12/20/2019 1 1 Encounter Details Date Type Department Care Team (Late st Contact Info) Description 12/20/2018 Ancillary Orders [facility],Outside Imaging [address] [place], [place] [id number] System, Provider Not In, PhD [address] [address] Social History Tobacco Use Types Packs/Day Years [...] documented as of this encounter Care Teams Pharmacy Technician Infusion Relationship Specialty Start Date End Date Kofi Fan MD [address] [place] [address] Dr Coker [address] [place] [address] PCP - General 09/17/13 08/15/24 Fanny Power MD [address] [place] [address] PCP - General Internal Medicine 08/16/24 documented as of this encounter Additional Source Comments The information contained in this document represents components of the legal health record. It is not the complete legal health record.[facility]
--- OUTSIDE RECORDS SUMMARY | 2025-01-28 11:37 | XMS_ITS | Encounter Summary ---
Author Organization [employer] [facility] Address [address] [place] [address] Phone Care Team Providers Care Back Seam Stitcher Name Role Phone Kofi Fan MD Primary Care Provider [phone] Fanny Power MD Primary Care Provid er Encounter Details Date Type Department Care Team (Late st Contact Info) Description 12/26/2019 Procedure Pass [facility], [address] [address] Social History Tobacco Use Types Packs/Day Years [...] 1:23 AM EST CoV-Risk 04/21/2023 04/21/2023 05/02/2023 1:2 4 AM EST CoV-Risk 05/11/2023 05/30/2023 06/10/2023 1:21 AM EDT CDiff-Risk 02/25/2024 02/25/2024 02/25/2024 12:5 2 PM EST documented as of this encounter Care Teams Back Seam Stitcher Relationship Specialty Start Date End Date Kofi Fan MD [address] [place] [address] PCP - General 09/17/13 08/15/24 Fanny Power MD [address] [place] [address] PCP - General Internal Medicine 08/16/24 documented as of this encounter Additional Source Comments The information contained in this document represents components of the legal health record. It is not the complete legal health record.[facility]
--- OUTSIDE RECORDS SUMMARY | 2025-01-28 11:37 | XMS_ITS | Encounter Summary ---
Author Organization [employer] [facility] Address [address] [place] [address] Phone Care Team Providers Care Sand Caster Name Role Phone Kofi Fan MD Primary Care Provider [phone] Fanny Power MD Primary Care Provid er Encounter Details Date Type Department Care Team (Late st Contact Info) Description 10/10/2023 Procedure Pass 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 Not on file Not on file documented as of this encounter Plan of Treatment Not on file documented as of this encounter Visit Diagnoses Not on filedocumented in this encounter Additional Health Concerns Infection Onset Date Last Indicated Resolved Time CDiff-Risk 02/25/2024 02/25/2024 02/25/2024 12:5 2 PM EST documented as of this encounter Care Teams Sand Caster Relationship Specialty Start Date End Date Kofi Fan MD [address] [place] [address] PCP - General 09/17/13 08/15/24 Fanny Power MD [address] [place] [address] PCP - General Internal Medicine 08/16/24 documented as of this encounter Additional Source Comments The information contained in this document represents components of the legal health record. It is not the complete legal health record.[facility]
--- OUTSIDE RECORDS SUMMARY | 2025-01-28 11:37 | XMS_ITS | Encounter Summary ---
Author Organization [employer] [facility] Address [address] [place] [address] Phone Care Team Providers Care Air Drier Machine Operator Name Role Phone Kofi Fan MD Primary Care Provider [phone] Fanny Power MD Primary Care Provid er Encounter Details Date Type Department Care Team (Late st Contact Info) Description 11/30/2018 Procedure Pass [facility], [address] [address] Social History Tobacco Use Types Packs/Day Years [...] documented as of this encounter Care Teams Air Drier Machine Operator Relationship Specialty Start Date End Date Kofi Fan MD [address] [place] [address] [address] PCP - General 09/17/13 08/15/24 Fanny Power MD [address] [place] [address] PCP - General Internal Medicine 08/16/24 documented as of this encounter Additional Source Comments The information contained in this document represents components of the legal health record. It is not the complete legal health record.[facility]
--- OUTSIDE RECORDS SUMMARY | 2025-01-28 11:38 | XMS_ITS | Clinical Summary ---
Author Organization [facility] Address [address] [place] [address] Phone Care Team Providers Care Dice Dealer Name Role Phone Fanny Power MD Primary Care Provid er Allergies Active [...] (congestion). 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 Patient does [...] will be requested -Check orthostatic vital signs [facility] TELENEUROLOGY RECOMMENDATIONS: Diagnosis: -Stroke labs: (Lipid panel, HgA1c, TSH, ESR, CRP, trop) -Toxic-metabolic encephalopathy workup: UA,UCx,CBC,Utox,Stox, chest x-ray, covid-19 swab-Brain MRI without contrast -Transthoracic echo (TTE) - ok to perform within 1 week as outpatient -Maintain on telemetry, discharge on extended shelter monitor (MCOT/ZioPatch) -Caregiver feels facial symmetry at [...] history and risk of extrapyramidal side effects) -DISTRICT OPERATIONS MANAGER evaluation Assessment & Plan (10/27/2021 12:39 PM [...] she does follow with Dr. Cochran at [facility] but focused mainly on Parkinsons and she does not feel able to travel to [place] for another provider - for now avoiding [...] Plan (09/13/2022 4:06 PM EDT): Followed by [facility] neurology as above. I have continued her [...] Encounters Date Type Department Care Team Description 01/26/2025 6:04 AM EST - 01/26/2025 1:01 PM EST Emergency [facility] [address] [place] [address] Ignacio Leger MD Discharge Disposition: Home or Self Care 01/06/2025 10:26 PM EDT - 01/07/2025 3:45 AM EDT Emergency [facility] [address] [place] [address] Rajesh Green MD Discharge Disposition: Home or Self Care 12/27/2024 5:21 PM EDT - 12/27/2024 11:59 PM EDT Hospital Encounter [facility] Specimen Processing [address] [place] [address] Fanny Power MD Discharge Disposition: Home or Self Care 12/27/2024 Transcribe Orders [facility] Main [address] [place] [id number] Fanny Power MD Dysuria (Primary Dx) 12/19/2024 11:27 PM EDT - 12/20/2024 6:44 AM EDT Emergency [facility] [address] [place] [address] Kings Hanna MD Discharge Disposition: [facility] 11/27/2024 2:38 PM EDT - 11/27/2024 11:59 PM EDT Hospital Encounter [facility] [address] [place] [phone] Fanny Power MD Discharge Disposition: Home or Self Care 11/26/2024 9:35 AM EDT - 11/26/2024 11:59 PM EDT Hospital Encounter [facility] [address] [place] [phone] Fanny Power MD Discharge Disposition: Home or Self Care 11/26/2024 Transcribe Orders [facility] [address] [place] [phone] Fanny Power MD Screening examination for pulmonary tuberculosis (Primary Dx) 11/26/2024 Transcribe Orders [facility] [address] [address] Fanny Power MD Essential hypertension, malignant (Primary Dx) 11/18/2024 2:24 AM EDT - 11/18/2024 9:03 AM EDT Emergency [facility] [address] [place] [address] Kamar Navarro, Jhonatan Eisenberg MD Discharge Disposition: Home or Self Care 11/11/2024 4:28 AM EDT - 11/11/2024 11:47 AM EDT Emergency [facility] [address] [place] [address] Rajesh Green MD Perez, Alberto Juan Ignacio, MD Discharge Disposition: [facility] Facility 11/08/2024 9:00 AM EDT Home [facility] Visit [facility] [address] [place] [address] Joselito Whelan, OT OT OASIS DISCHARGE VISIT 11/07/2024 10:30 AM EDT Home Care Visit [facility] [address] [place] [address] Joselito Whelan, OT OT HOME VISIT 11/06/2024 1:00 PM EDT Home Care Visit [facility] [address] [place] [address] Yanet Robles, PT PT DISCIPLINE DISCHARGE VISIT 11/05/2024 Home Care Visit [facility] [address] [place] [address] Joselito Whelan, OT TELEPHONE ENCOUNTER 11/04/2024 10:30 AM EDT Home Care Visit [facility] [address] [place] [address] Yanet Robles, PT PT HOME VISIT 10/31/2024 12:45 PM EDT Home Care Visit [facility] [address] [place] [address] Martine Bosch, VEHICLE CONTROLS ENGINEER VEHICLE CONTROLS ENGINEER HOME VISIT 10/31/2024 10:30 AM EDT Home Care Visit [facility] [address] [place] [address] Joselito Whelan, OT OT HOME VISIT 10/28/2024 2:15 PM EDT Home Care Visit [facility] [address] [place] [address] Martine Bosch, VEHICLE CONTROLS ENGINEER VEHICLE CONTROLS ENGINEER HOME VISIT 10/28/2024 10:30 AM EDT Home Care Visit [facility] [address] [place] [address] Joselito Whelan, OT OT HOME VISIT from Last 3 Months Immunizations Immunization Administration Dates Next Due COVID-19 (Pre-01/09) Moderna Vaccine, mRNA, PF 0 05/15/2020 Influenza High-Dose Trivalent Preservative Free IM 04/22/2019 Family History Medical History Relation Comments COPD Brother 1 CV disease Father Heart failure Father Cancer Mother Relation Status Comments Brother 1 Alive Brother 2 Alive [place], Agent O range Father Mother Sister Social [...] housing situation today? 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 Not on file Not on file [...] Mass Index 18.79 01/26/2025 6:12 AM EST Plan of Treatment Health Maintenance Due Date Last Done Comments Adult Td,Tdap Booster 1950 DEPRESSION SCREENING 1960 HEPATITIS C SCREENING 01/31/1966 PNEUMOCOCCAL VACCINES (50+ years) (1 of 1 - PCV) 01/31/1998 ZOSTER VACCINES (1 of 2) 01/31/1998 OSTEOPOROSIS SCREENING INITIAL (ONE-TIME) 01/31/2013 RSV VACCINE (1 - 1-dose 75+ series) 01/31/2023 LIPID PANEL 09/15/2023 09/14/2022 INFLUENZA VACCINE (#1) 2024 04/22/2019 COVID-19 VACCINE ( season) 2024 08/19/2021, 01/20/2021, 06/13/2020, Additional history exists BLOOD PRESSURE 05/11/2025 11/08/2024 SMOKING Hx and SMOKELESS TOBACCO SCREENING 01/26/2026 01/26/2025 HEPATITIS A VACCINES Aged Out No long er eligible based on patient's age to complete this topic HIB VACCINES Aged Out No longer eligi ble based on patient's age to complete this topic IPV VACCINES Aged Out No longer eligi ble [...] EST NT-PROBNP STAT 01/26/2025 8:07 AM EST LFTS (HEPATIC PANEL) STAT 01/26/2025 8:07 AM EST BASIC METABOLIC PANEL (BMP) STAT 01/26/2025 8:07 AM EST CBC AND DIFFERENTIAL STAT 01/26/2025 8:07 AM EST XR CHEST PORTABLE Routine 01/26/2025 7:5 7 AM EST ECG 12-LEAD STAT 01/26/2025 6:22 AM EST ECG 12-LEAD STAT 01/06/2025 10:00 PM EDT PT-INR STAT 01/06/2025 9:50 PM EDT LACTIC ACID (LACTATE) STAT 01/06/2025 9:50 PM EDT LIPASE STAT 01/06/2025 9:50 PM EDT LFTS (HEPATIC PANEL) STAT 01/06/2025 9:50 PM EDT MAGNESIUM STAT 01/06/2025 9:50 PM EDT BASIC METABOLIC PANEL (BMP) STAT 01/06/2025 9:50 PM EDT CBC AND DIFFERENTIAL STAT 01/06/2025 9:50 PM EDT BLOOD CULTURE, ROUTINE STAT 01/06/2025 9:50 PM EDT BLOOD CULTURE, ROUTINE STAT 01/06/2025 9:50 PM EDT URINE SEDIMENT STAT 01/06/2025 8:33 PM EDT URINALYSIS WITH REFLEX TO URINE CULTURE STAT 01/06/2025 8:33 PM EDT URINE SEDIMENT Routine 12/27/2024 5:24 PM EDT URINALYSIS WITH REFLEX TO URINE CULTURE Routine 12/27/2024 5:24 PM EDT Dysuria URINE CULTURE Routine 12/27/2024 5:24 PM EDT T SPOT TB TEST Routine 11/27/2024 2:43 PM EDT Screening examination for pulmonary tuberculosis COMPREHENSIVE METABOLIC PANEL (CMP) Routine 11/26/2024 9:53 AM EDT Essential hypertension, malignant OUTSIDE LAB 11/12/2024 URINALYSIS WITH REFLEX TO URINE CULTURE STAT 11/11/2024 6:45 AM EDT MAGNESIUM STAT 11/11/2024 5:29 AM EDT BASIC METABOLIC PANEL (BMP) STAT 11/11/2024 5:29 AM EDT CBC AND DIFFERENTIAL STAT 11/11/2024 5:29 AM EDT ECG 12-LEAD STAT 11/11/2024 4:34 AM EDT LIPID PANEL Routine 09/14/2022 5:57 AM EDT from Last 3 Months or Most Recently Relevant to Health Maintenance Results * (ABNORMAL) Troponin (01/26/2025 9:04 AM EST) Only the most recent of2 resultswithin the time period is included. [facility] Troponin-T HS Gen5 17(H) 0 - 9 ng/L 01/26/2025 9:38 AM [facility] Blood (Blood) Venipuncture / Unknown 01/26/2025 9:04 AM EST 01/26/2025 9:12 AM EST us Ignacio Leger MD LAB BLOOD BKR ORDERABLES Final Result [address] [id number] * (ABNORMAL) CBC and Differential (01/26/2025 8:07 AM EST) [facility] WBC 5.58 4.00 - 11.00 K/uL 01/26/2025 8:22 AM [facility] RBC 3.65(L) 4.00 - 5.20 M/uL 01/26/2025 8:22 AM [facility] Hemoglobin 11.8(L) 12.0 - 16.0 g/dL 01/26/2025 8:22 AM [facility] Hematocrit 36.9 36.0 - 46.0 % 01/26/2025 8:22 AM [facility] MCV 101.1(H) 80.0 - 100.0 fL 01/26/2025 8:22 AM [facility] MCH 32.3(H) 27.0 - 31.0 pg 01/26/2025 8:22 AM [facility] MCHC 32.0 32.0 - 36.0 g/dL 01/26/2025 8:22 AM [facility] MPV 10.0 8.4 - 12.0 fL 01/26/2025 8:22 AM [facility] RDW-CV 11.9 11.5 - 14.5 % 01/26/2025 8:22 AM [facility] PLT 242 150 - 450 K/uL 01/26/2025 8:22 AM [facility] Neutrophils 62.7 % 01/26/2025 8:22 AM [facility] Lymphocytes 24.6 % 01/26/2025 8:22 AM [facility] Monocytes 9.3 % 01/26/2025 8:22 AM [facility] Eosinophils 2.5 % 01/26/2025 8:22 AM [facility] Basophils 0.4 % 01/26/2025 8:22 AM [facility] Imm Grans 0.5 % 01/26/2025 8:22 AM [facility] NRBC 0.0 <=0.0 /100 WBCs 01/26/2025 8:22 AM [facility] Absolute Neutrophils 3.50 1.92 - 7.60 K/uL 01/26/2025 8:22 AM [facility] Absolute Lymphocytes 1.37 0.72 - 4.10 K/uL 01/26/2025 8:22 AM [facility] Absolute Monocytes 0.52 0.16 - 1.10 K/uL 01/26/2025 8:22 AM [facility] Absolute Eosinophils 0.14 0.00 - 0.50 K/uL 01/26/2025 8:22 AM [facility] Absolute Basophils 0.02 0.00 - 0.15 K/uL 01/26/2025 8:22 AM [facility] Absolute Imm Grans 0.03 0.00 - 0.09 K/uL 01/26/2025 8:22 AM [facility] Absolute NRBC 0.00 <=0.00 K cells/uL 01/26/2025 8:22 AM [facility] Absolute Neutrophils 3.50 1.92 - 7.60 K/uL 01/26/2025 8:22 AM [facility] Comment:Automated cell count . Manual ANC may differ if performed. Diff Type Auto 01/26/2025 8:22 AM [facility] Blood (Blood) Venipuncture / Unknown 01/26/2025 8:07 AM EST 01/26/2025 8:19 AM EST us Ignacio Leger MD LAB BLOOD BKR ORDERABLES Final Result [address] [address] * Hepatic Panel (LFTs) (01/26/2025 8:07 AM EST) Only the most recent of2 resultswithin the time period is included. AST 12 <33 U/L 01/26/2025 9:24 AM [facility] ALT <5 <34 U/L 01/26/2025 9:24 AM [facility] Alkaline Phosphatase 86 40 - 130 U/L 01/26/2025 9:24 AM [facility] Bilirubin, Total 0.6 0.0 - 1.2 mg/dL 01/26/2025 9:24 AM [facility] Bilirubin, Direct 0.2 0.0 - 0.3 mg/dL 01/26/2025 9:24 AM [facility] Total Protein 6.6 6.4 - 8.3 g/dL 01/26/2025 9:24 AM [facility] Albumin 4.2 3.5 - 5.2 g/dL 01/26/2025 9:24 AM [facility] Globulin 2.4 1.9 - 4.1 g/dL 01/26/2025 9:24 AM [facility] Blood (Blood) Venipuncture / Unknown 01/26/2025 8:07 AM EST 01/26/2025 8:20 AM EST us Ignacio Leger MD LAB BLOOD BKR ORDERABLES Final Result Performing Organization Address City/[facility]/ZIP Co de Phone Number [address] [address] * NT-proBNP (01/26/2025 8:07 AM EST) NT-ProBNP 95 0 - 1,800 pg/mL 01/26/2025 9:10 AM EST [facility] Comment: Age <50 years: 0-450 pg/ml [...] 8:07 AM EST 01/26/2025 8:20 AM EST Ignacio Leger MD LAB BLOOD BKR ORDERABLES Final Result Performing Organization Address [facility] Co de Phone Number [address] [address] * Basic Metabolic Panel (BMP) (01/26/2025 8:07 AM EST) Only the most recent of3 resultswithin the time period is included. Sodium 144 136 - 145 mmol/L 01/26/2025 9:10 AM EST [facility] Potassium 3.9 3.4 - 5.1 mmol/L 01/26/2025 9:10 AM EST [facility] Chloride 106 98 - 107 mmol/L 01/26/2025 9:10 AM EST [facility] CO2 30 20 - 31 mmol/L 01/26/2025 9:10 AM EST [facility] Anion Gap 8 3 - 17 mmol/L 01/26/2025 9:10 AM EST [facility] BUN 21 6 - 23 mg/dL 01/26/2025 9:10 AM EST [facility] Creatinine 0.70 0.50 - 1.00 mg/dL 01/26/2025 9:10 AM [facility] eGFR 90 >59 mL/min/1.7 3m2 01/26/2025 9:10 AM EST [facility] Comment:Estimated glomerular filtration rate calculated using the CKD-EPI refit equation. Glucose 90 70 - 99 mg/dL 01/26/2025 9:10 AM EST [facility] Calcium 9.6 8.5 - 10.5 mg/dL 01/26/2025 9:10 AM EST [facility] Blood (Blood) Venipuncture / Unknown 01/26/2025 8:07 AM EST 01/26/2025 8:20 AM EST us Ignacio Leger MD LAB BLOOD BKR ORDERABLES Final Result Performing Organization Address City/State/[facility] Co de Phone Number [address] [address] * XR Chest Portable (01/26/2025 7:57 AM [...] edited the report originally createdby Krish Valero. us Ignacio Leger MD IMG XR CHEST Final Result * ECG 12-LEAD (01/26/2025 6:22 AM EST) Only the most recent of3 resultswithin the time period is included. Ventricular Rate EKG/MIN 63 BPM [facility] Atrial Rate 63 BPM [facility] PA Interval 162 ms [facility] QRS Duration 86 ms [facility] QT Interval 408 ms [facility] QTC Interval 417 ms [facility] P [place] 75 degrees [facility] R Wave [place] 56 degrees [facility] T Wave [place] 61 degrees [facility] 01/26/2025 6:22 AM EST 01/26/2025 11:40 AM EST Narrative [facility] - 01/26/2025 11:40 AM EST Normal sinus rhythm Normal ECG When compared with ECG of 06-Jan-2025 22:00, QRS axis Shifted left Confirmed by Alfonzo NAIK ([id number]) on 01/26/2025 11:40:32 AM us Ignacio Leger MD ECG ORDERABLES Final Result [facility] * Blood Culture, Routine (01/06/2025 9:50 PM EDT) Only the most recent of2 resultswithin the time period is included. Special Requests None 01/06/2025 8:12 PM EDT [facility] BLOOD CULTURE NO GROWTH 5 DAYS 01/11/2025 10:18 PM EDT [facility] Blood (Blood) 01/06/2025 9:5 0 PM EDT 01/06/2025 10:01 PM EDT Donn Zamora MD LAB MICROBIOLOGY CULTURE O RDERABLES Final Result Performing Organization Address [facility]/ZIP Co de Phone Number [address] [address] * PT-INR (01/06/2025 9:50 PM EDT) PT 11.2 10.2 - 12.9 sec [facility] INR 0.9 0.9 - 1.1 [facility] Comment:Therapeutic range fo r oral Vitamin K antagonists: 2.0-3.5 Blood 01/06/2025 9:50 PM EDT 01/06/2025 9:57 PM EDT Donn Zamora MD LAB BLOOD BKR ORDERABLES F inal Result Performing Organization Address [facility] Co de Phone Number [address] [address] * (ABNORMAL) CBC and differential (01/06/2025 9:50 PM EDT) Only the most recent of2 resultswithin the time period is included. WBC 6.23 4.00 - 11.00 K/uL [facility] RBC 3.67(L) 4.00 - 5.20 M/uL [facility] HGB 11.9(L) 12.0 - 16.0 g/dL [facility] HCT 36.2 36.0 - 46.0 % [facility] PLT 276 150 - 450 K/uL [facility] MCV 98.6 80.0 - 100.0 fL [facility] MCH 32.4(H) 27.0 - 31.0 pg [facility] MCHC 32.9 32.0 - 36.0 g/dL [facility] RDW 12.2 11.5 - 14.5 % [facility] MPV 10.0 8.4 - 12.0 fL [facility] NRBC 0.00 0.00 /100 WBCs [facility] ABSOLUTE NRBC 0.00 0.00 K/uL [facility] DIFF METHOD Auto [facility] NEUTS 58.9 48.0 - 76.0 % [facility] LYMPHS 26.6 18.0 - 41.0 % [facility] MONOS 11.6(H) 4.0 - 11.0 % [facility] EOS 1.9 0.0 - 5.0 % [facility] BASOS 0.5 0.0 - 1.5 % [facility] Granulocytes, immature (%) 0.5 0.0 - 0.9 % [facility] ABSOLUTE NEUTS 3.67 1.92 - 7.60 K/uL [facility] ABSOLUTE LYMPHS 1.66 0.72 - 4.10 K/uL [facility] ABSOLUTE MONOS 0.72 0.16 - 1.10 K/uL [facility] ABSOLUTE EOS 0.12 0.00 - 0.50 K/uL [facility] ABSOLUTE BASOS 0.03 0.00 - 0.15 K/uL [facility] Granulocytes, immature 0.03 0.00 - 0.09 K/uL [facility] Blood 01/06/2025 9:50 PM EDT 01/06/2025 9:57 PM EDT Donn Zamora MD LAB BLOOD BKR ORDERABLES F inal Result [address] [address] * Magnesium (01/06/2025 9:50 PM EDT) Only the most recent of2 resultswithin the time period is included. MAGNESIUM 1.9 1.6 - 2.6 mg/dL [facility] Blood 01/06/2025 9:50 PM EDT 01/06/2025 9:57 PM EDT Donn Zamora MD LAB BLOOD BKR ORDERABLES F inal Result Performing Organization Address City/[facility]/ZIP Co de Phone Number [address] [address] * Lipase (01/06/2025 9:50 PM EDT) LIPASE 46 16 - 63 U/L [facility] Blood 01/06/2025 9:50 PM EDT 01/06/2025 9:57 PM EDT us Donn Zamora MD LAB BLOOD BKR ORDERABLES F inal Result Performing Organization Address [facility]/ZIP Co de Phone Number [address] [address] * Lactate (01/06/2025 9:50 PM EDT) LACTATE 0.80 0.50 - 2.20 mmol/L [facility] Blood 01/06/2025 9:50 PM EDT 01/06/2025 9:57 PM EDT oDnn Zamora MD LAB BLOOD BKR ORDERABLES F inal Result Performing Organization Address [facility] Co de Phone Number [address] [address] * (ABNORMAL) Urinalysis w/reflex Urine Culture (01/06/2025 8:33 PM EDT) Only the most recent of3 resultswithin the time period is included. COLOR Yellow Yellow [facility] CLARITY Clear [facility] GLUCOSE Negative Negative [facility] BILI Negative Negative [facility] KETONES Negative Negative [facility] SPECIFIC GRAVITY 1.010 1.005 - 1.030 [facility] BLOOD 1+(A) Negative [facility] PH 6.0 5.0 - 8.0 [facility] Protein-UA Negative Negative [facility] NITRITE Negative Negative [facility] Leukocyte esterase, ur Negative Negative [facility] Urine (Urine) 01/06/2025 8:3 3 PM EDT 01/06/2025 8:39 PM EDT Donn Zamora MD LAB URINE ORDERABLES Final Result [address] [address] * (ABNORMAL) Urine sediment (01/06/2025 8:33 PM EDT) Only the most recent of2 resultswithin the time period is included. WBC 0-4(A) NONE SEEN /hpf [facility] RBC 3-5(A) NONE SEEN /hpf [facility] URINE EPITHELIAL NONE SEEN NONE SEEN [facility] MUCUS NONE SEEN NONE SEEN /hpf [facility] BACTERIA NONE SEEN NONE SEEN /hpf [facility] 01/06/2025 8:33 PM EDT 01/06/2025 8:39 PM EDT us Donn Zamora MD LAB URINE ORDERABLES Final Result Performing Organization Address [facility] Co de Phone Number [address] [address] * (ABNORMAL) Urine Culture (12/27/2024 5:24 PM EDT) Special Requests None Reflexed from [id number] 12/27/2024 5:59 PM EDT [facility] Urine Culture 10,000 to 100,000 colony forming units per mL MIXED CODY (3 OR MORE COLONY TYPES) Culture indicates contamination . Please resubmit if necessary.(A) 12/28/2024 8:08 AM EDT [facility] Urine 12/27/2024 5:24 PM EDT 12/27/2024 5:46 PM EDT us Fanny Clayton MD LAB MICROBIOLOGY CUL TURE ORDERABLES Final Result Performing Organization Address City/[facility]/ZIP Co de Phone Number [address] [address] * T spot TB test (11/27/2024 2:43 PM EDT) Pathologist [facility] T-SPOT.TB Negative Negative [facility] [employer] Comment: (NOTE) A negative test result does not exclude the possibility of exposure to or infection with Mycobacterium tuberculosis (M. tuberculosis). Patients with recent exposure to TB infected individuals exhibiting a negative T-SPOT.TB result should be considered for retesting within 6 weeks or if other relevant clinical symptoms indicate. Results from T-SPOT.TB testing must be used in conjunction with each individual's epidemiological history, current medical status, and results of other diagnostic evaluations. The T-SPOT.TB test is qualitative and results are reported as positive, borderline, or negative, given that the test controls perform as expected. In line with the Centers for Disease Control and Prevention's 2010 recommendation to report quantitative measurements alongside the qualitative result, the laboratory provides spot counts for informational purposes only. The T-SPOT.TB test should not be interpreted as a quantitative test. Panel A Spot Count Corrected For Neg Control 0 [employer] Panel B Spot Count Corrected For Neg Control 0 [employer] Negative Control Passed [facility] Positive Control Passed [facility] Comment: (NOTE) For additional information, please refer to http://education.[employer]/faq/AZD274 (This link is being provided for informational/ educational purposes only.) Blood 11/27/2024 2:43 PM EDT 11/27/2024 2:53 PM EDT Fanny Clayton MD LAB BLOOD ORDERABLES Final Result [employer] [address] [place], [place] * Comprehensive metabolic panel (11/26/2024 9:53 AM EDT) [facility] SODIUM 142 133 - 146 mmol/L [facility] POTASSIUM 3.7 3.3 - 5.1 mmol/L [facility] CHLORIDE 103 96 - 108 mmol/L [facility] CO2 29 21 - 35 mmol/L [facility] BUN 17 6 - 19 mg/dL [facility] CREATININE 0.80 0.5 - 1.5 mg/dL [facility] GLUCOSE 90 70 - 99 mg/dL [facility] ALBUMIN 4.5 3.9 - 4.8 g/dL [facility] TOTAL PROTEIN 6.9 6.5 - 8.0 g/dL [facility] CALCIUM 9.5 8.4 - 10.3 mg/dL [facility] ALKALINE PHOSPHATASE 104 39 - 117 U/L [facility] TOTAL BILIRUBIN 0.5 0.0 - 1.2 mg/dL [facility] AST 11 0 - 37 U/L [facility] ALT <5 0 - 40 U/L [facility] GLOBULIN 2.4 1 - 4.8 g/dL [facility] EGFR 76 >59 mL/min/1.7 3m2 [facility] Comment:Estimated glomerular filtration rate calculated using the CKD-EPI refit equation. ANION GAP 14 10 - 20 mmol/L [facility] Blood 11/26/2024 9:53 AM EDT 11/26/2024 9:59 AM EDT us Fanny Clayton MD LAB BLOOD BKR ORDERA BLES Final Result [address] [address] * Outside Lab (11/12/2024) us Scanning Interface Provider LAB BLOOD BKR ORDERA BLES Final Result * (ABNORMAL) Lipid panel (09/14/2022 5:57 AM EDT) HDL 82 mg/dL [facility] Comment: Interpretation <40 mg/dL: Low HDL cholesterol (major risk factor for CHD) Greater than or equal to 60 mg/dL: High HDL cholesterol ( negative risk factor for CHD) HDL - cholesterol is affected by a number of factors, e.g. smoking, excerise, hormones, sex and age. CHOLESTEROL 178 0 - 240 mg/dL [facility] TRIGLYCERIDES 43 30 - 160 mg/dL [facility] LDL 87 50 - 129 mg/dL [facility] Comment: LDL levels in terms of risk for coronary heart disease: <100 mg/dL: Optimal 100-129 mg/dL: Near or above optimal 130-159 mg/dL: Borderline high 160-189 mg/dL: High >190 mg/dL: Very High CARDIAC RISK RATIO 2.2(L) 3.3 - 4.4 C [facility] Blood 09/14/2022 5:57 AM EDT 09/14/2022 6:37 AM EDT us Noreen WALKER LAB BLOOD BKR ORDERABLES Velma irvin Result [facility] [address] [place] [address] from Last 3 Months or Most Recently Relevant to Health Maintenance Insurance MEDICARE PART A & B Member Subscriber Plan / Payer (Ef fective 2013-Present) Name:Loren High Member ID:[id number] Relation to Subscriber:Self Name:Lennox Loren Subscriber ID:[id number] Payer ID:[id number] Group ID:Not on file Type:Medicare Address: [facility] [employer] [facility] [facility] [address] [facility] [address] [facility] [place] [address] [place] [address] MEDICARE PART A & B [employer] MEDICARE [place] [address] MEDICARE PART A & B [employer] MEDICARE SUPPLEMENT MEDICARE PART A & B Member Subscriber Plan / Payer (Ef fective 2013-Present) Name:Loren High Member ID:[id number] Relation to Subscriber:Self Name:Loren High Subscriber ID:[id number] Payer ID:[id number] Group ID:Not on file Type:Medicare Address: [facility] [employer] [facility] [place] [facility].[address] [place] [phone] [facility] MEDICARE SUPPLEMENT MEDICARE PART A & B [facility] MEDICARE SUPPLEMENT MEDICARE PART A & B [facility] MEDICARE SUPPLEMENT MEDICARE PART A & B [address] [place], [place] [email or web address] MEDICARE SUPPLEMENT MEDICARE PART A & B [employer] MEDICARE [place] [id number] MEDICARE PART A & B [facility] [employer] MEDICARE SUPPLEMENT Advance Directives For more information, please contact: [phone] (9AM - 5PM [facility], Monday-Monday) Documents on File Type Date Recorded 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 It is not the complete legal health record.[facility]
--- OUTSIDE RECORDS SUMMARY | 2025-01-28 11:38 | XMS_ITS | Encounter Summary ---
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 Wish to be (Past 1 Month) No 024 3:34 PM EDT Rachel Marroquin RN 2. Non-Specific Active Suici preston Thoughts (Past 1 Month) No 01/08/2024 3:34 PM EDT Sharifa Marroquin RN 6. Suicidal Behavior (Lifetime) No 3:34 PM EDT Rachel Marroquin RN documented as of this encounter Plan of Treatment Not on file documented as of this encounter Visit Diagnoses Not on filedocumented in this encounter Additional Health Concerns Infection Onset Date Last Indicated Resolved Time CDiff-Risk 02/25/2024 02/25/2024 02/25/2024 12:5 2 PM EST documented as of this encounter Care Teams Dive Supervisor Relationship Specialty Start Date End Date Kofi Fan MD [address] [place] [address] [place] [address] PCP - General 09/17/13 08/15/24 Fanny Power MD [address] [place] [address] PCP - General Internal Medicine 08/16/24 documented as of this encounter Additional Source Comments The information contained in this document represents components of the legal health record. It is not the complete legal health record.[facility]
--- OUTSIDE RECORDS SUMMARY | 2025-01-28 11:38 | XMS_ITS | Patient Health Record ---
Author Organization [facility] Address [address] [place] [address] Care Team Providers Care Lacquer Machine Feeder Name Role Phone Mita GUILLEN, Kofi Primary Care Provider Chaitanya Stveen Unavailable [phone] Reason For Referral No Information Plan Of Treatment No Information Insurance Providers Payer Name Payer Address Payer Phone Subscriber Number Group Number Insured Name Patient Relationship to Insured Coverage Start Date Coverage End Date MEDICARE OF [place] [address] [place] [address] [phone] [id number] LEI SABIHA Self - patient is the insured [facility] [address] [place] [address] [id number] LEI SABIHA Self - patient is the insured
--- OUTSIDE RECORDS SUMMARY | 2025-01-28 11:38 | XMS_ITS | Encounter Summary ---
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 Not on file documented as of this encounter Functional Status * Calculated C-SSRS Risk Score (Lifetime/Recent) Answer Date of Assessment Author No Risk Indicated 02/25/2024 3:36 AM EST Deanna Whittington RN * [place] Suicide Severity Rating Scale (Screener/Recent Self-Report) Question [...] documented as of this encounter Care Teams Grease Renderer Relationship Specialty Start Date End Date Kofi Fan MD [address] [place] [address] [place] [address] PCP - General 09/17/13 08/15/24 Fanny Power MD [address] [place] [address] PCP - General Internal Medicine 08/16/24 documented as of this encounter Additional Source Comments The information contained in this document represents components of the legal health record. It is not the complete legal health record.[facility]
--- OUTSIDE RECORDS SUMMARY | 2025-01-28 11:38 | XMS_ITS | Encounter Summary ---
Author Organization [facility] Address [address] [place] [address] Phone Care Team Providers Care Artificial Log Machine Operator Name Role Phone Kofi Fan MD Primary Care Provider [phone] Fanny Power MD Primary Care Provid er Encounter Details Date Type Department Care Team (Late st Contact Info) Description 10/29/2021 Procedure Pass [facility], Ct Scan - [address] [address] Social History Tobacco Use Types Packs/Day Years [...] documented as of this encounter Care Teams Artificial Log Machine Operator Relationship Specialty Start Date End Date Kofi Fan MD [address] [place] [address] [address] PCP - General 09/17/13 08/15/24 Fanny Power MD [address] [place] [address] PCP - General Internal Medicine 08/16/24 documented as of this encounter Additional Source Comments The information contained in this document represents components of the legal health record. It is not the complete legal health record.[facility]
--- OUTSIDE RECORDS SUMMARY | 2025-01-28 11:38 | XMS_ITS | Encounter Summary ---
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 Not on file documented as of this encounter Functional Status * Calculated C-SSRS Risk Score (Lifetime/Recent) Answer Date of Assessment Author No Risk Indicated 05/20/2023 10:14 AM Rachel Mata RN * [place] Suicide Severity Rating Scale (Screener/Recent Self-Report) Question [...] documented as of this encounter Care Teams Otter Trawler Boatswain Relationship Specialty Start Date End Date Kofi Fan MD [address] [place] [address] [place] [address] PCP - General 09/17/13 08/15/24 Fanny Power MD [address] [place] [address] PCP - General Internal Medicine 08/16/24 documented as of this encounter Additional Source Comments The information contained in this document represents components of the legal health record. It is not the complete legal health record.[facility]
--- OUTSIDE RECORDS SUMMARY | 2025-01-28 11:38 | XMS_ITS | Encounter Summary ---
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 Not on file documented as of this encounter Functional Status * Calculated C-SSRS Risk Score (Lifetime/Recent) Answer Date of Assessment Author No Risk Indicated 05/20/2023 10:14 AM Rachel Mata RN * [place] Suicide Severity Rating Scale (Screener/Recent Self-Report) Question [...] documented as of this encounter Care Teams Field Service Engineer Relationship Specialty Start Date End Date Kofi Fan MD [address] [place] [address] [place] [address] PCP - General 09/17/13 08/15/24 Fanny Power MD [address] [place] [address] PCP - General Internal Medicine 08/16/24 documented as of this encounter Additional Source Comments The information contained in this document represents components of the legal health record. It is not the complete legal health record.[facility]
--- OUTSIDE RECORDS SUMMARY | 2025-01-28 11:38 | XMS_ITS | Encounter Summary ---
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 file Not on file documented as of this encounter Functional Status * Calculated C-SSRS Risk Score (Lifetime/Recent) Answer Date of Assessment Author No Risk Indicated 09/13/2022 5:12 PM EDT Martine Pang RN * [place] Suicide Severity Rating Scale (Screener/Recent Self-Report) Question [...] documented as of this encounter Care Teams Guitar Player Relationship Specialty Start Date End Date Kofi Fan MD [address] [place] [address] [place] [address] PCP - General 09/17/13 08/15/24 Fanny Power MD [address] [place] [address] PCP - General Internal Medicine 08/16/24 documented as of this encounter Additional Source Comments The information contained in this document represents components of the legal health record. It is not the complete legal health record.[facility]
--- OUTSIDE RECORDS SUMMARY | 2025-01-28 11:38 | XMS_ITS | Encounter Summary ---
Author Organization [facility] Address [address] [place] [address] Phone Care Team Providers Care Body Builder Name Role Phone Kofi Fan MD Primary Care Provider [phone] Fanny Power MD Primary Care Provid er Encounter Details Date Type Department Care Team (Late st Contact Info) Description 12/20/2018 Procedure Pass [facility] [address] [place] [address] Social History Tobacco Use Types Packs/Day Years [...] documented as of this encounter Care Teams Body Builder Relationship Specialty Start Date End Date Kofi Fan MD [address] [place] [address] [address] PCP - General 09/17/13 08/15/24 Fanny Power MD [address] [place] [address] PCP - General Internal Medicine 08/16/24 documented as of this encounter Additional Source Comments The information contained in this document represents components of the legal health record. It is not the complete legal health record.[facility]
--- OUTSIDE RECORDS SUMMARY | 2025-01-28 11:38 | XMS_ITS | Encounter Summary ---
Author Organization [facility] Address [address] [place] [address] Phone Care Team Providers Care Dock Pumper Name Role Phone Kofi Fan MD Primary Care Provider [phone] Fanny Power MD Primary Care Provid er Encounter Details Date Type Department Care Team (Late st Contact Info) Description 11/05/2021 Telephone [facility] Department of Neurology [address] [place] [address], [address]th Floor, [address] [place] [address] Ever Cochran MD [address] [place], [place] [address] [place] [address] [email or web address] Social History Tobacco Use Types Packs/Day Years [...] 7:57 PM EDT Hiro Michaud RN * [place] Suicide Severity Rating Scale (Screener/Recent Self-Report) Question Answer Date of Assessment Author 1. Wish to be (Past 1 Month) No 022 7:57 PM EDT Hiro Michaud, [place] 2. Non-Specific Active Suici preston Thoughts (Past 1 Month) No 11/07/2021 7:57 PM EDT Shay Michaud RN 6. Suicidal Behavior (Lifetime) No 7:57 PM EDT Hiro Michaud RN documented as of this encounter Plan [...] documented as of this encounter Care Teams Dock Pumper Relationship Specialty Start Date End Date Kofi Fan MD [address] [place] [address] [address] PCP - General 09/17/13 08/15/24 Fanny Power MD [address] [place] [address] PCP - General Internal Medicine 08/16/24 documented as of this encounter Additional Source Comments The information contained in this document represents components of the legal health record. It is not the complete legal health record.[facility]
--- OUTSIDE RECORDS SUMMARY | 2025-01-28 11:38 | XMS_ITS | Encounter Summary ---
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 Wish to be (Past 1 Month) No 09/13/2022 5:12 PM EDT Martine Meier RN 2. Non-Specific Active Suici preston Thoughts [...] documented as of this encounter Care Teams Shear Grinder Operator Helper Relationship Specialty Start Date End Date Kofi Fan MD [address] [place] [address] [place] [address] PCP - General 09/17/13 08/15/24 Fanny Power MD [address] [place] [address] PCP - General Internal Medicine 08/16/24 documented as of this encounter Additional Source Comments The information contained in this document represents components of the legal health record. It is not the complete legal health record.[facility]
--- OUTSIDE RECORDS SUMMARY | 2025-01-28 11:38 | XMS_ITS | Encounter Summary ---
Author Organization [facility] Address [address] [place] [address] Phone Care Team Providers Care Bottle Carrier Name Role Phone Kofi Fan MD Primary Care Provider [phone] Fanny Power MD Primary Care Provid er Encounter Details Date Type Department Care Team (Late st Contact Info) Description 05/11/2021 Procedure Pass [facility], Ct Scan - [address] [address] Social History Tobacco Use Types Packs/Day Years [...] 4:06 PM EST Sabas Gutierrez RN * [place] Suicide Severity Rating Scale (Screener/Recent Self-Report) Question Answer Date of Assessment Author 1. Wish to be (Past 1 Month) No 022 4:06 PM Maryjane Espino, [place] 2. Non-Specific Active Suici preston Thoughts (Past 1 Month) No 05/11/2021 4:06 PM Maryjane Espino , [place] 6. Suicidal Behavior (Lifetime) No 4:06 PM [...] documented as of this encounter Care Teams Bottle Carrier Relationship Specialty Start Date End Date Kofi Fan MD [address] [place] [address] [address] PCP - General 09/17/13 08/15/24 Fanny Power MD [address] [place] [address] PCP - General Internal Medicine 08/16/24 documented as of this encounter Additional Source Comments The information contained in this document represents components of the legal health record. It is not the complete legal health record.[facility]
--- OUTSIDE RECORDS SUMMARY | 2025-01-28 11:38 | XMS_ITS | Encounter Summary ---
Author Organization [email or web address] [facility] Address [address] [place] [address] Phone Care Team Providers Care Subgrade Roller Operator Name Role Phone Kofi Fan MD Primary Care Provider [phone] Fanny Power MD Primary Care Provid er Encounter Details Date Type Department Care Team (Late st Contact Info) Description 06/03/2022 Procedure Pass [facility], Ct Scan - [address] [address] Social History Tobacco Use Types Packs/Day Years [...] 2:06 PM EDT Alfreda Noyola RN * [place] Suicide Severity Rating Scale (Screener/Recent Self-Report) Question [...] documented as of this encounter Care Teams Subgrade Roller Operator Relationship Specialty Start Date End Date Kofi Fan MD [address] [place] [address] PCP - General 09/17/13 08/15/24 Fanny Power MD [address] [place] [address] PCP - General Internal Medicine 08/16/24 documented as of this encounter Additional Source Comments The information contained in this document represents components of the legal health record. It is not the complete legal health record.[facility]
--- OUTSIDE RECORDS SUMMARY | 2025-01-28 11:38 | XMS_ITS | Encounter Summary ---
Author Organization [facility] [facility] Address [address] [place] [address] Phone Care Team Providers Care Stone Rigger Name Role Phone Kofi Fan MD Primary Care Provider [phone] Fanny Power MD Primary Care Provid er Encounter Details Date Type Department Care Team (Late st Contact Info) Description 11/30/2018 Ancillary Orders [facility], X-Ray - [address] [address] Walker Barajas MD [address] [place] [address] [email or web address] Cervicalgia; Spondylosis of cervical region without myelopathy [...] documented as of this encounter Care Teams Stone Rigger Relationship Specialty Start Date End Date Kofi Fan MD [address] [place] [address] PCP - General 09/17/13 08/15/24 Fanny Power MD [address] [place] [address] PCP - General Internal Medicine 08/16/24 documented as of this encounter Additional Source Comments The information contained in this document represents components of the legal health record. It is not the complete legal health record.[facility]
--- OUTSIDE RECORDS SUMMARY | 2025-01-28 11:38 | XMS_ITS | Encounter Summary ---
Author Organization [facility] Address [address] [place] [address] Phone Care Team Providers Care Hiv/Aids Care Nurse Name Role Phone Kofi Fan MD Primary Care Provider [phone] Fanny Power MD Primary Care Provid er Reason for Referral * MRI/CAT Scan - Closed Specialty Diagnoses / Procedures Referred By Chandler ayala Referred To Contact Radiology Diagnoses Cervicalgia Procedures MRI Cervical Spine Walker Barajas MD Phone: tel: fax: [email or web address] Referral ID Status Reason Start Date Expiration Date Visits Re quested Visits Authorized [id number] Closed 11/30/2018 11/30/2019 1 1 Encounter Details Date Type Department Care Team (Late st Contact Info) Description 11/30/2018 Ancillary Orders Virtual Department [address] [place] [address] Walker Barajas MD [address] [place] [address] [email or web address] Cervicalgia Social History Tobacco Use Types Packs/Day [...] protrusion or central canal stenosis. POS - [id number] Narrative 12/13/2018 9:52 AM EDT COMPARISON:11/30/2018 radiographs. [...] protrusion or central canal stenosis. POS - [id number] us Walker Barajas MD IMG MR XSPECIALTY Edite d [...] documented as of this encounter Care Teams Hiv/Aids Care Nurse Relationship Specialty Start Date End Date Kofi Fan MD [address] [place] [address] [address] PCP - General 09/17/13 08/15/24 Fanny Power MD [address] [place] [address] PCP - General Internal Medicine 08/16/24 documented as of this encounter Additional Source Comments The information contained in this document represents components of the legal health record. It is not the complete legal health record.[facility]
--- OUTSIDE RECORDS SUMMARY | 2025-01-28 11:38 | XMS_ITS | Encounter Summary ---
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 Not on file documented as of this encounter Functional Status * Calculated C-SSRS Risk Score (Lifetime/Recent) Answer Date of Assessment Author No Risk Indicated 02/06/2023 11:05 AM EST Mallorie Sharma RN * [place] Suicide Severity Rating Scale (Screener/Recent Self-Report) Question [...] documented as of this encounter Care Teams Cardiology Technician Relationship Specialty Start Date End Date Kofi Fan MD [address] [place] [address] [place] [address] PCP - General 09/17/13 08/15/24 Fanny Power MD [address] [place] [address] PCP - General Internal Medicine 08/16/24 documented as of this encounter Additional Source Comments The information contained in this document represents components of the legal health record. It is not the complete legal health record.[facility]
--- OUTSIDE RECORDS SUMMARY | 2025-01-28 11:38 | XMS_ITS | Encounter Summary ---
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 Not on file documented as of this encounter Functional Status * Calculated C-SSRS Risk Score (Lifetime/Recent) Answer Date of Assessment Author No Risk Indicated 09/13/2022 5:12 PM EDT Martine Pang RN * [place] Suicide Severity Rating Scale (Screener/Recent Self-Report) Question [...] documented as of this encounter Care Teams Seismograph Recorder Relationship Specialty Start Date End Date Kofi Fan MD [address] [place] [address] [place] [address] PCP - General 09/17/13 08/15/24 Fanny Power MD [address] [place] [address] PCP - General Internal Medicine 08/16/24 documented as of this encounter Additional Source Comments The information contained in this document represents components of the legal health record. It is not the complete legal health record.[facility]
--- OUTSIDE RECORDS SUMMARY | 2025-01-28 11:39 | XMS_ITS | Encounter Summary ---
Author Organization [email or web address] [facility] Address [address] [place] [address] Phone Care Team Providers Care Managing Attorney Name Role Phone Kofi Fan MD Primary Care Provider [phone] Fanny Power MD Primary Care Provid er Encounter Details Date Type Department Care Team (Late st Contact Info) Description 04/15/2022 Procedure Pass [facility], Ct Scan - [address] [address] Social History Tobacco Use Types Packs/Day Years [...] 3:38 PM EST Betina Edwards RN * [place] Suicide Severity Rating Scale (Screener/Recent Self-Report) Question Answer Date of Assessment Author 1. Wish to be (Past 1 Month) No 023 3:38 PM Betina Moss, [place] 2. Non-Specific Active Suici preston Thoughts (Past 1 Month) No 04/15/2022 3:38 PM Betina Moss , [place] 6. Suicidal Behavior (Lifetime) No 3:38 PM Betina Moss, [place] documented as of this encounter Plan [...] documented as of this encounter Care Teams Managing Attorney Relationship Specialty Start Date End Date Kofi Fan MD [address] [place] [address] PCP - General 09/17/13 08/15/24 Fanny Power MD [address] [place] [address] PCP - General Internal Medicine 08/16/24 documented as of this encounter Additional Source Comments The information contained in this document represents components of the legal health record. It is not the complete legal health record.[facility]
== END 2025-01-28 11:06 | disposition home or self-care (01) ==
LOC: HO.HMCH 10:08
PROVIDERS: PCP Internal Medicine; Visit Provider Internal Medicine
DX: G20.C Parkinsonism, unspecified (principal); M25.551 Pain in right hip; M25.552 Pain in left hip

== ENCOUNTER → 2025-01-28 10:07 | Outpatient (BNVA) | payer MEDICARE, OTHER, SELFPAY | PROVIDERS: PCP Internal Medicine; Visit Provider Internal Medicine | DX: G20.C Parkinsonism, unspecified (principal); M25.551 Pain in right hip; M25.552 Pain in left hip | CPT/HCPCS: 96127; 99212 ==

== ENCOUNTER 2025-02-07 09:27 | Outpatient (AMB) | payer MEDICARE, OTHER, SELFPAY ==
--- NOTE | 2025-02-07 09:29 | MHC.OFFVIS ---
Vital Signs 02/07/25 09:33 Height 5 ft 7 in Weight 125 lb BMI 19.6 BP 134/75 Blood Pressure Location Lt brachial Position Sitting Pulse 80 Pulse Source Pulse Oximeter Pulse Oximetry (%) 96 Oxygen Delivery Method Room Air Intake Visit Reasons: Bilateral Hip Pain Intake Note: Pain today 06/27 Night Time Nanny Required: No Accompanied by: SWITCH HOUSE OPERATOR Allergies penicillin V Allergy (Unknown, Verified 01/28/25 10:42) Unknown pramipexole (From Mirapex) Adverse Reaction (Mild, Verified 01/28/25 10:42) Unknown ropinirole (From Requip) Adverse Reaction (Mild, Verified 01/28/25 10:42) Dizziness amantadine Adverse Reaction (Unknown, Verified 01/28/25 10:42) Dizziness ondansetron (From Zofran) Adverse Reaction (Unknown, Verified 01/28/25 10:42) Unknown HPI Comments Details: The patient is a 75 year old female presenting for evaluation of chronic bilateral hip pain. She resides in [facility] and is accompanied by her SWITCH HOUSE OPERATOR staff today. The patient states the pain is not in the hip itself, but rather originates in the buttock area and radiates down the left leg, sometimes causing the leg to move involuntarily. She reports intermittent left groin pain and chronic pelvic pain. Mild right hip pain without groin symptoms. The pain is sometimes exacerbated when getting out of a car or bed and is rated as 10/10 both at rest and with activity. For pain management, the patient has been taking two ibuprofen tablets as needed and has a recent prescription for ibuprofen 600 mg three times daily. She reports very strong opioids are most helpful, like morphine. The patient's relevant medical history includes Parkinson's disease, which primarily affects the left side, and is managed by neurology with carbidopa/levodopa. The patient has a 27-year history of scoliosis and has noticed a more pronounced hunched posture over the last six months, which the patient attributes to the hip area pain. The patient reports a fall in September of this year. The patient denies osteoporosis, a history of back surgery, or prior hip injections under X-ray guidance. She reports injection by [facility] on 12/26/24 but cannot recall if it was hip injection. A prior abdominal and pelvic CT scan from last year revealed Grade 1 spondylolisthesis at L4-L5, mild bilateral facet arthropathy at L4-L5 and L5-S1, and general arthritis in the back. The patient has not had recent hip x-rays. The patient lives in an assisted living facility, uses a walker, and reports not exercising. - Location: The patient describes the pain as starting in the buttock area, not the hip joint itself. - Radiation: The pain radiates down the left leg. - Severity: The pain is rated 10 out of 10 with activity and 10 out of 10 at rest. - Triggers: Pain is sometimes worse when getting out of a car or a bed. - Analgesia: The patient uses ibuprofen, taking two tablets for pain. - Current Pain Levels: The patient reports a pain level of 10/10 with activity and 10/10 at rest. - Activities of Daily Living: The patient uses a walker to ambulate. - Aberrant Drug Related Behaviors: The patient was informed that the clinic does not offer opioid therapy as it is an interventional practice. [facility] Medical History Degenerative disc disease, cervical Pelvic pain Vertigo Mild recurrent major depression Anxiety Spondylolisthesis, lumbar region Migraine headache Hypertension Parkinson disease Surgical History History of facial surgery History of cholecystectomy Family History Father Heart disease Mother No problems noted. Family/Other Breast cancer Social History Housing: House Alcohol intake: never Patient Tobacco Use Status: Never used Tobacco e-Cigarette/Vaping Use: Never Used Second Hand Smoke Exposure: No service: No Current occupational status: retired Cognitive needs: No Hearing needs: No Vision needs: Yes Female Reproductive History Menstrual Age of Menarche: 11 Review of Systems Const Details: - Musculoskeletal: Reports left buttock pain radiating down the leg. Bilateral hip pain and low back pain. - Constitutional: Reports a recent fall in September. - Neurological: Reports left-sided tremors from Parkinson's disease, sees Neurology, takes carbidopa-levodopa and rasagiline. - General: Reports feeling dizzy when bending backwards or forward. All systems reviewed & are unremarkable except as noted in HPI and below Physical Exam Vital Signs: Last Vital Signs Pulse 80 11/21/25 09:33 BP 134/75 02/07/25 09:33 Pulse Ox 96 02/07/25 09:33 Oxygen Delivery Method Room Air 02/07/25 09:33 BMI result Body Mass Index 19.6 General: Appears afebrile. Alert and oriented. Mood and affect appropriate. Follows and participates in conversation appropriately. Respiratory effort is unlabored. No cough. Able to transition from sit to stand with assistance. Uses walker with transfers and ambulation. Ambulates with slow, antalgic gait with hunched over posture. Reports Parkinson's tremors on left side. Eyes General: appearance normal, both eyes and all related structures Resp Effort & Inspection: normal respiratory effort, able to speak in complete sentences, no cough and no respiratory distress General: Yes no CVA tenderness Back/Spine/Pelvis Other: Limited lumbar ROM due to pain and kyphotic posture. Lumbar extension reproduces mild to moderate pain, causes unsteadiness and dizziness. Lumbar flexion is intact and does not reproduce pain. No midline TTP in cervical through lumbar regions. Demonstrates 5/5 right and 4/5 left strength of quadriceps bilaterally as well as flexion/dorsiflexion of bilateral feet against resistance. 2+ pedal pulses bilaterally. Straight leg rise with dorsiflexion positive on the left. Diminished patellar and achilles reflexes bilaterally. Facet loading test positive bilaterally. Red sign, Gilbert?s, Pelvic compression and Stinchfield tests are positive on the left. No groin pain on the right and mild with left external and moderate with internal hip rotations. Valsalva maneuver negative. Back: no CVA tenderness Cervical Spine: loss of normal cervical lordosis, cervical muscular tenderness, pain with cervical ROM and No Cervical spine tenderness Thoracic/Lumbar Spine: thoracic and lumbar spine normal to inspection, No Thoracic/lumbar spine scar(s), Lasegue's sign positive on the left and diffuse, pain with thoraco-lumbar ROM, thoraco-lumbar ROM limited, No thoracic spinal tenderness and No lumbar spinal tenderness Pelvis: buttock tenderness on the left Sacroiliac joints: bilaterally (left>right) tender to palpation Extrem General: Yes capillary refill normal, Yes no clubbing, cyanosis or edema and Yes no calf tenderness Results Reviewed Results Reviewed: CT abdomen pelvis wo/w IV con 02/06/24 OSSEOUS STRUCTURES: Grade 1 anterolisthesis L4 over L5. No aggressive lytic or sclerotic process seen. Mild bilateral L4-5 and L5-S1 facet arthropathy is noted. Assessment & Plan Assessment & Plan (1) Spondylolisthesis, lumbar region: Code(s): M43.16 - Spondylolisthesis, lumbar region Category: Medical (2) Lumbar degenerative disc disease: Code(s): M51.369 - Other intervertebral disc degeneration, lumbar region without mention of lumbar back pain or lower extremity pain Category: Medical (3) Lumbosacral spondylosis: Code(s): M47.817 - Spondylosis without myelopathy or radiculopathy, lumbosacral region Category: Medical (4) Bilateral hip pain: Code(s): M25.551 - Pain in right hip; M25.552 - Pain in left hip Category: Medical Plan An order has been placed for bilateral hip and lumbar spine x-rays, which the patient has requested to have performed at [facility]. Upon review of the hip x-rays, the plan is to offer a cortisone injection into the left hip joint initially for arthritic and degenerative findings. Given the concern that the patient's symptoms may originate from the lumbar spine, if the hip x-rays are unremarkable, an MRI of the back will be ordered to further evaluate symptoms. The patient was advised to continue taking ibuprofen 600 mg three times a day as prescribed by her PCP. I have informed patient that we do not offer opioid program at this time. Following the review of the imaging studies, the patient will be contacted to discuss the results and finalize the treatment plan. All questions and concerns have been answered and patient agreed with the treatment plan. Follow up for xray results and sooner as needed. Patient was informed and verbally consented to the use of an ambient scribe for clinic note documentation during this visit. Orders: Orders XR hip BI w PEL1V Today M25.551 - Pain in right hip, M25.552 - Pain in left hip XR lumbar spine 4V min Today M43.16 - Spondylolisthesis, lumbar region, M47.817 - Spondylosis without myelopathy or radiculopathy, lumbosacral region, M51.369 - Other intervertebral disc degeneration, lumbar region without mention of lumbar back pain or lower extremity pain Coding Level of Care Code New Pt Level 4 (10226) Diagnoses Spondylolisthesis, lumbar region M43.16 Lumbar degenerative disc disease M51.369 Lumbosacral spondylosis M47.817 Bilateral hip pain M25.551; M25.552
[2025-02-07 09:33] VITALS: BP 134/75; PULSE 80; O2SAT 96; BMI 19.6
--- OUTSIDE RECORDS SUMMARY | 2025-02-07 09:56 | XMS_ITS | Encounter Summary ---
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 Not on file Not on file documented as of this encounter Functional Status * Calculated C-SSRS Risk Score (Lifetime/Recent) Answer Date of Assessment Author No Risk Indicated 12/07/2023 9:57 PM EDT Terese Minaya RN * [place] Suicide Severity Rating Scale (Screener/Recent Self-Report) Question [...] documented as of this encounter Care Teams Proposal Lead Writer Relationship Specialty Start Date End Date Kofi Fan MD [address] [place] [address] [place] [address] PCP - General 09/17/13 08/15/24 Fanny Power MD [address] [place] [address] PCP - General Internal Medicine 08/16/24 documented as of this encounter Additional Source Comments The information contained in this document represents components of the legal health record. It is not the complete legal health record.[facility]
--- OUTSIDE RECORDS SUMMARY | 2025-02-07 09:56 | XMS_ITS | Encounter Summary ---
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 Not on file Not on file documented as of this encounter Plan of Treatment Not on file documented as of this encounter Visit Diagnoses Not on filedocumented in this encounter Additional Health Concerns Infection Onset Date Last Indicated Resolved Time CDiff-Risk 02/25/2024 02/25/2024 02/25/2024 12:5 2 PM EST documented as of this encounter Care Teams Pelts Skinner Relationship Specialty Start Date End Date Kofi Fan MD [address] [place] [address] PCP - General 09/17/13 08/15/24 Fanny Power MD [address] [place] [address] PCP - General Internal Medicine 08/16/24 documented as of this encounter Additional Source Comments The information contained in this document represents components of the legal health record. It is not the complete legal health record.[facility]
--- OUTSIDE RECORDS SUMMARY | 2025-02-07 09:56 | XMS_ITS | Data Portability ---
Author Organization [place] [facility] Address [address] [place] [address] Care Team Providers Care Gate Technician Name Role Phone NUNO TELLEZ Primary Care Provider Assessment Encounter Date Assessment Date Assessment LastModified by Organization Details LastModified Time 12/19/2019 12/19/2019 Overview/History :Horacio henriquez is a 69-year-old female that is a new patient [facility] contacted [facility] complaints of urinary frequency for the [...] antibiotic based off of what this grew [facility] was prescribed this. I did review signs of worsening infection with the patient. She verbalized understanding of discharge instructions as well as emergency room precautions. Proper Personal Protective Equipment (PPE), including gloves, eye protection and masks were donned and doffed appropriately and all equipment cleaned using approved technique with germicidal disposable wipes prior to and after care of this patient according to [facility]'s infection prevention protocols. Time On Scene with Patient: 00:31:27 [email or web address] Not available 12/19/2019 20:44:48 10/17/2021 10/17/2021 Time [...] written and oral format. Patient taken to [facility] . [email or web address] Not available 10/17/2021 17:31:29 Plan of Treatment Reminders Order Date Submit Date Provider Last Modified By Organization Details Last Modified Time Details Appointments None recorded. Lab urinalysis, dipstick 2019 ernestine r31 Spr - Home, [address], [place], [address], 0 17:31:59 culture, [facility] - [facility] TYRONE [facility] (Centralized Electronic Ordering - All Locations), Patient Can Go To The Location Of Their Choice, [id number] 0 08:10:48 Referral None recorded. Procedures None recorded. Surgeries None recorded. Imaging None recorded. Medication Orders cephalexin 500 mg capsule 2019 InfobionicsodrigI Move You z783 [id number], [address] [place], [address], 2 15:30:25 Keflex 500 mg capsule 2019 jrodrigue z783 [id number], [address] [place], [address], 2 15:30:25 Patient TargetsNo targets recorded. Patient Instructions Encounter Date Encounter Id Patient Instructions Last Modified By Organization Details Last Modified Time 12/19/2019 [id number] WE CAME TO SEE Y OU TODAY [...] in your condition between 8am-10pm, [facility] at [phone] to help navigate your care. [email or web address] Not available 12/19/2019 17:33:40 10/17/2021 [id number] Thank you for yo ur visit with [facility] today. You were seen today because of [...] Available [facility] [address] [place], [address], 12/19/2019 17:23:27 12/19/1912/19/2019 urina lysis , dipst ick Color yellow Not Available Spr - Home [address] [place], [address], 12/19/2019 17:23:27 12/19/1912/19/2019 urina lysis , dipst ick Glucose negati ve Not Available Spr - Home [address] [place], [address], 12/19/2019 17:23:27 12/19/1912/19/2019 urina lysis , dipst ick Bilirubin negati ve Not Available Spr - Home [address] [place], [address], 12/19/2019 17:23:27 12/19/1912/19/2019 urina lysis , dipst ick Ketones NEG Not Available Spr - Home [address] [place], [address], 12/19/2019 17:23:27 12/19/1912/19/2019 urina lysis , dipst ick Sp. [place] 1.010 Not Available Spr - Home [address] [place], [address], 12/19/2019 17:23:27 12/19/1912/19/2019 urina lysis , dipst ick Blood ++ Not Available Spr - Home [address] [place], [address], 12/19/2019 17:23:27 12/19/1912/19/2019 urina lysis , dipst ick pH 5 Not Available Spr - Home [address] [place], [address], 12/19/2019 17:23:27 12/19/1912/19/2019 urina lysis , dipst ick Protein negati ve Not Available Spr - Home [address] [place], [address], 12/19/2019 17:23:27 12/19/1912/19/2019 urina lysis , dipst ick Urobilirubin negati ve Not Available Spr - Home [address] [place], [address], 12/19/2019 17:23:27 12/19/1912/19/2019 urina lysis , dipst ick Nitrites NEG Not Available Spr - [facility] [address] [place], [address], 12/19/2019 17:23:27 12/19/1912/19/2019 urina lysis , dipst ick Leukocytes + Not Available Spr - ome [address], [place], [address], 12/19/2019 17:23:27 12/19/1912/20/2019 cultu re, urine specimen [...] completed SACHI WOOD NP [address], [place], [address], [place] [facility] 12/19/2019 20:44:52 Imaging Results None recorded. Procedure Notes None recorded. Medical Equipment None Reported. Allergies Allergen ID Allergen Name Allergen Category Reaction Reaction Severity Criticality Documentation Date Start Date Code Code System Note Provider Name and Address Organization Details Recorded Time 335491 Product containin g penicilli n (product) medicatio n Not available Not available Not available 12/19/2019 [id number] SNOMED SACHI WOOD NP [address] [place], [address], [place] [facility] 0 17:18:46 [...] Vitals Date Recorded Heart rate Oxygen saturation Body temperature Respiratory rate Systolic And Diastolic Provider Name and Address Organization Details Last Updated DateTime 2 104 /min 97 % 97.9 [degF] 18 /min 134/82 mm[Hg] Not Available [facility] 2 15:50:34 Date Recorded Heart rate Body temperature Respiratory rate Oxygen saturation Systolic And Diastolic Provider Name and Address Organization Details Last Updated DateTime 0 90 /min 98.4 [degF] 18 /min 97 % 184/92 mm[Hg] Not Available [facility] 0 17:24:47 Social History Question Answer Notes LastModified by Organizat ion Details LastModified Time Tobacco Smoking Status Never Smoker SACHI WOOD NP [address], [place], [address], [place] [facility] 12/19/2019 17:21:18 What Is Your Code Status? Full Code [email or web address] Information not available 12/19/2019 Within The Past 12 Months, Has It Happened That The Food You Bought Just Didn't Last And You Didn't Have Money To Get More. No [email or web address] Information not available 12/19/2019 Within The Past 12 Months, Have You Worried That Your Food Would Run Out Before You Got Money To Buy More. No [email or web address] Information not available 12/19/2019 Fall Risk: Do You Feel Unsteady When Standing Or Walking? No [email or web address] Information not available 12/19/2019 We Know That How And When People Interact With Friends And Family Can Be Very Different From Person To Person. How Often Do You Have The Opportunity To See Or Talk To People That You Care About And Feel Close To? (Ex: Talking To Friends On The Phone Or Visiting Friends Or Family Or Going To [employer] Or Club Meetings) 3 Or 4 Times Per Week [email or web address] Information not available 12/19/2019 We Know From Many Of Our Patients That Covering All Of Their Costs Can Be Difficult At Times. This Can Cause Stress And Impact Health. In The Past Year, Have You Been Unable To Get Any Of The Following When It Was Really Needed? No [email or web address] Information not available 12/19/2019 What Is Your Housing Situation Today? I Have Housing [email or web address] Information not available 12/19/2019 Would You Like Help Connecting To Resources? None [email or web address] Information not available 12/19/2019 Sex: Unknown Functional Status None recorded. Mental Status None recorded. Family History Relationship Description Onset Age of this Age Resolved Age Notes LastModified by Organization Details LastModified Time Father Congestive heart failure Not available 03/2019 17:23:15 Medical History Condition Response Diabetes N Coronary Artery Disease N High Cholesterol N Pulmonary Embolism N Cancer N Hypertension Y Stroke N Asthma N COPD N Depression Kidney Disease N Gynecological HistoryNo gynecological history recorded. Obstetrics History GPAL:G 0 P 0 0 0 0 Past Encounters Encounter ID Performer Location Encounter Start Date Encounter Closed Date Diagnosis/Indication Diagnosis SNOMED-CT Code Diagnosis ICD10 Code Diagnosis IMO Codes Diagnosis Note [id number] SACHI WOOD NP [facility] [address] [place] [address] 12/19/2019 17:03:12 12/22/2019 22:24:53 Urinary tract infectious disease 85596258 N39.0 [id number] September LIANA Etienne [facility] [address] [place] [address] 10/17/2021 15:12:14 10/18/2021 09:16:19 Ocular headache 52136810 G43.B0 Muscle weakness 23632458 M62.81 Health Concerns Section Related Observation LastModified by Organization Detai ls LastModified Time None Recorded Concern Status LastModified by Organization Details LastModified Time None Recorded Advance Directives Directive None Recorded Payers Insurance Date Sequence Insurance Name Policy Number Policy Cronin Covered Member ID Cronin Member ID Guarantor Name 10/22/2021 1 [place] [facility] Loren High [id number] Loren High 10/17/2021 1 [place] [facility] Loren High [id number] Loren High 11/20/2021 2 [facility] INDEMNITY PLAN (INDEMNITY) [id number] Loren High 12/19/2019 1 *SELF PAY* Loren iHgh [id number] Loren High 10/18/2021 2 [facility] [place] [facility] INDEMNITY PLAN (INDEMNITY) [id number] Loren High [id number] Loren High 10/17/2021 1 [place] [facility] Loren High [id number] Loren High Notes Date Note Type Note Provider Name and Address Organization Details Recorded Time 12/19/2019 text/html General HPI Template - DHReported by Patient This is a 69-year-old female that is a [facility]. She has a medical history significant for hypertension, Parkinson's and anxiety. She contacted [facility] because she has been having urinary [...] been eating and drinking normally. SACHI WOOD, LIAAN [address], [place], [address], [place] [facility] 12/19/2019 20:45:02 10/17/2021 text/html General HPI Template [...] 3 years ago. September LIANA Etienne [address], [place], [address], [place] [facility] 10/17/2021 17:31:42 OBGyn Episode No OBEpisode recorded.
--- OUTSIDE RECORDS SUMMARY | 2025-02-07 09:56 | XMS_ITS | Clinical Summary ---
Author Organization [facility] Address [address] [place] [address] Phone Care Team Providers Care Meter Reader Name Role Phone Fanny Power MD Primary Care Provider Medications acetaminophen (TYLENOL) 325 MG tablet Take 650 mg by mouth every 30 minutes as needed 06/06/2023 Active ascorbic acid (VITAMIN C) 1000 MG tablet Take 1,000 mg by mouth in the morning. 05/04/2024 Active estradiol (ESTRACE) 0.1 MG/GM vaginal cream Insert 2 g into the vagina 3 (three) times a week Active gabapentin (NEURONTIN) 100 MG capsule Take 100 mg by mouth in the morning. 09/15/2023 Active hydrOXYzine (ATARAX) 25 MG tablet Take 25 mg by mouth 4 times daily as needed 02/14/2024 Active ibuprofen (ADVIL,MOTRIN) 200 MG tablet Take 200 mg by mouth every 6 hours as needed 05/15/2023 Active loratadine (CLARITIN) 10 MG tablet Take 10 mg by mouth in the morning. Active MAGNESIUM PO Take 250 mg by mouth in the morning. 07/30/2024 Active melatonin 3 MG tablet Take 3 mg by mouth in the morning. 09/26/2024 Active methenamine (HIPREX) 1 g tablet Take 1 g by mouth in the morning. 09/08/2024 Active rasagiline (AZILECT) 0.5 MG tablet Take 0.25 mg by mouth in the morning. 09/26/2024 Active tiZANidine (ZANAFLEX) 2 MG tablet Take 2 mg by mouth every 6 hours as needed 06/06/2023 Active Active Problems Problem Noted Date Diagnosed Date Cerebrovascular accident 09/13/2022 Adult failure to thrive 06/04/2022 Anxiety disorder 06/04/2022 Low back pain 06/04/2022 Degeneration of cervical intervertebral disc Essential hypertension 06/04/2022 Acute hyponatremia 10/18/2021 Parkinson's disease 02/23/2012 Social History Tobacco Use Types Packs/Day Years Used Date Smoking Tobacco: Never Assessed Comments Unknown Sex and Gender Information Value Date Recorded Sex Assigned at Not on file Legal Sex Female 1:30 PM EDT Gender Identity Not on file Sexual Orientation Not on file Plan of Treatment Health Maintenance Due Date Last Done Comments Pneumococcal Vaccine: 50+ Ye ars (1 of 2 - PCV) 01/31/1967 Influenza Vaccine (#1) 2024 04/22/2019 Hepatitis B Vaccine Aged Out No longe r eligible based on patient's age to complete this topic Insurance Medicare [facility] [employer] Care Teams Meter Reader Relationship Specialty Start Date End Date Fanny Power MD [address] [place], [place] PCP - General Internal Medicine 12/04/24
--- OUTSIDE RECORDS SUMMARY | 2025-02-07 09:57 | XMS_ITS | Clinical Summary ---
Author Organization [facility] Address [address] [place] [address] Phone Care Team Providers Care Secondary School Teacher Name Role Phone Fanny Power MD Primary [...] She has seen Ever Gerber (sp?) at [facility] for over a dozen years. Patient does [...] will be requested -Check orthostatic vital signs [facility] TELENEUROLOGY RECOMMENDATIONS: Diagnosis: -Stroke labs: (Lipid panel, HgA1c, TSH, ESR, CRP, trop) -Toxic-metabolic encephalopathy workup: UA,UCx,CBC,Utox,Stox, chest x-ray, covid-19 swab-Brain MRI without contrast -Transthoracic echo (TTE) - ok to perform within 1 week as outpatient -Maintain on telemetry, discharge on extended satellite project site monitor (MCOT/ZioPatch) -Caregiver feels facial symmetry at [...] history and risk of extrapyramidal side effects) -INSURANCE BILLER evaluation Assessment & Plan (10/27/2021 12:39 PM [...] she does follow with Dr. Cochran at [facility] but focused mainly on Parkinsons and she does not feel able to travel to [place] for another provider - for now avoiding [...] Plan (09/13/2022 4:06 PM EDT): Followed by [facility] neurology as above. I have continued her [...] 1:01 PM EST Emergency [facility] [address] [place] [address] Ignacio Leger MD Discharge Disposition: Home or Self Care 01/06/2025 10:26 PM EDT - 01/07/2025 3:45 AM EDT Emergency [facility] [address] [place] [address] Rajesh Green MD Discharge Disposition: Home or Self Care 12/27/2024 5:21 PM EDT - 12/27/2024 11:59 PM EDT Hospital Encounter [facility] Specimen Processing [address] [place] [address] Fanny Power MD Discharge Disposition: Home or Self Care 12/27/2024 Transcribe Orders [facility] Phle[facility] Main [address] [place] [phone] Fanny Power MD Dysuria (Primary Dx) 12/19/2024 11:27 PM EDT - 12/20/2024 6:44 AM EDT Emergency [facility] [address] [place] [address] Kings Hanna MD Discharge Disposition: [facility] Facility 11/27/2024 2:38 PM EDT - 11/27/2024 11:59 PM EDT Hospital Encounter [facility] [address] [place] [phone] Fanny Power MD Discharge Disposition: Home or Self Care 11/26/2024 9:35 AM EDT - 11/26/2024 11:59 PM EDT Hospital Encounter [facility] [address] [place] [phone] Fanny Power MD Discharge Disposition: Home or Self Care 11/26/2024 Transcribe Orders [facility] Main [address] [place] [address] Fanny Power MD Screening examination for pulmonary tuberculosis (Primary Dx) 11/26/2024 Transcribe Orders [facility]leb [address] [address] Fanny Power MD Essential hypertension, malignant (Primary Dx) 11/18/2024 2:24 AM EDT - 11/18/2024 9:03 AM EDT Emergency [facility] [address] [place] [address] Kamar Navarro, Jhonatan Eisenberg MD Discharge Disposition: Home or Self Care 11/11/2024 4:28 AM EDT - 11/11/2024 11:47 AM EDT Emergency [facility] [address] [place] [address] Rajesh Green MD Perez, Alberto Juan Ignacio, MD Discharge Disposition: [facility] Facility 11/08/2024 9:00 AM EDT Home Care Visit [facility] [address], [place] [phone] Joselito Whelan, OT OT OASIS DISCHARGE VISIT 11/07/2024 10:30 AM EDT Home Care Visit [facility] [address] [place] [address] Joselito Whelan, OT OT HOME VISIT from [...] 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 Troponin-T HS Gen5 17(H) 0 - 9 ng/L 01/26/2025 9:38 AM EST [facility] Blood (Blood) Venipuncture / Unknown 01/26/2025 9:04 AM EST 01/26/2025 9:12 AM EST us Ignacio Leger MD LAB BLOOD BKR ORDERABLES Final Result [facility] [address] [place] [address] * (ABNORMAL) CBC and Differential (01/26/2025 8:07 AM EST) [facility] Signature WBC 5.58 4.00 - 11.00 K/uL 01/26/2025 8:22 AM [facility] RBC 3.65(L) 4.00 - 5.20 M/uL 01/26/2025 8:22 AM [facility] Hemoglobin 11.8(L) 12.0 - 16.0 g/dL 01/26/2025 8:22 AM [facility] Hematocrit 36.9 36.0 - 46.0 % 01/26/2025 8:22 AM [facility] MCV 101.1(H) 80.0 - 100.0 fL 01/26/2025 8:22 AM [facility] MCH 32.3(H) 27.0 - 31.0 pg 01/26/2025 8:22 AM [facility] MCHC 32.0 32.0 - 36.0 g/dL 01/26/2025 8:22 AM [facility] MPV 10.0 8.4 - 12.0 fL 01/26/2025 8:22 AM [facility] RDW-CV 11.9 11.5 - 14.5 % 01/26/2025 8:22 AM [facility] PLT 242 150 - 450 K/uL 01/26/2025 8:22 AM [facility] Neutrophils 62.7 % 01/26/2025 8:22 AM [facility] Lymphocytes 24.6 % 01/26/2025 8:22 AM [facility] Monocytes 9.3 % 01/26/2025 8:22 AM [facility] Eosinophils 2.5 % 01/26/2025 8:22 AM [facility] Basophils 0.4 % 01/26/2025 8:22 AM [facility] Imm Grans 0.5 % 01/26/2025 8:22 AM [facility] NRBC 0.0 <=0.0 /100 WBCs 01/26/2025 8:22 AM [facility] Absolute Neutrophils 3.50 1.92 - 7.60 K/uL 01/26/2025 8:22 AM [facility] Absolute Lymphocytes 1.37 0.72 - 4.10 K/uL 01/26/2025 8:22 AM [facility] Absolute Monocytes 0.52 0.16 - 1.10 K/uL 01/26/2025 8:22 AM [facility] Absolute Eosinophils 0.14 0.00 - 0.50 K/uL 01/26/2025 8:22 AM [facility] Absolute Basophils 0.02 0.00 - 0.15 K/uL 01/26/2025 8:22 AM [facility] Absolute Imm Grans 0.03 0.00 - 0.09 K/uL 01/26/2025 8:22 AM [facility] Absolute NRBC 0.00 <=0.00 K cells/uL 01/26/2025 8:22 AM [facility] Absolute Neutrophils 3.50 1.92 - 7.60 K/uL 01/26/2025 8:22 AM [facility] Comment:Automated cell count . Manual ANC may differ if performed. Diff Type Auto 01/26/2025 8:22 AM [facility] Blood (Blood) Venipuncture / Unknown 01/26/2025 8:07 AM EST 01/26/2025 8:19 AM EST us Ignacio Leger MD LAB BLOOD BKR ORDERABLES Final Result Performing Organization Address City/State/[facility] Co de Phone Number [address] [address] * Hepatic Panel (LFTs) (01/26/2025 8:07 AM EST) Only the most recent of2 resultswithin the time period is included. AST 12 <33 U/L 01/26/2025 9:24 AM [facility] ALT <5 <34 U/L 01/26/2025 9:24 AM [facility] Alkaline Phosphatase 86 40 - 130 U/L 01/26/2025 9:24 AM [facility] Bilirubin, Total 0.6 0.0 - 1.2 mg/dL 01/26/2025 9:24 AM [facility] Bilirubin, Direct 0.2 0.0 - 0.3 mg/dL 01/26/2025 9:24 AM [facility] Total Protein 6.6 6.4 - 8.3 g/dL 01/26/2025 9:24 AM [facility] Albumin 4.2 3.5 - 5.2 g/dL 01/26/2025 9:24 AM [facility] Globulin 2.4 1.9 - 4.1 g/dL 01/26/2025 9:24 AM [facility] Blood (Blood) Venipuncture / Unknown 01/26/2025 8:07 AM EST 01/26/2025 8:20 AM EST us Ignacio Leger MD LAB BLOOD BKR ORDERABLES Final Result Performing Organization Address [facility]/ZIP Co de Phone Number [address] [address] * NT-proBNP (01/26/2025 8:07 AM EST) NT-ProBNP 95 0 - 1,800 pg/mL 01/26/2025 9:10 AM [facility] Comment: Age <50 years: 0-450 pg/ml [...] BKR ORDERABLES Final Result Performing Organization Address [facility]/ZIP Co de Phone Number [address] [address] * Basic Metabolic Panel (BMP) (01/26/2025 8:07 AM EST) Only the most recent of3 resultswithin the time period is included. Sodium 144 136 - 145 mmol/L 01/26/2025 9:10 AM [facility] Potassium 3.9 3.4 - 5.1 mmol/L 01/26/2025 9:10 AM [facility] Chloride 106 98 - 107 mmol/L 01/26/2025 9:10 AM [facility] CO2 30 20 - 31 mmol/L 01/26/2025 9:10 AM [facility] Anion Gap 8 3 - 17 mmol/L 01/26/2025 9:10 AM [facility] BUN 21 6 - 23 mg/dL 01/26/2025 9:10 AM [facility] Creatinine 0.70 0.50 - 1.00 mg/dL 01/26/2025 9:10 AM [facility] eGFR 90 >59 mL/min/1.7 3m2 01/26/2025 9:10 AM [facility] Comment:Estimated glomerular filtration rate calculated using the CKD-EPI refit equation. Glucose 90 70 - 99 mg/dL 01/26/2025 9:10 AM [facility] Calcium 9.6 8.5 - 10.5 mg/dL 01/26/2025 9:10 AM [facility] Blood (Blood) Venipuncture / Unknown 01/26/2025 8:07 AM EST 01/26/2025 8:20 AM EST us Ignacio Leger MD LAB BLOOD BKR ORDERABLES Final Result [address] [address] * XR Chest Portable (01/26/2025 7:57 AM [...] clinician's provided indication for this examination in [facility]: Fatigue COMPARISON: XR CHEST PA AND LATERAL 2 VIEWS FINDINGS: Devices/Tubes/Lines: None. Lungs: No focal consolidation or pulmonary edema. Pleura: No pleural effusion or pneumothorax. Heart/Mediastinum: Unchanged in appearance. Bones/Soft Tissues: No significant abnormality. Procedure Note Jackie Mccracken MD - 01/26/2025 XR CHEST PORTABLE Referring clinician's provided indication for this examination in [facility]:Fatigue COMPARISON: XR CHEST PA AND LATERAL 2 [...] BPM [facility] Atrial Rate 63 BPM [facility] AR Interval 162 ms [facility] QRS Duration 86 ms [facility] QT Interval 408 ms [facility] QTC Interval 417 ms [facility] P [place] 75 degrees [facility] R Wave [place] 56 degrees [facility] T Wave [place] 61 degrees [facility] 01/26/2025 6:22 AM EST 01/26/2025 11:40 AM EST Narrative [facility] - 01/26/2025 11:40 AM EST Normal sinus rhythm Normal ECG When compared with ECG of 06-Jan-2025 22:00, QRS axis Shifted left Confirmed by Alfonzo NAIK ([id number]) on 01/26/2025 11:40:32 AM Ignacio Leger MD ECG ORDERABLES Final Result Performing Organization Address [facility] de Phone Number [email or web address] * Blood Culture, Routine (01/06/2025 9:50 PM EDT) Only the most recent of2 resultswithin the time period is included. Special Requests None 01/06/2025 8:12 PM EDT [facility] BLOOD CULTURE NO GROWTH 5 DAYS 01/11/2025 10:18 PM EDT [facility] Blood (Blood) 01/06/2025 9:5 0 PM EDT 01/06/2025 10:01 PM EDT Donn Zamora MD LAB MICROBIOLOGY CULTURE O RDERABLES Final Result Performing Organization Address [facility] Co de Phone Number [address] [address] * PT-INR (01/06/2025 9:50 PM EDT) PT 11.2 10.2 - 12.9 sec [facility] INR 0.9 0.9 - 1.1 [facility] Comment:Therapeutic range fo r oral Vitamin K antagonists: 2.0-3.5 Blood 01/06/2025 9:50 PM EDT 01/06/2025 9:57 PM EDT Donn Zamora MD LAB BLOOD BKR ORDERABLES F inal Result Performing Organization Address [facility] Co de Phone Number [address] [address] * (ABNORMAL) CBC and differential (01/06/2025 9:50 PM EDT) Only the most recent of2 resultswithin the time period is included. WBC 6.23 4.00 - 11.00 K/uL [facility] RBC 3.67(L) 4.00 - 5.20 M/uL [facility] HGB 11.9(L) 12.0 - 16.0 g/dL [facility] HCT 36.2 36.0 - 46.0 % [facility] PLT 276 150 - 450 K/uL [facility] MCV 98.6 80.0 - 100.0 fL [facility] MCH 32.4(H) 27.0 - 31.0 pg [facility] MCHC 32.9 32.0 - 36.0 g/dL [facility] RDW 12.2 11.5 - 14.5 % [facility] MPV 10.0 8.4 - 12.0 fL [facility] NRBC 0.00 0.00 /100 WBCs [facility] ABSOLUTE NRBC 0.00 0.00 K/uL [facility] DIFF METHOD Auto [facility] NEUTS 58.9 48.0 - 76.0 % [facility] LYMPHS 26.6 18.0 - 41.0 % [facility] MONOS 11.6(H) 4.0 - 11.0 % [facility] EOS 1.9 0.0 - 5.0 % [facility] BASOS 0.5 0.0 - 1.5 % [facility] Granulocytes, immature (%) 0.5 0.0 - 0.9 % [facility] ABSOLUTE NEUTS 3.67 1.92 - 7.60 K/uL [facility] ABSOLUTE LYMPHS 1.66 0.72 - 4.10 K/uL [facility] ABSOLUTE MONOS 0.72 0.16 - 1.10 K/uL [facility] ABSOLUTE EOS 0.12 0.00 - 0.50 K/uL [facility] ABSOLUTE BASOS 0.03 0.00 - 0.15 K/uL [facility] Granulocytes, immature 0.03 0.00 - 0.09 K/uL [facility] Blood 01/06/2025 9:50 PM EDT 01/06/2025 9:57 PM EDT us Donn Zamora MD LAB BLOOD BKR ORDERABLES F inal Result [address] [address] * Magnesium (01/06/2025 9:50 PM EDT) Only the most recent of2 resultswithin the time period is included. MAGNESIUM 1.9 1.6 - 2.6 mg/dL [facility] Blood 01/06/2025 9:50 PM EDT 01/06/2025 9:57 PM EDT Donn Zamora MD LAB BLOOD BKR ORDERABLES F inal Result [address] [address] * Lipase (01/06/2025 9:50 PM EDT) LIPASE 46 16 - 63 U/L [facility] Blood 01/06/2025 9:50 PM EDT 01/06/2025 9:57 PM EDT Donn Zamora MD LAB BLOOD BKR ORDERABLES F inal Result Performing Organization Address City/[facility]/ZIP Co de Phone Number [address] [address] * Lactate (01/06/2025 9:50 PM EDT) LACTATE 0.80 0.50 - 2.20 mmol/L [facility] Blood 01/06/2025 9:50 PM EDT 01/06/2025 9:57 PM EDT Donn Zamora MD LAB BLOOD BKR ORDERABLES F inal Result Performing Organization Address City/[facility]/ZIP Co de Phone Number [address] [address] * (ABNORMAL) Urinalysis w/reflex Urine Culture (01/06/2025 8:33 PM EDT) Only the most recent of3 resultswithin the time period is included. COLOR Yellow Yellow [facility] CLARITY Clear [facility] GLUCOSE Negative Negative [facility] BILI Negative Negative [facility] KETONES Negative Negative [facility] SPECIFIC GRAVITY 1.010 1.005 - 1.030 [facility] BLOOD 1+(A) Negative [facility] PH 6.0 5.0 - 8.0 [facility] Protein-UA Negative Negative [facility] NITRITE Negative Negative [facility] Leukocyte esterase, ur Negative Negative [facility] Urine (Urine) 01/06/2025 8:3 3 PM EDT 01/06/2025 8:39 PM EDT Donn Zamora MD LAB URINE ORDERABLES Final Result Performing Organization Address [facility] Co de Phone Number [address] [address] * (ABNORMAL) Urine sediment (01/06/2025 8:33 PM EDT) Only the most recent of2 resultswithin the time period is included. WBC 0-4(A) NONE SEEN /hpf [facility] RBC 3-5(A) NONE SEEN /hpf [facility] URINE EPITHELIAL NONE SEEN NONE SEEN [facility] MUCUS NONE SEEN NONE SEEN /hpf [facility] BACTERIA NONE SEEN NONE SEEN /hpf [facility] 01/06/2025 8:33 PM EDT 01/06/2025 8:39 PM EDT Donn Zamora MD LAB URINE ORDERABLES Final Result Performing Organization Address City/[facility]/ZIP Co de Phone Number [address] [phone] * (ABNORMAL) Urine Culture (12/27/2024 5:24 PM EDT) Special Requests None Reflexed from [id number] 12/27/2024 5:59 PM EDT [facility] Urine Culture 10,000 to 100,000 colony forming units per mL MIXED CODY (3 OR MORE COLONY TYPES) Culture indicates contamination . Please resubmit if necessary.(A) 12/28/2024 8:08 AM EDT [facility] Urine 12/27/2024 5:24 PM EDT 12/27/2024 5:46 PM EDT Fanny Clayton MD LAB MICROBIOLOGY CUL TURE ORDERABLES Final Result [address] [address] * T spot TB test (11/27/2024 2:43 PM EDT) [facility] T-SPOT.TB Negative Negative [facility] [employer] Comment: (NOTE) A negative test result does [...] Spot Count Corrected For Neg Control [facility] [employer] Panel B Spot Count Corrected For Neg Control 0 [facility] Negative Control Passed [facility] [employer] [employer] [facility] Positive Control Passed [facility] Comment: (NOTE) For additional information, please refer to http://education.[employer]/faq/GCH635 (This link is being provided for informational/ educational purposes only.) Blood 11/27/2024 2:43 PM EDT 11/27/2024 2:53 PM EDT Fanny Clayton MD LAB BLOOD ORDERABLES Final Result [facility] [address] [place], [place] * Comprehensive metabolic panel (11/26/2024 9:53 AM EDT) SODIUM 142 133 - 146 mmol/L [facility] POTASSIUM 3.7 3.3 - 5.1 mmol/L [facility] CHLORIDE 103 96 - 108 mmol/L [facility] CO2 29 21 - 35 mmol/L [facility] BUN 17 6 - 19 mg/dL [facility] CREATININE 0.80 0.5 - 1.5 mg/dL [facility] GLUCOSE 90 70 - 99 mg/dL [facility] ALBUMIN 4.5 3.9 - 4.8 g/dL [facility] TOTAL PROTEIN 6.9 6.5 - 8.0 g/dL [facility] CALCIUM 9.5 8.4 - 10.3 mg/dL [facility] ALKALINE PHOSPHATASE 104 39 - 117 U/L [facility] TOTAL BILIRUBIN 0.5 0.0 - 1.2 mg/dL [facility] AST 11 0 - 37 U/L [facility] ALT <5 0 - 40 U/L [facility] GLOBULIN 2.4 1 - 4.8 g/dL [facility] EGFR 76 >59 mL/min/1.7 3m2 [facility] Comment:Estimated glomerular filtration rate calculated using the CKD-EPI refit equation. ANION GAP 14 10 - 20 mmol/L [facility] Blood 11/26/2024 9:53 AM EDT 11/26/2024 9:59 AM EDT us Fanny Clayton MD LAB BLOOD BKR ORDERA BLES Final Result [facility] [address] [place] [address] * Outside Lab (11/12/2024) us Scanning Interface Provider LAB BLOOD BKR ORDERA BLES Final Result * (ABNORMAL) Lipid panel (09/14/2022 5:57 AM EDT) HDL 82 mg/dL [facility] Comment: Interpretation <40 mg/dL: Low HDL cholesterol (major risk factor for CHD) Greater than or equal to 60 mg/dL: High HDL cholesterol ( negative risk factor for CHD) HDL - cholesterol is affected by a number of factors, e.g. smoking, excerise, hormones, sex and age. CHOLESTEROL 178 0 - 240 mg/dL [facility] TRIGLYCERIDES 43 30 - 160 mg/dL [facility] LDL 87 50 - 129 mg/dL [facility] Comment: LDL levels in terms of risk for coronary heart disease: <100 mg/dL: Optimal 100-129 mg/dL: Near or above optimal 130-159 mg/dL: Borderline high 160-189 mg/dL: High >190 mg/dL: Very High CARDIAC RISK RATIO 2.2(L) 3.3 - 4.4 C [facility] Blood 09/14/2022 5:57 AM EDT 09/14/2022 6:37 AM EDT us Noreen WALKER LAB BLOOD BKR ORDERABLES Velma irvin Result [facility] [address] [place] [address] from Last 3 Months or Most Recently Relevant to Health Maintenance Insurance MEDICARE PART A & B [facility] MEDICARE SUPPLEMENT MEDICARE PART A & B [facility] MEDICARE SUPPLEMENT MEDICARE PART A & B [employer] [place] [id number] MEDICARE PART [facility] & [facility] [place] [id number] Felecia JulioFormerly [facility] [place] [address] MEDICARE PART A & B [employer] MEDICARE SUPPLEMENT MEDICARE PART A & B [employer] MEDICARE SUPPLEMENT MEDICARE PART A & B [facility] MEDICARE SUPPLEMENT MEDICARE PART A & B [facility] MEDICARE SUPPLEMENT [id number] MEDICARE PART A & B [facility] MEDICARE SUPPLEMENT Advance Directives For more information, please contact: [phone] (9AM - 5PM [facility], Monday-Monday) Documents on File Type Date Recorded Patient Systems Mechanic Expl anation Durable Power of Glass Installer Technician 10/21/2024 9:45 AM Durable Power of Glass Installer Technician 08/19/2024 9:51 AM Healthcare Proxy 12/08/2023 3:01 PM Durable Power of Glass Installer Technician 12/08/2023 2:56 PM Durable Power of Glass Installer Technician 10/13/2023 10:41 PM * Full Code (Latest [...] Agent (Proxy form on file) Care Teams Secondary School Teacher Relationship Specialty Start Date End Date Fanny Power MD [address] [place] [address] PCP - General Internal Medicine 08/16/24 Additional Source Comments The information contained in this document represents components of the legal health record. It is not the complete legal health record.[facility]
--- OUTSIDE RECORDS SUMMARY | 2025-02-07 09:57 | XMS_ITS | Encounter Summary ---
Author Organization [employer] [facility] Address [address] [place] [address] Phone Care Team Providers Care Ship Construction Teacher Name Role Phone Kofi Fan MD Primary Care Provider [phone] Fanny Power MD Primary Care Provid er Reason for Referral * MRI/CAT Scan - Closed Specialty Diagnoses / Procedures Referred By Chandler ayala Referred To Contact Procedures MRI Neck Outside (No Interpretation) System, Provider Not In, PhD [address] [address] Referral ID Status Reason Start Date Expiration Date Visits Re quested Visits Authorized [id number] Closed 12/20/2018 12/20/2019 1 1 Encounter Details Date Type Department Care Team (Late st Contact Info) Description 12/20/2018 Ancillary Orders [facility],Outside Imaging [address] [place], [place] [id number] System, Provider Not In, PhD [address] [address] Social History Tobacco Use Types Packs/Day Years [...] documented as of this encounter Care Teams Ship Construction Teacher Relationship Specialty Start Date End Date Kofi Fan MD [address] [place] [address] Dr Coker [address] [place] [address] PCP - General 09/17/13 08/15/24 Fanny Power MD [address] [place] [address] PCP - General Internal Medicine 08/16/24 documented as of this encounter Additional Source Comments The information contained in this document represents components of the legal health record. It is not the complete legal health record.[facility]
--- OUTSIDE RECORDS SUMMARY | 2025-02-07 09:57 | XMS_ITS | Encounter Summary ---
Author Organization [facility] Address [address] [place] [address] Phone Care Team Providers Care Senior Sales Associate Name Role Phone Kofi Fan MD Primary Care Provider [phone] Fanny Power MD Primary Care Provid er Reason for Referral * MRI/CAT Scan - Closed Specialty Diagnoses / Procedures Referred By Chandler ayala Referred To Contact Radiology Diagnoses Abnormal reflex Headache, unspecified headache type Parkinson's disease Procedures MRI Brain Walker Barajas MD Phone: tel: fax: [email or web address] Referral ID Status Reason Start Date Expiration Date Visits Re quested Visits Authorized [id number] Closed 12/26/2019 12/25/2020 1 1 Encounter Details Date Type Department Care Team (Late st Contact Info) Description 12/26/2019 Ancillary Orders Virtual Department [address] [place] [address] Walker Barajas MD [address] [place] [address] [email or web address] Abnormal reflex; Headache, unspecified headache type; Parkinson's [...] due to chronic small vessel disease. POS [id number] Narrative 12/29/2019 3:27 PM EDT TECHNIQUE: 1.5 [...] present in the major vessels of the [place] and the dural venous sinuses. [...] present in the major vessels of the [place] the dural venous sinuses. No [...] due to chronic small vessel disease. POS [id number] Walker Barajas MD IM MR HEAD/NECK Final [...] documented as of this encounter Care Teams Senior Sales Associate Relationship Specialty Start Date End Date Kofi Fan MD [address] [place] [address] [address] PCP - General 09/17/13 08/15/24 Fanny Power MD [address] [place] [address] PCP - General Internal Medicine 08/16/24 documented as of this encounter Additional Source Comments The information contained in this document represents components of the legal health record. It is not the complete legal health record.[facility]
--- OUTSIDE RECORDS SUMMARY | 2025-02-07 09:57 | XMS_ITS | Encounter Summary ---
Author Organization [facility] Address [address] [place] [address] Phone Care Team Providers Care Manager Mail Name Role Phone Kofi Fan MD Primary Care Provider [phone] Fanny Power MD Primary Care Provid er Encounter Details Date Type Department Care Team (Late st Contact Info) Description 10/29/2021 Procedure Pass [facility], Ct Scan - [address] [address] Social History Tobacco Use Types Packs/Day Years [...] as of this encounter Care Teams Manager Mail Relationship Specialty Start Date End Date Kofi Fan MD [address] [place] [address] [address] PCP - General 09/17/13 08/15/24 Fanny Power MD [address] [place] [address] PCP - General Internal Medicine 08/16/24 documented as of this encounter Additional Source Comments The information contained in this document represents components of the legal health record. It is not the complete legal health record.[facility]
--- OUTSIDE RECORDS SUMMARY | 2025-02-07 09:57 | XMS_ITS | Encounter Summary ---
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 Not on file Not on file documented as of this encounter Functional Status * Calculated C-SSRS Risk Score (Lifetime/Recent) Answer Date of Assessment Author No Risk Indicated 09/13/2022 5:12 PM EDT Martine Pang RN * [place] Suicide Severity Rating Scale (Screener/Recent Self-Report) Question [...] documented as of this encounter Care Teams Client Manager Relationship Specialty Start Date End Date Kofi Fan MD [address] [place] [address] [place] [address] PCP - General 09/17/13 08/15/24 Fanny Power MD [address] [place] [address] PCP - General Internal Medicine 08/16/24 documented as of this encounter Additional Source Comments The information contained in this document represents components of the legal health record. It is not the complete legal health record.[facility]
--- OUTSIDE RECORDS SUMMARY | 2025-02-07 09:57 | XMS_ITS | Encounter Summary ---
Author Organization [facility] Address [address] [place] [address] Phone Care Team Providers Care Farm Mechanic Name Role Phone Kofi Fan MD Primary Care Provider [phone] Fanny Power MD Primary Care Provid er Encounter Details Date Type Department Care Team (Late st Contact Info) Description 12/26/2019 Procedure Pass [facility], [address] [address] Social History Tobacco Use Types Packs/Day Years [...] documented as of this encounter Care Teams Farm Mechanic Relationship Specialty Start Date End Date Kofi Fan MD [address] [place] [address] PCP - General 09/17/13 08/15/24 Fanny Power MD [address] [place] [address] PCP - General Internal Medicine 08/16/24 documented as of this encounter Additional Source Comments The information contained in this document represents components of the legal health record. It is not the complete legal health record.[facility]
--- OUTSIDE RECORDS SUMMARY | 2025-02-07 09:57 | XMS_ITS | Encounter Summary ---
Author Organization [facility] Address [address] [place] [address] Phone Care Team Providers Care Sales Teacher Name Role Phone Kofi Fan MD Primary Care Provider [phone] Fanny Power MD Primary Care Provid er Encounter Details Date Type Department Care Team (Late st Contact Info) Description 11/05/2021 Telephone [facility] Department of Neurology [address] [place] [address], 8th Floor, [address] [place] [address] Ever Cochran MD [address] [place], [place] [id number] [place] [address] [email or web address] Social History Tobacco Use Types Packs/Day Years [...] 7:57 PM EDT Hiro Michaud RN * [place] Suicide Severity Rating Scale (Screener/Recent Self-Report) Question [...] documented as of this encounter Care Teams Sales Teacher Relationship Specialty Start Date End Date Kofi Fan MD [address] [place] [address] [address] PCP - General 09/17/13 08/15/24 Fanny Power MD [address] [place] [address] PCP - General Internal Medicine 08/16/24 documented as of this encounter Additional Source Comments The information contained in this document represents components of the legal health record. It is not the complete legal health record.[facility]
--- OUTSIDE RECORDS SUMMARY | 2025-02-07 09:57 | XMS_ITS | Encounter Summary ---
Author Organization [email or web address] [facility] Address [address] [place] [address] Phone Care Team Providers Care Manager Group Home Name Role Phone Kofi Fan MD Primary Care Provider [phone] Fanny Power MD Primary Care Provid er Encounter Details Date Type Department Care Team (Late st Contact Info) Description 11/30/2018 Ancillary Orders [facility], X-Ray - [address] [address] Walker Barajas MD [address] [place] [address] [email or web address] Cervicalgia; Spondylosis of cervical region without myelopathy [...] as of this encounter Care Teams Manager Group Home Relationship Specialty Start Date End Date Kofi Fan MD [address] [place] [address] PCP - General 09/17/13 08/15/24 Fanny Power MD [address] [place] [address] PCP - General Internal Medicine 08/16/24 documented as of this encounter Additional Source Comments The information contained in this document represents components of the legal health record. It is not the complete legal health record.[facility]
--- OUTSIDE RECORDS SUMMARY | 2025-02-07 09:57 | XMS_ITS | Encounter Summary ---
Author Organization [facility] Address [address] [place] [address] Phone Care Team Providers Care Professor Of Mathematics Name Role Phone Kofi Fan MD Primary Care Provider [phone] Fanny Power MD Primary Care Provid er Reason for Referral * MRI/CAT Scan - Closed Specialty Diagnoses / Procedures Referred By Chandler ayala Referred To Contact Radiology Diagnoses Cervicalgia Procedures MRI Cervical Spine Walker Barajas MD Phone: tel: fax: [email or web address] Referral ID Status Reason Start Date Expiration Date Visits Re quested Visits Authorized [id number] Closed 11/30/2018 11/30/2019 1 1 Encounter Details Date Type Department Care Team (Late st Contact Info) Description 11/30/2018 Ancillary Orders Virtual Department [address] [place] [address] Walker Barajas MD [address] [place] [address] [email or web address] Cervicalgia Social History Tobacco Use Types Packs/Day [...] protrusion or central canal stenosis. POS - [id number] Narrative 12/13/2018 9:52 AM EDT COMPARISON:11/30/2018 radiographs. [...] protrusion or central canal stenosis. POS - [id number] us Walker Barajas MD IMG MR XSPECIALTY [...] of this encounter Care Teams Professor Of Mathematics Relationship Specialty Start Date End Date Kofi Fan MD [address] [place] [address] [address] PCP - General 09/17/13 08/15/24 Fanny Power MD [address] [place] [address] PCP - General Internal Medicine 08/16/24 documented as of this encounter Additional Source Comments The information contained in this document represents components of the legal health record. It is not the complete legal health record.[facility]
--- OUTSIDE RECORDS SUMMARY | 2025-02-07 09:57 | XMS_ITS | Encounter Summary ---
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 Not on file documented as of this encounter Functional Status * Calculated C-SSRS Risk Score (Lifetime/Recent) Answer Date of Assessment Author No Risk Indicated 09/13/2022 5:12 PM EDT Martine Pang RN * [place] Suicide Severity Rating Scale (Screener/Recent Self-Report) Question [...] documented as of this encounter Care Teams Primer Charger Relationship Specialty Start Date End Date Kofi Fan MD [address] [place] [address] [place] [address] PCP - General 09/17/13 08/15/24 Fanny Power MD [address] [place] [address] PCP - General Internal Medicine 08/16/24 documented as of this encounter Additional Source Comments The information contained in this document represents components of the legal health record. It is not the complete legal health record.[facility]
--- OUTSIDE RECORDS SUMMARY | 2025-02-07 09:57 | XMS_ITS | Encounter Summary ---
Author Organization [employer] Address [address] [place] [address] Phone Care Team Providers Care Electrophysiology Technologist Name Role Phone Kofi Fan MD Primary Care Provider [phone] Fanny Power MD Primary Care Provid er Encounter Details Date Type Department Care Team (Late st Contact Info) Description 11/30/2018 Procedure Pass [facility], [address] [address] Social History Tobacco Use Types Packs/Day Years [...] documented as of this encounter Care Teams Electrophysiology Technologist Relationship Specialty Start Date End Date Kofi Fan MD [address] [place] [address] [address] PCP - General 09/17/13 08/15/24 Fanny Power MD [address] [place] [address] PCP - General Internal Medicine 08/16/24 documented as of this encounter Additional Source Comments The information contained in this document represents components of the legal health record. It is not the complete legal health record.[facility]
--- OUTSIDE RECORDS SUMMARY | 2025-02-07 09:58 | XMS_ITS | Encounter Summary ---
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 file documented as of this encounter Functional Status * Calculated C-SSRS Risk Score (Lifetime/Recent) Answer Date of Assessment Author No Risk Indicated 02/06/2023 11:05 AM EST Mallorie Sharma RN * [place] Suicide Severity Rating Scale (Screener/Recent Self-Report) Question [...] documented as of this encounter Care Teams Financial Director Relationship Specialty Start Date End Date Kofi Fan MD [address] [place] [address] [place] [address] PCP - General 09/17/13 08/15/24 Fanny Power MD [address] [place] [address] PCP - General Internal Medicine 08/16/24 documented as of this encounter Additional Source Comments The information contained in this document represents components of the legal health record. It is not the complete legal health record.[facility]
--- OUTSIDE RECORDS SUMMARY | 2025-02-07 09:58 | XMS_ITS | Encounter Summary ---
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 file documented as of this encounter Functional Status * Calculated C-SSRS Risk Score (Lifetime/Recent) Answer Date of Assessment Author No Risk Indicated 05/20/2023 10:14 AM Rachel Mata RN * [place] Suicide Severity Rating Scale (Screener/Recent Self-Report) Question [...] as of this encounter Care Teams Supervisor Public Health Nursing Relationship Specialty Start Date End Date Kofi Fan MD [address] [place] [address] [place] [address] PCP - General 09/17/13 08/15/24 Fanny Power MD [address] [place] [address] PCP - General Internal Medicine 08/16/24 documented as of this encounter Additional Source Comments The information contained in this document represents components of the legal health record. It is not the complete legal health record.[facility]
--- OUTSIDE RECORDS SUMMARY | 2025-02-07 09:58 | XMS_ITS | Encounter Summary ---
Author Organization [facility] [facility] Address [address] [place] [address] Phone Care Team Providers Care Poundmaster Name Role Phone Kofi Fan MD Primary Care Provider [phone] Fanny Power MD Primary Care Provid er Encounter Details Date Type Department Care Team (Late st Contact Info) Description 05/11/2021 Procedure Pass [facility], Ct Scan - [address] [address] Social History Tobacco Use Types Packs/Day Years [...] 4:06 PM EST Sabas Gutierrez RN * [place] Suicide Severity Rating Scale (Screener/Recent Self-Report) Question [...] documented as of this encounter Care Teams Poundmaster Relationship Specialty Start Date End Date Kofi Fan MD [address] [place] [address] [address] PCP - General 09/17/13 08/15/24 Fanny Power MD [address] [place] [address] PCP - General Internal Medicine 08/16/24 documented as of this encounter Additional Source Comments The information contained in this document represents components of the legal health record. It is not the complete legal health record.[facility]
--- OUTSIDE RECORDS SUMMARY | 2025-02-07 09:58 | XMS_ITS | Encounter Summary ---
Author Organization [employer] [facility] Address [address] [place] [address] Phone Care Team Providers Care Site Medical Director Name Role Phone Kofi Fan MD Primary Care Provider [phone] Fanny Power MD Primary Care Provid er Encounter Details Date Type Department Care Team (Late st Contact Info) Description 05/20/2023 Procedure Pass [facility], Ct Scan - [address] [address] Social History Tobacco Use Types Packs/Day Years [...] 05/20/2023 10:14 AM Rachel Mata RN * [place] Suicide Severity Rating Scale (Screener/Recent Self-Report) Question [...] documented as of this encounter Care Teams Site Medical Director Relationship Specialty Start Date End Date Kofi Fan MD [address] [place] [address] [place] [address] PCP - General 09/17/13 08/15/24 Fanny Power MD [address] [place] [address] PCP - General Internal Medicine 08/16/24 documented as of this encounter Additional Source Comments The information contained in this document represents components of the legal health record. It is not the complete legal health record.[facility]
--- OUTSIDE RECORDS SUMMARY | 2025-02-07 09:58 | XMS_ITS | Encounter Summary ---
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 Not on file documented as of this encounter Functional Status * Calculated C-SSRS Risk Score (Lifetime/Recent) Answer Date of Assessment Author No Risk Indicated 01/08/2024 3:34 PM EDT Rachel Marroquin RN * [place] Suicide Severity Rating Scale (Screener/Recent Self-Report) Question [...] documented as of this encounter Care Teams Circulation Worker Relationship Specialty Start Date End Date Kofi Fan MD [address] [place] [address] [place] [address] PCP - General 09/17/13 08/15/24 Fanny Power MD [address] [place] [address] PCP - General Internal Medicine 08/16/24 documented as of this encounter Additional Source Comments The information contained in this document represents components of the legal health record. It is not the complete legal health record.[facility]
--- OUTSIDE RECORDS SUMMARY | 2025-02-07 09:58 | XMS_ITS | Encounter Summary ---
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 Not on file documented as of this encounter Functional Status * Calculated C-SSRS Risk Score (Lifetime/Recent) Answer Date of Assessment Author No Risk Indicated 09/13/2022 5:12 PM EDT Martine Pang RN * [place] Suicide Severity Rating Scale (Screener/Recent Self-Report) Question [...] documented as of this encounter Care Teams Addiction Medicine Physician Relationship Specialty Start Date End Date Kofi Fan MD [address] [place] [address] [place] [address] PCP - General 09/17/13 08/15/24 Fanny Power MD [address] [place] [address] PCP - General Internal Medicine 08/16/24 documented as of this encounter Additional Source Comments The information contained in this document represents components of the legal health record. It is not the complete legal health record.[facility]
--- OUTSIDE RECORDS SUMMARY | 2025-02-07 09:58 | XMS_ITS | Encounter Summary ---
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 file documented as of this encounter Functional Status * Calculated C-SSRS Risk Score (Lifetime/Recent) Answer Date of Assessment Author No Risk Indicated 02/25/2024 3:36 AM EST Deanna Whittington RN * [place] Suicide Severity Rating Scale (Screener/Recent Self-Report) Question [...] documented as of this encounter Care Teams Photographic Machine Operator Relationship Specialty Start Date End Date Kofi Fan MD [address] [place] [address] [place] [address] PCP - General 09/17/13 08/15/24 Fanny Power MD [address] [place] [address] PCP - General Internal Medicine 08/16/24 documented as of this encounter Additional Source Comments The information contained in this document represents components of the legal health record. It is not the complete legal health record.[facility]
--- OUTSIDE RECORDS SUMMARY | 2025-02-07 09:58 | XMS_ITS | Encounter Summary ---
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 Not on file documented as of this encounter Functional Status * Calculated C-SSRS Risk Score (Lifetime/Recent) Answer Date of Assessment Author No Risk Indicated 02/06/2023 11:05 AM EST Mallorie Sharma RN * [place] Suicide Severity Rating Scale (Screener/Recent Self-Report) Question [...] as of this encounter Care Teams Air Route Controller Relationship Specialty Start Date End Date Kofi Fan MD [address] [place] [address] [place] [address] PCP - General 09/17/13 08/15/24 Fanny Power MD [address] [place] [address] PCP - General Internal Medicine 08/16/24 documented as of this encounter Additional Source Comments The information contained in this document represents components of the legal health record. It is not the complete legal health record.[facility]
--- OUTSIDE RECORDS SUMMARY | 2025-02-07 09:59 | XMS_ITS | Encounter Summary ---
Author Organization [facility] Address [address] [place] [address] Phone Care Team Providers Care Housekeeping Associate Name Role Phone Kofi Fan MD Primary Care Provider [phone] Fanny Power MD Primary Care Provid er Encounter Details Date Type Department Care Team (Late st Contact Info) Description 04/15/2022 Procedure Pass [facility], Ct Scan - [address] [address] Social History Tobacco Use Types Packs/Day Years [...] 3:38 PM EST Betina Edwards RN * [place] Suicide Severity Rating Scale (Screener/Recent Self-Report) Question [...] documented as of this encounter Care Teams Housekeeping Associate Relationship Specialty Start Date End Date Koif Fan MD [address] [place] [address] PCP - General 09/17/13 08/15/24 Fanny Power MD [address] [place] [address] PCP - General Internal Medicine 08/16/24 documented as of this encounter Additional Source Comments The information contained in this document represents components of the legal health record. It is not the complete legal health record.[facility]
--- OUTSIDE RECORDS SUMMARY | 2025-02-07 09:59 | XMS_ITS | Patient Health Record ---
Author Organization [facility] Address [address] [place] [address] Care Team Providers Care Financial Accounting Manager Name Role Phone Mita GUILLEN, Kofi Primary Care Provider Chaitanya Steven Unavailable [phone] Reason For Referral No Information Plan Of Treatment No Information Insurance Providers Payer Name Payer Address Payer Phone Subscriber Number Group Number Insured Name Patient Relationship to Insured Coverage Start Date Coverage End Date MEDICARE OF [place] [address] [place] [address] [phone] [id number] LEI SABIHA Self - patient is the insured [employer] [address] [place] [address] [id number] LEI SABIHA Self - patient is the insured
--- OUTSIDE RECORDS SUMMARY | 2025-02-07 09:59 | XMS_ITS | Encounter Summary ---
Author Organization [employer] [facility] Address [address] [place] [address] Phone Care Team Providers Care Public Health Analyst Name Role Phone Kofi Fan MD Primary Care Provider [phone] Fanny Power MD Primary Care Provid er Encounter Details Date Type Department Care Team (Late st Contact Info) Description 12/20/2018 Procedure Pass [facility],Outside Imaging [address] [place] [address] Social History Tobacco Use Types Packs/Day Years [...] documented as of this encounter Care Teams Public Health Analyst Relationship Specialty Start Date End Date Kofi Fan MD [address] [place] [address] [address] PCP - General 09/17/13 08/15/24 Fanny Power MD [address] [place] [address] PCP - General Internal Medicine 08/16/24 documented as of this encounter Additional Source Comments The information contained in this document represents components of the legal health record. It is not the complete legal health record.[facility]
--- OUTSIDE RECORDS SUMMARY | 2025-02-07 09:59 | XMS_ITS | Encounter Summary ---
Author Organization [facility] Address [address] [place] [address] Phone Care Team Providers Care Dye Box Operator Name Role Phone Kofi Fan MD Primary Care Provider [phone] Fanny Power MD Primary Care Provid er Encounter Details Date Type Department Care Team (Late st Contact Info) Description 06/03/2022 Procedure Pass [facility], Ct Scan - [address] [address] Social History Tobacco Use Types Packs/Day Years [...] 2:06 PM EDT Alfreda Noyola RN * Lynn Suicide Severity Rating Scale (Screener/Recent Self-Report) Question [...] documented as of this encounter Care Teams Dye Box Operator Relationship Specialty Start Date End Date Kofi Fan MD [address] [place] [address] PCP - General 09/17/13 08/15/24 Fanny Power MD [address] [place] [address] PCP - General Internal Medicine 08/16/24 documented as of this encounter Additional Source Comments The information contained in this document represents components of the legal health record. It is not the complete legal health record.[facility]
== END 2025-02-07 09:59 | disposition home or self-care (01) ==
PROVIDERS: PCP Internal Medicine; Referring Provider Internal Medicine; Visit Provider Nurse Practitioner Family
DX: M43.16 Spondylolisthesis, lumbar region (principal); M51.369 Other intervertebral disc degeneration, lumbar region without mention of lumbar back pain or lower extremity pain; M47.817 Spondylosis without myelopathy or radiculopathy, lumbosacral region; M25.551 Pain in right hip; M25.552 Pain in left hip
CPT/HCPCS: 99204

== ENCOUNTER → 2025-02-07 09:27 | Outpatient (BNVA) | payer MEDICARE, OTHER, SELFPAY | PROVIDERS: PCP Internal Medicine; Referring Provider Internal Medicine; Visit Provider Nurse Practitioner Family | DX: M25.552 Pain in left hip (principal); M25.551 Pain in right hip; M43.16 Spondylolisthesis, lumbar region; M51.369 Other intervertebral disc degeneration, lumbar region without mention of lumbar back pain or lower extremity pain; M47.817 Spondylosis without myelopathy or radiculopathy, lumbosacral region | CPT/HCPCS: 99202 ==

== ENCOUNTER 2025-03-11 09:33 | Outpatient (AMB) | payer MEDICARE, OTHER, SELFPAY ==
--- NOTE | 2025-03-11 09:42 | A.OFFVIS_ITS ---
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 She is a patient of Dr. Fan. She is seen for the following urologic conditions - persistent microscopic hematuria - chronic cystitis - background progressive Parkinson's Follow-up check PVR 0 UA 1+ leuks, 2+ protein otherwise stable Has been on combination methenamine with estradiol and vitamin-C Does have some urgency and frequency Discussed use of OAB medications At this point would prefer to stay with cystitis approach Requests buffered vitamin-C since Has stomach issues Microscopic hematuria Has not seen blood Persistent during evaluations with DRYWALL APPLICATION SUPERVISOR CT reviewed appears normal. Final report pending Office cysto generalized irritation and bladder [facility] Medical History Degenerative disc disease, cervical Pelvic pain Vertigo Mild recurrent major depression Anxiety Spondylolisthesis, lumbar region Migraine headache Hypertension Parkinson disease Surgical History History of facial surgery History of cholecystectomy Family History Father Heart disease Mother No problems noted. Family/Other Breast cancer Social History Housing: House Alcohol intake: never Patient Tobacco Use Status: Never used Tobacco e-Cigarette/Vaping Use: Never Used Second Hand Smoke Exposure: No service: No Current occupational status: retired Cognitive needs: No Hearing needs: No Vision needs: Yes Female Reproductive History Menstrual Age of Menarche: 11 Office Procedures Post Void Residual Post Residual Void Post Void Residual (PVR): 0 84341-Snny Void Residual by ultrasound Results AMB Urinalysis, Automated UA Leukoctes 15 Antionette/uL Last Edit by Felicity Gill [facility] on 03/11/25 10:05 UA Nitrite Negative Last Edit by [facility], [facility] on 03/11/25 10:05 UA Urobilinogen 0.2 mg/dL Last Edit by [facility], [facility] on 03/11/25 10:05 UA Protein 100 mg/dL Last Edit by [facility], [facility] on 03/11/25 10:05 UA pH 6.0 Last Edit by [facility], [facility] on 03/11/25 10:05 UA Blood 0 Nacho/uL Last Edit by [facility], [facility] on 03/11/25 10:05 UA Specific Jbphh 1.020 Last Edit by Felicity Jairo, [facility] on 03/11/25 10:0 5 UA Ketone Positive Last Edit by [facility], [facility] on 03/11/25 10:05 UA Bilirubin 1 mg/dL Last Edit by [facility], [facility] on 03/11/25 10:05 UA Glucose 0 mg/dL Last Edit by [facility], [facility] on 03/11/25 10:05 Results Reviewed Results Reviewed: Laboratory Last Values Urine pH (Auto) 6.0 03/11/25 10:04 Specific Jbphh (Auto) 1.020 03/11/25 10:04 Urine Protein (Auto) 100 mg/dL 03/11/25 10:04 Glucose (UA)(Auto) 0 mg/dL 03/11/25 10:04 Urine Ketones (Auto) Positive 03/11/25 10:04 Urine Blood (Auto) 0 Nacho/uL 03/11/25 10:04 Urine Nitrite (Auto) Negative 03/11/25 10:04 Urine Bilirubin (Auto) 1 mg/dL 03/11/25 10:04 Urine Urobilinogen (Auto) 0.2 mg/dL 03/11/25 10:04 Leukocyte Esterase (Auto) 15 Antionette/uL 03/11/25 10:04 Assessment & Plan Assessment & Plan Orders: Orders AMB Post Void Residual by ultrasound Today N40.1 - Benign prostatic hyperplasia with lower urinary tract symptoms AMB Urinalysis Automated Today N13.8 - Other obstructive and reflux uropathy, N40.1 - Benign prostatic hyperplasia with lower urinary tract symptoms Coding CPT Codes Post Residual Void - PVR CPT Code: 59169-Eaqa Void Residual by ultrasound ([id number])
--- OUTSIDE RECORDS SUMMARY | 2025-03-11 10:19 | XMS_ITS | Encounter Summary ---
Author Organization [employer] [facility] Address [address] [place] [address] Phone Care Team Providers Care General Duty Nurse Name Role Phone Kofi Fan MD Primary Care Provider [phone] Fanny Power MD Primary Care Provid er Reason for Referral * MRI/CAT Scan - Closed Specialty Diagnoses / Procedures Referred By Chandler ayala Referred To Contact Procedures MRI Neck Outside (No Interpretation) System, Provider Not In, PhD [address] [address] Referral ID Status Reason Start Date Expiration Date Visits Re quested Visits Authorized [id number] Closed 12/20/2018 12/20/2019 1 1 Encounter Details Date Type Department Care Team (Late st Contact Info) Description 12/20/2018 Ancillary Orders [facility],Outside Imaging [address] [place], [place] [id number] System, Provider Not In, PhD [address] [address] Social History Tobacco Use Types Packs/Day Years [...] 02/25/2024 02/25/2024 02/25/2024 12:5 2 PM EST Resp-Risk 02/23/2025 02/23/2025 03/06/2025 7:06 PM EST documented as of this encounter Care Teams General Duty Nurse Relationship Specialty Start Date End Date Kofi Fan MD [address] [place] [address] [place] [address] PCP - General 09/17/13 08/15/24 Fanny Power MD [address] [place] [address] PCP - General Internal Medicine 08/16/24 documented as of this encounter Additional Source Comments The information contained in this document represents components of the legal health record. It is not the complete legal health record.[facility]
--- OUTSIDE RECORDS SUMMARY | 2025-03-11 10:19 | XMS_ITS | Encounter Summary ---
Author Organization [facility] Address [address] [place] [address] Phone Care Team Providers Care Stock Dealer Name Role Phone Kofi Fan MD Primary Care Provider [phone] Fanny Power MD Primary Care Provid er Encounter Details Date Type Department Care Team (Late st Contact Info) Description 12/26/2019 Procedure Pass [facility], [address] [address] Social History Tobacco Use Types Packs/Day Years [...] documented as of this encounter Care Teams Stock Dealer Relationship Specialty Start Date End Date Kofi Fan MD [address] [place] [address] PCP - General 09/17/13 08/15/24 Fanny Power MD [address] [place] [address] PCP - General Internal Medicine 08/16/24 documented as of this encounter Additional Source Comments The information contained in this document represents components of the legal health record. It is not the complete legal health record.[facility]
--- OUTSIDE RECORDS SUMMARY | 2025-03-11 10:19 | XMS_ITS | Encounter Summary ---
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 It is not the complete legal health record.[facility]
--- OUTSIDE RECORDS SUMMARY | 2025-03-11 10:19 | XMS_ITS | Clinical Summary ---
Author Organization [facility] Address [address] [place] [address] Phone Care Team Providers Care Wine Consultant Name Role Phone Fanny Power MD Primary Care Provider [phone] Medications acetaminophen (TYLENOL) 325 MG tablet Take [...] age to complete this topic Insurance Medicare [facility] [employer] Care Teams Wine Consultant Relationship Specialty Start Date End Date Fanny Power MD [address] [place], [place] PCP - General Internal Medicine 12/04/24
--- OUTSIDE RECORDS SUMMARY | 2025-03-11 10:19 | XMS_ITS | Encounter Summary ---
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 It is not the complete legal health record.[facility]
--- OUTSIDE RECORDS SUMMARY | 2025-03-11 10:19 | XMS_ITS | Encounter Summary ---
Author Organization [employer] [facility] Address [address] [place] [address] Phone Care Team Providers Care Drier And Evaporator Operator Name Role Phone Kofi Fan MD Primary Care Provider [phone] Fanny Power MD Primary Care Provid er Encounter Details Date Type Department Care Team (Late st Contact Info) Description 11/30/2018 Procedure Pass [facility], [address] [address] Social History Tobacco Use Types Packs/Day Years [...] documented as of this encounter Care Teams Drier And Evaporator Operator Relationship Specialty Start Date End Date Kofi Fan MD [address] [place] [address] [address] PCP - General 09/17/13 08/15/24 Fanny Power MD [address] [place] [address] PCP - General Internal Medicine 08/16/24 documented as of this encounter Additional Source Comments The information contained in this document represents components of the legal health record. It is not the complete legal health record.[facility]
--- OUTSIDE RECORDS SUMMARY | 2025-03-11 10:19 | XMS_ITS | Encounter Summary ---
Author Organization [facility] Address [address] [place] [address] Phone Care Team Providers Care Inspecting Machine Adjuster Name Role Phone Kofi Fan MD Primary Care Provider [phone] Fanny Power MD Primary Care Provid er Reason for Referral * MRI/CAT Scan - Closed Specialty Diagnoses / Procedures Referred By Chandler ayala Referred To Contact Radiology Diagnoses Abnormal reflex Headache, unspecified headache type Parkinson's disease Procedures MRI Brain Walker Barajas MD Phone: tel: fax: [email or web address] Referral ID Status Reason Start Date Expiration Date Visits Re quested Visits Authorized [id number] Closed 12/26/2019 12/25/2020 1 1 Encounter Details Date Type Department Care Team (Late st Contact Info) Description 12/26/2019 Ancillary Orders Virtual Department [address] [place] [address] Walker Barajas MD [address] [place] [address] [email or web address] Abnormal reflex; Headache, unspecified headache type; Parkinson's [...] due to chronic small vessel disease. POS [id number] Narrative 12/29/2019 3:27 PM EDT TECHNIQUE: 1.5 [...] present in the major vessels of the [place] and the dural venous sinuses. [...] present in the major vessels of the [place] the dural venous sinuses. No [...] due to chronic small vessel disease. POS [id number] Walker Barajas MD IM MR HEAD/NECK Final [...] documented as of this encounter Care Teams Inspecting Machine Adjuster Relationship Specialty Start Date End Date Kofi Fan MD [address] [place] [address] PCP - General 09/17/13 08/15/24 Fanny Power MD [address] [place] [address] PCP - General Internal Medicine 08/16/24 documented as of this encounter Additional Source Comments The information contained in this document represents components of the legal health record. It is not the complete legal health record.[facility]
--- OUTSIDE RECORDS SUMMARY | 2025-03-11 10:20 | XMS_ITS | Encounter Summary ---
Author Organization [employer] [facility] Address [address] [place] [address] Phone Care Team Providers Care Relocation Commissioner Name Role Phone Kofi Fan MD Primary Care Provider [phone] Fanny Power MD Primary Care Provid er Encounter Details Date Type Department Care Team (Late st Contact Info) Description 10/29/2021 Procedure Pass [facility], Ct Scan - [address] [address] Social History Tobacco Use Types Packs/Day Years [...] documented as of this encounter Care Teams Relocation Commissioner Relationship Specialty Start Date End Date Kofi Fan MD [address] [place] [address] [address] PCP - General 09/17/13 08/15/24 Fanny Power MD [address] [place] [address] PCP - General Internal Medicine 08/16/24 documented as of this encounter Additional Source Comments The information contained in this document represents components of the legal health record. It is not the complete legal health record.[facility]
--- OUTSIDE RECORDS SUMMARY | 2025-03-11 10:20 | XMS_ITS | Encounter Summary ---
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 It is not the complete legal health record.[facility]
--- OUTSIDE RECORDS SUMMARY | 2025-03-11 10:20 | XMS_ITS | Clinical Summary ---
Author Organization [facility] Address [address] [place] [address] Phone Care Team Providers Care Laboratory Assistant Name Role Phone Fanny Power MD Primary [...] 06/06/19 24 Active Additional Information Patient taking differently: 4 mgOralEvery 4 hours, Reported on 02/23/2025 gabapentin (NEURONTIN) 100 MG capsuleIndications :Nonintractable headache, [...] Active Additional Information Patient not taking.Reported on 02/23/2025 carbidopa-levodopa (SINEMET) 25-100 mg per tabletIndications: parkinsonism [...] dyskinesia, with fluctuating manifestations Take 1 tablet every three hours by mouth daily with adding additional 1/2 tab (1.5 tabs total) to the 5 AM, 2 PM and 8 PM doses 855 tablet 3 07/30/19 25 Active estradioL (ESTRACE) 0.01 % (0.1 mg/gram) vaginal cream Place 2 g vaginally 3 (three) times a week. Active loratadine (CLARITIN) 10 mg tablet Take 10 mg by mouth daily. Active methenamine (HIPREX) 1 gram tablet Take 1 g by mouth daily. 09/09/19 25 Active rasagiline (AZILECT) 0.5 mg tabletIndications: Parkinson's [...] mg Tab Take 250 mg by mouth 2 (two) times a day. 07/31/19 25 Active ascorbic acid, vitamin C, [...] itching (vertigo or dizziness). 02/14/20 24 Active carbidopa-levodopa (SINEMET CR) 25-100 mg per CR tablet Take 1 tablet by mouth 6 (six) times a day. 2am, 6am, 10am, 2pm, 6pm, 10pm Active escitalopram oxalate (LEXAPRO) 5 MG tablet Take 5 mg by mouth daily. 02/02/20 25 Active promethazine (PHENERGAN) 25 MG tablet Take 25 mg by mouth 3 (three) times a day as needed for nausea. Active CARBIDOPA-LEVODOPA ORAL Take 1 tablet by mouth nightly at bedtime. 50-200mg 05/15/19 24 Discontin ued(Error ) Active Problems Problem Noted Date Diagnosed Date Migraines 09/13/2022 Assessment & Plan (09/13/2022 4:04 PM EDT): Chronic history of migraines, follows with neurology for her migraines and Parkinson's disease. She has seen Ever Gerber (sp?) at [facility] for over a dozen years. Patient does [...] will be requested -Check orthostatic vital signs [facility] TELENEUROLOGY RECOMMENDATIONS: Diagnosis: -Stroke labs: (Lipid panel, HgA1c, TSH, ESR, CRP, trop) -Toxic-metabolic encephalopathy workup: UA,UCx,CBC,Utox,Stox, chest x-ray, covid-19 swab-Brain MRI without contrast -Transthoracic echo (TTE) - ok to perform within 1 week as outpatient -Maintain on telemetry, discharge on extended extruding press adjuster (MCOT/ZioPatch) -Caregiver feels facial symmetry at baseline [...] history and risk of extrapyramidal side effects) -NAVY DIVER evaluation Assessment & Plan (10/27/2021 12:39 PM [...] she does follow with Dr. Cochran at [facility] but focused mainly on Parkinsons and she does not feel able to travel to [place] for another provider - for now avoiding [...] Plan (09/13/2022 4:06 PM EDT): Followed by [facility] neurology as above. I have continued her [...] Encounters Date Type Department Care Team Description 03/04/2025 9:44 AM EST - 03/04/2025 11:59 PM EST Hospital Encounter [facility], X-Ray - [address] [address] Diana Zapata, KARLA Discharge Disposition: Home or Self Care 03/04/2025 9:44 AM EST - 03/04/2025 11:59 PM EST Hospital Encounter [address] [address] Diana Zapata, CASCARA BARK CUTTER Discharge Disposition: Home or Self Care 03/03/2025 [facility] [address] [place] [address] Annamaria Wang I, PT NON ADMIT HOME HEALTH VISIT 02/28/2025 [facility] [address] [place] [address] Annamaria Wang I, PT CASE COMMUNICATION 02/27/2025 [facility] [address] [place] [address] Annamaria Wang I, PT CASE COMMUNICATION 02/26/2025 [facility] [address] [place] [address] Deidre Bryant RN CASE COMMUNICATION 02/25/2025 [facility] [address] [place] [address] Annamaria Wang I, PT CASE COMMUNICATION 02/23/2025 2:25 AM EST - 02/23/2025 7:51 PM EST Emergency [facility] [address] [place] [id number] Kamar Navarro, Monika Smith DO Discharge Disposition: Residential Facility 02/23/2025 Orders Only [facility] [address] [place] [address] Homehealth, Interface ProviderMD 02/18/2025 Ancillary Orders [address] [address] Diana Zapata, CASCARA BARK CUTTER Spondylolisthesis, lumbosacral region (Primary Dx); Pain 01/26/2025 6:04 AM EST - 01/26/2025 1:01 PM EST Emergency [facility] [address] [place] [address] Ignacio Leger MD Discharge Disposition: Home or Self Care 01/06/2025 10:26 PM EDT - 01/07/2025 3:45 AM EDT Emergency [facility] [address] [place] [address] Rajesh Green MD Discharge Disposition: Home or Self Care 12/27/2024 5:21 PM EDT - 12/27/2024 11:59 PM EDT Hospital Encounter [facility] Specimen Processing [address] [place] [address] Fanny Power MD Discharge Disposition: Home or Self Care 12/27/2024 Transcribe Orders [facility] Phleb Main [address] [place] [address] Fanny Power MD Dysuria (Primary Dx) 12/19/2024 11:27 PM EDT - 12/20/2024 6:44 AM EDT Emergency [facility] [address] [place] [address] Kings Hanna MD Discharge Disposition: Residential Facility from Last 3 Months Immunizations Immunization Administration Dates Next Due COVID-19 (Pre-01/09) Moderna Vaccine, mRNA, PF 0 05/15/2020 Influenza High-Dose Trivalent Preservative Free IM 04/22/2019 Family History Medical History Relation Comments COPD Brother 1 CV disease Father Heart failure Father Cancer Mother Relation Status Comments Brother 1 Alive Brother 2 Alive [place], Agent O range Father Mother Sister Social [...] as food, clothing, or medical care? No 02/23/2025 In the past 12 months have y ou been in a relationship with a person who hurts, threatens, or tries to control you? No 02/23/2025 Are you denied basic needs s uch as food, clothing, or medical care? No 02/23/2025 In the past 12 months have y ou been in a relationship with a person who hurts, threatens, or tries to control you? No 02/23/2025 Comments No Sex and Gender Information Value [...] Sign Reading Time Taken Comments Blood Pressure 172/101 02/23/2025 6:30 PM EST Pulse 83 02/23/2025 6:30 PM EST Temperature 36 C (96.8 F) 02/23/2025 6:30 PM EST Respiratory Rate 19 02/23/2025 4:14 PM EST Oxygen Saturation 98% 02/23/2025 6:30 PM EST Inhaled Oxygen Concentration - - [...] Procedure Name Priority Date/Time Associated Diagnosis Comments XR LUMBOSACRAL SPINE 2-3 VIEWS Routine 03/04/2025 10:17 AM EST Spondylolisthesis, lumbosacral region XR HIPS 2+ VW EA BILAT PLUS PELVIS Routine 03/04/2025 10:17 AM EST Pain CBC AND DIFFERENTIAL STAT 02/23/2025 2:40 AM EST MAGNESIUM STAT 02/23/2025 2:40 AM EST BASIC METABOLIC PANEL (BMP) STAT 02/23/2025 2:40 AM EST CBC AND DIFFERENTIAL STAT 02/23/2025 2:40 AM EST SARS-COV-2, INFLUENZA A/B, PCR MONICA STAT 02/23/2025 2:37 AM EST COVID PANDEMIC RESPIRATORY VIRAL ORDER (PRO) STAT 02/23/2025 2:37 AM EST TROPONIN STAT 01/26/2025 9:04 AM EST CBC [...] URINE CULTURE Routine 12/27/2024 5:24 PM EDT LIPID PANEL Routine 09/14/2022 5:57 AM EDT from Last 3 Months or Most Recently Relevant to Health Maintenance Results * XR LUMBOSACRAL SPINE 2-3 VIEWS (03/04/2025 10:17 AM EST) Anatomical Region Laterality Modality L-spine Computed Radiogr aphy 03/04/2025 12:4 0 PM EST Impressions 03/04/2025 12:42 PM EST No evidence of acute fracture or malalignment. Stable grade 1 anterolisthesis of L4 on L5. Lower lumbar facet arthropathy. Narrative 03/04/2025 12:42 PM EST XR LUMBOSACRAL SPINE 2-3 VIEWS 03/04/2025 9:54 AM Referring clinician's provided indication for this examination in [facility]: spondylolisthesis COMPARISON: CT abdomen and pelvis 02/25/2024 FINDINGS: There is no evidence of acute fracture or malalignment. There is stable grade 1 anterolisthesis of L4 on L5 measuring 5 mm. There is no significant anterior degenerative endplate marginal osteophytosis or loss of disc space height. There is degenerative change of the lower lumbar facet joints. There is mild degenerative change of the sacroiliac joints. There are surgical clips projecting over the right upper abdominal quadrant compatible with history of cholecystectomy. There is a metallic density projecting over the pelvis compatible with a zipper. Procedure Note Kanika Winter MD - 03/04/2025 XR LUMBOSACRAL SPINE 2-3 VIEWS 03/04/2025 9:54 AM Referring clinician's provided indication for this examination in [facility]:spondylolisthesis COMPARISON: CT abdomen and pelvis 02/25/2024 FINDINGS: There is no evidence of acute fracture or malalignment. There is stablegrade 1 anterolisthesis of L4 on L5 measuring 5 mm. There is nosignificant anterior degenerative endplate marginal osteophytosis or lossof disc space height. There is degenerative change of the lower lumbarfacet joints. There is mild degenerative change of the sacroiliac joints.There are surgical clips projecting over the right upper abdominalquadrant compatible with history of cholecystectomy. There is a metallicdensity projecting over the pelvis compatible with a zipper. IMPRESSION: No evidence of acute fracture or malalignment. Stable grade 1anterolisthesis of L4 on L5. Lower lumbar facet arthropathy. Diana Zapata CASCARA BARK CUTTER IMG XR SPINE Final Resul t * XR HIPS 2+ VW EA BILAT PLUS PELVIS (03/04/2025 10:17 AM EST) Anatomical Region Laterality Modality Hip, Pelvis Computed Radiogr aphy 03/04/2025 12:3 7 PM EST Impressions 03/04/2025 12:39 PM EST FINDINGS/IMPRESSION: There is no evidence of acute fracture, subluxation, or dislocation. There is mild degenerative change of the hips, sacroiliac joints, and symphysis pubis. There is a metallic density projecting over the sacrum compatible with a zipper. Narrative 03/04/2025 12:39 PM EST XR HIPS 2+ VW EA BILAT PLUS PELVIS 03/04/2025 9:54 AM Referring clinician's provided indication for this examination in [facility]: Pain COMPARISON: Pelvis/bilateral hip radiographs 10/13/2024 Procedure Note Kanika Winter MD - 03/04/2025 XR HIPS 2+ VW EA BILAT PLUS PELVIS 03/04/2025 9:54 AM Referring clinician's provided indication for this examination in [facility]:Pain COMPARISON: Pelvis/bilateral hip radiographs 10/13/2024 IMPRESSION: FINDINGS/IMPRESSION: There is no evidence of acute fracture, subluxation, or dislocation. Thereis mild degenerative change of the hips, sacroiliac joints, and symphysispubis. There is a metallic density projecting over the sacrum compatiblewith a zipper. Diana Zapata CASCARA BARK CUTTER IMG XR PELVIS Final Resul t * (ABNORMAL) CBC and Differential (02/23/2025 2:40 AM EST) Only the most recent of2 resultswithin the time period is included. WBC 4.18 4.00 - 11.00 K/uL 02/23/2025 2:52 AM EST [facility] RBC 3.71(L) 4.00 - 5.20 M/uL 02/23/2025 2:52 AM [facility] Hemoglobin 11.9(L) 12.0 - 16.0 g/dL 02/23/2025 2:52 AM [facility] Hematocrit 36.0 36.0 - 46.0 % 02/23/2025 2:52 AM [facility] MCV 97.0 80.0 - 100.0 fL 02/23/2025 2:52 AM [facility] MCH 32.1(H) 27.0 - 31.0 pg 02/23/2025 2:52 AM [facility] MCHC 33.1 32.0 - 36.0 g/dL 02/23/2025 2:52 AM [facility] MPV 10.3 8.4 - 12.0 fL 02/23/2025 2:52 AM [facility] RDW-CV 11.7 11.5 - 14.5 % 02/23/2025 2:52 AM [facility] PLT 210 150 - 450 K/uL 02/23/2025 2:52 AM [facility] Neutrophils 53.9 % 02/23/2025 2:52 AM [facility] Lymphocytes 31.1 % 02/23/2025 2:52 AM [facility] Monocytes 11.0 % 02/23/2025 2:52 AM [facility] Eosinophils 3.1 % 02/23/2025 2:52 AM [facility] Basophils 0.7 % 02/23/2025 2:52 AM [facility] Imm Grans 0.2 % 02/23/2025 2:52 AM [facility] NRBC 0.0 <=0.0 /100 WBCs 02/23/2025 2:52 AM [facility] Absolute Neutrophils 2.25 1.92 - 7.60 K/uL 02/23/2025 2:52 AM [facility] Absolute Lymphocytes 1.30 0.72 - 4.10 K/uL 02/23/2025 2:52 AM [facility] Absolute Monocytes 0.46 0.16 - 1.10 K/uL 02/23/2025 2:52 AM [facility] Absolute Eosinophils 0.13 0.00 - 0.50 K/uL 02/23/2025 2:52 AM [facility] Absolute Basophils 0.03 0.00 - 0.15 K/uL 02/23/2025 2:52 AM [facility] Absolute Imm Grans 0.01 0.00 - 0.09 K/uL 02/23/2025 2:52 AM [facility] Absolute NRBC 0.00 <=0.00 K cells/uL 02/23/2025 2:52 AM [facility] Absolute Neutrophils 2.25 1.92 - 7.60 K/uL 02/23/2025 2:52 AM [facility] Comment:Automated cell count . Manual ANC may differ if performed. Diff Type Auto 02/23/2025 2:52 AM [facility] Blood (Blood) Venipuncture / Unknown 02/23/2025 2:40 AM EST 02/23/2025 2:43 AM EST us Jelli DO LAB BLOOD BKR ORDERABLES Velma l Result Performing Organization Address City/[facility]/ZIP Co de Phone Number [address] [address] * Magnesium (02/23/2025 2:40 AM EST) Only the most recent of2 resultswithin the time period is included. Pathologist [facility] Magnesium 2.1 1.7 - 2.6 mg/dL 02/23/2025 3:10 AM [facility] Blood (Blood) Venipuncture / Unknown 02/23/2025 2:40 AM EST 02/23/2025 2:43 AM EST us Jelli DO LAB BLOOD BKR ORDERABLES Velma l Result Performing Organization Address City/[facility]/ZIP Co de Phone Number [address] [address] * Basic Metabolic Panel (BMP) (02/23/2025 2:40 AM EST) Only the most recent of3 resultswithin the time period is included. Sodium 141 136 - 145 mmol/L 02/23/2025 3:10 AM [facility] Potassium 3.5 3.4 - 5.1 mmol/L 02/23/2025 3:10 AM [facility] Chloride 104 98 - 107 mmol/L 02/23/2025 3:10 AM [facility] CO2 27 20 - 31 mmol/L 02/23/2025 3:10 AM [facility] BUN 19 6 - 23 mg/dL 02/23/2025 3:10 AM [facility] Creatinine 0.70 0.50 - 1.00 mg/dL 02/23/2025 3:10 AM [facility] Glucose 98 70 - 99 mg/dL 02/23/2025 3:10 AM [facility] Calcium 9.4 8.5 - 10.5 mg/dL 02/23/2025 3:10 AM [facility] eGFR 89 >59 mL/min/1.7 3m2 02/23/2025 3:10 AM [facility] Comment:Estimated glomerular filtration rate calculated using the CKD-EPI refit equation. Anion Gap 10 3 - 17 mmol/L 02/23/2025 3:10 AM [facility] Blood (Blood) Venipuncture / Unknown 02/23/2025 2:40 AM EST 02/23/2025 2:43 AM EST us Kamar Navarro DO LAB BLOOD BKR ORDERABLES Velma l Result [facility] [address] [place] [address] * SARS-CoV-2, INFLUENZA A/B, PCR (02/23/2025 2:37 AM EST) SARS-CoV-2 RNA PCR Not Detected Not Detected 02/23/2025 3:13 AM [facility] Influenza A PCR Not Detected Not Detected 02/23/2025 3:13 AM [facility] Influenza B PCR Not Detected Not Detected 02/23/2025 3:13 AM [facility] Swab (Nasopharynx, Bilateral) Non-Blood Collection / Unknown 02/23/2025 2:37 AM EST 02/23/2025 2:40 AM EST us Kamar Navarro DO LAB GENERAL ORDERABLES Final Result Performing Organization Address [facility] Co de Phone Number [address] [address] * Symptomatic Respiratory Virus Testing Panel (ED/IP) (02/23/2025 2:37 AM EST) Pathologist [facility] SARS Comment 02/23/2025 2:51 AM EST [facility] Comment:This test automatica lly orders a COVID-19 PCR and may add Flu, RSV, or other viral tests based on patient clinical factors and site protocols. Results will appear below and separately in chart review when available. Swab (Nasopharynx, Bilateral) Non-Blood Collection / Unknown 02/23/2025 2:37 AM EST 02/23/2025 2:40 AM EST us Kamar Navarro DO LAB GENERAL ORDERABLES Final Result Performing Organization Address [facility] de Phone Number [address] [address] * (ABNORMAL) Troponin (01/26/2025 9:04 AM EST) Only the most recent of2 resultswithin the time period is included. [facility] Troponin-T HS Gen5 17(H) 0 - 9 ng/L 01/26/2025 9:38 AM EST [facility] Blood (Blood) Venipuncture / Unknown 01/26/2025 9:04 AM EST 01/26/2025 9:12 AM EST us Ignacio Leger MD LAB BLOOD BKR ORDERABLES Final Result Performing Organization Address [facility] Co de Phone Number [address] [address] * Hepatic Panel (LFTs) (01/26/2025 8:07 AM EST) Only the most recent of2 resultswithin the time period is included. AST 12 <33 U/L 01/26/2025 9:24 AM [facility] ALT <5 <34 U/L 01/26/2025 9:24 AM [facility] Alkaline Phosphatase 86 40 - 130 U/L 01/26/2025 9:24 AM [facility] Bilirubin, Total 0.6 0.0 - 1.2 mg/dL 01/26/2025 9:24 AM [facility] Bilirubin, Direct 0.2 0.0 - 0.3 mg/dL 01/26/2025 9:24 AM [facility] Total Protein 6.6 6.4 - 8.3 g/dL 01/26/2025 9:24 AM [facility] Albumin 4.2 3.5 - 5.2 g/dL 01/26/2025 9:24 AM [facility] Globulin 2.4 1.9 - 4.1 g/dL 01/26/2025 9:24 AM [facility] Blood (Blood) Venipuncture / Unknown 01/26/2025 8:07 AM EST 01/26/2025 8:20 AM EST us Ignacio Leger MD LAB BLOOD BKR ORDERABLES Final Result [address] [address] * NT-proBNP (01/26/2025 8:07 AM EST) NT-ProBNP 95 0 - 1,800 pg/mL 01/26/2025 9:10 AM [facility] Comment: Age <50 years: 0-450 pg/ml Age [...] BKR ORDERABLES Final Result Performing Organization Address City/State/[facility] Co de Phone Number [address] [address] * XR Chest Portable (01/26/2025 7:57 AM EST) Anatomical Region Laterality Modality Chest Computed Radiogr aphy 01/26/2025 9:12 AM EST Impressions 01/26/2025 9:52 AM EST No acute abnormality. ATTESTATION: Jackie Whitten as teaching physician, have reviewed the images for this case and if necessary edited the report originally created by Krish Valero. Narrative 01/26/2025 9:52 AM EST XR CHEST PORTABLE Referring clinician's provided indication for this examination in [facility]: Fatigue COMPARISON: XR CHEST PA AND LATERAL 2 VIEWS FINDINGS: Devices/Tubes/Lines: None. Lungs: No focal consolidation or pulmonary edema. Pleura: No pleural effusion or pneumothorax. Heart/Mediastinum: Unchanged in appearance. Bones/Soft Tissues: No significant abnormality. Procedure Note Jackie Mccracken MD - 01/26/2025 XR CHEST PORTABLE Referring clinician's provided indication for this examination in [facility]:Fatigue COMPARISON: XR CHEST PA AND LATERAL 2 VIEWS FINDINGS: Devices/Tubes/Lines: None. Lungs: No focal consolidation or pulmonary edema. Pleura: No pleural effusion or pneumothorax. Heart/Mediastinum: Unchanged in appearance. Bones/Soft Tissues: No significant abnormality. IMPRESSION: No acute abnormality. ATTESTATION: Jackie Whitten as teaching physician, have reviewed theimages for this case and if necessary edited the report originally createdby Krish Valero. us Ignacio Leger MD IMG XR CHEST Final Result * ECG 12-LEAD (01/26/2025 6:22 AM EST) Only the most recent of2 resultswithin the time period is included. [facility] Ventricular Rate EKG/MIN 63 BPM [facility] Atrial Rate 63 BPM [facility] DE Interval 162 ms [facility] QRS Duration 86 ms [facility] QT Interval 408 ms [facility] QTC Interval 417 ms [facility] P [place] 75 degrees [facility] R Wave [place] 56 degrees [facility] T Wave [place] 61 degrees [facility] 01/26/2025 6:22 AM EST 01/26/2025 11:40 AM EST Narrative [facility] - 01/26/2025 11:40 AM EST Normal sinus rhythm Normal ECG When compared with ECG of 06-Jan-2025 22:00, QRS axis Shifted left Confirmed by Alfonzo NAIK ([id number]) on 01/26/2025 11:40:32 AM Ignacio Leger MD ECG ORDERABLES Final Result Performing Organization Address City/[facility]/ZIP Co de Phone Number [email or web address] * Blood Culture, Routine (01/06/2025 9:50 PM EDT) Only the most recent of2 resultswithin the time period is included. [facility] Special Requests None 01/06/2025 8:12 PM EDT [facility] BLOOD CULTURE NO GROWTH 5 DAYS 01/11/2025 10:18 PM EDT [facility] Blood (Blood) 01/06/2025 9:5 0 PM EDT 01/06/2025 10:01 PM EDT Donn Zamora MD LAB MICROBIOLOGY CULTURE O RDERABLES Final Result [facility] [address] [place] [address] * PT-INR (01/06/2025 9:50 PM EDT) [facility] PT 11.2 10.2 - 12.9 sec [facility] INR 0.9 0.9 - 1.1 [facility] Comment:Therapeutic range fo r oral Vitamin K antagonists: 2.0-3.5 Blood 01/06/2025 9:50 PM EDT 01/06/2025 9:57 PM EDT us Donn Zamora MD LAB BLOOD BKR ORDERABLES F inal Result [address] [address] * (ABNORMAL) CBC and differential (01/06/2025 9:50 PM EDT) WBC 6.23 4.00 - 11.00 K/uL [facility] RBC 3.67(L) 4.00 - 5.20 M/uL [facility] HGB 11.9(L) 12.0 - 16.0 g/dL [facility] HCT 36.2 36.0 - 46.0 % [facility] PLT 276 150 - 450 K/uL [facility] MCV 98.6 80.0 - 100.0 fL [facility] MCH 32.4(H) 27.0 - 31.0 pg [facility] MCHC 32.9 32.0 - 36.0 g/dL [facility] RDW 12.2 11.5 - 14.5 % [facility] MPV 10.0 8.4 - 12.0 fL [facility] NRBC 0.00 0.00 /100 WBCs [facility] ABSOLUTE NRBC 0.00 0.00 K/uL [facility] DIFF METHOD Auto [facility] NEUTS 58.9 48.0 - 76.0 % [facility] LYMPHS 26.6 18.0 - 41.0 % [facility] MONOS 11.6(H) 4.0 - 11.0 % [facility] EOS 1.9 0.0 - 5.0 % [facility] BASOS 0.5 0.0 - 1.5 % [facility] Granulocytes, immature (%) 0.5 0.0 - 0.9 % [facility] ABSOLUTE NEUTS 3.67 1.92 - 7.60 K/uL [facility] ABSOLUTE LYMPHS 1.66 0.72 - 4.10 K/uL [facility] ABSOLUTE MONOS 0.72 0.16 - 1.10 K/uL [facility] ABSOLUTE EOS 0.12 0.00 - 0.50 K/uL [facility] ABSOLUTE BASOS 0.03 0.00 - 0.15 K/uL [facility] Granulocytes, immature 0.03 0.00 - 0.09 K/uL [facility] Blood 01/06/2025 9:50 PM EDT 01/06/2025 9:57 PM EDT Donn Zamora MD LAB BLOOD BKR ORDERABLES F inal Result Performing Organization Address City/[facility]/ZIP Co de Phone Number [address] [address] * Lipase (01/06/2025 9:50 PM EDT) LIPASE 46 16 - 63 U/L [facility] Blood 01/06/2025 9:50 PM EDT 01/06/2025 9:57 PM EDT Donn Zamora MD LAB BLOOD BKR ORDERABLES F inal Result Performing Organization Address [facility]/ZIP Co de Phone Number [address] [address] * Lactate (01/06/2025 9:50 PM EDT) LACTATE 0.80 0.50 - 2.20 mmol/L [facility] Blood 01/06/2025 9:50 PM EDT 01/06/2025 9:57 PM EDT Donn Zamora MD LAB BLOOD BKR ORDERABLES F inal Result Performing Organization Address [facility]/ZIP Co de Phone Number [address] [address] * (ABNORMAL) Urinalysis w/reflex Urine Culture (01/06/2025 8:33 PM EDT) Only the most recent of2 resultswithin the time period is included. COLOR Yellow Yellow [facility] CLARITY Clear [facility] GLUCOSE Negative Negative [facility] BILI Negative Negative [facility] KETONES Negative Negative [facility] SPECIFIC GRAVITY 1.010 1.005 - 1.030 [facility] BLOOD 1+(A) Negative [facility] PH 6.0 5.0 - 8.0 [facility] Protein-UA Negative Negative [facility] NITRITE Negative Negative [facility] Leukocyte esterase, ur Negative Negative [facility] Urine (Urine) 01/06/2025 8:3 3 PM EDT 01/06/2025 8:39 PM EDT Donn Zamora MD LAB URINE ORDERABLES Final Result Performing Organization Address [facility]/ZIP Co de Phone Number [address] [address] * (ABNORMAL) Urine sediment (01/06/2025 8:33 PM EDT) Only the most recent of2 resultswithin the time period is included. WBC 0-4(A) NONE SEEN /hpf [facility] RBC 3-5(A) NONE SEEN /hpf [facility] URINE EPITHELIAL NONE SEEN NONE SEEN [facility] MUCUS NONE SEEN NONE SEEN /hpf [facility] BACTERIA NONE SEEN NONE SEEN /hpf [facility] 01/06/2025 8:33 PM EDT 01/06/2025 8:39 PM EDT Donn Zamora MD LAB URINE ORDERABLES Final Result Performing Organization Address City/[facility]/ZIP Co de Phone Number [address] [address] * (ABNORMAL) Urine Culture (12/27/2024 5:24 PM EDT) Special Requests None Reflexed from [id number] 12/27/2024 5:59 PM EDT [facility] Urine Culture 10,000 to 100,000 colony forming units per mL MIXED CODY (3 OR MORE COLONY TYPES) Culture indicates contamination . Please resubmit if necessary.(A) 12/28/2024 8:08 AM EDT [facility] Urine 12/27/2024 5:24 PM EDT 12/27/2024 5:46 PM EDT us Fanny Clayton MD LAB MICROBIOLOGY CUL TURE ORDERABLES Final Result Performing Organization Address [facility] Co de Phone Number [address] [address] * (ABNORMAL) Lipid panel (09/14/2022 5:57 AM EDT) HDL 82 mg/dL [facility] Comment: Interpretation <40 mg/dL: Low HDL cholesterol (major risk factor for CHD) Greater than or equal to 60 mg/dL: High HDL cholesterol ( negative risk factor for CHD) HDL - cholesterol is affected by a number of factors, e.g. smoking, excerise, hormones, sex and age. CHOLESTEROL 178 0 - 240 mg/dL [facility] TRIGLYCERIDES 43 30 - 160 mg/dL [facility] LDL 87 50 - 129 mg/dL [facility] Comment: LDL levels in terms of risk for coronary heart disease: <100 mg/dL: Optimal 100-129 mg/dL: Near or above optimal 130-159 mg/dL: Borderline high 160-189 mg/dL: High >190 mg/dL: Very High CARDIAC RISK RATIO 2.2(L) 3.3 - 4.4 C [facility] Blood 09/14/2022 5:57 AM EDT 09/14/2022 6:37 AM EDT us Noreen WALKER LAB BLOOD BKR ORDERABLES Velma l Result Performing Organization Address City/[facility]/ZIP Co de Phone Number [address] [address] from Last 3 Months or Most Recently Relevant to Health Maintenance [place] [id number] MEDICARE PART A & B [employer] MEDICARE SUPPLEMENT Felecia [place] [id number] MEDICARE PART A & B [employer] MEDICARE SUPPLEMENT MEDICARE PART A & B [facility] MEDICARE SUPPLEMENT MEDICARE PART A & B [facility] [place] [id number] [place] [id number] MEDICARE PART A & B [facility] MEDICARE SUPPLEMENT MEDICARE PART A & B [employer] MEDICARE SUPPLEMENT MEDICARE PART A & B [employer] MEDICARE SUPPLEMENT Felecia Óscar Roche [place] [facility]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
--- OUTSIDE RECORDS SUMMARY | 2025-03-11 10:20 | XMS_ITS | Encounter Summary ---
Author Organization [employer] [facility] Address [address] [place] [address] Phone Care Team Providers Care Residential Building Inspector Name Role Phone Kofi Fan MD Primary Care Provider [phone] Fanny Power MD Primary Care Provid er Encounter Details Date Type Department Care Team (Late st Contact Info) Description 05/11/2021 Procedure Pass [facility], Ct Scan - [address] [address] Social History Tobacco Use Types Packs/Day Years [...] documented as of this encounter Care Teams Residential Building Inspector Relationship Specialty Start Date End Date Kofi Fan MD [address] [place] [address] [address] PCP - General 09/17/13 08/15/24 Fanny Power MD [address] [place] [address] PCP - General Internal Medicine 08/16/24 documented as of this encounter Additional Source Comments The information contained in this document represents components of the legal health record. It is not the complete legal health record.[facility]
--- OUTSIDE RECORDS SUMMARY | 2025-03-11 10:20 | XMS_ITS | Encounter Summary ---
Author Organization [facility] Address [address] [place] [address] Phone Care Team Providers Care Stablehand Name Role Phone Kofi Fan MD Primary Care Provider Fanny Power MD Primary Care Provid er Encounter Details Date Type Department Care Team (Late st Contact Info) Description 11/05/2021 Telephone [facility] [address] [place] [address], 8th Floor, [address] [place] [address] Ever Cochran MD [address] [place], [place] [id number] [place] [address] [email or web address] Social History Tobacco Use Types Packs/Day Years [...] documented as of this encounter Care Teams Stablehand Relationship Specialty Start Date End Date Kofi Fan MD [address] [place] [address] [address] PCP - General 09/17/13 08/15/24 Fanny Power MD [address] [place] [address] PCP - General Internal Medicine 08/16/24 documented as of this encounter Additional Source Comments The information contained in this document represents components of the legal health record. It is not the complete legal health record.[facility]
--- OUTSIDE RECORDS SUMMARY | 2025-03-11 10:20 | XMS_ITS | Encounter Summary ---
Author Organization [facility] Address [address] [place] [address] Phone Care Team Providers Care Automobile Parker Name Role Phone Kofi Fan MD Primary Care Provider [phone] Fanny Power MD Primary Care Provid er Encounter Details Date Type Department Care Team (Late st Contact Info) Description 02/25/2024 Procedure Pass [facility], Ct Scan - [address] [address] Social History Tobacco Use Types Packs/Day Years [...] you interested in more education? Not on cardiad e 07/14/2022 Are you concerned about learning? 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 It is not the complete legal health record.[facility]
--- OUTSIDE RECORDS SUMMARY | 2025-03-11 10:20 | XMS_ITS | Encounter Summary ---
Author Organization [employer] [facility] Address [address] [place] [address] Phone Care Team Providers Care Profiling Machine Set Up Operator Tool Name Role Phone Kofi Fan MD Primary Care Provider [phone] Fanny Pwoer MD Primary Care Provid er Encounter Details Date Type Department Care Team (Late st Contact Info) Description 11/30/2018 Ancillary Orders [facility], X-Ray - [address] [address] Walker Barajas MD [address] [place] [address] [email or web address] Cervicalgia; Spondylosis of cervical region without [...] documented as of this encounter Care Teams Profiling Machine Set Up Operator Tool Relationship Specialty Start Date End Date Kofi Fan MD [address] [place] [address] [address] PCP - General 09/17/13 08/15/24 Fanny Power MD [address] [place] [address] PCP - General Internal Medicine 08/16/24 documented as of this encounter Additional Source Comments The information contained in this document represents components of the legal health record. It is not the complete legal health record.[facility]
--- OUTSIDE RECORDS SUMMARY | 2025-03-11 10:20 | XMS_ITS | Encounter Summary ---
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 It is not the complete legal health record.[facility]
--- OUTSIDE RECORDS SUMMARY | 2025-03-11 10:20 | XMS_ITS | Encounter Summary ---
Author Organization [facility] Address [address] [place] [address] Phone Care Team Providers Care Boarding House Cook Name Role Phone Fanny Power MD Primary Care Provid er Encounter Details Date Type Department Care Team (Late st Contact Info) Description 02/18/2025 Ancillary Orders [facility], X-Ray - [facility] [address] [place] [address] Diana Zapata, [facility] [address] [place] [address] Spondylolisthesis, lumbosacral region (Primary Dx); Pain Social History Tobacco Use Types Packs/Day Years [...] 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 Lower lumbar facet arthropathy. Diana Zapata PROPERTY CLAIM REP IMG XR SPINE Final Resul t * [...] clinician's provided indication for this examination in [facility]: Pain COMPARISON: Pelvis/bilateral hip radiographs 10/13/2024 Procedure Note Kanika Winter MD - 03/04/2025 XR HIPS 2+ VW EA BILAT PLUS PELVIS 03/04/2025 9:54 AM Referring clinician's provided indication for this examination in [facility]:Pain COMPARISON: Pelvis/bilateral hip radiographs 10/13/2024 IMPRESSION: FINDINGS/IMPRESSION: There is no evidence of acute fracture, subluxation, or dislocation. Thereis mild degenerative change of the hips, sacroiliac joints, and symphysispubis. There is a metallic density projecting over the sacrum compatiblewith a zipper. Diana Zapata PROPERTY CLAIM REP IMG XR PELVIS Final Resul t documented in this encounter Visit Diagnoses Diagnosis Spondylolisthesis, lumbosacral region- Primary Pain Generalized pain Pain Generalized pain Spondylolisthesis, lumbosacral region documented in this encounter Additional Health Concerns Infection Onset Date Last Indicated Resolved Time Resp-Risk 02/23/2025 02/23/2025 03/06/2025 7:06 PM EST documented as of this encounter Care Teams Boarding House Cook Relationship Specialty Start Date End Date Fanny Power MD [address] [place] [address] PCP - General Internal Medicine 08/16/24 documented as of this encounter Additional Source Comments The information contained in this document represents components of the legal health record. It is not the complete legal health record.[facility]
--- OUTSIDE RECORDS SUMMARY | 2025-03-11 10:20 | XMS_ITS | Encounter Summary ---
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 It is not the complete legal health record.[facility]
--- OUTSIDE RECORDS SUMMARY | 2025-03-11 10:20 | XMS_ITS | Encounter Summary ---
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 It is not the complete legal health record.[facility]
--- OUTSIDE RECORDS SUMMARY | 2025-03-11 10:20 | XMS_ITS | Encounter Summary ---
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 It is not the complete legal health record.[facility]
--- OUTSIDE RECORDS SUMMARY | 2025-03-11 10:20 | XMS_ITS | Encounter Summary ---
Author Organization [facility] Address [address] [place] [address] Phone Care Team Providers Care Wash Helper Name Role Phone Kofi Fan MD Primary Care Provider [phone] Fanny Power MD Primary Care Provid er Reason for Referral * MRI/CAT Scan - Closed Specialty Diagnoses / Procedures Referred By Chandler ayala Referred To Contact Radiology Diagnoses Cervicalgia Procedures MRI Cervical Spine Walker Barajas MD Phone: tel: fax: [email or web address] Referral ID Status Reason Start Date Expiration Date Visits Re quested Visits Authorized [id number] Closed 11/30/2018 11/30/2019 1 1 Encounter Details Date Type Department Care Team (Late st Contact Info) Description 11/30/2018 Ancillary Orders Virtual Department [address] [place] [address] Walker Barajas MD [address] [place] [address] [email or web address] Cervicalgia Social History Tobacco Use Types Packs/Day [...] protrusion or central canal stenosis. POS - [id number] Narrative 12/13/2018 9:52 AM EDT COMPARISON:11/30/2018 radiographs. [...] protrusion or central canal stenosis. POS - [id number] us Wakler Barajas MD IMG MR XSPECIALTY Edite d [...] documented as of this encounter Care Teams Wash Helper Relationship Specialty Start Date End Date Kofi Fan MD [address] [place] [address] PCP - General 09/17/13 08/15/24 Fanny Power MD [address] [place] [address] PCP - General Internal Medicine 08/16/24 documented as of this encounter Additional Source Comments The information contained in this document represents components of the legal health record. It is not the complete legal health record.[facility]
--- OUTSIDE RECORDS SUMMARY | 2025-03-11 10:20 | XMS_ITS | Encounter Summary ---
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 It is not the complete legal health record.[facility]
--- OUTSIDE RECORDS SUMMARY | 2025-03-11 10:20 | XMS_ITS | Encounter Summary ---
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 It is not the complete legal health record.[facility]
--- OUTSIDE RECORDS SUMMARY | 2025-03-11 10:20 | XMS_ITS | Encounter Summary ---
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 It is not the complete legal health record.[facility]
--- OUTSIDE RECORDS SUMMARY | 2025-03-11 10:21 | XMS_ITS | Encounter Summary ---
Author Organization [employer] [facility] Address [address] [place] [address] Phone Care Team Providers Care Distributing Clerk Name Role Phone Kofi Fan MD Primary Care Provider [phone] Fanny Power MD Primary Care Provid er Encounter Details Date Type Department Care Team (Late st Contact Info) Description 04/15/2022 Procedure Pass [facility], Ct Scan - [address] [address] Social History Tobacco Use Types Packs/Day Years [...] documented as of this encounter Care Teams Distributing Clerk Relationship Specialty Start Date End Date Kofi Fan MD [address] [place] [address] [address] PCP - General 09/17/13 08/15/24 Fanny Power MD [address] [place] [address] PCP - General Internal Medicine 08/16/24 documented as of this encounter Additional Source Comments The information contained in this document represents components of the legal health record. It is not the complete legal health record.[facility]
--- OUTSIDE RECORDS SUMMARY | 2025-03-11 10:21 | XMS_ITS | Encounter Summary ---
Author Organization [employer] [facility] Address [email or web address] [place] [address] Phone Care Team Providers Care Abstract Clerk Name Role Phone Kofi Fan MD Primary Care Provider [phone] Fanny Power MD Primary Care Provid er Encounter Details Date Type Department Care Team (Late st Contact Info) Description 06/03/2022 Procedure Pass [facility], Ct Scan - [address] [address] Social History Tobacco Use Types Packs/Day Years [...] documented as of this encounter Care Teams Abstract Clerk Relationship Specialty Start Date End Date Kofi Fan MD [address] [place] [address] [address] PCP - General 09/17/13 08/15/24 Fanny Power MD [address] [place] [id number] PCP - General Internal Medicine 08/16/24 documented as of this encounter Additional Source Comments The information contained in this document represents components of the legal health record. It is not the complete legal health record.[facility]
--- OUTSIDE RECORDS SUMMARY | 2025-03-11 10:21 | XMS_ITS | Encounter Summary ---
Author Organization [email or web address] [facility] Address [address] [place] [address] Phone Care Team Providers Care Fire Control Mechanic Name Role Phone Kofi Fan MD Primary Care Provider [phone] Fanny Power MD Primary Care Provid er Encounter Details Date Type Department Care Team (Late st Contact Info) Description 12/20/2018 Procedure Pass [facility],Outside Imaging [address] [place] [address] Social History Tobacco Use Types Packs/Day Years [...] documented as of this encounter Care Teams Fire Control Mechanic Relationship Specialty Start Date End Date Kofi Fan MD [address] [place] [address] PCP - General 09/17/13 08/15/24 Fanny Power MD [address] [place] [address] PCP - General Internal Medicine 08/16/24 documented as of this encounter Additional Source Comments The information contained in this document represents components of the legal health record. It is not the complete legal health record.[facility]
--- OUTSIDE RECORDS SUMMARY | 2025-03-11 10:21 | XMS_ITS | Patient Health Record ---
Author Organization [facility] Address [address] [place] [address] Care Team Providers Care Electrical Software Engineer Name Role Phone Mita GUILLEN, Kofi Primary Care Provider Chaitanya Steven Unavailable [phone] Reason For Referral No Information Plan Of Treatment No Information Insurance Providers Payer Name Payer Address Payer Phone Subscriber Number Group Number Insured Name Patient Relationship to Insured Coverage Start Date Coverage End Date MEDICARE OF [place] [address] [place] [address] [id number] Self - patient is the insured [facility] [address] [place] [address] [id number] LEI SABIHA Self - patient is the insured
== END 2025-03-11 10:34 | disposition home or self-care (01) ==
LOC: HO.HUSH 09:33
PROVIDERS: PCP Internal Medicine; Visit Provider Urology
DX: N40.1 Benign prostatic hyperplasia with lower urinary tract symptoms (principal); N13.8 Other obstructive and reflux uropathy

== ENCOUNTER → 2025-03-11 09:33 | Outpatient (BNVA) | payer MEDICARE, OTHER, SELFPAY | PROVIDERS: PCP Internal Medicine; Visit Provider Urology | DX: R31.29 Other microscopic hematuria (principal); R39.15 Urgency of urination; N30.20 Other chronic cystitis without hematuria | CPT/HCPCS: 51798; 81003; 99212 ==